=== PATIENT | male | born 1940 | race Caucasian/White ===

== ENCOUNTER 2016-12-19 05:32 | Day surgery (SDC) | payer MEDICARE, OTHER ==
[~2016-12-19] VITALS: Ht 180.3 cm; Wt 105.2 kg
[~2016-12-19 05:32] MED LIST: ALBU8.5H2 IH; ASPI-973 PO; Clindamycin 600 mg/50 mL D5W IV ONE; ENAL20TA PO; FURO-128 PO; ISOS30TA4 PO; LEVO50TA6 PO; LIP40 PO; Lactated Ringer's 1,000 ML IV SCH; METO-274 PO; PRAM0.5T3 PO; PRE20 PO; RANI150C4 PO; SPIR25TA3 PO; SYMINH IH; TIOT18CA3 IH
[2016-12-19] MEDS ORDERED: Ondansetron 2 mg/mL 2 mL Inj ONE (05:33)
[2016-12-19] MEDS ORDERED: Propofol 10,000 mCg/mL 20 mL Inj ONE (05:33)
[2016-12-19] MEDS ORDERED: MetoCLOpramide 5 mg/mL 2 mL Inj ONE (05:33)
[2016-12-19] MEDS ORDERED: Clindamycin 600 mg/50 mL D5W Premix IV ONE (05:40)
[2016-12-19] MEDS ORDERED: Lactated Ringer's 1,000 ML IV ONE (05:54)
[2016-12-19 05:55] VITALS: BP 99/49; PULSE 69; RESP 22; O2SAT 94
--- NOTE | 2016-12-19 07:22 | PCM.HPANE ---
Patient Data Surgeon Admitting Provider: Attending Provider:Nick Fine MD Primary Care Physician:Asha Garcia MD Other Provider:[facility] Anesthesia Reason for Visit Lung Cancer, Esophageal Cancer Ht/WT & BMI Height (Feet): 5 Height (Inches): 11.00 Weight (Kilograms): 105.230 Body Mass Index 32.00 Allergies Coded Allergies: Penicillins (Verified Allergy, Severe, Rash, 11/19/16) amiodarone (Verified Allergy, Mild, 11/19/16) codeine (Verified Adverse Reaction, Mild, Nausea, 11/19/16) Past Anesthesia History Anesthesia History: Denies:: Abnormal Airway, Anesthesia Reactions, Difficult Intubation, Fam Anesthesia Reaction, Malignant Hyperthermia Diabetes History Hx Diabetes?: No MRSA MRSA: No Medications Blood Thinner: Aspirin, Coumadin Hypertension Medication: Yes Home Meds Incl Beta Ines: Yes (METOPROLOL) Date Beta Ines Taken: Dec 19, 2016 Time Beta Ines Taken: 444 Reported Medications Ranitidine 150 Mg CapsuleUnknown Dose PO ASDIRECTED Ref 0 11/15/16 Prednisone (PredniSONE)20 Mg Nilhzw29 Mg PO DAILY Ref 0 Titrating down - currently on Prednisone 15mg PO for 2 weeks than changes to 10mg PO until 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 11/07/16 Furosemide (Lasix)40 Mg Uxowcs65 Mg PO prn 30 Days Ref 0 11/07/16 Isosorbide MN ER 30 Mg Tab.er.24h30 Mg PO DAILY at 7:30am. 03/24/15 Metoprolol Succinate ER 100 Mg Tab.er.90y137 Mg PO DAILY 03/24/15 Budesonide/Formoterol 160-4.5 mcg Inh (Symbicort 160-4.5 mcg Inh)1 Puff Inha2 Puff IH BID 03/06/15 Levothyroxine 50 Mcg Qplcts63 Mcg PO DAILY 03/06/15 Spironolactone 25 Mg Odnkmj64 Mg PO DAILY 03/06/15 Pramipexole Dihydrochloride (Mirapex)0.5 Mg Tablet0.5 Mg PO HS 03/06/15 Atorvastatin (Lipitor)40 Mg Kbqeky33 Mg PO HS 03/06/15 Enalapril Maleate 20 Mg Lffifs71 Mg PO DAILY 03/06/15 Aspirin 81 Mg Tablet.dr81 Mg PO DAILY 03/06/15 Tiotropium [place] (Spiriva)18 Mcg Cap.w.dev1 Mcg IH DAILY 03/06/15 Albuterol HFA (Proair HFA)8.5 Gm Hfa.aer.ad2 Puffs IH Q4 PRN For Shortness of Breath 03/06/15 History History of ENT Problems?: No HEENT History: Positive for:: Cataracts (cataracts both eyes) Hearing Problem (hearing aids not in) Denies:: Abnormal Airway Difficult Intubation Dysphagia Sinus Problem Hx of Heart Problems?: Yes Cardiovascular History: Positive for:: AICD Atrial Fibrillation Cardiac Surgery (cabg) Chest Pain Congestive Heart Failure Edema (pDEAL DUE TO CHF) Heart Murmur (MV rep.) Hypertension Irregular Heartbeat (A. fib) Pacemaker Denies:: Thrombophlebitis Valvular Heart Disease (echo 09/2016) Hx of Respiratory Problem?: Yes Respiratory History: Positive for:: COPD Dyspnea Emphysema Pneumonia (in last year) Use of C-PAP Machine Use of Inhalers / NEBS Denies:: Asthma Chest Surgery Hemoptysis Oxygen Administration Tuberculosis Other Resp Pertinent History: Lung ca stage 2 Hx Neurologic Problems?: No Neurological History: Denies:: CVA Multiple Sclerosis Parkinson's Disease Seizures Hx of GI Problems?: Yes Gastrointestinal History: Positive for:: Gastroesphageal Reflux Heartburn Hiatal Hernia Denies:: Diverticulitis Gastrointestinal Bleeding Hepatitis Rectal Bleeding Other GI Pertinent History: esophageal ca Hx of Problems?: No Genitourinary History: Denies:: Kidney Stones Urinary Tract Infection Male Hx: Denies:: Prostate Problems Scrotal Mass Testicular Surgery Skin History: Denies:: History Skin Disorders? Pressure Ulcers Hx Musculoskeletal Problems?: No Musculoskeletal History: Positive for:: Back Injury Denies:: Joint Replacement Musculoskeletal Trauma Hx of Psycho/Social Problems?: No Hx Surgeries?: Yes Hx Any Other Health Problems?: Yes Other History: Positive for:: Cancer (esophageal/lung) Hospitalization Denies:: Thyroid Disease History Blood Transfusions: Denies:: Blood Transfuse Reaction Blood Transfusions Hx Diabetes: No Hx Alcohol Use: Yes (rare)Hx Substance Use: No Smoking Status: Current Every Day Smoker Have You Smoked inLast 12 mo: No Stop/Bang Treated for Sleep Apnea?: Yes Do You Have a CPAP Machine?: Yes S-Snoring: Do You Snore Loudly: Yes T-Tired: feel tired, fatigued: Yes O-Obsered: Observed not breath: Yes P-Blood Pressure: treated: Yes B- Body Mass Index > 35 kg/m2: No A- Age over 50: Yes N- Neck Large Circumference: No G- Gender Male: Yes SWEETIE Total Score: 6 SWEETIE Risk Assessment: High Risk, =/>3 Yes Risk Assessment Category Category 1A: Patient has history of documented sleep apnea, and HAS NOT received any narcotic, sedative or anesthesia administration during this stay. Category 1B: Patient has history of documented sleep apnea, and HAS received any narcotic , sedative or anesthesia administration during this stay Category 2: Patient has SUSPECTED Obstructive Sleep Apnea, and HAS received any narcotic , sedative or anesthesia administration during this stay. Category 3: Patient has SUSPECTED Obstructive Sleep Apnea and HAS NOT received narcotic, sedative or anesthesia administration during this stay. Category 4: Outpatient in Procedural Areas with known sleep apnea or who screen positive for High Risk via the STOP/BANG questionnaire. Exam Exam Vital Signs Vital Signs Date Time Temp Pulse Resp B/P Pulse Ox O2 Delivery O2 Flow Rate FiO2 12/19/16 05:55 35.9 69 22 99/49 94 Room Air General Appearance: Oriented X3 HEENT/AIRWAY: MP 2 Lungs: Normal Air Movement Heart: Regular Rate/Rhythm Meds/Labs/Diagnostics Admission Meds Current Medications Lactated Ringer's (Lr) 1,000 ml @ ud STK-MED ONCE IV Last administered on 12/19t 05:54; Start 12/19/16 at 05:54; Stop 12/19/16 at 05:55; Status DC Plan Impression Patient chart reviewed, patient interviewed and anesthestic plan with risks, benefits, and alternatives discussed, and informed consent obtained. NPO Status: 12/18@2100, PILLS THIS AM ASA Physical Status: ASA4 Life Threatening Anesthetic Plan: MAC Bene/Risks/Altern/Consents: Yes HP Complete Prior to Induction: Yes Israel Quiñonez MD Dec 19, 2016 07:22
[2016-12-19] MEDS ORDERED: HepLOK Flush 100 unit/mL 5 mL Inj IVFLUSH ONE ×2 (08:00)
[2016-12-19] MEDS ORDERED: Lidocaine PF 1% 30 mL Inj INFILTRATE ONE (08:00)
[2016-12-19] MEDS ORDERED: Bupivacaine-MPF 0.5% W/EPI 30 mL Inj INFILTRATE ONE (08:00)
[2016-12-19] MEDS ORDERED: Lactated Ringer's 1,000 ML IV SCH (08:06)
[2016-12-19] MEDS ORDERED: Lactated Ringer's 500 ML IV PRN (08:06)
[2016-12-19] MEDS ORDERED: MetoCLOpramide 5 mg/mL 2 mL Inj IVPUSH PRN (08:10)
[2016-12-19] MEDS ORDERED: EPHEDrine Sulfate 50 mg/mL Inj IVPUSH PRN (08:10)
[2016-12-19] MEDS ORDERED: Dexamethasone 4 mg/mL Inj IVPUSH PRN (08:10)
[2016-12-19] MEDS ORDERED: fentaNYL-PF 50 mCg/mL 2 mL Inj IVPUSH PRN (08:10)
[2016-12-19] MEDS ORDERED: Ondansetron 2 mg/mL 2 mL Inj IVPUSH PRN (08:10)
[2016-12-19] MEDS ORDERED: Phenylephrine 10,000 mCg/mL Inj IVPUSH PRN (08:10)
[2016-12-19] MEDS ORDERED: Labetalol 5 mg/mL 4 mL Inj IV PRN (08:10)
[2016-12-19] MEDS ORDERED: HYDROmorphone 1 mg/mL Inj IVPUSH PRN (08:10)
[2016-12-19] MEDS ORDERED: HYDROcodone-APAP 5-325 mg Tablet PO PRN (08:35)
[2016-12-19 08:41] VITALS: BP 97/52; PULSE 70; RESP 20; O2SAT 93
--- NOTE | 2016-12-19 08:48 | OP ---
[address] [address] OPERATIVE REPORT PATIENT: ANIA LIM : 1940 MR#: [id number] ADMIT: 12/19/2016 JOB ID: [id number] DATE OF SURGERY: 12/19/2016 ANESTHESIA: MAC with local. PREOPERATIVE DIAGNOSIS(ES): Lung and esophageal cancer. POSTOPERATIVE DIAGNOSIS(ES): Lung and esophageal cancer. OPERATIVE PROCEDURE: Insertion of right internal jugular vein Port-A-Cath using both ultrasound and fluoroscopy with interpretation. SURGEON: Dr. Nick Fine. VALVE FITTER: Arya Jin MS3 COMPLICATIONS: None. ESTIMATED BLOOD LOSS: Minimal. SPECIMEN: None. FINDINGS: A regular Profile Port-A-Cath was inserted into the right internal jugular without complication. INDICATIONS/SIGNIFICANT HISTORY: The patient is a 76-year-old man with a recent diagnosis of lung cancer as well as esophageal cancer who is scheduled to begin chemotherapy in the near future. OPERATIVE TECHNIQUE: The patient was taken to the operating, placed supine position. Light sedation was administered and perioperative antibiotics were given. The neck and chest were prepped and draped in a standard surgical fashion. A procedural pause was performed. The patient placed in Trendelenburg and the right internal jugular vein was visualized using ultrasound. This was accessed with a needle. A wire was inserted. Position was confirmed with fluoroscopy. The wire was visualized running through the heart and into the inferior vena cava. Local anesthetic injected followed by creation of a subcutaneous pocket in the right anterior chest. The Port-A-Cath was secured in place using three 2-0 Prolene sutures. The catheter was tunneled up to the wire exit point and then inserted into the vein using the Seldinger technique under fluoroscopic visualization. Good final position was confirmed. The port aspirated and flushed nicely. This was locked with heparin. The skin was closed using 3-0 Vicryl deep dermals followed by a running 4-0 Monocryl. Dermabond was applied. The entire procedure was well tolerated without complication.
--- NOTE | 2016-12-19 09:11 | PCM.ANEP2 ---
Post Anesthesia Evaluation ASA/CMS Post Anesthesia VS in Patient's Normal Range?: Yes Resp Stable; Airway Patent?: Yes CV Function & Hydration Stable: Yes Mental Status Recovered?: Yes Pain control Satisfactory?: Yes N/V Control Satisfactory?: Yes Israel Quiñonez MD Dec 19, 2016 09:11
--- NOTE | 2016-12-19 09:11 | PCM.ANEP1 ---
Post Anesthesia Phase 1 PACU Phase 1 Assessment Vital Signs Vital Signs Date Time Temp Pulse Resp B/P Pulse Ox O2 Delivery O2 Flow Rate FiO2 12/19/16 08:41 36.5 70 20 97/52 93 Room Air 12/19/16 05:55 35.9 69 22 99/49 94 Room Air Anesthetic Administered: MAC Level of Alertness: Awake, talking Pain: No Nausea or Vomiting: No Oxygen Delivery: Room Air Lungs: Normal Air Movement Israel Quiñonez MD Dec 19, 2016 09:11
[2016-12-19 09:43] VITALS: BP 110/52; PULSE 72; RESP 16; O2SAT 96
--- NOTE | 2016-12-19 10:34 | DRSVH ---
PROCEDURE: X-RAY CHEST ONE VIEW, PORTABLE ([id number]) INDICATIONS: PORT TECHNIQUE: One view of the chest was acquired. COMPARISON: [facility], CR, XR CHEST 1VW (PORTABLE), 11/19/2016, 12:33. FINDINGS: Surgical changes and devices: Left chest wall AICD is stable. Right chest wall Port-A-Cath is in plac e. Tip of Port-A-Cath projects over the distal SVC. Lungs and pleura: No pleural effusions or pneumothorax. Lungs are clear. Mediastinum: Mediastinal contours appear normal. Heart size is normal. Bones and chest wall: No suspicious bony lesions. Overlying soft tissues appear unremarkable. IMPRESSION: Status post placement of right chest wall Port-A-Cath with catheter tip projected over th e distal SVC. Dictated by: Elham Ribeiro MD, PhD on 12/19/2016 at 10:32 Approved by: Elham Ribeiro MD, PhD on 12/19/2016 at 10:33
[2017-01-01] MEDS ORDERED: PRE20 PO (15:05)
[2017-01-01] MEDS ORDERED: ALBU1.25 INHALATION (15:05)
[2017-01-01] MEDS ORDERED: ISOS30TA8 PO (15:05)
[2017-01-01] MEDS ORDERED: LEVO75TA4 PO (15:05)
[2017-01-27] MEDS ORDERED: WARF1TAB6 PO (10:53)
== END 2016-12-19 23:59 | disposition home or self-care (01) ==
LOC: SAS 05:32
PROVIDERS: ATTEND General Practice
DX: C15.5 Malignant neoplasm of lower third of esophagus (principal); C34.31 Malignant neoplasm of lower lobe, right bronchus or lung; I10 Essential (primary) hypertension; I48.91 Unspecified atrial fibrillation; I50.9 Heart failure, unspecified; R60.9 Edema, unspecified; K44.9 Diaphragmatic hernia without obstruction or gangrene; L21.9 Seborrheic dermatitis, unspecified; R12 Heartburn; F17.210 Nicotine dependence, cigarettes, uncomplicated; Z79.82 Long term (current) use of aspirin; Z79.899 Other long term (current) drug therapy
CPT/HCPCS: 36561; 71010; 77001; C1788; J1642; J2405; J2765; J7120

== ENCOUNTER 2017-01-02 10:08 | Day surgery (SDC) | payer MEDICARE, OTHER ==
[2017-01-02] VITALS (8 sets, daily range): BP systolic 84–98; BP diastolic 51–58; PULSE 65–78; RESP 15–18; O2SAT 90–100
[~2017-01-02] VITALS: Ht 182.9 cm; Wt 104.0 kg
--- NOTE | 2017-01-02 07:08 | PCM.HPANE ---
Patient Data Surgeon Admitting Provider: Attending Provider:Layla Perea MD Primary Care Physician:Asha Garcia MD Other Provider:Elizabet Lopezingham Anesthesia Reason for Visit Disease Of Esophagus Ht/WT & BMI Body Mass Index Allergies Coded Allergies: Penicillins (Verified Allergy, Severe, Rash, 01/02/17) amiodarone (Verified Allergy, Mild, 01/02/17) codeine (Verified Adverse Reaction, Mild, Nausea, 01/02/17) Past Anesthesia History Anesthesia History: Denies:: Abnormal Airway, Anesthesia Reactions, Difficult Intubation, Fam Anesthesia Reaction, Malignant Hyperthermia Diabetes History Hx Diabetes?: No MRSA MRSA: No Medications Blood Thinner: Aspirin, Coumadin Reported Medications Levothyroxine 75 Mcg Frafbx50 Mcg PO DAILY Ref 0 01/01/17 Isosorbide DN 30 Mg Ydsity54 Mg PO DAILY Ref 0 01/01/17 Albuterol Neb Soln 1.25 Mg/3 Ml Vial.neb1.25 Mg INHALATION BID Ref 0 01/01/17 Ranitidine 150 Mg U[place]226 Mg PO HS Ref 0 11/15/16 Furosemide (Lasix)40 Mg Kvqmqp31 Mg PO prn 30 Days Ref 0 11/07/16 Metoprolol Succinate ER 100 Mg Tab.er.74z303 Mg PO DAILY 03/24/15 Budesonide/Formoterol 160-4.5 mcg Inh (Symbicort 160-4.5 mcg Inh)1 Puff Inha2 Puff IH BID 03/06/15 Spironolactone 25 Mg Tntbmk52.5 Mg PO DAILY 03/06/15 Pramipexole Dihydrochloride (Mirapex)0.5 Mg Tablet0.5 Mg PO HS 03/06/15 Atorvastatin (Lipitor)40 Mg Hdtdzl23 Mg PO HS 03/06/15 Enalapril Maleate 20 Mg Hbitee94 Mg PO BID 03/06/15 Aspirin 81 Mg Tablet.dr81 Mg PO DAILY 03/06/15 Tiotropium [place] (Spiriva)18 Mcg Cap.w.dev1 Mcg IH DAILY 03/06/15 Albuterol HFA (Proair HFA)8.5 Gm Hfa.aer.ad2 Puffs IH Q4 PRN For Shortness of Breath 03/06/15 Discontinued Reported Medications Prednisone (PredniSONE)20 Mg Aunwht80 Mg PO DAILY Ref 0 01/01/17 Isosorbide MN ER 30 Mg Tab.er.24h30 Mg PO DAILY at 7:30am. 03/24/15 Levothyroxine 50 Mcg Nywntx18 Mcg PO DAILY 03/06/15 History History of ENT Problems?: No HEENT History: Positive for:: Cataracts (cataracts both eyes) Hearing Problem (hearing aids not in) Denies:: Abnormal Airway Difficult Intubation Dysphagia Sinus Problem Hx of Heart Problems?: Yes Cardiovascular History: Positive for:: AICD Atrial Fibrillation Cardiac Surgery (cabg) Chest Pain Congestive Heart Failure Edema (pDEAL DUE TO CHF) Heart Murmur (MV rep.) Hypertension Irregular Heartbeat (A. fib) Pacemaker Denies:: Thrombophlebitis Valvular Heart Disease (echo 09/2016) Other Cardiac History: pulmonary hypertension Hx of Respiratory Problem?: Yes Respiratory History: Positive for:: COPD Dyspnea Emphysema Pneumonia (in last year) Use of C-PAP Machine Denies:: Asthma Chest Surgery Hemoptysis Oxygen Administration Tuberculosis Other Resp Pertinent History: interstitial avtar disease Hx Neurologic Problems?: No Neurological History: Denies:: CVA Multiple Sclerosis Parkinson's Disease Seizures Hx of GI Problems?: Yes Gastrointestinal History: Positive for:: Gastroesphageal Reflux Heartburn Hiatal Hernia Denies:: Diverticulitis Gastrointestinal Bleeding Hepatitis Rectal Bleeding Hx of Problems?: No Genitourinary History: Denies:: Kidney Stones Urinary Tract Infection Male Hx: Denies:: Prostate Problems Scrotal Mass Testicular Surgery Skin History: Denies:: History Skin Disorders? Pressure Ulcers Hx Musculoskeletal Problems?: No Musculoskeletal History: Positive for:: Back Injury Denies:: Joint Replacement Musculoskeletal Trauma Hx of Psycho/Social Problems?: No Hx Surgeries?: Yes Hx Any Other Health Problems?: Yes Other History: Positive for:: Cancer (esophageal/lung) Hospitalization Denies:: Thyroid Disease History Blood Transfusions: Denies:: Blood Transfuse Reaction Blood Transfusions Hx Diabetes: No Hx Alcohol Use: Yes (rare)Hx Substance Use: NoHave You Smoked inLast 12 mo: No Stop/Bang Risk Assessment Category Category 1A: Patient has history of documented sleep apnea, and HAS NOT received any narcotic, sedative or anesthesia administration during this stay. Category 1B: Patient has history of documented sleep apnea, and HAS received any narcotic , sedative or anesthesia administration during this stay Category 2: Patient has SUSPECTED Obstructive Sleep Apnea, and HAS received any narcotic , sedative or anesthesia administration during this stay. Category 3: Patient has SUSPECTED Obstructive Sleep Apnea and HAS NOT received narcotic, sedative or anesthesia administration during this stay. Category 4: Outpatient in Procedural Areas with known sleep apnea or who screen positive for High Risk via the STOP/BANG questionnaire. Exam Exam General Appearance: Alert, Oriented X3, Cooperative, No Acute Distress HEENT/AIRWAY: MP 2 Lungs: Coarse, Rhonchorus Heart: No Murmurs/Rubs/Gallops Plan Impression Patient chart reviewed, patient interviewed and anesthestic plan with risks, benefits, and alternatives discussed, and informed consent obtained. NPO Status: 12/18@2100, PILLS THIS AM ASA Physical Status: ASA3 Severe Disease Anesthetic Plan: MAC Bene/Risks/Altern/Consents: Yes HP Complete Prior to Induction: Yes Joshua Vincent MD Jan 02, 2017 07:08
[~2017-01-02 10:08] MED LIST changes: +ALBU1.25 INHALATION; -Clindamycin 600 mg/50 mL D5W IV ONE; -ISOS30TA4 PO; +ISOS30TA8 PO; -LEVO50TA6 PO; +LEVO75TA4 PO; +Lactated Ringer's 1,000 ML IV ONE; -Lactated Ringer's 1,000 ML IV SCH
[2017-01-02] MEDS ORDERED: Propofol 10,000 mCg/mL 20 mL Inj ONE (10:09)
[2017-01-02] MEDS ORDERED: Ondansetron 2 mg/mL 2 mL Inj IVPUSH ONE (10:35)
[2017-01-02] MEDS ORDERED: Lactated Ringer's 1,000 ML IV SCH (11:22)
--- NOTE | 2017-01-02 11:22 | PCM.ANEP1 ---
Post Anesthesia Phase 1 PACU Phase 1 Assessment Vital Signs Vital Signs Date Time Temp Pulse Resp B/P Pulse Ox O2 Delivery O2 Flow Rate FiO2 01/02/17 10:25 35.9 76 18 98/51 90 Room Air Anesthetic Administered: MAC Level of Alertness: Awake, talking RENEE's with Equal Strength: Yes Pain: No Nausea or Vomiting: No Lungs: Coarse, Rhonchorus Joshua Vincent MD Jan 02, 2017 11:22
--- NOTE | 2017-01-02 11:23 | PCM.ANEP2 ---
Post Anesthesia Evaluation ASA/CMS Post Anesthesia VS in Patient's Normal Range?: Yes Resp Stable; Airway Patent?: Yes CV Function & Hydration Stable: Yes Mental Status Recovered?: Yes Pain control Satisfactory?: Yes N/V Control Satisfactory?: Yes Joshua Vincent MD Jan 02, 2017 11:23
[2017-01-02] MEDS ORDERED: MetoCLOpramide 5 mg/mL 2 mL Inj IVPUSH PRN (11:25)
[2017-01-02] MEDS ORDERED: Ondansetron 2 mg/mL 2 mL Inj IVPUSH PRN (11:25)
--- NOTE | 2017-01-02 12:12 | ENDO ---
[address] [address] ENDOSCOPY PROCEDURE PATIENT: ANIA LIM : 1940 MR#: [id number] ADMIT: 01/02/2017 JOB ID: [id number] DATE OF SERVICE: 01/02/2017 PROCEDURE PERFORMED: Endoscopic ultrasound. INDICATION: The patient with known esophageal cancer in the distal esophagus. He has had a recent CT chest and abdomen on December 20 which showed thickening of the distal esophagus. He also has mediastinal and right hilar lymphadenopathy. EUS today is being performed for staging. Please see anesthesia report for details regarding ASA classification, Mallampati score, and medications. INSTRUMENTS USED: [id number], as well as a [id number]-[id number] radial echoendoscope. PROCEDURE DETAILS: After informed consent was obtained, the patient was brought into the GI suite, where he was placed on oxygen via nasal cannula and monitored with continuous pulse oximeter, telemetry, and blood pressure monitoring. A time-out was performed. Then, he was placed in the left lateral decubitus position, and medications were administered for sedation. A bite block was placed. A standard EGD scope was inserted through the bite block and advanced under direct visualization to the distal stomach. Retroflexed views in the gastric body revealed normal appearing fundus. However, a hiatal hernia was noted within the hiatal hernia. I did visualize the esophageal tumor. The diaphragmatic hiatus was at approximately 43 cm. The GE junction was at 40 cm, and the tumor was arising from the GE junction extending into the hiatal hernia. The remainder of the esophagus otherwise appeared unremarkable. There was no resistance encountered as we advanced the scope beyond the tumor. We then removed the EGD scope and inserted the radial echoendoscope to the distal esophagus. Radial echoendoscope imaging demonstrated the following: An approximately 2.1 x 1 cm hypoechoic tumor. On several views, the tumor did appear to be invading the muscularis propria. Adjacent to this, I did appreciate a 5 mm x 5 mm, well-circumscribed lymph node. I was unable to advance the scope into the duodenum to be able to examine the celiac access. Despite the application of abdominal pressure and position change, I was unable to advance the scope into the duodenum. IMPRESSION: T2 N1 esophageal cancer in the distal esophagus. Study was incomplete, as I was unable to advance the echoendoscope into the duodenum to be able to evaluate the celiac axis. RECOMMENDATIONS: Follow up with Dr. Wang. COMPLICATIONS: None. ESTIMATED BLOOD LOSS: Less than 5 mL.
[2017-01-27] MEDS ORDERED: WARF1TAB6 PO (10:53)
== END 2017-01-02 23:59 | disposition home or self-care (01) ==
LOC: END 10:08
PROVIDERS: ATTEND Internal Medicine Gastroenterology
DX: C15.9 Malignant neoplasm of esophagus, unspecified (principal); K44.9 Diaphragmatic hernia without obstruction or gangrene; C34.91 Malignant neoplasm of unspecified part of right bronchus or lung; J84.9 Interstitial pulmonary disease, unspecified; I25.10 Atherosclerotic heart disease of native coronary artery without angina pectoris; I48.2 Chronic atrial fibrillation; G47.33 Obstructive sleep apnea (adult) (pediatric); I27.2 Other secondary pulmonary hypertension; K21.9 Gastro-esophageal reflux disease without esophagitis; I45.10 Unspecified right bundle-branch block; E78.5 Hyperlipidemia, unspecified; J44.9 Chronic obstructive pulmonary disease, unspecified; Z95.1 Presence of aortocoronary bypass graft; Z95.0 Presence of cardiac pacemaker; Z99.81 Dependence on supplemental oxygen; Z87.891 Personal history of nicotine dependence; Z79.82 Long term (current) use of aspirin; Z79.4 Long term (current) use of insulin
CPT/HCPCS: 43237; J2250; J2405; J7120

== ENCOUNTER 2017-01-07 11:14 | Inpatient (IN) | payer MEDICARE, OTHER ==
[2017-01-07] VITALS (9 sets, daily range): BP systolic 95–142; BP diastolic 47–76; PULSE 65–83; RESP 16–22; O2SAT 95–100
[~2017-01-07] VITALS: Ht 182.9 cm; Wt 110.5 kg
[~2017-01-07 11:14] MED LIST changes: -Lactated Ringer's 1,000 ML IV ONE; -PRE20 PO; +Vancomycin Dose per Pharmacist XX ONE
--- NOTE | 2017-01-07 11:36 | ED.REPORT ---
HPI-General Illness Date of Service Jan 07, 2017 ED Provider: Trae Churchill DO 76 year old male with distal esophageal cancer, on chemotherapy and radiation therapy for 1 week presents to the ER complaining of subjective fever, chills and fatigue. Associated symptoms include shortness of breath, productive cough with clear sputum, and 3-4 days of dark colored urine. He also reports bilateral ankle swelling two days ago, resolved by taking furosemide. Expresses concern for recently noted elevated bilirubin and liver enzymes. Patient was referred by his Oncologist, Dr. Wang, who requests that patient is worked up for sepsis and admitted. also reports that patient has been off his blood thinners for the last month. Other pertinent history includes CHF, diabetes, CAD , COPD, and HTN. Nursing Notes Stated Complaint: ELEVATED BILIRUBIN Chief Complaint: General Complaint Nursing Notes Reviewed: Yes Allergies: Coded Allergies: Penicillins (Verified Allergy, Severe, Rash, 01/02/17) amiodarone (Verified Allergy, Mild, 01/02/17) codeine (Verified Adverse Reaction, Mild, Nausea, 01/02/17) Scheduled Albuterol Neb Soln (Albuterol Neb Soln) 1.25 Mg/3 Ml Vial.neb 1.25 MG INHALATION BID Aspirin (Aspirin) 81 Mg Tablet.dr 81 MG PO DAILY Atorvastatin (Lipitor) 40 Mg Tablet 20 MG PO HS Budesonide/Formoterol 160-4.5 mcg Inh (Symbicort 160-4.5 mcg Inh) 1 Puff Inha 2 PUFF IH BID Enalapril Maleate (Enalapril Maleate) 20 Mg Tablet 10 MG PO BID Furosemide (Lasix) 40 Mg Tablet 20 MG PO prn Isosorbide DN (Isosorbide DN) 30 Mg Tablet 15 MG PO DAILY Levothyroxine (Levothyroxine) 75 Mcg Tablet 75 MCG PO DAILY Metoprolol Succinate ER (Metoprolol Succinate ER) 100 Mg Tab.er.24h 150 MG PO DAILY Pramipexole Dihydrochloride (Mirapex) 0.5 Mg Tablet 0.5 MG PO HS Ranitidine (Ranitidine) 150 Mg Capsule 150 MG PO HS Spironolactone (Spironolactone) 25 Mg Tablet 12.5 MG PO DAILY Tiotropium [place] (Spiriva) 18 Mcg Cap.w.dev 1 MCG IH DAILY Scheduled PRN Albuterol HFA (Proair HFA) 8.5 Gm Hfa.aer.ad 2 PUFFS IH Q4 PRN PRN For Shortness of Breath General Time Seen by MD: 11:34 Chief Complaint Fever Hx Obtained From: Patient, Spouse Arrived By: Walk-in Sudden in Onset?: No Onset Occurred: 1 week ago Symptom Duration: Since onset Associated with: Reports: Cough, Shortness of breath Additional Notes: Dark urine Context Related History: Reports Cancer, Reports Coronary artery disease, Reports Diabetes mellitus Recent Healthcare: Recent doctor visit Past Medical History Past Medical History Hiatal hernia Sleep apnea on CPAP Heart murmur AWMI Mild acute kidney injury on CKD stage III Emphysema Reports: Asthma, COPD, Cancer (distal esophageal), Congestive heart failure, Coronary artery disease, Diabetes mellitus, Hyperlipidemia, Hypertension Past Surgical History Mitral valve repair Reports: CABG Reports: Pacemaker insertion Smoking History Current Every Day Smoker Social History Alcohol Use: Denies alcohol use Drug Use: Denies drug use Review of Systems +Dark Urine Full Review of Systems Constitutional: Reports: Chills, Fatigue, Fever Respiratory: Reports: Prod cough, clear, Shortness of breath, Denies: Hemoptysis GI: Denies: Constipation, Diarrhea, Nausea, Vomiting Neurologic: Denies: Headache Complete sys rev & neg: except as marked. Physical Exam Vital Signs Vital Signs Date Time Temp Pulse Resp B/P Pulse Ox O2 Delivery O2 Flow Rate FiO2 01/07/17 12:31 71 21 95/47 97 01/07/17 12:23 70 20 96 Nasal Cannula 2 01/07/17 11:20 36.1 65 16 97/54 96 Room Air Initial VS: Reviewed Head / Eyes: Atraumatic, Normocephalic Neck: Supple, Non-tender, Full range of motion Extremities: Vascular intact, Neuro intact, No swelling, No tenderness Skin: Warm, Dry, No cyanosis Neurologic: Alert, Oriented, Nonfocal Psychiatric: Mood/affect normal, Behavior normal, Normal thought content General/Constitutional: Awake, Alert, Well developed, Well nourished Respiratory / Chest: No rales, No rhonchi Wheezing / Retractions: Positive: Wheezing expiratory (bilaterally), Wheezing severe Cardiovascular: Heart rate NL, Regular rhythm, Heart sounds NL, Cap refill not delayed, Peripheral circulation NL Interpretation & Diagnostics Lab Results Interpretation Result Diagram: 01/07/17 1215 01/07/17 1215 Test 01/07/17 12:15 White Blood Count 3.0th/mm3 (3.8-10.1) Red Blood Count 3.65mil/mm3 (4.40-5.80) Hemoglobin 9.3g/dL (13.8-17.2) Hematocrit 30.2% (41.0-50.0) Mean Corpuscular Volume 82.7fL (81-100) Mean Corpuscular Hemoglobin 25.5pg (27.0-35.0) Mean Corpuscular Hemoglobin Concent 30.8% (32.0-37.0) Red Cell Distribution Width 16.3% (12.3-15.4) Platelet Count 132bil/L (150-400) Neutrophils (%) (Auto) 81.3% (40-74) Lymphocytes (%) (Auto) 8.0% (14-46) Monocytes (%) (Auto) 5.7% (4-12) Eosinophils (%) (Auto) 2.0% (0-5) Basophils (%) (Auto) 1.0% (0-3) Sodium Level 133mEq/L (134-144) Potassium Level 4.3mEq/L (3.5-5.2) Chloride Level 99mEq/L (97-108) Carbon Dioxide Level 22mmol/L (18-29) Blood Urea Nitrogen 20mg/dL (8-27) Creatinine 1.58mg/dL (0.76-1.27) Estimat Glomerular Filtration Rate 45mL/min (>59) Glucose Level 120mg/dL (60-99) Lactic Acid Level 1.2mmol/L (0.4-2.0) Calcium Level 8.2mg/dL (8.5-10.1) Magnesium Level 1.8mg/dL (1.6-2.6) Total Bilirubin 2.6mg/dL (0.0-1.2) Aspartate Amino Transf (AST/SGOT) 59U/L (0-50) Alanine Aminotransferase (ALT/SGPT) 59U/L (0-44) Alkaline Phosphatase 195U/L (25-160) Troponin T < 0.010ug/L (0.0-0.011) Pro-B-Type Natriuretic Peptide 6492pg/mL (0-486) Total Protein 6.0g/dL (6.4-8.4) Albumin 3.1g/dL (3.4-5.0) Procalcitonin 0.31ng/mL (0.00-0.08) ECG Interpretation ECG Interpretation: Paced rhythm Unchanged from prior ECG 03/24/2015 Time: 12:27 Interpreted by: ED physician X-Ray Chest Interpretation Chest Xray Interpretation: IMPRESSION: 1. Postoperative changes. 2. Possible developing pneumonitis base of the right upper lobe. Dictated by: Segundo Dey M.D. on 01/07/2017 at 12:14 Approved by: Segundo Dey M.D. on 01/07/2017 at 12:15 View: AP & lat Interpretation / Wet Read by: Interpret - Radiologist CT Abd / Pelvis Interpretation IMPRESSION: Distal esophageal wall thickening (potentially representing the patient's given clinical history of esophageal carcinoma) and or small hiatal hernia. Recommend clinical correlation Trace left pleural effusion. Bibasilar patchy consolidative and groundglass opacities probably interstitial disease. This is probably unchanged since 12/20/16. Recommend clinical correlation to exclude superimposed infectious/inflammatory process Slightly masslike/rounded appearance posterior consolidation in the posterior right lower lobe warrants continued followup to exclude pulmonary metastatic disease. It is grossly unchanged since 12/20/16 although internal decreased attenuation raises the possibility of necrosis or cavitation Elsewhere, no evidence of distant metastatic disease. Dictated by: Misbah Cox M.D. on 01/07/2017 at 13:13 Approved by: Misbah Cox M.D. on 01/07/2017 at 13:24 Study type: Abdominal CT IV contrast Interpretation / Wet Read by: Interpret - Radiologist Re-Eval/Medical Decision Med Decision/Clinical Course Likely pneumonia based on clinical history and findings on x-ray in CAT scan, meets criteria for healthcare associated. Vanco, meropenem, Levaquin given (meropenum due to penicillin allergy). Unclear etiology of LFT elevation, patient seems to have painless jaundice, will need further delineation as an inpatient. Blood pressures have been stable most recently 105 systolic. Will be admitted. Source of Hx: Old records Time of Eval: 11:43 Re-Evaluation/Progress Note: Updated patient on the plan of care and need for admission. Patient is amenable to the plan. All other questions addressed. Time of Eval: 13:39 Re-Evaluation/Progress Note: Discussed lab and radiology results. Consultation : Referral / Consult Name: Aditya Calderon MD Consulted With: Hospitalist Call Returned at: 15:19 Wireless Watcher: Agrees with eval, Agrees with plan, Accepts admit Counseled Regarding: Diagnosis, Lab results, Need for admission Discharge & Departure Primary Impression: Healthcare-associated pneumonia Additional Impression: Esophageal cancer Disposition: ADMITTED TO HOSPITAL Discharge Condition All VS Reviewed: Yes Condition: Stable Referrals: Asha Garcia MD (PCP) Rony Wang MD Attestation Portions of this note were transcribed by Zeke Reyna. I, Dr. Churchill, personally performed the history, physical exam and medical decision-making; I reviewed and confirmed the accuracy of the information in the transcribed note. Signed by: Adalberto Loving, 01/07/2017 and 15:21 copies to: Asha Garcia MD; Rony Wang MD, Timothy S DO Jan 07, 2017 11:36 ZEKE REYNA Jan 07, 2017 11:49
[2017-01-07] MEDS ORDERED: 0.9% Sodium Chloride 1,000 ML IV ONE (11:45)
[2017-01-07] MEDS ORDERED: Albuterol 2.5 mg/3 mL Inhalation Solution NEB ONE (11:45)
--- NOTE | 2017-01-07 12:17 | DRSVH ---
PROCEDURE: X-RAY CHEST, TWO VIEWS ([id number]) INDICATIONS: cough, chills, weakness TECHNIQUE: 2 views of the chest were acquired. COMPARISON: 12/19/2016 FINDINGS: Surgical changes and devices: AICD. Median sternotomy. Right-sided port with tip overlying the SVC. Lungs and pleura: No pleural effusions or pneumothorax. Mild atelectasis or infiltrate right upper l obe bordering on the minor fissure. Remainder of lung appears clear and unchanged.. Mediastinum: Mediastinal contours are normal. Heart size is normal. Bones and chest wall: No suspicious bony abnormalities. Soft tissues appear unremarkable. IMPRESSION: 1. Postoperative changes. 2. Possible developing pneumonitis base of the right upper lobe. Dictated by: Segundo Dey M.D. on 01/07/2017 at 12:14 Approved by: Segundo Dey M.D. on 01/07/2017 at 12:15
[2017-01-07 12:32] LABS: MONOCYTES % (AUTO) 5.7 % (4-12); Mean Corpuscular Hemoglobin 25.5 pg (27.0-35.0); Mean Corpuscular Volume 82.7 fL (81-100); NEUTROPHILS % (AUTO) 81.3 % (40-74); Platelet Count 132 bil/L (150-400)
[2017-01-07 13:13] LABS: Magnesium 1.8 mg/dL (1.6-2.6)
[2017-01-07 13:14] LABS: TROPONIN T < 0.010 ug/L (0.0-0.011)
--- NOTE | 2017-01-07 13:25 | DRSVH ---
PROCEDURE: CT ABDOMEN AND PELVIS WITH CONTRAST ([id number]) INDICATIONS: new onset abnl LFT, active esophageal CA TECHNIQUE: After the administration of intravenous contrast, 5 mm thick sections acquired from the diaphragm to the symphysis. 5 mm coronal and sagittal reformats were acquired. For radiation dose reduction, the following was used: automated exposure control, adjustment of mA and/or kV according to patient lashonda vieyra. COMPARISON: [facility], CT, CT CHEST ABD W CON, 12/20/2016, 14:25. FINDINGS: Image quality: Excellent. ABDOMEN: Lung bases: Patchy dependent bibasilar consolidation and groundglass opacities. Superimposed on this there is a 1.5 cm ovoid masslike appearing or consolidation in the posterior right lower lobe image 6 series 3. There are internal areas of decreased attenuation. Trace left pleural effusion. Thickening of the distal esophageal wall, which is ill-defined. There ma y be a superimposed small hiatal hernia. Heart is enlarged. Solid organs: Liver and spleen are normal in size and enhancement. Gallbladder contracted. Biliary system is non dilated. Pancreas enhances normally. No adrenal nodules. Kidneys demonstrate normal size and enhancement, without hydronephrosis. Mild bilateral renal cortical scarring Peritoneum and bowel: Bowel loops demonstrate normal wall thickness and caliber. No free fluid or a ir. Normal appendix Nodes and vessels: No retroperitoneal or mesenteric adenopathy by size criteria. Aorta and inferior vena cava are normal in size. Miscellaneous: No ventral hernias. PELVIS: Genitourinary: Bladder wall thickness is normal. Miscellaneous: Bilateral fat containing inguinal hernias. Bones: No suspicious bony lesions. No vertebral body compression fractures. Discogenic changes and facet arthropathy. IMPRESSION: Distal esophageal wall thickening (potentially representing the patient's given clinical history of e sophageal carcinoma) and or small hiatal hernia. Recommend clinical correlation Trace left pleural effusion. Bibasilar patchy consolidative and groundglass opacities probably interstitial disease. This is proba nabeel unchanged since 12/20/16. Recommend clinical correlation to exclude superimposed infectious/inflam matory process Slightly masslike/rounded appearance posterior consolidation in the posterior right lower lobe warran ts continued followup to exclude pulmonary metastatic disease. It is grossly unchanged since 12/20/16 although internal decreased attenuation raises the possibility of necrosis or cavitation Elsewhere, no evidence of distant metastatic disease. Dictated by: Misbah Cox M.D. on 01/07/2017 at 13:13 Approved by: Misbah Cox M.D. on 01/07/2017 at 13:24
[2017-01-07] MEDS ORDERED: Meropenem Inj 1,000 MG in IV Premix 1 EACH IV ONE (13:30)
[2017-01-07] MEDS ORDERED: levoFLOXacin Inj 750 MG in IV Premix 1 EACH IV ONE (13:30)
--- NOTE | 2017-01-07 14:12 | PCM.CONPHA ---
Subjective Date of Service: Jan 07, 2017 Reason for Pharmacy Consult: Vancomycin Dosing Objective Vital Signs Date Time Temp Pulse Resp B/P Pulse Ox O2 Delivery O2 Flow Rate FiO2 01/07/17 12:31 71 21 95/47 97 01/07/17 12:23 70 20 96 Nasal Cannula 2 01/07/17 11:20 36.1 65 16 97/54 96 Room Air Weight (Kilograms): 106.36 Height (Feet): 6 Height (Inches): 0 Test 01/07/17 12:15 White Blood Count 3.0th/mm3 (3.8-10.1) Red Blood Count 3.65mil/mm3 (4.40-5.80) Hemoglobin 9.3g/dL (13.8-17.2) Hematocrit 30.2% (41.0-50.0) Mean Corpuscular Volume 82.7fL (81-100) Mean Corpuscular Hemoglobin 25.5pg (27.0-35.0) Mean Corpuscular Hemoglobin Concent 30.8% (32.0-37.0) Red Cell Distribution Width 16.3% (12.3-15.4) Platelet Count 132bil/L (150-400) Neutrophils (%) (Auto) 81.3% (40-74) Lymphocytes (%) (Auto) 8.0% (14-46) Monocytes (%) (Auto) 5.7% (4-12) Eosinophils (%) (Auto) 2.0% (0-5) Basophils (%) (Auto) 1.0% (0-3) Sodium Level 133mEq/L (134-144) Potassium Level 4.3mEq/L (3.5-5.2) Chloride Level 99mEq/L (97-108) Carbon Dioxide Level 22mmol/L (18-29) Blood Urea Nitrogen 20mg/dL (8-27) Creatinine 1.58mg/dL (0.76-1.27) Estimat Glomerular Filtration Rate 45mL/min (>59) Glucose Level 120mg/dL (60-99) Lactic Acid Level 1.2mmol/L (0.4-2.0) Calcium Level 8.2mg/dL (8.5-10.1) Magnesium Level 1.8mg/dL (1.6-2.6) Total Bilirubin 2.6mg/dL (0.0-1.2) Aspartate Amino Transf (AST/SGOT) 59U/L (0-50) Alanine Aminotransferase (ALT/SGPT) 59U/L (0-44) Alkaline Phosphatase 195U/L (25-160) Troponin T < 0.010ug/L (0.0-0.011) Pro-B-Type Natriuretic Peptide 6492pg/mL (0-486) Total Protein 6.0g/dL (6.4-8.4) Albumin 3.1g/dL (3.4-5.0) Procalcitonin 0.31ng/mL (0.00-0.08) Assessment/Plan Assessment/Plan Patient is a 76yo male with possible karma-care associated PNA to receive a dose of IV vancomycin. Patient has distal esophageal CA and received chemo last week. Ht 183cm, wt 106kg. WBC 3, BUN/Scr 20/1.58. Pt also receiving a dose of pip/tazo and levofloxacin. Will give one dose vancomycin 1750 mg IV now. Further orders if IV vanco continued upon admission. Bambi Lane S PharmD Jan 07, 2017 14:12
[2017-01-07] MEDS ORDERED: Vancomycin Inj 1,750 MG in 0.9% Sodium Chloride 500 ML IV ONE (14:15)
[2017-01-07] MEDS ORDERED: 0.9% Sodium Chloride 1,000 ML IV SCH (15:10)
[2017-01-07] MEDS ORDERED: Ondansetron 2 mg/mL 2 mL Inj IVPUSH PRN (15:25)
[2017-01-07] MEDS ORDERED: Alum-Mag Hydrox-Simeth 30 mL Suspension PO PRN ×2 (15:25→15:30)
[2017-01-07] MEDS ORDERED: Albuterol 2.5 mg/3 mL Inhalation Solution NEB PRN (15:30)
--- NOTE | 2017-01-07 15:38 | PCM.HPMED ---
Subjective Date of Service Jan 07, 2017 Primary Provider: Admitting Physician: Primary Care Physician: Asha Garcia MD Attending Physician: Chief Complaint: Short of breath 1 week HISTORY was OBTAINED FROM PATIENT / [facility] NOTES History of present illness 76-year-old man, sent by oncologist w/ new LFT changes/painless jaundice/pneumonia/coughing, dark urine. Associated shivers, unchanged nebulizer use, chronic clear phelgm cough. no thrush. no dysphagia, no GERD. no sore throat, poor urination, poor po intake due to appetite off blood thinners x weeks due to recent EGD, oncologist today indicated resumption of coumadin now chemo last week with radiation last week and today // pending tomorrow s/p his PRN lasix for ankle swelling 2 days ago In ER, abx/ 1L NS albuteroal, 95/47, HR65-71, 2L NC Review of Systems - none of the following - F/[place] / lightheaded / dizziness / acid reflux / n/v/diarrhea / bleeding/bruising / yeast infections / rash ambulates FAMILY HX no asthma SOCIAL HX distant smoker, no etOH MEDICATIONS Albuterol Neb Soln (Albuterol Neb Soln) 1.25 Mg/3 Ml Vial.neb 1.25 MG INHALATION BID Aspirin (Aspirin) 81 Mg Tablet.dr 81 MG PO DAILY Atorvastatin (Lipitor) 40 Mg Tablet 20 MG PO HS Budesonide/Formoterol 160-4.5 mcg Inh (Symbicort 160-4.5 mcg Inh) 1 Puff Inha 2 PUFF IH BID Enalapril Maleate (Enalapril Maleate) 20 Mg Tablet 10 MG PO BID Furosemide (Lasix) 40 Mg Tablet 20 MG PO prn Isosorbide DN (Isosorbide DN) 30 Mg Tablet 15 MG PO DAILY Levothyroxine (Levothyroxine) 75 Mcg Tablet 75 MCG PO DAILY Metoprolol Succinate ER (Metoprolol Succinate ER) 100 Mg Tab.er.24h 150 MG PO DAILY Pramipexole Dihydrochloride (Mirapex) 0.5 Mg Tablet 0.5 MG PO HS Ranitidine (Ranitidine) 150 Mg Capsule 150 MG PO HS Spironolactone (Spironolactone) 25 Mg Tablet 12.5 MG PO DAILY Tiotropium [place] (Spiriva) 18 Mcg Cap.w.dev 1 MCG IH DAILY Scheduled PRN Albuterol HFA (Proair HFA) 8.5 Gm Hfa.aer.ad 2 PUFFS IH Q4 PRN PRN For Shortness of Breath Past Medical/Surgical HX Cataracts Esophageal cancer/dysphasia Hearing deficit CABG/mitral valve repair/congestive heart failure/pacemaker/ICD/atrial fibrillation/hypertension COPD/CPAP/sleep apnea/pneumonia Hiatal hernia/acid reflux Arthritis Claustrophobia Tonsillectomy/vasectomy/cervical fusion Varicose veins Allergies Coded Allergies: Penicillins (Verified Allergy, Severe, Rash, 01/02/17) amiodarone (Verified Allergy, Mild, 01/02/17) codeine (Verified Adverse Reaction, Mild, Nausea, 01/02/17) PMH Social History Hx Alcohol Use: Yes (rare) Hx Substance Use: No Hx Tobacco Use: Yes Smoking Status: Current Every Day Smoker Exam Vital Signs Vital Sign - Last Date Time Temp Pulse Resp B/P Pulse Ox O2 Delivery O2 Flow Rate FiO2 01/07/17 15:23 83 17 105/52 100 Nasal Cannula 2 01/07/17 11:20 36.1 Lab and Diagnostics Labs Exam on admission 2L NC NAD A and O x 3 mood affect WNL NC/AT no icterus no injected eyes EOMI PERRL /no pharyngeal lesions/ no oral lesions / hearing intact Supple neck CTAB equal chest rise / no accessory muscle use / speaks in full sentences / bilateral wheeze RRR S1 S2 / no mrg / 2+ radial pulses Soft nt nd + BS no hepatosplenomegaly trace edema no cyanosis no ecchymosis of lower extremities No rash / no jaundice RENEE EKG v paced Trop 0.01 BNP 6492 (baseline [id number]) Pending PCR respiratory viral screen/sputm cx/strep Pending blood culture procalcitonin 0.31 lactic acid 1.2 UA pending LFT all elevated Imaging PROCEDURE: X-RAY CHEST, TWO VIEWS ([id number]) INDICATIONS: cough, chills, weakness TECHNIQUE: 2 views of the chest were acquired. COMPARISON: 12/19/2016 FINDINGS: Surgical changes and devices: AICD. Median sternotomy. Right-sided port with tip overlying the SVC. Lungs and pleura: No pleural effusions or pneumothorax. Mild atelectasis or infiltrate right upper lobe bordering on the minor fissure. Remainder of lung appears clear and unchanged.. Mediastinum: Mediastinal contours are normal. Heart size is normal. Bones and chest wall: No suspicious bony abnormalities. Soft tissues appear unremarkable. IMPRESSION: 1. Postoperative changes. 2. Possible developing pneumonitis base of the right upper lobe. CT ABDOMEN AND PELVIS WITH CONTRAST ([id number]) INDICATIONS: new onset abnl LFT, active esophageal CA TECHNIQUE: After the administration of intravenous contrast, 5 mm thick sections acquired from the diaphragm to the symphysis. 5 mm coronal and sagittal reformats were acquired. For radiation dose reduction, the following was used: automated exposure control, adjustment of mA and/or kV according to patient size. COMPARISON: [facility], CT, CT CHEST ABD W CON, 12/20/2016, 14:25. FINDINGS: Image quality: Excellent. ABDOMEN: Lung bases: Patchy dependent bibasilar consolidation and groundglass opacities. Superimposed on this there is a 1.5 cm ovoid masslike appearing or consolidation in the posterior right lower lobe image 6 series 3. There are internal areas of decreased attenuation. Trace left pleural effusion. Thickening of the distal esophageal wall, which is ill-defined. There may be a superimposed small hiatal hernia. Heart is enlarged. Solid organs: Liver and spleen are normal in size and enhancement. Gallbladder contracted. Biliary system is non dilated. Pancreas enhances normally. No adrenal nodules. Kidneys demonstrate normal size and enhancement , without hydronephrosis. Mild bilateral renal cortical scarring Peritoneum and bowel: Bowel loops demonstrate normal wall thickness and caliber. No free fluid or air. Normal appendix Nodes and vessels: No retroperitoneal or mesenteric adenopathy by size criteria. Aorta and inferior vena cava are normal in size. Miscellaneous: No ventral hernias. PELVIS: Genitourinary: Bladder wall thickness is normal. Miscellaneous: Bilateral fat containing inguinal hernias. Bones: No suspicious bony lesions. No vertebral body compression fractures. Discogenic changes and facet arthropathy. IMPRESSION: Distal esophageal wall thickening (potentially representing the patient's given clinical history of esophageal carcinoma) and or small hiatal hernia. Recommend clinical correlation Trace left pleural effusion. Bibasilar patchy consolidative and groundglass opacities probably interstitial disease. This is probably unchanged since 12/20/16. Recommend clinical correlation to exclude superimposed infectious/inflammatory process Slightly masslike/rounded appearance posterior consolidation in the posterior right lower lobe warrants continued followup to exclude pulmonary metastatic disease. It is grossly unchanged since 12/20/16 although internal decreased attenuation raises the possibility of necrosis or cavitation Elsewhere, no evidence of distant metastatic disease. Result Diagram: 01/07/17 1215 01/07/175 Assessment & Plan Active issues and reason for admission RUL HCAP w/ pancytopenia --vanco/meropeneum/levaquin/ O2 / duoneb --pending Dr Wang mild hyponatremia, likely hypovolumic --s/p IVF --baseline Cr 1.58 elevated LFT, likely due to hypotension --monitor, unremarkable CT A/P atrial fibrillation - resume home coumadin, monitor pancytopenia Chronic issues known prior to admission, present on admission esophageal Ca chemo/rad Albuterol Neb Soln (Albuterol Neb Soln) 1.25 Mg/3 Ml Vial.neb 1.25 MG INHALATION BID Aspirin (Aspirin) 81 Mg Tablet. 81 MG PO DAILY Atorvastatin (Lipitor) 40 Mg Tablet 20 MG PO HS Budesonide/Formoterol 160-4.5 mcg Inh (Symbicort 160-4.5 mcg Inh) 1 Puff Inha 2 PUFF IH BID Enalapril Maleate (Enalapril Maleate) 20 Mg Tablet 10 MG PO BID Furosemide (Lasix) 40 Mg Tablet 20 MG PO prn Isosorbide DN (Isosorbide DN) 30 Mg Tablet 15 MG PO DAILY Levothyroxine (Levothyroxine) 75 Mcg Tablet 75 MCG PO DAILY Metoprolol Succinate ER (Metoprolol Succinate ER) 100 Mg Tab.er.24h 150 MG PO DAILY Pramipexole Dihydrochloride (Mirapex) 0.5 Mg Tablet 0.5 MG PO HS Ranitidine (Ranitidine) 150 Mg Capsule 150 MG PO HS Spironolactone (Spironolactone) 25 Mg Tablet 12.5 MG PO DAILY Tiotropium [place] (Spiriva) 18 Mcg Cap.w.dev 1 MCG IH DAILY Scheduled PRN Albuterol HFA (Proair HFA) 8.5 Gm Hfa.aer.ad 2 PUFFS IH Q4 PRN PRN For Shortness of Breath Past Medical/Surgical HX hypothyroidism Esophageal cancer/dysphasia Hearing deficit CABG/mitral valve repair/congestive heart failure/pacemaker/ICD/atrial fibrillation/hypertension COPD/CPAP/sleep apnea/pneumonia Hiatal hernia/acid reflux Diet cardiac DVT prophylaxis scd ambulate Code full Disposition inpt Assessment and plan were discussed with patient family. Aditya Calderon MD Jan 07, 2017 15:38 Aditya Calderon MD Jan 07, 2017 15:38 Aditya Calderon MD Jan 07, 2017 15:38
[2017-01-07] MEDS: 0.9% Sodium Chloride 500 ML IV SCH ×2 (17:34→22:09)
[2017-01-07 17:56] LABS: INR 1.1 ratio
--- NOTE | 2017-01-07 18:41 | NUR ---
Arrival to Floor Pt arrived to 3014 at approx 1820. Able to stand for weight, transfer to bed with SBA. IVF's infusing as ordered, started by ED RN. Pt eating dinner, family @bs. No complaints currently.
[2017-01-07 19:57] LABS: APPEARANCE,URINE CLEAR (CLEAR,HAZY); COLOR,URINE DARK YELLOW (YELLOW); OCCULT BLOOD,URINE NEGATIVE (NEGATIVE); PH,URINE 6.5 (5.0-8.0)
[2017-01-07 20:16] LABS: ICTOTEST,URINE NEGATIVE (Negative)
[2017-01-07] MEDS: Fluticasone-Salmererol 250-50 Inhaler INHALATION SCH (20:30)
[2017-01-07] MEDS: Albuterol 2.5 mg/3 mL Inhalation Solution NEB SCH (20:53)
--- NOTE | 2017-01-07 22:36 | PCM.CONPHA ---
Subjective Date of Service: Jan 07, 2017 Short of breath 1 week HISTORY was OBTAINED FROM PATIENT / MEDITECH NOTES History of present illness 76-year-old man, sent by oncologist w/ new LFT changes/painless jaundice/pneumonia/coughing, dark urine. Associated shivers, unchanged nebulizer use, chronic clear phelgm cough. no thrush. no dysphagia, no GERD. no sore throat, poor urination, poor po intake due to appetite off blood thinners x weeks due to recent EGD, oncologist today indicated resumption of coumadin now chemo last week with radiation last week and today // pending tomorrow s/p his PRN lasix for ankle swelling 2 days ago In ER, abx/ 1L NS albuteroal, 95/47, HR65-71, 2L NC Review of Systems - none of the following - F/[place] / lightheaded / dizziness / acid reflux / n/v/diarrhea / bleeding/bruising / yeast infections / rash ambulates FAMILY HX no asthma SOCIAL HX distant smoker, no etOH MEDICATIONS Albuterol Neb Soln (Albuterol Neb Soln) 1.25 Mg/3 Ml Vial.neb 1.25 MG INHALATION BID Aspirin (Aspirin) 81 Mg Tablet.dr 81 MG PO DAILY Atorvastatin (Lipitor) 40 Mg Tablet 20 MG PO HS Budesonide/Formoterol 160-4.5 mcg Inh (Symbicort 160-4.5 mcg Inh) 1 Puff Inha 2 PUFF IH BID Enalapril Maleate (Enalapril Maleate) 20 Mg Tablet 10 MG PO BID Furosemide (Lasix) 40 Mg Tablet 20 MG PO prn Isosorbide DN (Isosorbide DN) 30 Mg Tablet 15 MG PO DAILY Levothyroxine (Levothyroxine) 75 Mcg Tablet 75 MCG PO DAILY Metoprolol Succinate ER (Metoprolol Succinate ER) 100 Mg Tab.er.24h 150 MG PO DAILY Pramipexole Dihydrochloride (Mirapex) 0.5 Mg Tablet 0.5 MG PO HS Ranitidine (Ranitidine) 150 Mg Capsule 150 MG PO HS Spironolactone (Spironolactone) 25 Mg Tablet 12.5 MG PO DAILY Tiotropium [place] (Spiriva) 18 Mcg Cap.w.dev 1 MCG IH DAILY Scheduled PRN Albuterol HFA (Proair HFA) 8.5 Gm Hfa.aer.ad 2 PUFFS IH Q4 PRN PRN For Shortness of Breath Past Medical/Surgical HX Cataracts Esophageal cancer/dysphasia Hearing deficit CABG/mitral valve repair/congestive heart failure/pacemaker/ICD/atrial fibrillation/hypertension COPD/CPAP/sleep apnea/pneumonia Hiatal hernia/acid reflux Arthritis Claustrophobia Tonsillectomy/vasectomy/cervical fusion Varicose veins Reason for Pharmacy Consult: Anticoagulation Management Objective Vital Signs Date Time Temp Pulse Resp B/P Pulse Ox O2 Delivery O2 Flow Rate FiO2 01/07/17 22:30 37.6 01/07/17 21:31 38.7 70 20 122/67 100 CPAP 01/07/17 20:55 75 22 95 Nasal Cannula 2.00 01/07/17 20:00 77 01/07/17 18:48 36.6 70 22 142/76 100 Nasal Cannula 4.00 01/07/17 18:27 76 01/07/17 16:19 83 17 105/52 100 Nasal Cannula 2 01/07/17 15:23 83 17 105/52 100 Nasal Cannula 2 01/07/17 12:31 71 21 95/47 97 01/07/17 12:23 70 20 96 Nasal Cannula 2 01/07/17 11:20 36.1 65 16 97/54 96 Room Air Weight (Kilograms): 107.400 Height (Feet): 6 Height (Inches): 0.00 Test 01/07/17 12:15 01/07/17 19:00 White Blood Count 3.0th/mm3 (3.8-10.1) Red Blood Count 3.65mil/mm3 (4.40-5.80) Hemoglobin 9.3g/dL (13.8-17.2) Hematocrit 30.2% (41.0-50.0) Mean Corpuscular Volume 82.7fL (81-100) Mean Corpuscular Hemoglobin 25.5pg (27.0-35.0) Mean Corpuscular Hemoglobin Concent 30.8% (32.0-37.0) Red Cell Distribution Width 16.3% (12.3-15.4) Platelet Count 132bil/L (150-400) Neutrophils (%) (Auto) 81.3% (40-74) Lymphocytes (%) (Auto) 8.0% (14-46) Monocytes (%) (Auto) 5.7% (4-12) Eosinophils (%) (Auto) 2.0% (0-5) Basophils (%) (Auto) 1.0% (0-3) Prothrombin Time 11.8sec (8.1-12.5) Prothromb Time International Ratio 1.10ratio Sodium Level 133mEq/L (134-144) Potassium Level 4.3mEq/L (3.5-5.2) Chloride Level 99mEq/L (97-108) Carbon Dioxide Level 22mmol/L (18-29) Blood Urea Nitrogen 20mg/dL (8-27) Creatinine 1.58mg/dL (0.76-1.27) Estimat Glomerular Filtration Rate 45mL/min (>59) Glucose Level 120mg/dL (60-99) Lactic Acid Level 1.2mmol/L (0.4-2.0) Calcium Level 8.2mg/dL (8.5-10.1) Magnesium Level 1.8mg/dL (1.6-2.6) Total Bilirubin 2.6mg/dL (0.0-1.2) Aspartate Amino Transf (AST/SGOT) 59U/L (0-50) Alanine Aminotransferase (ALT/SGPT) 59U/L (0-44) Alkaline Phosphatase 195U/L (25-160) Troponin T < 0.010ug/L (0.0-0.011) Pro-B-Type Natriuretic Peptide 6492pg/mL (0-486) Total Protein 6.0g/dL (6.4-8.4) Albumin 3.1g/dL (3.4-5.0) Procalcitonin 0.31ng/mL (0.00-0.08) Urine Color Dark yellow (YELLOW) Urine Appearance Clear (CLEAR,HAZY) Urine pH 6.5 (5.0-8.0) Urine Specific [place] 1.015 (1.003-1.035) Urine Protein 30mg/dL (NEG,TRACE) Urine Glucose (UA) Negativemg/dL (NEGATIVE) Urine Ketones Tracemg/dL (NEGATIVE) Urine Occult Blood Negative (NEGATIVE) Urine Nitrite Negative (NEGATIVE) Urine Bilirubin Moderate (NEGATIVE) Urine Ictotest Negative (Negative) Urine Urobilinogen 2.0mg/dL (NORMAL) Urine Leukocyte Esterase Trace (NEGATIVE) Urine RBC 0-2/hpf (0-2) Urine WBC 0-5/hpf (0-5) Urine Epithelial Cells Few/hpf (NONE-MOD) Urine Crystals None seen (NONE SEEN) Urine Bacteria Few/hpf (NONE-FEW) Urine Hyaline Casts None/lpf (NONE) Urine Granular Casts None seen (NONE SEEN) Urine Waxy Casts None seen (NONE SEEN) Urine Red Blood Cell Casts None seen (NONE SEEN) Urine White Blood Cell Casts None seen (NONE SEEN) Urine Mucus None seen (None Seen) Urine Trichomonas None seen (NONE SEEN) Urine Yeast None (NONE SEEN) Urinalysis Comment None Urine Culture Reflexed Indicated Assessment/Plan Assessment/Plan Warfarin per Rx Indication: A-Fib INR Goal 2 - 3 Today's INR: 1.1 Pt does not remember his previous home dose 5mg given for tonight. Daily INR ordered Emmanuel Arteaga PharmD Jan 07, 2017 22:36
[2017-01-08] VITALS (11 sets, daily range): BP systolic 96–134; BP diastolic 55–66; PULSE 69–83; RESP 18–26; O2SAT 93–97
[2017-01-08] MEDS: Albuterol 2.5 mg/3 mL Inhalation Solution NEB SCH ×6 (00:09→20:41)
[2017-01-08] MEDS: 0.9% Sodium Chloride 500 ML IV SCH ×4 (00:59→23:30)
[2017-01-08 05:33] LABS: BASOPHILS % (AUTO) 0.4 % (0-3); EOSINOPHILS % (AUTO) 1.7 % (0-5); MONOCYTES % (AUTO) 6.1 % (4-12); Mean Corpuscular Hemoglobin 25.6 pg (27.0-35.0); Mean Corpuscular Volume 82.6 fL (81-100); NEUTROPHILS % (AUTO) 73.9 % (40-74); Platelet Count 99 bil/L (150-400)
[2017-01-08 05:54] LABS: INR 1.17 ratio
--- NOTE | 2017-01-08 06:25 | NUR ---
Temperature Patient had temp of 101 axillary medicated with 650mg tylenol. cold wash rag placed on forehead. Temperature in room decreased. patient non-symptomatic states "I feel fine". 1 hour later patients temperature decreased to 99F axillary. will continue to monitor.
--- NOTE | 2017-01-08 06:27 | NUR ---
Vtach Patient had 4 beats of Vtach. nonsymptomatic. vitals stable. MD notified. no new orders.
[2017-01-08] MEDS: Fluticasone-Salmererol 250-50 Inhaler INHALATION SCH ×2 (08:46→20:33)
[2017-01-08] MEDS: Isosorbide Mononitrate 30 mg ER24 Tablet PO SCH (08:48)
[2017-01-08] MEDS: MeTOProlol XL 50 mg ER24 Tablet PO SCH (08:50)
--- NOTE | 2017-01-08 09:29 | NUR ---
Social Work Initial Assessment: SW met with patient at bedside to discuss discharge plan. Patient is a 76 year old male admitted on 01/10/17 for pneumonia. Patient payer as Medicare and [employer]. Patient has no prison disability nor VA benefits. Patient PCP as MD Garcia. Patient also follows up with MD Dougherty for chemo and radiation treatments. Patient attends every Friday for chemo and everyday at 9am for radiation appointments. SW also contacted oncologist LORRAINE advising her of patient admission. Patient resides with Rose, in [place]. Patient states currently at [facility] due to patient currently hospitalization. Patient resides in a one story home with 4 stairs to enter home. Patient pharmacy of choice as [facility]. Patient has no previous HHC, SNF, or AD history. Patient declined AD information at this time. Patient states having a CPAP and walker at home. Patient states being independent with needs at baseline and states having no anticipated discharge needs at this time. SW will continue to follow pending further clinical course. PLAN: Home with in [place]. Transport home via POV. SW to provide [place] pass upon discharge. Patient follows up with oncologist MD Dougherty for chemo and radiation appointments. Oncologist LORRAINE advised. LORRAINE to follow, pending further clinical course Sean DIA Addendum: 01/08/17 at 0935 by CAMREON EDWARDS Amended: Links added.
--- NOTE | 2017-01-08 12:17 | PCM.PHAPRO ---
Progress Date of Service: Jan 08, 2017 ANTICOAGULATION MANAGEMENT BY PHARMACY -INDICATION: A-FIB HOME DOSE: 5-7.5 MG DAILY DIRECTED -CONCURRENT ANTICOAGULATION: NONE -CRCL: 62.6 ML/MIN -COAG TRENDS: -Jan 08-Dec 1.10 1.17 ~ 0.07 5 5 MG -[id number] SCORE: 2 PLAN: WILL GIVE A OT DOSE OF 5 MG TONIGHT TO GET PATIENT INTO INR RANGE OF 2-3 Pharmacy appreciates consult and will continue to monitor. THANKS! Elva Carlson PharmD Jan 08, 2017 12:17
--- NOTE | 2017-01-08 14:05 | NUR ---
primary cliniciancyber forensics analyst note: 76 yrs old male admitted to room 3014 with Pneumonia. Patient being treated for Esophageal Adenocarcinoma. Introduce myself to patient and explained my role as sales communications manager. Patient denies any care needs at this time. Will continue to follow and address any care needs that may arise.
[2017-01-08] MEDS: 0.9% Sodium Chloride 250 ML IV SCH (14:09)
[2017-01-08] MEDS ORDERED: Sodium Chloride LOK Flush 10 mL Syringe IVFLUSH PRN ×2 (14:10)
[2017-01-08] MEDS ORDERED: HepLOK Flush 100 unit/mL 5 mL Inj IVFLUSH PRN (14:10)
--- NOTE | 2017-01-08 16:52 | PCM.PNMED ---
Subjective Date of Service Jan 08, 2017 Subjective says overall feels better. says breathing at baseline Exam Vital Signs Vital Sign - Last Date Time Temp Pulse Resp B/P Pulse Ox O2 Delivery O2 Flow Rate FiO2 01/08/17 12:16 70 24 95 Nasal Cannula 2.00 01/08/17 12:10 36.9 118/66 Intake and Output 01/07/17 01/07/17 01/08/17 Cumulative From/Thru 15:00 23:00 07:00 01/07/17 11:20 - 01/08/17 06:02 Intake Total 1000 ml 1440 ml 400 ml 2840 ml Output Total 425 ml 425 ml Balance 1000 ml 1440 ml -25 ml 2415 ml Intake Oral 240 ml 400 ml 640 ml IV Total 1000 ml 1200 ml 2200 ml Output Urine Total 425 ml 425 ml # Voids 0 0 General: Alert, Oriented X3, Cooperative, No Acute Distress Head: Normal Eyes: Scleral Anicteric Nose: Bluish, swollen membranes Mouth: Mucous Membr Moist/[place] Neck: Supple Chest & Lungs: Chest Wall Normal (port in right upper chest wall), Coarse breath sounds (bilat) Cardiovascular: Regular Rate/Rhythm Abdomen: Non-tender, Non-distended, Normoactive bowel tones, Soft Extremities: No cyanosis/clubbing/edma bilat Neurological: Grossly Neurologically Intact, Normal Speech IVs and Medications Medications Reviewed: Medications were reviewed in detail Lab and Diagnostics Result Diagram: 01/08/17 0500 01/08/17 0500 Assessment & Plan 76-year-old gentleman with history of chronic interstitial lung disease, COPD, obstructive sleep apnea, chronic kidney disease, coronary artery disease, chronic ischemic cardiomyopathy, status post AICD and chronic atrial fibrillation and currently receiving chemoradiotherapy for stage 3 distal esophageal adenocarcinoma presents with worsening SOB and noted abnormal LFTs as outpatient. # Suspected acute RUL HCAP w/ pancytopenia, poa. - Received Vanco/Meropenem/Levaquin on admission - discussed case with oncology (Dr. Wang) and patient's breathing is although looking somewhat labored is apparently at baseline - procalcitonin not significantly elevated - f/u pending cultures and c/w Levaquin for now - repeat CXR in am and consider ID consult tomorrow for further recs # Acute transaminitis. poa. ongoing - unclear etiology but possibly due to chemo vs sepsis - CT abd without obvious cause - if persist consider RUQ abd U/S # stage 3 distal esophageal adenocarcinoma. poa - per discussion with Dr. Wang plan to proceed with scheduled radiation therapy tomorrow. - per Dr. Wang, ideally if pt stable for discharge he should be discharged earlier am instead of transfer from hospital to radiation. # mild hyponatremia, likely hypovolumic. poa. - Resolved wit IVF # atrial fibrillation, chronic. rate controlled - c/w BB - c/w Coumadin (dose per pharmacy) - f/u INR # History of COPD. seems at baseline - c/w inhalers and Nebs # Hypothyroidism - c/w Levothyroxine # HTN and CAD, chronic. stable - c/w home BP meds # chronic ischemic cardiomyopathy. stable - c/w home meds Dispo: 1-2 days pending above workup and improving LFTs VTE Mechanical Devices: Intermittant Pneumatic CD Time spent 35 min Feliberto Moreno Jan 08, 2017 16:52 Diet cardiac DVT prophylaxis scd ambulate Code full Disposition inpt Assessment and plan were discussed with patient family. VTE Mechanical Devices: Intermittant Pneumatic CD Feliberto Moreno Jan 08, 2017 16:52
--- NOTE | 2017-01-08 16:55 | NUR ---
Activity Pt. has stayed in bed this shift, dangling to side of bed for meals. He has been pleasant and cooperative. Respiratory function remains stable, with pt. using 1 L NC while awake, and CPAP for naps. States he feels mildly SOB, but that he usually feels this way.
--- NOTE | 2017-01-08 18:55 | PROG NOTE ---
[address] [address] PROGRESS NOTE PATIENT: ANIA LIM : 1940 MR#: [id number] ADMIT: 01/07/2017 JOB ID: [id number] DATE: 01/08/2017 DIAGNOSES: 1. Current admission for sepsis syndrome. 2. Liver function test abnormalities. 3. Distal esophageal adenocarcinoma, stage 3. 4. Peripheral right lower lobe pulmonary adenocarcinoma, stage I. HISTORY OF PRESENT ILLNESS: The patient is a very pleasant 76-year-old gentleman with chronic interstitial pulmonary disease, COPD, chronic kidney disease, obstructive sleep apnea, coronary artery disease, chronic ischemic cardiomyopathy, and chronic atrial fibrillation. He was recently diagnosed with stage I pulmonary adenocarcinoma in peripheral right lower lobe and stage III distal esophageal adenocarcinoma. He recently started definitive chemoradiotherapy for his esophageal cancer. He was given one dose of weekly carboplatin/Taxol a week ago on December 31, and when he presented yesterday to clinic, bilirubin was up at 2.6 and the rest of liver enzymes was slightly elevated as well. He was not feeling very well. He had chills the night before. He was admitted to hospital after blood cultures drawn. Respiratory viral panel is negative. Pneumococcal antigen screen is negative. Chest x-ray reported possible developing pneumonitis in the right lung base. CT scan of the abdomen shows bibasilar patchy consolidative and ground-glass opacities, representing his chronic interstitial lung disease. There is mass-like rounded posterior consolidation in posterior right lower lobe, consistent with his known primary lung cancer in that location. Pro calcitonin is slightly elevated at 0.31, possibly indicating bacterial infection. He is currently on levofloxacin as of yesterday. Warfarin has been resumed as well. Today, he feels slightly stronger than yesterday. He has no new respiratory symptoms. His chronic dyspnea is unchanged. He had one episode of fever last night at 38.7, but since then has been afebrile. LABORATORY DATA: Hemoglobin is down to 8.4 and platelet count is down to 99,000. Bilirubin has slightly improved to 2.3. Creatinine has improved to 1.34. His ProBNP was markedly high at 6500 last night. IMPRESSION/PLAN: I am not sure if this patient truly had sepsis syndrome or not, but he had some shaking chills two nights ago at home, one episode of fever last night, and had a positive pro calcitonin level, and new abnormal liver function tests. I agree with empiric antibiotic therapy with levofloxacin. Clinically, he appears improved today. He wants to go home as soon as possible. I think if by tomorrow he remains afebrile and if his bilirubin continues to trend down, he can be discharged on oral levofloxacin. His chronic anticoagulation therapy should be resumed and it already has. He will continue warfarin upon discharge. He does have a focal thrombus within the right brachiocephalic vein associated with his Port-A-Cath, and he has chronic atrial fibrillation. If he is discharged tomorrow early childhood, he can present to Radiation Oncology after discharge for his radiotherapy. He has a follow-up appointment with me next week on January 15.
[2017-01-08] MEDS: levoFLOXacin Inj 750 MG in IV Premix 1 EACH IV SCH (20:34)
[2017-01-09] VITALS (15 sets, daily range): BP systolic 108–135; BP diastolic 55–74; PULSE 69–86; RESP 18–36; O2SAT 91–98
[2017-01-09] MEDS: Albuterol 2.5 mg/3 mL Inhalation Solution NEB SCH ×5 (01:03→20:54)
[2017-01-09] MEDS: 0.9% Sodium Chloride 500 ML IV SCH ×2 (05:05→14:09)
[2017-01-09 05:35] LABS: BASOPHILS % (AUTO) 0 % (0-3); EOSINOPHILS % (AUTO) 1.7 % (0-5); MONOCYTES % (AUTO) 9.4 % (4-12); Mean Corpuscular Hemoglobin 25.9 pg (27.0-35.0); Mean Corpuscular Volume 82.6 fL (81-100); NEUTROPHILS % (AUTO) 75.6 % (40-74); Platelet Count 87 bil/L (150-400)
[2017-01-09 06:05] LABS: INR 1.13 ratio
--- NOTE | 2017-01-09 06:36 | NUR ---
Temperature Patient temp 100.2 axillary. gave 650mg Tylenol per order. will pass on to next shift to monitor. patient slept throughout the night. no c/o pain/discomfort. CPAP in place. SOB with exertion
[2017-01-09] MEDS: Fluticasone-Salmererol 250-50 Inhaler INHALATION SCH ×2 (08:20→21:41)
[2017-01-09] MEDS: Isosorbide Mononitrate 30 mg ER24 Tablet PO SCH (08:20)
[2017-01-09] MEDS: MeTOProlol XL 50 mg ER24 Tablet PO SCH (08:21)
--- NOTE | 2017-01-09 10:15 | NUR ---
Off unit Pt off unit to xray at 0750 and again to Radiation at 0950. Breakfast, Neb tx and AM meds given prior to leaving for treatment. Pt denied having pain. Pt left with carry me transport, on notified. Addendum: 01/09/17 at 1236 by MÓNICA BANUELOS RN Pt returned at 1100. Placed back on tele. IV reconnected. Pt denies pain.
--- NOTE | 2017-01-09 10:20 | DRSVH ---
PROCEDURE: X-RAY CHEST, TWO VIEWS ([id number]) INDICATIONS: SHORTNESS OF BREATH TECHNIQUE: 2 views of the chest were acquired. COMPARISON: [facility], CR, XR CHEST 2VW, 01/07/2017, 12:02. FINDINGS: Surgical changes and devices: Stable position a right chest port in left chest AICD. Median sternoto my wires. Lungs and pleura: No pleural effusions or pneumothorax. Patchy airspace opacities present within th e mid right lung as well as the lung bases which has increased in the retrocardiac region of the left lung base. No pneumothorax. Mediastinum: Mediastinal contours are normal. Heart size is enlarged. Bones and chest wall: No suspicious bony abnormalities. Soft tissues appear unremarkable. IMPRESSION: Findings suspicious for bilateral pneumonia which has increased involving the retrocardia c region of the left lung base. Dictated by: Trenton Joshi [facility] Interpreted: Kaitlin Pena MD on 01/09/2017 at 10:17 Transcribed by: RONAL on 01/09/2017 at 10:19 Approved by: Kaitlin Pena M.D. on 01/10/2017 at 18:17
--- NOTE | 2017-01-09 10:30 | NUR ---
MARA signed IFEOMA Ocasio
--- NOTE | 2017-01-09 11:34 | PCM.PNMED ---
Subjective Date of Service Jan 09, 2017 Subjective Pt still tachypnic, states he is still short of breath and weaker than baseline. Had radiation therapy this morning which proceeded without complication. Exam Vital Signs Vital Sign - Last Date Time Temp Pulse Resp B/P Pulse Ox O2 Delivery O2 Flow Rate FiO2 01/09/17 08:45 76 28 96 Nasal Cannula 2.00 01/09/17 06:21 37.9 135/58 Intake and Output 01/08/17 01/08/17 01/09/17 Cumulative From/Thru 15:00 23:00 07:00 01/07/17 11:20 - 01/09/17 05:24 Intake Total 2240 ml 933 ml 6013 ml Output Total 350 ml 1200 ml 1975 ml Balance -350 ml 1040 ml 933 ml 4038 ml Intake Oral 1475 ml 2115 ml IV Total 765 ml 933 ml 3898 ml Output Urine Total 350 ml 1200 ml 1975 ml # Voids 0 # Bowel Movements 0 0 Exam General: Alert, Oriented X3, Cooperative, Mild to moderate distress/;labored breathing. Skin flushed, warm to touch Head: Normal Eyes: Scleral Anicteric Nose: Bluish, swollen membranes Mouth: Mucous Membr Moist/[place] Neck: Supple Chest & Lungs: Chest Wall Normal (port in right upper chest wall), Coarse breath sounds (bilat), with some dimished breath sounds in B/L lung based. Cardiovascular: Regular Rate/Rhythm Abdomen: Non-tender, Non-distended, Normoactive bowel tones, Soft Extremities: No cyanosis/clubbing/edma bilat Neurological: Grossly Neurologically Intact, Normal Speech IVs and Medications Medications Reviewed: Medications were reviewed in detail Lab and Diagnostics Result Diagram: 01/09/17 0500 01/09/17 0500 Assessment & Plan 76-year-old gentleman with history of chronic interstitial lung disease, COPD, obstructive sleep apnea, chronic kidney disease, coronary artery disease, chronic ischemic cardiomyopathy, status post AICD and chronic atrial fibrillation and currently receiving chemoradiotherapy for stage 3 distal esophageal adenocarcinoma presents with worsening SOB and noted abnormal LFTs as outpatient. # Suspected acute RUL HCAP w/ pancytopenia, poa. - Received Vanco/Meropenem/Levaquin on admission, now tapered to Levaquin only. - discussed case with oncology (Dr. Wang) and patient's breathing is although looking somewhat labored is apparently at baseline - procalcitonin not significantly elevated - f/u pending cultures and c/w Levaquin for now - repeat CXR this morning suggesting progressing pneumonia, FU CT ordered and pending. - Will reach out to ID for further eval/recommendations, consider broadening antibiotic spectrum IF findings support progressive infection/pneumonia. # Acute transaminitis. poa. ongoing - unclear etiology but possibly due to chemo vs sepsis, stable over night, but not yet normalizing. - CT abd without obvious cause - if persist consider RUQ abd U/S # stage 3 distal esophageal adenocarcinoma. poa - per discussion with Dr. Wang plan to proceed with scheduled radiation therapy tomorrow. - per Dr. Wang, ideally if pt stable for discharge he should be discharged earlier am instead of transfer from hospital to radiation. # mild hyponatremia, likely hypovolumic. poa. - Resolved wit IVF # atrial fibrillation, chronic. rate controlled - c/w BB - c/w Coumadin (dose per pharmacy) - f/u INR # History of COPD. seems at baseline - c/w inhalers and Nebs # Hypothyroidism - c/w Levothyroxine # HTN and CAD, chronic. stable - c/w home BP meds # chronic ischemic cardiomyopathy. stable - c/w home meds Dispo: 1-2 days pending above workup Pain Evaluation: Adequate Pain Control VTE Mechanical Devices: Intermittant Pneumatic CD Resuscitation Status: CPR: Attempt Resuscitation Time spent 30 minutes Noam Patel DO Jan 09, 2017 11:34
--- NOTE | 2017-01-09 13:11 | PCM.PHAPRO ---
Progress Date of Service: Jan 09, 2017 ANTICOAGULATION MANAGEMENT BY PHARMACY -INDICATION: A-FIB HOME DOSE: 5-7.5 MG DAILY DIRECTED -CONCURRENT ANTICOAGULATION: NONE -CRCL: 62.6 ML/MIN -COAG TRENDS: -Jan 08-Jan 09-Dec 1.10 1.17 1.13 ~ 0.07 -0.04 5 5 MG 7.5 -[id number] SCORE: 2 PLAN: WILL GIVE A OT DOSE OF 7.5 MG TONIGHT TO GET PATIENT INTO INR RANGE OF 2- 3 Pharmacy appreciates consult and will continue to monitor. THANKS! Elva Carlson PharmD Jan 09, 2017 13:11
[2017-01-09] MEDS: 0.9% Sodium Chloride 250 ML IV SCH (13:54)
--- NOTE | 2017-01-09 15:04 | DRSVH ---
PROCEDURE: CT CHEST WITHOUT CONTRAST ([id number]) INDICATIONS: concern for worsening pneumonia TECHNIQUE: Noncontrast 5 mm thick sections acquired from the pulmonary apices to the posterior costophrenic angl es. 7 mm thick coronal and sagittal MIP reformats were then acquired. For radiation dose reduction, the following was used: automated exposure control, adjustment of mA and/or kV according to patient size. COMPARISON: [facility], CT, CT CHEST ABD W CON, 12/20/2016, 14:25. [facility] l, CT, CT ABD PELVIS W CON, 01/07/2017, 12:52. [facility], CR, XR CHEST 2VW, 01/07/2017, 1 2:02. [facility], CR, XR CHEST 2VW, 01/09/2017, 7:52. [facility], CT, CHEST W/O CONTRAST, 10/28/2013, 12:31. FINDINGS: Image quality: Excellent. Lungs and pleura: There are reticulonodular infiltrates in right upper lobe and both lower lobes, sli ghtly increased. A 2 cm cavitary nodule is again seen in the right lower lobe. There are small bilate ral pleural effusions, new. No pneumothorax. Central and peripheral airways are patent and normal i n caliber. Mediastinum: Heart size is enlarged. No pericardial effusion. There are enlarged mediastinal lymph nodes measuring up to 2 cm, unchanged. Thoracic aorta and central pulmonary arteries are normal in s ize. Esophagus is normal in caliber. There is a small to moderate-sized hiatal hernia. The distal es ophagus appears thickened with narrowing of the esophageal lumen at the GE junction. Bones and chest wall: No suspicious bony lesions. No vertebral body compression fractures. No axil silver or supraclavicular adenopathy by size criteria. Thyroid gland is normal. Abdomen: The spleen is prominent. Visualized upper abdominal solid organs and bowel loops appear nor mal in the absence of contrast. IMPRESSION: 1. Increased reticular-nodular infiltrates in right upper lobe and both lower lobes. 2. New small bilateral pleural effusions. 3. A 2 cm cavitary nodule in the right lower lobe. Differential diagnoses include pneumonia, inflamma tory nodule and neoplasm. 4. Mediastinal lymphadenopathy. 5. Mild cardiomegaly. 6. Small to moderate sized hiatal hernia. The distal esophagus appears thickened with narrowing of t he distal esophageal lumen at the GE junction. Cannot rule out a mass in the distal esophagus. Recomm end esophagram or upper endoscopy if clinically indicated. Dictated by: Kaitlin Pena M.D. on 01/09/2017 at 14:52 Approved by: Kaitlin Pena M.D. on 01/09/2017 at 15:02
[2017-01-09] MEDS ORDERED: Warfarin 5 MG, Warfarin 2.5 MG PO ONE ×2 (17:00)
[2017-01-09] MEDS: Albuterol 2.5 mg/3 mL Inhalation Solution NEB PRN (17:13)
[2017-01-09] MEDS: levoFLOXacin Inj 750 MG in IV Premix 1 EACH IV SCH (18:14)
--- NOTE | 2017-01-09 19:36 | PROG NOTE ---
[address] [address] PROGRESS NOTE PATIENT: ANIA LIM : 1940 MR#: [id number] ADMIT: 01/07/2017 JOB ID: [id number] DATE: 01/09/2017 INPATIENT MEDICAL ONCOLOGY PROGRESS REPORT: DIAGNOSES: 1. Current admission for sepsis syndrome. 2. Locally advanced distal esophageal adenocarcinoma. 3. Peripheral stage 1 right lower lobe pulmonary adenocarcinoma. 4. Chronic interstitial lung disease. SUBJECTIVE: Today he continues to feel more dyspneic than baseline. He also reports increased cough and phlegm production as compared to baseline. OBJECTIVE: He has had intermittent fever since admission including last night with temperature up to 38.5. Hemodynamically stable. Remains tachypneic. CT chest without contrast was obtained today. There is increased reticulonodular infiltrates in right upper lobe and bilateral lower lobes. There is mediastinal adenopathy that is related to his esophageal adenocarcinoma. LABORATORIES: Bilirubin remains elevated at 2.6. Liver transaminases and alkaline phosphatase remain elevated and stable. Albumin is low at 2.2. Leukocyte count is 2300 and platelet count is 87,000. IMPRESSION AND PLAN: 1. Pneumonia in a high-risk patient on chemotherapy and chronic interstitial lung disease. He is on day two of levofloxacin. He was still febrile as of last night. Tentative plan for discharge tomorrow assuming no fever and some clinical improvement. Upon discharge he plans to stay close at [facility] so that he can receive daily radiotherapy. 2. Liver function test abnormalities in the context of sepsis syndrome and perhaps also influenced by the chemotherapy dose last week. Bilirubin and liver transaminases remain stable today as compared to yesterday. 3. Stage 3 distal esophageal adenocarcinoma. He had his radiotherapy session this morning and plans to do the same tomorrow morning.
--- NOTE | 2017-01-09 21:56 | NUR ---
Vtach Pt had 14 beat run of vtach per maintenance technician 2nd shift. Reported finding to as well as most recent magnesium level of 1.8 on 01/07 Will cont to monitor
[2017-01-10] VITALS (14 sets, daily range): BP systolic 91–120; BP diastolic 51–64; PULSE 70–89; RESP 20–28; O2SAT 92–98
--- NOTE | 2017-01-10 00:41 | NUR ---
Temp spike Pt had a temperature of 38.5 Given tylenol as ordered Notified MD and received order for blood cultures Explained reason for blood cultures Pt verbalized understanding.
[2017-01-10 03:08] LABS: BASOPHILS % (AUTO) 0.4 % (0-3); EOSINOPHILS % (AUTO) 2.9 % (0-5); MONOCYTES % (AUTO) 11.6 % (4-12); Mean Corpuscular Hemoglobin 25.8 pg (27.0-35.0); Mean Corpuscular Volume 82.2 fL (81-100); Platelet Count 94 bil/L (150-400)
[2017-01-10 03:20] LABS: INR 1.21 ratio
[2017-01-10] MEDS: Albuterol 2.5 mg/3 mL Inhalation Solution NEB PRN (06:09)
[2017-01-10] MEDS ORDERED: Magnesium Sulf 2 Gm/50mL Water 2 GM in IV Premix 1 EACH IV ONE (08:10)
[2017-01-10] MEDS: MeTOProlol XL 50 mg ER24 Tablet PO SCH (08:17)
[2017-01-10] MEDS: Fluticasone-Salmererol 250-50 Inhaler INHALATION SCH ×2 (08:18→20:42)
[2017-01-10] MEDS: Isosorbide Mononitrate 30 mg ER24 Tablet PO SCH (08:20)
[2017-01-10] MEDS ORDERED: metroNIDAZOLE Inj 500 MG in IV Premix 1 EACH IV SCH (08:30)
--- NOTE | 2017-01-10 08:51 | NUR ---
Off unit/BP Pt off unit to Radiation at 0848 with [facility]. Pt left via wc, with O2 on via NC. Pt denied pain. Pt taken off tele, scrub technician made aware. PO BP meds held this AM d/t hypotension. made aware. Will reassess when pt returns.
[2017-01-10] MEDS: Albuterol 2.5 mg/3 mL Inhalation Solution NEB SCH ×2 (10:42→20:30)
--- NOTE | 2017-01-10 12:44 | PCM.PHAPRO ---
Progress Date of Service: Jan 10, 2017 ANTICOAGULATION MANAGEMENT BY PHARMACY -INDICATION: A-FIB HOME DOSE: 5-7.5 MG DAILY DIRECTED -CONCURRENT ANTICOAGULATION: NONE -CRCL: 62.6 ML/MIN -COAG TRENDS: -Jan 08-Jan 09-Jan 10-Dec 1.10 1.17 1.13 1.21 ~ 0.07 -0.04 0.08 5 5 MG 7.5 6 -[id number] SCORE: 2 PLAN: WILL GIVE A OT DOSE OF 6 MG TONIGHT TO GET PATIENT INTO INR RANGE OF 2-3 Pharmacy appreciates consult and will continue to monitor. THANKS! Elva Carlson PharmD Jan 10, 2017 12:44
[2017-01-10] MEDS: metroNIDAZOLE Inj 500 MG in IV Premix 1 EACH IV SCH ×2 (13:17→17:19)
--- NOTE | 2017-01-10 13:41 | NUR ---
jumpbasting facing [employer] building architect note: I met with patient and introduced myself to his , Annette who I have talked with over the phone. Patient and are staying at the [facility] until patient completes his radiation treatments since they live in [place] [facility]. Annette asked about where she would be able to get his nebulizer prescription filled. I explained to her she could go to [facility], [facility], [facility], etc any pharmacy that would accept his insurance. No other care needs identified. Will continue to follow and address any needs as they arise.
--- NOTE | 2017-01-10 15:21 | PCM.PNMED ---
Subjective Date of Service Jan 10, 2017 Subjective Patient has noted some improvement in his work of breathing overnight, but certainly does not feel as returned to baseline. Her nurse reports he did spike a fever early evening but he was unaware of this. Appetite is still diminished, but he has been able to eat some of his meals for dinner and again this morning for breakfast and lunch. She describes no acute pain or chest or abdomen. No other acute complaints at this time. Exam Vital Signs Vital Sign - Last Date Time Temp Pulse Resp B/P Pulse Ox O2 Delivery O2 Flow Rate FiO2 01/10/17 14:20 36.8 70 28 115/63 97 Room Air 01/10/17 10:45 2.00 01/10/17 10:04 94 Intake and Output 01/09/17 01/09/17 01/10/17 Cumulative From/Thru 15:00 23:00 07:00 01/07/17 11:20 - 01/10/17 06:12 Intake Total 839 ml 886 ml 900 ml 8638 ml Output Total 550 ml 500 ml 300 ml 3325 ml Balance 289 ml 386 ml 600 ml 5313 ml Intake Oral 500 ml 886 ml 400 ml 3901 ml IV Total 339 ml 500 ml 4737 ml Output Urine Total 550 ml 500 ml 300 ml 3325 ml # Voids 0 # Bowel Movements 0 0 0 0 Exam General: Alert, Oriented X3, Cooperative, Mild to moderate distress/;labored breathing. Skin flushed, warm to touch Head: Normal Eyes: Scleral Anicteric Nose: Bluish, swollen membranes Mouth: Mucous Membr Moist/[place] Neck: Supple Chest & Lungs: Port in right upper chest wall, Coarse breath sounds diffusely with some diminished breath sounds in B/L lung based. Trace wheezing with expiration. Cardiovascular: Regular Rate/Rhythm Abdomen: Non-tender, Non-distended, Normoactive bowel tones, Soft Extremities: No cyanosis/clubbing/edema bilat Neurological: Grossly Neurologically Intact, Normal Speech IVs and Medications Medications Reviewed: Medications were reviewed in detail Lab and Diagnostics Result Diagram: 01/10/1724901/10/17249 Assessment & Plan 76-year-old gentleman with history of chronic interstitial lung disease, COPD, obstructive sleep apnea, chronic kidney disease, coronary artery disease, chronic ischemic cardiomyopathy, status post AICD and chronic atrial fibrillation and currently receiving chemoradiotherapy for stage 3 distal esophageal adenocarcinoma presents with worsening SOB and noted abnormal LFTs as outpatient. # Suspected acute RUL HCAP w/ pancytopenia, poa. - Received Vanco/Meropenem/Levaquin on admission, now tapered to Levaquin, with metronidazole added today given concern for aspiration type pneumonia. - discussed case with oncology (Dr. Wang) and patient's breathing is although looking somewhat labored is apparently at close to baseline. - procalcitonin not significantly elevated, especially in the setting of cancer possibly involving pulmonary system, however given immunocompromised state is difficult to confidently rule out infection in setting of recurrent fevers and patient's slow recovery to baseline. - f/u pending cultures and c/w Levaquin/Flagyl at this time. - CT results are inconclusive, will consider further imaging studies as indicated - Infectious disease has been consulted for further consideration of this complicated patient. . #Leukopenia - Given incomplete records is not possible to assess if this is secondary to adenocarcinoma primarily or a result of chemotherapy provided to treat this condition. - Will out to treating oncologist to determine when the development of leukocytosis occurred, and what the most likely cause of it is. # Acute transaminitis. poa. ongoing - unclear etiology but possibly due to chemo vs sepsis, stable over night, but not yet normalizing. - CT abd without obvious cause - if persist consider RUQ abd U/S # stage 3 distal esophageal adenocarcinoma. poa - per discussion with Dr. Wang, we have proceeded with radiation therapy -Given patient's continued febrile state, discharge has been postponed for continued observation due to concern for occult infection in this immunocompromised patient. # mild hyponatremia, likely hypovolumic. poa. - Resolved wit IVF # atrial fibrillation, chronic. rate controlled - c/w BB - c/w Coumadin (dose per pharmacy) - f/u INR # History of COPD. seems at baseline - c/w inhalers and Nebs # Hypothyroidism - c/w Levothyroxine # HTN and CAD, chronic. stable - c/w home BP meds # chronic ischemic cardiomyopathy. stable - c/w home meds Dispo: 1-2 days pending above workup Pain Evaluation: Adequate Pain Control VTE Mechanical Devices: Intermittant Pneumatic CD Resuscitation Status: CPR: Attempt Resuscitation Time spent 35 minutes Noam Patel DO Jan 10, 2017 15:21
[2017-01-10] MEDS: Albuterol-Ipratropium 3 mL Inhalation Solution NEB SCH ×2 (15:42→20:50)
--- NOTE | 2017-01-10 17:52 | NUR ---
Hypotension/fluids This AM, BP 91/51, BP medications held and Dr notified. vitals continued to be monitored, pressure up to 115/63 at 1420, updated MD and PO fluids encouraged. BP reassessment at 1800: 101/59; will continue to encourage fluids and monitor. Extra education provided to pt and at bedside. Bed in low position, upper rails up, call light within reach. Will continue to reassess and monitor. Addendum: 01/10/17 at 1842 by MÓNICA BANUELOS RN I agree with above SRN note.
[2017-01-10] MEDS: levoFLOXacin Inj 750 MG in IV Premix 1 EACH IV SCH (19:55)
[2017-01-11] VITALS (15 sets, daily range): BP systolic 94–118; BP diastolic 47–68; PULSE 69–92; RESP 20–36; O2SAT 90–98
--- NOTE | 2017-01-11 04:30 | CONS ---
[address] [address] CONSULTATION REPORT PATIENT: ANIA LIM : 1940 MR#: [id number] ADMIT: 01/07/2017 JOB ID: [id number] DATE OF SERVICE: 01/10/[address] Patel for this timely consult. REASON FOR CONSULTATION: Fever in a patient recently receiving chemo for esophageal cancer. HISTORY OF PRESENT ILLNESS: The patient is a 76-year-old gentleman with an impressive prior medical history which includes coronary artery disease for which he is status post bypass as well as cardiomyopathy. He also had COPD and interstitial lung disease in association with sleep apnea and is so limited even at his baseline that he can only walk about 100 yards before being stopped by dyspnea. Against this backdrop, the patient was recently being evaluated by his senior planner and a small lung malignancy was found which proved to be currently adenocarcinoma and about the same time, he was also found to have a grade 3 esophageal cancer and about 10 days or so ago, started on his regimen of treatment for the esophageal malignancy. He was receiving carboplatin and Taxol, which was given on December 31. Afterwards his bilirubin bumped and his other LFTs went up a bit. He then was scheduled to get his second dose on January 07, but that was deferred and instead he was admitted to the hospital because he developed chills, diffuse malaise and was found to have additional elevation of his LFTs. He was also noted, after admission on January 07, to have fevers and concerns were raised about possible pneumonia. His plain chest x-rays and CT scans even are hard to interpret because he has underlying COPD, interstitial lung disease, lung and esophageal cancer, making it difficult to sort out exactly what is going on in his airway. The patient was started on levo and Flagyl was subsequently added during his now almost three days here in the hospital. Questions were raised about whether he may have sepsis syndrome, pneumonia or perhaps just reactions to his chemotherapy, which has been deferred. Also note that recently he has had a Port-A-Cath placed for chemotherapy. In speaking to the patient this evening, he notes that he has had recurrent fever and chills for at least the last two or three days. He states this tends to come on each evening. He denies any sinus or pharyngeal complaint. He states he is always short of breath and always coughing and usually has a minimally productive cough. He thinks that the degree of coughing and shortness of breath he has now is actually improved as opposed to his baseline, which seems difficult to believe when one is talking to him as he appears to be fairly short of breath. He denies any GI symptoms except some constipation and has no genitourinary symptoms. He is not having any problems with his left chest pacer or his recently installed right chest Port-A-Cath. PAST MEDICAL HISTORY: 1. Organic heart disease. a. Coronary artery disease. b. Status post CABG. c. Cardiomyopathy. d. AFib. e. Pacer in place. 2. COPD. 3. Interstitial lung disease. 4. Obstructive sleep apnea. 5. Recently diagnosed esophageal cancer for which he has received one of his scheduled six treatments with carboplatin and Taxol. 6. Pulmonary adenocarcinoma for which he is scheduled for radiation later in the month. ALLERGIES: The patient states he had a history of PEN allergy and that he got a shot of IM penicillin once and was considerable redness and tenderness at the injection site but no systemic symptoms. On that basis, he has avoided penicillins. 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 He lived mainly in [facility] and moved to [facility] following senior living and lives there with his . They have two dogs but otherwise no animals at home. He is a smoker, but quit in 1993. He does not drink alcohol and does not use illicit drugs. He and his have traveled widely in [place] and [place], but not to [place] or [place]. FAMILY HISTORY: Negative for TB including his parents, uncles, aunts, brothers and sisters. REVIEW OF SYSTEMS: Done in its entirety. The patient states he has no significant headache. No visual change. No sore throat or trouble swallowing. He has a chronic minimally productive watery cough and is always short of breath with some degree of wheezing. He has some shortness of breath even at rest and is dyspneic with minimal exertion at his baseline, and he has noticed that changing much. No chest pain. He notes he has a chronic rash over his upper chest ever since he had the bypass and that has not changed either. No nausea, vomiting or diarrhea. He has had some constipation. No dysuria, urgency or frequency. No swelling to the joints. The remainder of the review of systems is negative. PHYSICAL EXAMINATION: Reveals an afebrile gentleman. Temperature 36.6, pulse 75, respiratory rate 20, blood pressure 101/59. He is saturating 96% on 2 L. Examination of patient's mental status reveals that he is completely clear and able to give a lucid history. The patient's head is without trauma. The sinuses are nontender. Eyes with some mild conjunctival pallor but otherwise negative. No scleral icterus is noted. The oral cavity is without thrush or hairy leukoplakia. There is no pharyngitis. The neck is quite supple and without adenopathy. In the left chest, there is a pacer which is nontender. In the right chest, there is a recently installed port which is nontender. There is a sternotomy incision which is well healed. He has a diffuse erythematous cast to his upper chest which he says is chronic and this is a blanching type rash. The patient's lungs are difficult to auscultate. There is very little air moving and I hear a wide variety of crackles and rhonchi in both lung denny. Cardiac tones: Irregular rate and rhythm this evening without significant murmur. They are bit distant. The patient's abdomen is soft and nontender. There is no organomegaly or ascites. No suprapubic fullness. No Sanchez catheter. No inguinal adenopathy. The joints are without synovitis. Patient is neurologically intact with excellent muscle strength, normal sensation and no evidence of skin breakdown or edema on the extremities. LABORATORIES: Include white count ranging between 2 and 3000 over the last four days. Hematocrit 27, platelets 94,000. The diff relatively benign. Creatinine 1.21, lactic acid 1.2 which is normal. LFTs notable for a AST and ALT both in the low 50s. Alk phos 216, bilirubin 2.66, albumin 2.2. Pro calcitonin has been measured twice and it has been 0.3 on both occasions. Urinalysis without white cells. Urine Legionella antigen negative. Urine pneumococcal antigen negative. Blood cultures negative. Sputum with scant normal fransisco. Multiplex respiratory viral panel negative. IMAGING: Includes a chest x-ray, which shows bilateral infiltrates. A CT scan done yesterday however shows increased reticulonodular infiltrates in both lung denny as well as new small pleural effusions and a 2 cm cavitary right lower lobe nodule. The differential diagnosis there was pneumonia, inflammation or neoplasm. The patient also has mediastinal adenopathy which is not surprising. IMPRESSION: My overall sense is that the patient is uninfected, though it is notable that he has had significant fevers including a temperature to 38.5 last night at about the same time at 2100 hours. The patient had very similar fevers at the same time during the first two days in the hospital. The differential diagnosis for these fevers, which the patient does not find very troubling, is broad and includes the possibility of these are related to one or both of his malignancies rather than an infection. Aside from the fevers, there is little here to suggest infection as the patient reports that his breathing is at about his baseline actually. He states he does not have any really increased cough or work of breathing whatsoever. He has no gastrointestinal or genitourinary symptoms of concern and the increased nodularity on his CT scan of the chest could just represent worsening interstitial lung disease or malignancy or some other process beyond infection. I note that the patient has been receiving levo combined with Flagyl as antibiotics for what is thought to be either community-acquired pneumonia or COPD exacerbation or aspiration pneumonia. While these are reasonable, they will both interfere with the Coumadin he is receiving. As noted I am not certain the patient has any significant bacterial infection at this time and his overall clinical course, procalcitonin levels, white blood count and imaging which seem to argue against this. RECOMMENDATIONS: 1. I would transition the Flagyl and levo to oral. 2. I would consider giving those antibiotics for at most a 5-7 day course and then stopping. This would take us through about January 13. 3. We will check a coccidioidomycosis antibody titer as the patient's main recent travel of interest is his fairly frequent trips to [place] which he has just taken one within the last eight or nine months. 4. If the patient is afebrile through the night tonight, I think I would strongly consider discharging the patient tomorrow to receive the levo and Flagyl through January 13 and then stop antibiotics and observe how the patient does. Thank you very much for this interesting consult.
[2017-01-11] MEDS: Albuterol 2.5 mg/3 mL Inhalation Solution NEB PRN (06:11)
[2017-01-11 06:40] LABS: INR 1.59 ratio
[2017-01-11 06:42] LABS: BASOPHILS % (AUTO) 0.5 % (0-3); EOSINOPHILS % (AUTO) 3.8 % (0-5); MONOCYTES % (AUTO) 10.8 % (4-12); Mean Corpuscular Hemoglobin 25.9 pg (27.0-35.0); NEUTROPHILS % (AUTO) 73.5 % (40-74); Platelet Count 88 bil/L (150-400)
[2017-01-11] MEDS: Albuterol-Ipratropium 3 mL Inhalation Solution NEB SCH ×4 (07:36→19:58)
[2017-01-11] MEDS: Fluticasone-Salmererol 250-50 Inhaler INHALATION SCH ×2 (08:29→20:55)
[2017-01-11] MEDS: levoFLOXacin 750 mg Tablet PO SCH (08:30)
[2017-01-11] MEDS: Albuterol 2.5 mg/3 mL Inhalation Solution NEB SCH ×2 (08:30→20:30)
[2017-01-11] MEDS: Isosorbide Mononitrate 30 mg ER24 Tablet PO SCH (08:30)
[2017-01-11] MEDS: MeTOProlol XL 50 mg ER24 Tablet PO SCH (08:31)
[2017-01-11] MEDS: 0.9% Sodium Chloride 1,000 ML IV SCH ×3 (08:50→22:10)
--- NOTE | 2017-01-11 09:05 | NUR ---
MARA signed Verbal permission to sign. Pt on precautions. IFEOMA Ocasio
--- NOTE | 2017-01-11 09:07 | PCM.PHAPRO ---
Progress Date of Service: Jan 11, 2017 Requesting Provider: Rony Wang MD Fib warfarin inr goal 2-3 pt started on metrondiazole will reduce warfarin dosing by 50% warfarin dose 2.5mg Horacio Etienne [facility] Jan 11, 2017 09:07
--- NOTE | 2017-01-11 14:06 | PCM.PNMED ---
Subjective Date of Service Jan 11, 2017 Subjective Patient notes feeling overall well. For the first time in many days he did not spike a fever in over 24 hours. His breathing is at least back to previous baseline he was able to ambulate her and unit today with, with some symptoms of shortness of breath but demonstrating no deoxygenation/hypoxia. His appetite is still poor but slightly improved. He has no other acute complaints at this time. Exam Vital Signs Vital Sign - Last Date Time Temp Pulse Resp B/P Pulse Ox O2 Delivery O2 Flow Rate FiO2 01/11/17 12:45 92 36 90 Room Air 01/11/17 12:10 36.7 106/61 01/11/17 07:36 2.00 01/10/17 10:04 94 Intake and Output 01/10/17 01/10/17 01/11/17 Cumulative From/Thru 15:00 23:00 07:00 01/07/17 11:20 - 01/11/17 06:24 Intake Total 19 ml 1106 ml 0 ml 9763 ml Output Total 150 ml 400 ml 3875 ml Balance 19 ml 956 ml -400 ml 5888 ml Intake Oral 910 ml 0 ml 4811 ml IV Total 19 ml 196 ml 4952 ml Output Urine Total 150 ml 400 ml 3875 ml # Voids 3 3 # Bowel Movements 0 0 Exam General: Alert, Oriented X3, Cooperative, Mild to moderate distress/;labored breathing. Skin flushed, warm to touch Head: Normal Eyes: Scleral Anicteric Nose: Bluish, swollen membranes Mouth: Mucous Membranes Moist/[place] Neck: Supple Chest & Lungs: Port in right upper chest wall, Coarse breath sounds diffusely with some diminished breath sounds in B/L lung based. Trace wheezing with expiration. Cardiovascular: Regular Rate/Rhythm Abdomen: Non-tender, Non-distended, Normoactive bowel tones, Soft Extremities: No cyanosis/clubbing/edema bilaterally. Neurological: Grossly Neurologically Intact, Normal Speech IVs and Medications Medications Reviewed: Medications were reviewed in detail Lab and Diagnostics Result Diagram: 01/11/17 0604 01/11/17 0848 Assessment & Plan 76-year-old gentleman with history of chronic interstitial lung disease, COPD, obstructive sleep apnea, chronic kidney disease, coronary artery disease, chronic ischemic cardiomyopathy, status post AICD and chronic atrial fibrillation and currently receiving chemoradiotherapy for stage 3 distal esophageal adenocarcinoma presents with worsening SOB and noted abnormal LFTs as outpatient. # Suspected acute RUL HCAP w/ pancytopenia, poa. - Received Vanco/Meropenem/Levaquin on admission, now tapered to Levaquin, with metronidazole added today given concern for aspiration type pneumonia. - discussed case with oncology (Dr. Wang) and patient's breathing is although looking somewhat labored is apparently at close to baseline. - procalcitonin not significantly elevated, especially in the setting of cancer possibly involving pulmonary system, however given immunocompromised state is difficult to confidently rule out infection in setting of recurrent fevers and patient's slow recovery to baseline. - f/u pending cultures and c/w Levaquin/Flagyl at this time. One of 2 blood cultures has grown gram-positive cocci, awaiting further information to terminate this contaminant or true evidence of bacteremia. - CT results are inconclusive, will consider further imaging studies as indicated - Infectious disease has been consulted for further consideration of this complicated patient, they are recommending transition oral antibiotics at time of discharge and total course duration of only 5-7 days to be completed on January 13 whether patient remains in hospital are as discharged prior. #Leukopenia/leukocytosis secondary to chemotherapy - Following further discussion with the patient's oncologist, has been determined that he had a normal white blood cell count prior to receiving chemotherapy treatment 2 weeks prior including Taxol, at which time he began to demonstrate a decline in white blood cell count and progressive leukopenia. - As per oncology close observation is sufficient at this time, in addition to maintaining vigilance for possible opportunistic infection while patient is immunocompromised. # Acute transaminitis. poa. ongoing #Hyperbilirubinemia - unclear etiology but possibly due to chemo vs sepsis, stable over night, but not yet normalizing. - CT abd without obvious cause - if persist consider RUQ abd U/S - Dr. Mtz, has suggested he may be discharged with total bilirubin downward trending below 2 # stage 3 distal esophageal adenocarcinoma. poa - per discussion with Dr. Wang, we have proceeded with radiation therapy -Given patient's continued febrile state, discharge has been postponed for continued observation due to concern for occult infection in this immunocompromised patient. # mild hyponatremia, likely hypovolumic. poa. - Resolved wit IVF # atrial fibrillation, chronic. rate controlled - c/w BB - c/w Coumadin (dose per pharmacy) - f/u INR # History of COPD. seems at baseline - c/w inhalers and Nebs # Hypothyroidism - c/w Levothyroxine # HTN and CAD, chronic. stable - c/w home BP meds # chronic ischemic cardiomyopathy. stable - c/w home meds Dispo: 1-2 days pending above workup Pain Evaluation: Adequate Pain Control VTE Mechanical Devices: Intermittant Pneumatic CD Resuscitation Status: CPR: Attempt Resuscitation Time spent 25 minutes Noam Patel DO Jan 11, 2017 14:06
--- NOTE | 2017-01-11 15:09 | NUR ---
Vtach Monitor tele notified RN of 5 bts of vtach. pt asymptomatic. MD notified. Will continue to monitor. Bed in low position, upper rails up, call light in reach.
--- NOTE | 2017-01-11 15:13 | PROG NOTE ---
[address] [address] PROGRESS NOTE PATIENT: ANIA LIM : 1940 MR#: [id number] ADMIT: 01/07/2017 JOB ID: [id number] DATE: 01/11/2017 INFECTIOUS DISEASE FOLLOW UP NOTE: INTERVAL HISTORY: Recall that this is the 76-year-old gentleman I saw in consult last night for a fever in the setting of recent chemotherapy for esophageal cancer with underlying very severe pulmonary and organic heart disease. There had been concerns about respiratory tract infection and so I had agreed to continue with the Flagyl and levo through January 13, but I really did not think the patient had pneumonia, either aspiration or otherwise. I was, however, concerned about the fevers and ordered coccidioidomycosis titers as well as some other tests. Overnight what transpired is that one of the blood cultures drawn through the port on January 09 is now positive raising the possibility of a port infection. The patient states that overnight he has actually felt better. His respiratory status continues to improve and he has had no fevers or chills. He has had that port for two weeks and reports it is entirely asymptomatic. He also has a pacer in the other side of his chest which is asymptomatic. He states he has had no fevers or chills overnight and is actually hoping to go home today. No GI symptoms either. No urinary symptoms. PHYSICAL EXAMINATION: Reveals an afebrile gentleman, temperature 36.7, pulse 92, respiratory rate, when I saw him, is about 18 though his notes in the chart ranging from 20-36 for respiratory rate. Blood pressure 106/61, saturating 90% on room air, but he often uses his BiPAP machine. He is awake, alert and appears "sharper" than yesterday. He is able to answer all questions very lucidly. Oral cavity negative. Lungs: Scattered crackles bilaterally as before with only moderate air flow. Cardiac tones without change from yesterday. His port in the right chest is entirely nontender as is his pacer in the left chest. His abdomen is soft and nontender. He does not have any significant skin rash except for the diffuse erythroderma in his upper chest which he reports is chronic. LABORATORIES: Include a white count of 1900, platelet count 88,000. Creatinine 1.14. Urinalysis without white cells. Lambert C antibodies pending. One of the four blood cultures from the is positive and that single blood culture was labeled as being drawn through the port. Note that his admission blood cultures on the are negative and a MRSA screen and urine culture are likewise normal. IMPRESSION: The patient actually is improving here in the hospital while he is receiving levo and Flagyl. I doubt that he has any significant pulmonary infection superimposed on his underlying lung and heart disease but it is difficult to tell and I think it is reasonable to continue levo and Flagyl through the as we had planned. The confusing thing today is the single positive blood culture. We know it is a Staph organism. We do not know the species yet. Unfortunately I think the patient should remain in the hospital while we repeat cultures through the skin and the port. If those cultures are negative at 48 hours on Friday morning, he could be discharged. RECOMMENDATIONS: 1. Blood cultures x2 have been ordered through the port and the skin. 2. I would continue on levo and Flagyl. Given the patient's lack of toxicity, I see no reason to mendez in with vanc or daptomycin but those could be added should the patient spike additional fevers or deteriorate. 3. Will continue to watch this patient with you. 4. I note that pharmacy has made appropriate changes in his Coumadin based on the levo and Flagyl. GM
[2017-01-12] VITALS (7 sets, daily range): BP systolic 103–110; BP diastolic 55–64; PULSE 69–84; RESP 26–28; O2SAT 92–96
[2017-01-12] MEDS: 0.9% Sodium Chloride 1,000 ML IV SCH (03:49)
[2017-01-12 04:54] LABS: BASOPHILS % (AUTO) 0.5 % (0-3); EOSINOPHILS % (AUTO) 6.1 % (0-5); MONOCYTES % (AUTO) 10.2 % (4-12); Mean Corpuscular Hemoglobin 25.8 pg (27.0-35.0); Mean Corpuscular Volume 80.9 fL (81-100); NEUTROPHILS % (AUTO) 68.5 % (40-74); Platelet Count 90 bil/L (150-400)
[2017-01-12 05:11] LABS: INR 1.86 ratio
[2017-01-12] MEDS: Albuterol 2.5 mg/3 mL Inhalation Solution NEB PRN (05:26)
[2017-01-12] MEDS: Albuterol-Ipratropium 3 mL Inhalation Solution NEB SCH (07:30)
[2017-01-12] MEDS: MeTOProlol XL 50 mg ER24 Tablet PO SCH (07:38)
[2017-01-12] MEDS: Isosorbide Mononitrate 30 mg ER24 Tablet PO SCH (07:47)
[2017-01-12] MEDS: levoFLOXacin 750 mg Tablet PO SCH (07:47)
[2017-01-12] MEDS: Fluticasone-Salmererol 250-50 Inhaler INHALATION SCH (07:48)
[2017-01-12] MEDS: Albuterol 2.5 mg/3 mL Inhalation Solution NEB SCH (07:55)
--- NOTE | 2017-01-12 08:44 | PCM.PHAPRO ---
Progress Date of Service: Jan 12, 2017 Requesting Provider: Aditya Calderon MD Fib inr goal 2-3 warfarin 3mg today..still on metronidazole [facility] Jan 12, 2017 08:44
[2017-01-12] MEDS ORDERED: METR500T PO (10:02)
[2017-01-12] MEDS ORDERED: LEVO750T9 PO (10:02)
[2017-01-12] MEDS ORDERED: WARF3TAB PO (10:04)
--- NOTE | 2017-01-12 10:08 | PCM.DIMED ---
Discharge Instructions Date of Service Jan 12, 2017 Dates of Hospitalization Jan 07, 2017 at 16:48 Discharge Diagnosis Discharge Diagnosis # Suspected acute Right Upper lobe Hospital Aquired Pneumonia w/ pancytopenia, poa: Continue Levaquin/Flagyl for 1 additional day then discontinue. #Leukopenia/leukocytosis secondary to chemotherapy: Improving on DC. Continue to follow closely with oncology. # Acute transaminitis. poa. ongoing , stable #Hyperbilirubinemia: Improving. Oncologist will continue to follow. # stage 3 distal esophageal adenocarcinoma. poa: Continue Radiation and Chemo therapy as planned by Dr Mtz. # mild hyponatremia, likely hypovolumic. poa. Resolved with IVF # atrial fibrillation, chronic. rate controlled & Thrombus in brachiocephalic koffi: Continue Warfarin. FU INR check in 3 days following DC. # History of COPD. seems at baseline; continue home medications. # Hypothyroidism # HTN and CAD, chronic. stable # chronic ischemic cardiomyopathy. stable Diet No restrictions Activity No restrictions Call your provider Fever or Chills, Shortness of breath, Chest pain Patient Instructions Follow-up plan FU IN 3-[address] Mtz OR PCP for FU INR check to ensure Warfarin is therapeutic. Continue to follow with Dr. Mtz for chemo and radiation therapy. Noam Patel DO Jan 12, 2017 10:08
--- NOTE | 2017-01-12 10:19 | PCM.DC.MED ---
Discharge Summary Date of Service Jan 12, 2017 Dates of Hospitalization Date of Hospital Admission Jan 07, 2017 at 16:48 Date of Discharge: Jan 12, 2017 Providers: Admitting Physician: Aditya Calderon MD Primary Care Physician: Asha Garcia MD Attending Physician: Rony Wang MD Diagnosis at Time of Discharge Diagnosis at Time of Discharge # Suspected acute Right Upper lobe Hospital Aquired Pneumonia w/ pancytopenia, poa: Continue Levaquin/Flagyl for 1 additional day then discontinue. #Leukopenia/leukocytosis secondary to chemotherapy: Improving on DC. Continue to follow closely with oncology. # Acute transaminitis. poa. ongoing , stable #Hyperbilirubinemia: Improving. Oncologist will continue to follow. # stage 3 distal esophageal adenocarcinoma. poa: Continue Radiation and Chemo therapy as planned by Dr Mtz. # mild hyponatremia, likely hypovolumic. poa. Resolved with IVF # atrial fibrillation, chronic. rate controlled & Thrombus in brachiocephalic koffi: Continue Warfarin. FU INR check in 3 days following DC. # History of COPD. seems at baseline; continue home medications. # Hypothyroidism # HTN and CAD, chronic. stable # chronic ischemic cardiomyopathy. stable Consultations Smith Gardner, Oncology. Dr Bianchi, Infectious disease. Procedures XRay, CTs & MRIs Date of Service: 01/09/17 1151 PROCEDURE: CT CHEST WITHOUT CONTRAST ([id number]) INDICATIONS: concern for worsening pneumonia TECHNIQUE: Noncontrast 5 mm thick sections acquired from the pulmonary apices to the posterior costophrenic angles. 7 mm thick coronal and sagittal MIP reformats were then acquired. For radiation dose reduction, the following was used: automated exposure control, adjustment of mA and/or kV according to patient size. COMPARISON: [facility], CT, CT CHEST ABD W CON, 12/20/2016, 14:25. [facility], CT, CT ABD PELVIS W CON, 01/07/2017, 12:52. [facility], CR, XR CHEST 2VW, 01/07/2017, 12:02. [facility], CR , XR CHEST 2VW, 01/09/2017, 7:52. [facility], CT, CHEST W/O CONTRAST , 10/28/2013, 12:31. FINDINGS: Image quality: Excellent. Lungs and pleura: There are reticulonodular infiltrates in right upper lobe and both lower lobes, slightly increased. A 2 cm cavitary nodule is again seen in the right lower lobe. There are small bilateral pleural effusions, new. No pneumothorax. Central and peripheral airways are patent and normal in caliber. Mediastinum: Heart size is enlarged. No pericardial effusion. There are enlarged mediastinal lymph nodes measuring up to 2 cm, unchanged. Thoracic aorta and central pulmonary arteries are normal in size. Esophagus is normal in caliber. There is a small to moderate-sized hiatal hernia. The distal esophagus appears thickened with narrowing of the esophageal lumen at the GE junction. Bones and chest wall: No suspicious bony lesions. No vertebral body compression fractures. No axillary or supraclavicular adenopathy by size criteria. Thyroid gland is normal. Abdomen: The spleen is prominent. Visualized upper abdominal solid organs and bowel loops appear normal in the absence of contrast. IMPRESSION: 1. Increased reticular-nodular infiltrates in right upper lobe and both lower lobes. 2. New small bilateral pleural effusions. 3. A 2 cm cavitary nodule in the right lower lobe. Differential diagnoses include pneumonia, inflammatory nodule and neoplasm. 4. Mediastinal lymphadenopathy. 5. Mild cardiomegaly. 6. Small to moderate sized hiatal hernia. The distal esophagus appears thickened with narrowing of the distal esophageal lumen at the GE junction. Cannot rule out a mass in the distal esophagus. Recommend esophagram or upper endoscopy if clinically indicated. Dictated by: Kaitlin Pena M.D. on 01/09/2017 at 14:52 Brief History As per admission HPI by Dr. Calderon, "76-year-old man, sent by oncologist w/ new LFT changes/painless jaundice/pneumonia/coughing, dark urine. Associated shivers, unchanged nebulizer use, chronic clear phelgm cough. no thrush. no dysphagia, no GERD. no sore throat, poor urination, poor po intake due to appetite off blood thinners x weeks due to recent EGD, oncologist today indicated resumption of coumadin now chemo last week with radiation last week and today // pending tomorrow s/p his PRN lasix for ankle swelling 2 days ago In ER, abx/ 1L NS albuteroal, 95/47, HR65-71, 2L NC" Hospital Course 76-year-old gentleman with history of chronic interstitial lung disease, COPD, obstructive sleep apnea, chronic kidney disease, coronary artery disease, chronic ischemic cardiomyopathy, status post AICD and chronic atrial fibrillation and currently receiving chemoradiotherapy for stage 3 distal esophageal adenocarcinoma presents with worsening SOB and noted abnormal LFTs as outpatient. # Suspected acute RUL HCAP w/ pancytopenia, poa. : Received Vanco/Meropenem/ Levaquin on admission, now tapered to Levaquin, with metronidazole added today given concern for aspiration type pneumonia. Discussed case with oncology (Dr. Wang) and patient's breathing is although looking somewhat labored is apparently at close to baseline.Procalcitonin was not significantly elevated, especially in the setting of cancer possibly involving pulmonary system, however given immunocompromised state is difficult to confidently rule out infection in setting of recurrent fevers and patient's slow recovery to baseline. Dr Bianchi of infectious disease consulted for further evaluation and felt infection of low likelihood, recommended completed course of Levaquin/ Flagyl (added secondary to concern for aspiration) until 01/13, but no further work up. Blood cultures were negative excepting 1 culture from port showing coag. neg staph, a likely contaminant. on DC follow up cultures were still pending, but given clinical improvement and patient preference DC was granted. #Leukopenia/leukocytosis secondary to chemotherapy: This had began to progress following chemo therapy. Some concern it may have also been evidence of spesis associated with infection, None the less, WBC was upward trending 2.0 on day of DC. # Acute transaminitis. poa. ongoing ; stable. #Hyperbilirubinemia: Unclear etiology but possibly due to chemo vs sepsis, stable over night, but not yet normalizing. CT abd without obvious cause. Dr. Mtz, has suggested he may be discharged with total bilirubin downward trending below 2, which it has done. # stage 3 distal esophageal adenocarcinoma. poa. Per discussion with Dr. Wang , we have proceeded with radiation therapy, chemo again scheduled next Friday, follow next radiation therapy tomorrow. # mild hyponatremia, likely hypovolumic. poa. - Resolved wit IVF # atrial fibrillation, chronic. rate controlled; Thrombus of brachiocephalic vein: pt restarted on Coumadin therapy during hospitalization. DC'd on 3mg warfarin daily with plan to FU later int he week for INR check. # History of COPD. seems at baseline - c/w inhalers and Nebs # Hypothyroidism - c/w Levothyroxine # HTN and CAD, chronic. stable - c/w home BP meds # chronic ischemic cardiomyopathy. stable - c/w home meds Exam Vital Signs (Last) Date Time Temp Pulse Resp B/P Pulse Ox O2 Delivery O2 Flow Rate FiO2 01/12/17 07:30 Supplement Oxygen CPAP/BIPAP 01/12/17 07:30 69 28 96 2.00 01/12/17 05:18 37.2 110/63 01/10/17 10:04 94 Exam General: Alert, Oriented X3, Cooperative, Mild to moderate distress/;labored breathing. Skin flushed, warm to touch Head: Normal Eyes: Scleral Anicteric Nose: Bluish, swollen membranes Mouth: Mucous Membranes Moist/[place] Neck: Supple Chest & Lungs: Port in right upper chest wall, Coarse breath sounds diffusely with some diminished breath sounds in B/L lung based. Trace wheezing with expiration. Cardiovascular: Regular Rate/Rhythm Abdomen: Non-tender, Non-distended, Normoactive bowel tones, Soft Extremities: No cyanosis/clubbing/edema bilaterally. Neurological: Grossly Neurologically Intact, Normal Speech Test 01/07/17 12:15 01/07/17 19:00 01/09/17 05:00 01/09/17 23:18 Lactic Acid Level 1.2mmol/L (0.4-2.0) Troponin T < 0.010ug/L (0.0-0.011) Pro-B-Type Natriuretic Peptide 6492pg/mL (0-486) Urine Color Dark yellow (YELLOW) Urine Appearance Clear (CLEAR,HAZY) Urine pH 6.5 (5.0-8.0) Urine Specific [place] 1.015 (1.003-1.035) Urine Protein 30mg/dL (NEG,TRACE) Urine Glucose (UA) Negativemg/dL (NEGATIVE) Urine Ketones Tracemg/dL (NEGATIVE) Urine Occult Blood Negative (NEGATIVE) Urine Nitrite Negative (NEGATIVE) Urine Bilirubin Moderate (NEGATIVE) Urine Ictotest Negative (Negative) Urine Urobilinogen 2.0mg/dL (NORMAL) Urine Leukocyte Esterase Trace (NEGATIVE) Urine RBC 0-2/hpf (0-2) Urine WBC 0-5/hpf (0-5) Urine Epithelial Cells Few/hpf (NONE-MOD) Urine Crystals None seen (NONE SEEN) Urine Bacteria Few/hpf (NONE-FEW) Urine Hyaline Casts None/lpf (NONE) Urine Granular Casts None seen (NONE SEEN) Urine Waxy Casts None seen (NONE SEEN) Urine Red Blood Cell Casts None seen (NONE SEEN) Urine White Blood Cell Casts None seen (NONE SEEN) Urine Mucus None seen (None Seen) Urine Trichomonas None seen (NONE SEEN) Urine Yeast None (NONE SEEN) Urinalysis Comment None Urine Culture Reflexed Indicated Urine Legionella pneumophilia Ag Negative (Negative) Activated Partial Thromboplast Time 28.7sec (22.8-33.0) Procalcitonin 0.30ng/mL (0.00-0.08) Hold [place] Top Tube Received (Received) Test 01/11/17 06:04 01/11/17 11:04 01/12/17 04:50 Magnesium Level 1.9mg/dL (1.6-2.6) White Blood Count 2.0th/mm3 (3.8-10.1) Red Blood Count 3.25mil/mm3 (4.40-5.80) Hemoglobin 8.4g/dL (13.8-17.2) Hematocrit 26.3% (41.0-50.0) Mean Corpuscular Volume 80.9fL (81-100) Mean Corpuscular Hemoglobin 25.8pg (27.0-35.0) Mean Corpuscular Hemoglobin Concent 31.9% (32.0-37.0) Red Cell Distribution Width 17.3% (12.3-15.4) Platelet Count 90bil/L (150-400) Neutrophils (%) (Auto) 68.5% (40-74) Lymphocytes (%) (Auto) 11.7% (14-46) Monocytes (%) (Auto) 10.2% (4-12) Eosinophils (%) (Auto) 6.1% (0-5) Basophils (%) (Auto) 0.5% (0-3) Prothrombin Time 20.2sec (8.1-12.5) Prothromb Time International Ratio 1.86ratio Sodium Level 133mEq/L (134-144) Potassium Level 4.3mEq/L (3.5-5.2) Chloride Level 100mEq/L (97-108) Carbon Dioxide Level 23mmol/L (18-29) Blood Urea Nitrogen 18mg/dL (8-27) Creatinine 1.07mg/dL (0.76-1.27) Estimat Glomerular Filtration Rate 71mL/min (>59) Glucose Level 120mg/dL (60-99) Calcium Level 7.7mg/dL (8.5-10.1) Total Bilirubin 1.8mg/dL (0.0-1.2) Aspartate Amino Transf (AST/SGOT) 70U/L (0-50) Alanine Aminotransferase (ALT/SGPT) 49U/L (0-44) Alkaline Phosphatase 321U/L (25-160) Total Protein 5.1g/dL (6.4-8.4) Albumin 2.1g/dL (3.4-5.0) Discharge Medications Discharge Medications Albuterol Neb Soln (Albuterol Neb Soln) 1.25 Mg/3 Ml Vial.neb 1.25 MG INHALATION BID (Reported) Aspirin (Aspirin) 81 Mg Tablet.dr 81 MG PO DAILY (Reported) Atorvastatin (Lipitor) 40 Mg Tablet 20 MG PO HS (Reported) Budesonide/Formoterol 160-4.5 mcg Inh (Symbicort 160-4.5 mcg Inh) 1 Puff Inha 2 PUFF IH BID (Reported) Enalapril Maleate (Enalapril Maleate) 20 Mg Tablet 10 MG PO BID (Reported) Isosorbide DN (Isosorbide DN) 30 Mg Tablet 15 MG PO DAILY (Reported) Levofloxacin (Levaquin) 750 Mg Tablet 750 MG PO DAILYAC Prescribed by: NOAM PATEL DO Levothyroxine (Levothyroxine) 75 Mcg Tablet 75 MCG PO DAILY (Reported) Metoprolol Succinate ER (Metoprolol Succinate ER) 100 Mg Tab.er.24h 150 MG PO DAILY (Reported) Metronidazole (Flagyl) 500 Mg Tablet 500 MG PO Q12 Prescribed by: NOAM PATEL DO Pramipexole Dihydrochloride (Mirapex) 0.5 Mg Tablet 0.5 MG PO HS (Reported) Ranitidine (Ranitidine) 150 Mg Capsule 150 MG PO HS (Reported) Spironolactone (Spironolactone) 25 Mg Tablet 12.5 MG PO DAILY (Reported) Tiotropium [place] (Spiriva) 18 Mcg Cap.w.dev 1 MCG IH DAILY (Reported) Warfarin Sodium (Coumadin) 3 Mg Tablet 3 MG PO DAILY@17 Prescribed by: NOAM PATEL DO As needed Albuterol HFA (Proair HFA) 8.5 Gm Hfa.aer.ad 2 PUFFS IH Q4 PRN PRN For Shortness of Breath (Reported) Furosemide (Lasix) 40 Mg Tablet 20 MG PO DAILY PRN PRN weight >235 lbs. ( Reported) Followup Plan Disposition: Home with family. Follow-up plan FU IN 3-[address] Mtz OR PCP for FU INR check to ensure Warfarin is therapeutic. Continue to follow with Dr. Mtz for chemo and radiation therapy. Discharge Diet: No restrictions Discharge Activity: No restrictions Time spent 55 minutes Noam Patel DO Jan 12, 2017 10:18
--- NOTE | 2017-01-12 13:06 | NUR ---
Discharge D/C to home with . D/C info, f/u info, RXs and care-notes discussed and sent home in packet. Family packaged all belongings including CPAP machine. NO further questions about plan of care. Escorted off floor via LANDSCAPE MANAGEMENT TECHNICIAN and w/c in no sign of distress.
--- NOTE | 2017-01-12 13:27 | NUR ---
Social Work: Discharge Data: Pt is on day 5 of hospitalization. EMR reviewed. D/C orders are in. No further d/c planning needed at this time. VARIETY PERFORMER will continue to follow if needs arise. Assessment: Pt who is independent at baseline. Plan: Pt will d/c home via POV today. No further d/c planning needed at this time. VARIETY PERFORMER will continue to follow if needs arise. IFEOMA Ocasio
[2017-01-27] MEDS ORDERED: WARF1TAB6 PO (10:53)
== END 2017-01-12 12:30 | disposition home or self-care (01) | DRG 871 ==
LOC: SED 11:14 → MPC 16:48
PROVIDERS: ADMIT Urology; ATTEND Urology
DX: A41.9 Sepsis, unspecified organism (principal); J18.9 Pneumonia, unspecified organism; C15.9 Malignant neoplasm of esophagus, unspecified; D61.818 Other pancytopenia; E87.1 Hypo-osmolality and hyponatremia; C34.31 Malignant neoplasm of lower lobe, right bronchus or lung; E11.9 Type 2 diabetes mellitus without complications; I25.10 Atherosclerotic heart disease of native coronary artery without angina pectoris; J44.9 Chronic obstructive pulmonary disease, unspecified; F17.210 Nicotine dependence, cigarettes, uncomplicated; I12.9 Hypertensive chronic kidney disease with stage 1 through stage 4 chronic kidney disease, or unspecified chronic kidney disease; N18.3 Chronic kidney disease, stage 3 (moderate); I25.5 Ischemic cardiomyopathy; I48.2 Chronic atrial fibrillation; E03.9 Hypothyroidism, unspecified

== ENCOUNTER 2017-01-29 14:47 | Inpatient (IN) | payer MEDICARE, OTHER ==
[~2017-01-29] VITALS: Ht 182.9 cm; Wt 100.6 kg
[~2017-01-29 14:47] MED LIST changes: +LEVO750T9 PO; +METR500T PO; -Vancomycin Dose per Pharmacist XX ONE
[2017-01-29 16:03] VITALS: BP 134/63; PULSE 76; RESP 18; O2SAT 96
[2017-01-29 16:15] VITALS: PULSE 70
--- NOTE | 2017-01-29 16:45 | NUR ---
Admit/tele Patient arrived to unit in stable condition. All vital signs within normal limits, patient reports SOB at baseline but RR and SPO2 normal. Frequent productive cough with white sputum. [facility] consulted for accessing port for IV fluids, per Dr. Yumiko chavis to access-- NS currently infusing at 40mls/hour per MD orders. No reports of n/v/d/c or abdominal pain, no chest pain, patient can not tolerate PO intake -- frequently spits into cup. Oral vitamin K ordered (0.5ml volume), administered slowly, patient stated "it didn't come back up". Tele paced 60s-70s with PVCs, 7 beats VTACH at approx 1800-- MD paged, no new orders at this time, patient asymptomatic.
[2017-01-29] MEDS ORDERED: Albuterol 2.5 mg/3 mL Inhalation Solution NEB PRN (17:35)
[2017-01-29] MEDS ORDERED: hydrALAZINE 20 mg/mL Inj IV PRN (17:35)
[2017-01-29] MEDS ORDERED: 0.9% Sodium Chloride 1,000 ML IV SCH (17:35)
[2017-01-29] MEDS ORDERED: Phytonadione (Adult) 10 mg/1 mL Inj PO ONE (18:00)
--- NOTE | 2017-01-29 18:17 | PCM.HPMED ---
Subjective Date of Service Jan 29, 2017 Primary Provider: Admitting Physician: Alli Vazquez MD Primary Care Physician: Asha Garcia MD Attending Physician: Alli Vazquez MD Chief Complaint: Difficulty swallowing History of Present Illness: This is a 77 years old male, with past medical history of esophageal cancer on chemo-radiation therapy, was sent to hospital by his primary oncologist due to inability to swallow solids and liquids. This is a very sick patient with multiple medical issues and on multiple medications. Patient was unable to even swallow his medications. He has been nothing by mouth over the last past 4 days or so. Patient stated he would regurgitate immediately anything he tries to swallow including water. He is being admitted for dehydration, and for PEG tube placement. Patient denied any fever, no chills, no chest pain, no shortness of breath, abdominal pain. Review of Systems: Comprehensive review of system x 12 points is negative except for difficulty swallowing as described above in history of present illness Allergies Coded Allergies: Penicillins (Verified Allergy, Severe, Rash, 01/07/17) amiodarone (Verified Allergy, Mild, 01/07/17) codeine (Verified Adverse Reaction, Mild, Nausea, 01/07/17) Home Medications Exposure 0.5 mg, enalapril 10 mg orally daily, aspirin 81 mg orally daily, atorvastatin 80 mg orally daily, metoprolol ER 100 mg orally daily, ranitidine 150 mg orally daily, [id number] g inhaler daily, Symbicort 160/4.5 microgram inhalation, spironolactone 25 mg daily, furosemide 40 mg IV daily,, isosorbide 30 mg daily PMH Esophageal Cancer, atrial fibrillation on Coumadin, COPD, hypertension, hyperlipidemia, history of systolic heart failure Surgical History Port placement, AICD implant Family History Family history reviewed and is noncontributory to the present illness Social History Hx Alcohol Use: No Hx Substance Use: No Hx Tobacco Use: Yes Smoking Status: Current Every Day Smoker Living Arrangement: with Family (patient lives with his ) Exam Vital Signs Vital Sign - Last Date Time Temp Pulse Resp B/P Pulse Ox O2 Delivery O2 Flow Rate FiO2 01/29/17 16:15 70 01/29/17 16:03 36.6 18 134/63 96 Room Air Exam General : Well-nourished male but comfortably. No acute distress HEENT: Normocephalic and atraumatic. Sclerae is anicteric Mouth: Moist oral mucosa, no oral thrush Neck: Supple, no stridor, no JVD. Chest: No chest wall tenderness, normal respiratory efforts, no deformity. Lung: Mild expiratory wheeze bilaterally. Heart : S1, S2 regular rate and rhythm Abdomen: Soft, non tender, non distended. Bowel sounds no murmur or quadrant, no palpable mass Extremities: No cyanosis, edema, tenderness Skin: No rash, no ulcers. Moist. Neuro : Grossly non focal. AAO x 3 Lab and Diagnostics Labs platelet 154 Hb 9.4, HCT 29.9 wbc : 2.0 Na 136, K 3,4, Mg :1.9 Creat : 1.36 Assessment & Plan 1. Esophageal obstruction 2. Esophageal cancer 3. Dehydration 4. Atrial fibrillation on Coumadin 5. COPD 6. Hypertension 7. Systolic heart failure 8. Hypercholesterolemia This is a 77 years old male with past medical history of esophageal cancer, currently on chemotherapy and radiation therapy. Patient was sent to the hospital by his primary oncologist due to inability to swallow even liquids over last past 4 days. Patient is sent to the hospital for direct admission for PEG tube placement. Case discussed over the phone with Dr. Santos Admit to telemetry. Start vitamin K 5 milligrams orally x one dose. Initial plan was to transfuse the patient with FFP but patient and his have concern about potential side effects. We will repeat INR in the morning, and tif above 1.5 , consider transfusion FFP. Patient is scheduled to the OR by 10 AM Discussed with GI Dr. Dave . Start cautious IV hydration with normal saline 40 mm/h until - tomorrow , hopefully patient will have her PEG tube by then. Hydralazine 5 mg IV every 6 hours when necessary for systolic blood pressure above 160 Medication reviewed and reconciled. SCD for DVT prophylaxis. Oncology to follow. Patient will likely continue radiation therapy while hospitalized. This is an initial plan of care for now and will be adjusted as per clinical course Pain Evaluation: Adequate Pain Control VTE Mechanical Devices: Intermittant Pneumatic CD Time spent 55 minutes Alli Vazquez MD Jan 29, 2017 18:17
[2017-01-29 19:47] VITALS: BP 117/55; PULSE 71; RESP 22; O2SAT 97
[2017-01-29 20:21] LABS: APPEARANCE,URINE HAZY (CLEAR,HAZY); COLOR,URINE DARK YELLOW (YELLOW); OCCULT BLOOD,URINE NEGATIVE (NEGATIVE); UROBILINOGEN,URINE NORMAL (NORMAL)
[2017-01-29] MEDS ORDERED: Albuterol 1.25 mg/3 mL Inhalation Solution INHALATION SCH (20:30)
[2017-01-29 21:26] VITALS: PULSE 78; RESP 20; O2SAT 92
[2017-01-29] MEDS: Fluticasone-Salmeterol 500-50 Inhaler INHALATION SCH (22:05)
[2017-01-29 23:10] VITALS: BP 115/65; PULSE 74; RESP 22; O2SAT 96
[2017-01-30] VITALS (16 sets, daily range): BP systolic 110–159; BP diastolic 53–80; PULSE 72–92; RESP 14–36; O2SAT 86–100
[2017-01-30 03:04] LABS: Mean Corpuscular Hemoglobin 25.8 pg (27.0-35.0); Mean Corpuscular Volume 85.9 fL (81-100)
[2017-01-30 03:25] LABS: INR 1.85 ratio
--- NOTE | 2017-01-30 06:36 | NUR ---
NOC- PT remains NPO through the night. HE lets ice melt in mouth and then spits it out. NO emesis noted. VOids per urinal ace, concentrated urine. INR this am was 1.8. Sounds like he may bet some FFP today before peg placement. PT lungs are coarse t/o with some wheezes. He uses his cpap at [facility]. ORA. Denies pain.
[2017-01-30] MEDS ORDERED: Tiotropium 18mcg/Cap 5 Capsule Inhaler Kit INHALATION SCH (08:30)
[2017-01-30] MEDS: Fluticasone-Salmeterol 500-50 Inhaler INHALATION SCH ×2 (09:04→20:57)
--- NOTE | 2017-01-30 09:09 | NUR ---
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 Patient and are residing at [facility] while he receives daily Radiation treatments, since they live in [place]. Patient has Medicare and [employer]. insurance. Talked with the Britt Rn for patient and left a note on patient's chart for the Hospitalist for Dietitian Consult and [facility] for tube feedings and supplies. Talked with patient who was wondering if he will have his Radiation treatment today. I explained to him I would let Radiation Oncology know he was in the Hospital. Msg left for ARABELLA Alfonso in Radiation Oncology. Patient had questions regarding FFP. Patient education teaching completed for FFP. Patient verbalized understanding evidenced by his statement "so it's like a Blood Transfusion". No other care needs identified at this time. Will continue to follow and address any care needs as they arise.
[2017-01-30] MEDS ORDERED: Propofol 10,000 mCg/mL 20 mL Inj ONE (09:24)
[2017-01-30] MEDS ORDERED: 0.9% Sodium Chloride 250 ML IV STA (09:27)
[2017-01-30 10:05] LABS: Platelet Count 154 bil/L (150-400)
[2017-01-30 10:08] LABS: Mean Corpuscular Hemoglobin 25.9 pg (27.0-35.0); Mean Corpuscular Volume 85.5 fL (81-100)
[2017-01-30 10:18] LABS: INR 1.42 ratio
[2017-01-30 10:25] LABS: Magnesium 2.1 mg/dL (1.6-2.6)
[2017-01-30 10:35] LABS: BASOPHILS % (AUTO) 1 % (0-3); EOSINOPHILS % (AUTO) 1 % (0-5); MONOCYTES % (AUTO) 21 % (4-12); NEUTROPHILS % (AUTO) 59 % (40-74)
--- NOTE | 2017-01-30 11:04 | NUR ---
Palliative Care Palliative Care received verbal order from Dr Kerr 01/30/17 to assist with goals of care. Patient is a 77 year old man with history of esophageal cancer, currently on chemotherapy and radiation therapy. He was sent to the hospital by his oncologist, Dr Wang, due to inability to swallow. Patient was a direct admit from Dr Wang's on 01/29/17 for consideration of PEG tube placement. Patient lives at home with his . 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 Rose Pina () [phone], Angelika Caceres (daughter) [phone] Palliative Care to follow. Alicja Olivas Addendum: 01/30/17 at [address] Magaña met with patient and family. Goals are clear. Palliative Care has signed off service. Alicja Olivas
--- NOTE | 2017-01-30 11:21 | NUR ---
NUTRITION ASSESSMENT: ASSESS: Pt is a 77yo M admitted for esophageal Ca and plan for PEG tube placement. Pt is likely to have surgery today with TF starting tomorrow. Pt is currently receiving chemo and radiation. Treatment started at the beginning of Dec 2016. Pt's current wt is 98kg (215lbs). Reported UBW is ~110kg (240-250lbs). Pt reportedly has lost ~10kg in the last month (10% x1 month= significant). He has not been able to keep anything down for the last 4 days due to nausea, vomiting and esophagitis and was mainly drinking Ensure. 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 LABS: Reviewed. Na 148, Cl 115, Bun 34, Research Associate Policy 1.3, Glu 102, Ca 8.0, Alb 3.0 MEDS: Reviewed. Taxol, IVF @40ml/hr. GI: 0 BM since admit SKIN: Jeramy 18, no major issues CURRENT WTS: 98.2kg, BMI 29.4kg, UBW: ~110kg. 10% wt lossx1 month=significant DIET: NPO EST. NEEDS: Ca Kcals: 2455-2945kcal/day (25-30kcal/kg) Pro: 95-115g/day (1.0-1.2g/kg) Fluid: ~2455ml/day (1ml/kcal) NUTRITION DIAGNOSIS: 1.) Severe pro/kcal malnutrition related to esophageal ca as evidence by 10% wt loss x1 month, PO <75% of meals x1 month, reported nausea/vomiting. 2.) Inadequate oral intake related to esophageal ca as evidence by current NPO status, inability to keep PO food down and need for PEG tube to maintain adequate nutrition. NUTRITION INTERVENTION: 1.) Pt to have PEG placement during admit. Recommend start TF of Jevity 1.5 @ 10ml/hr. Hold at 31lpj30 hrs to monitor tolerance and any signs of re-feeding as pt has had decreased PO intake and wt loss. If tolerated, advance by 10ml q 4 hrs to goal rate of 75ml/hr. TF at goal will provide 2585kcal and 110g pro (100% estimated needs). Flush 40ml q 4 hrs while on IVF. If IVF stopped, recommend increase fluid flush to 95ml q 2 hrs. 2.) Adjust goal rate if pt is able to tolerate PO intake. 3.) Pt may benefit from ST eval if he is able to have his diet advanced after surgery. MONITOR / EVAL: PEG placement, TF start/javad, diet advance? ST eval?, wt, GI, POC, nutrition status. Will continue to monitor per high nutrition risk guidelines.
[2017-01-30] MEDS: 0.9% Sodium Chloride 250 ML IV SCH (11:31)
[2017-01-30] MEDS ORDERED: Sodium Chloride LOK Flush 10 mL Syringe IVFLUSH PRN (11:35)
--- NOTE | 2017-01-30 11:39 | PCM.CONPAL ---
Date of Service Jan 30, 2017 Date of Hospital Admission: Jan 29, 2017 at 15:31 Date of Palliative Consult: Jan 30, 2017 Requesting Provider: Carlee Kerr MD Reason Palliative Care Consult: Goals of Care Discussion Hospital Unit @time of consult: Progressive Care Palliative Care Recommendation Pleasant 77-year-old gentleman, unfortunately with esophageal cancer and now esophageal obstruction, admitted for PEG tube placement for nutritional support. Palliative medicine consulted to discuss goals of care with the patient and his family. Summary of palliative recommendations: -Symptom management (Pain/other)- patient is actually quite comfortable and in no significant distress. Continued management per hospitalist service. -DPOA/Advanced Directives/POLST- patient's is his default POA. They both say that they do not feel the need to complete any other formal documentation. He has never completed an advanced directive either and has no interest in doing so. Patient, his and daughter all say that he is fully committed to all possible aggressive medical care. -Family/emotional support- excellent support from his family As patient is stable and he and family identify no additional needs, palliative medicine will sign off at this time. Additional Medical Diagnoses with primary management by Hospitalist team include : 1. Esophageal obstruction 2. Esophageal cancer 3. Dehydration 4. Atrial fibrillation on Coumadin 5. COPD 6. Hypertension 7. Systolic heart failure 8. Hypercholesterolemia Problems: End of Life Preferences Full code; all possible aggressive medical care Goals of Care Continued aggressive treatment of his esophageal cancer and other medical issues Disposition Anticipates return home after procedure Resuscitation Status Resuscitation Status: CPR: Attempt Resuscitation POLST Updates/Changes Previous POLST?: No POLST Review Outcome: No Change . Advanced Care Planning Address: POLST, Durable Power of Claim Clinician Pain: None Pt History History of Present Illness Per admission H&P: This is a 77 years old male, with past medical history of esophageal cancer on chemo-radiation therapy, was sent to hospital by his primary oncologist due to inability to swallow solids and liquids. This is a very sick patient with multiple medical issues and on multiple medications. Patient was unable to even swallow his medications. He has been nothing by mouth over the last past 4 days or so. Patient stated he would regurgitate immediately anything he tries to swallow including water. He is being admitted for dehydration, and for PEG tube placement. Patient denied any fever, no chills, no chest pain, no shortness of breath, abdominal pain. Palliative consultation requested by medical team in order to assist patient and family in determination of goals of care. Prior to visiting, I reviewed his records in the EMR in detail both inpatient and outpatient. I attempted to contact Dr. Wang by phone but he was busy and will speak with him later. On my arrival, patient is sitting up in bed, with his and daughter at bedside. He is awake and oriented and quite appropriate. The family was a little bit frustrated because they have heard mixed messages about when his PEG tube can be placed. I quickly got on the phone and sorted out things for them for which they were grateful. His PEG tube will be placed soon and they plan on leaving for home tomorrow if everything goes as planned. We reviewed his medical diagnoses, his treatments up to this point through his oncologist's office and their ongoing plans. 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 Lives at home with his in [place]. Family Members Issues: Family members were concerned about whether his procedure could go forward today and were pleased to find that it will. and daughter fully committed to continuing their supportive care at home Palliative Performance Scale PPS Patient Status: Baseline PPS Ambulation: Reduced PPS Activity: Unable to do hobby/house work PPS Self-Care: Full Self Care PPS Intake: Minimal to sips (secondary to dysphagia) PPS Conscious Level: Full Performance Scale: 70% ADLs ADL Patient Status: Baseline ADL Ambulation: Reduced ADL Dressing: Full ADL Feeding: Full ADL Hygene/bathing: Full ADL Transfers: Full POLST at Time of Admission Previous POLST?: No Allergy Allergies Reviewed: Yes Medications Current Medications: Current Medications Albuterol 1 mg Q4H PRN NEB; Start 01/29/17 at 17:35 Albuterol 1.25 mg BID INHALATION Last administered on 01/29/17t 21:28; Admin Dose 1.25 MG; Start 01/29/17 at 20:30; Stop 01/30/17 at 09:24; Status DC Salmeterol Xinafoate/ Fluticasone 1 puff BID INHALATION Last administered on 01/30 09:04; Admin Dose 1 PUFF; Start 01/29/17 at 20:30 Tiotropium [place] 1 mcg DAILY INHALATION Last administered on 01/30/17 09:03; Admin Dose 1 MCG; Start 01/30/17 at 08:30; Stop 01/30/17 at 09:24; Status DC Hydralazine HCl 5 mg 5 mg Q6H PRN IV; Start 01/29/17 at 17:35 Sodium Chloride 1,000 ml @ 40 mls/hr Q24H IV Last administered on 01/29/17 19: 00; Admin Dose 40 MLS/HR; Start 01/29/17 at 17:35; Stop 01/30/17 at 12:00 Albuterol/ Ipratropium 3 ml Q6 NEB; Start 01/30/17 at 14:30 Scheduled Albuterol Neb Soln (Albuterol Neb Soln) 1.25 Mg/3 Ml Vial.neb 1.25 MG INHALATION BID Aspirin (Aspirin) 81 Mg Tablet.dr 81 MG PO DAILY Atorvastatin (Lipitor) 40 Mg Tablet 20 MG PO HS Budesonide/Formoterol 160-4.5 mcg Inh (Symbicort 160-4.5 mcg Inh) 1 Puff Inha 2 PUFF IH BID Enalapril Maleate (Enalapril Maleate) 20 Mg Tablet 10 MG PO BID Isosorbide DN (Isosorbide DN) 30 Mg Tablet 15 MG PO DAILY Levothyroxine (Levothyroxine) 75 Mcg Tablet 75 MCG PO DAILY Metoprolol Succinate ER (Metoprolol Succinate ER) 100 Mg Tab.er.24h 150 MG PO DAILY Pramipexole Dihydrochloride (Mirapex) 0.5 Mg Tablet 0.5 MG PO HS Ranitidine (Ranitidine) 150 Mg Capsule 150 MG PO HS Spironolactone (Spironolactone) 25 Mg Tablet 12.5 MG PO DAILY Tiotropium [place] (Spiriva) 18 Mcg Cap.w.dev 1 MCG IH DAILY Scheduled PRN Albuterol HFA (Proair HFA) 8.5 Gm Hfa.aer.ad 2 PUFFS IH Q4 PRN PRN For Shortness of Breath Furosemide (Lasix) 40 Mg Tablet 20 MG PO DAILY PRN PRN weight >235 lbs. Objective Findings Exam Vital Sign - Last Date Time Temp Pulse Resp B/P Pulse Ox O2 Delivery O2 Flow Rate FiO2 01/30/17 08:52 92 01/30/17 08:52 CPAP/BIPAP 01/30/17 07:29 36.7 36 144/61 93 Intake and Output 01/29/17 01/29/17 01/30/17 Cumulative From/Thru 15:00 23:00 07:00 01/29/17 16:04 - 01/30/17 06:32 Intake Total 0 ml 541 ml 541 ml Output Total 0 ml 150 ml 150 ml Balance 0 ml 391 ml 391 ml Intake Oral 0 ml 100 ml 100 ml IV Total 441 ml 441 ml Output Urine Total 0 ml 150 ml 150 ml # Bowel Movements 0 0 Objective Limited. Oriented and appropriate. Vital signs noted. Skin pink warm and dry. Remainder of exam unchanged from hospitalist evaluation Lab/Diagnostics Lab and Imaging results reviewed in detail in EMR. Time spent Total time 50 minutes; >50% face to face with patient and family, providing counselling regarding plans and recommendations, and in care coordination with his medical teams. Of the above total time, 10 minutes counseling for advanced care planning with the patient and his family, confirming POA/advanced directive/etc. issues Alli Magaña MD Jan 30, 2017 11:39
[2017-01-30] MEDS ORDERED: Albuterol-Ipratropium 3 mL Inhalation Solution ONE (12:22)
[2017-01-30] MEDS: Albuterol-Ipratropium 3 mL Inhalation Solution NEB SCH ×2 (12:30→18:30)
[2017-01-30] MEDS: Vancomycin Inj 1,000 MG in IV Premix 1 EACH IV ONE ×2 (13:05→13:34)
[2017-01-30] MEDS ORDERED: Lactated Ringer's 1,000 ML IV ONE ×2 (13:05)
--- NOTE | 2017-01-30 13:42 | NUR ---
Social Work: Initial Assessment D: Per EMR review, pt is a 77 year old male admitted for esophageal cancer. Pt is Medicare with [facility] [place] Supplement; pt has no LTC insurance or VA Benefits. PCP is Mane Garcia MD. NOK is Annette Pina, spouse, . Advanced directives not completed- declined further information from RN. Readmit score is moderate, 4/8. ASSISTANT PROPERTY MANAGER met with pt and spouse at bedside. SW role explained and contact information provided. See initial assessment. Pt lives with his spouse in a single-story home on Friday. Pt is I with ADLS and uses no DME. Pt has never had HH or skilled rehab. Pt and spouse have been staying at the [facility] while pt undergo's radiation at the [facility]. Pt will be having a PEG tube placed for tube feeds. Pt provided with infusion CHOICE LIST; preference is for [facility]. t/c to Laverne Chopra with [facility]; left message requesting return phone call to provide referral. A: Pt who is I at baseline. P: Anticipate pt to discharge home with tube feeds through [facility]; ASSISTANT PROPERTY MANAGER to continue to follow with discharge planning. IFEOMA [place] Addendum: 01/30/17 at 1350 by COLLEEN STEPHENS Amended: Links added.
--- NOTE | 2017-01-30 13:58 | PCM.PNMED ---
Subjective Date of Service Jan 30, 2017 Subjective Patient has no current complaints. He is unable to keep any food down secondary to increase of obstruction from his esophageal carcinoma. Patient was a direct admission from Dr. Hopkins's office. Scheduled to have PEG tube placement today Exam Vital Signs Vital Sign - Last Date Time Temp Pulse Resp B/P Pulse Ox O2 Delivery O2 Flow Rate FiO2 01/30/17 13:44 82 14 115/53 96 Room Air 01/30/17 11:57 36.6 Intake and Output 01/29/17 01/29/17 01/30/17 Cumulative From/Thru 14:59 22:59 06:59 01/29/17 16:04 - 01/30/17 06:32 Intake Total 0 ml 541 ml 541 ml Output Total 0 ml 150 ml 150 ml Balance 0 ml 391 ml 391 ml Intake Oral 0 ml 100 ml 100 ml IV Total 441 ml 441 ml Output Urine Total 0 ml 150 ml 150 ml # Bowel Movements 0 0 Exam Constitutional: Elderly man in no acute distress Head: Normocephalic atraumatic Chest reveals diffuse expiratory wheezes Cor: Regular rate and rhythm S1-S2 Abdomen: Soft nontender bowel sounds present Extremities: No pedal edema Neuro: Alert and oriented 3, motor strength is intact bilaterally IVs and Medications Medications Current Medications Albuterol 1 mg Q4H PRN NEB; Start 01/29/17 at 17:35 Albuterol 1.25 mg BID INHALATION Last administered on 01/29/17 21:28; Admin Dose 1.25 MG; Start 01/29/17 at 20:30; Stop 01/30/17 at 09:24; Status DC Salmeterol Xinafoate/ Fluticasone 1 puff BID INHALATION Last administered on 01/30 09:04; Admin Dose 1 PUFF; Start 01/29/17 at 20:30 Tiotropium Piggott 1 mcg DAILY INHALATION Last administered on 01/30/17 09:03; Admin Dose 1 MCG; Start 01/30/17 at 08:30; Stop 01/30/17 at 09:24; Status DC Hydralazine HCl 5 mg 5 mg Q6H PRN IV; Start 01/29/17 at 17:35 Sodium Chloride 1,000 ml @ 40 mls/hr Q24H IV Last administered on 01/29/17 19: 00; Admin Dose 40 MLS/HR; Start 01/29/17 at 17:35; Stop 01/30/17 at 12:55; Status DC Albuterol/ Ipratropium 3 ml 3 ml Q6 NEB; Start 01/30/17 at 14:30 Sodium Chloride 250 ml @ 10 mls/hr Q24H IV; Start 01/30/17 at 11:31 Lab and Diagnostics Laboratory Tests 72 Hours Test 01/29/17 19:45 01/29/17 20:07 01/30/17 02:55 01/30/17 09:40 Hold Urine Received (Received) Urine Color Dark yellow (YELLOW) Urine Appearance Hazy (CLEAR,HAZY) Urine pH 5.0 (5.0-8.0) Urine Specific [place] 1.030 (1.003-1.035) Urine Protein Tracemg/dL (NEG,TRACE) Urine Glucose (UA) Negativemg/dL (NEGATIVE) Urine Ketones Tracemg/dL (NEGATIVE) Urine Occult Blood Negative (NEGATIVE) Urine Nitrite Negative (NEGATIVE) Urine Bilirubin Negative (NEGATIVE) Urine Urobilinogen Normalmg/dL (NORMAL) Urine Leukocyte Esterase Negative (NEGATIVE) Urine RBC 0-2/hpf (0-2) Urine WBC 0-5/hpf (0-5) Urine Epithelial Cells Occasional/hpf (NONE-MOD) Urine Crystals Amorphous urates (NONE Urine Bacteria Few/hpf (NONE-FEW) Urine Hyaline Casts None/lpf (NONE) Urine Granular Casts None seen (NONE SEEN) Urine Waxy Casts None seen (NONE SEEN) Urine Red Blood Cell Casts None seen (NONE SEEN) Urine White Blood Cell Casts None seen (NONE SEEN) Urine Mucus Present (None Seen) Urine Trichomonas None seen (NONE SEEN) Urine Yeast None (NONE SEEN) Urinalysis Comment None Urine Culture Reflexed Not indicated White Blood Count 1.5th/mm3 (3.8-10.1) 2.0th/mm3 (3.8-10.1) Red Blood Count 2.91mil/mm3 (4.40-5.80) 3.17mil/mm3 (4.40-5.80) Hemoglobin 7.5g/dL (13.8-17.2) 8.2g/dL (13.8-17.2) Hematocrit 25.0% (41.0-50.0) 27.1% (41.0-50.0) Mean Corpuscular Volume 85.9fL (81-100) 85.5fL (81-100) Mean Corpuscular Hemoglobin 25.8pg (27.0-35.0) 25.9pg (27.0-35.0) Mean Corpuscular Hemoglobin Concent 30.0% (32.0-37.0) 30.3% (32.0-37.0) Red Cell Distribution Width 17.9% (12.3-15.4) 18.5% (12.3-15.4) Platelet Count 128bil/L (150-400) 154bil/L (150-400) Prothrombin Time 20.1sec (8.1-12.5) 15.3sec (8.1-12.5) Prothromb Time International Ratio 1.85ratio 1.42ratio Sodium Level 148mEq/L (134-144) 149mEq/L (134-144) Potassium Level 3.6mEq/L (3.5-5.2) 3.8mEq/L (3.5-5.2) Chloride Level 115mEq/L (97-108) 114mEq/L (97-108) Carbon Dioxide Level 22mmol/L (18-29) 21mmol/L (18-29) Blood Urea Nitrogen 34mg/dL (8-27) 32mg/dL (8-27) Creatinine 1.30mg/dL (0.76-1.27) 1.21mg/dL (0.76-1.27) Estimat Glomerular Filtration Rate 57mL/min (>59) 62mL/min (>59) Glucose Level 102mg/dL (60-99) 106mg/dL (60-99) Calcium Level 8.0mg/dL (8.5-10.1) 8.0mg/dL (8.5-10.1) Total Bilirubin 1.2mg/dL (0.0-1.2) 1.4mg/dL (0.0-1.2) Aspartate Amino Transf (AST/SGOT) 14U/L (0-50) 15U/L (0-50) Alanine Aminotransferase (ALT/SGPT) 11U/L (0-44) 13U/L (0-44) Alkaline Phosphatase 79U/L (25-160) 90U/L (25-160) Total Protein 5.6g/dL (6.4-8.4) 5.6g/dL (6.4-8.4) Albumin 3.0g/dL (3.4-5.0) 3.2g/dL (3.4-5.0) Neutrophils (%) (Auto) 59% (40-74) Lymphocytes (%) (Auto) 12% (14-46) Monocytes (%) (Auto) 21% (4-12) Eosinophils (%) (Auto) 1% (0-5) Basophils (%) (Auto) 1% (0-3) Band Neutrophils % 4% (1-5) Metamyelocytes % 1% (0-0) Myelocytes % 1% (0-0) Hematology Comments Rbc Magnesium Level 2.1mg/dL (1.6-2.6) Result Diagram: 01/30/17 0940 01/30/17 0940 Assessment & Plan 1. Esophageal obstruction 2. Esophageal cancer 3. Dehydration 4. Atrial fibrillation on Coumadin 5. COPD 6. Hypertension 7. Systolic heart failure 8. Hypercholesterolemia This is a 77 years old male with past medical history of esophageal cancer, currently on chemotherapy and radiation therapy. 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 Patient is sent to the hospital for direct admission for PEG tube placement. Case discussed over the phone with Dr. Santos Admit to telemetry. Start vitamin K 5 milligrams orally x one dose. Initial plan was to transfuse the patient with FFP but patient and his have concern about potential side effects. We will repeat INR this morning, and if above 1.5 , consider transfusion FFP. Patient is scheduled to the OR by 10 AM Discuss[address] with GI Dr. Dave . Start cautious IV hydration with normal saline 40 mm/h until - tomorrow , hopefully patient will have her PEG tube by then. # COPD with exacerbation, acute, present on admission We will change Spiriva to DuoNeb's 4 times a day and albuterol when necessary Check chest x-ray Consider steroids if persistently bronchospastic # Chronic atrial fibrillation on warfarin therapy, presented admission We will hold by mouth meds for now and continue once okay by surgery after PEG tube placement. Consider IV medications when necessary rate control # Hypertension, chronic, present on admission Medications will be held for anticipation of OR today Hydralazine 5 mg IV every 6 hours when necessary for systolic blood pressure above 160 # DVT prophylaxis SCD for DVT prophylaxis. # CODE STATUS Patient is full code. To get palliative care consultation regarding patient's goals and expectations regarding cancer therapy. VTE Mechanical Devices: Intermittant Pneumatic CD Resuscitation Status: CPR: Attempt Resuscitation Time spent 30 minutes Carlee Kerr MD Jan 30, 2017 13:58
--- NOTE | 2017-01-30 14:29 | ENDO ---
[address] [address] ENDOSCOPY PROCEDURE PATIENT: ANIA LIM : 1940 MR#: [id number] ADMIT: 01/29/2017 JOB ID: [id number] DATE OF SERVICE: 01/30/2017 PROCEDURE PERFORMED: 1. Esophagogastroduodenoscopy. 2. Percutaneous endoscopic gastrostomy tube placement. INDICATION: Failure to thrive. ASA CLASSIFICATION, MALLAMPATI SCORE AND MEDICATIONS as per Dr. Quiñonez's anesthesia report. In addition, he did receive 1 g of vancomycin for prophylaxis. PROCEDURE DETAILS: After informed consent was obtained, the patient was brought into the GI suite, where he was placed on oxygen via nasal cannula and monitored with continuous pulse oximeter, telemetry, and blood pressure monitoring. A time-out was performed. Then, he was placed in the left lateral decubitus position, and medications were administered for sedation. A bite block was placed. A standard EGD scope was inserted through the bite block and advanced to the second portion of the duodenum without difficulty. FINDINGS: 1. Normal appearing duodenal bulb, first and second portions. 2. Normal appearing pylorus, antrum and gastric body. Retroflexed views in the gastric body demonstrated a friable mass at gastroesophageal junction consistent with the patient's known history of esophageal malignancy. PERCUTANEOUS ENDOSCOPIC GASTROSTOMY TUBE PLACEMENT: A light reflex was obtained on the anterior abdominal wall. The site was then marked and then prepped in a sterile fashion. A small incision measuring approximately 1 cm was made with the sterile scalpel and after local 1% lidocaine was injected subcutaneously. Next, the trocar was introduced through the incision site. However, we did not see this entering the stomach. We then repositioned the needle again and attempted again to insert the needle into the stomach. However, this was unsuccessful. At this point, using the endoscope, performed transillumination again which demonstrated the light reflex just proximal to the previously made incision. Therefore, we made another small 1 cm sterile incision and through this we introduced the trocar, which then entered the stomach. The stylet was then removed, and then a guidewire was inserted through the trocar which was then grasped with a standard snare and then removed through the mouth. A 20-[employer] percutaneous gastrostomy tube was then attached to the guidewire, and then the tube was then pulled into place. The upper endoscope was then introduced back through the bite block and advanced into the gastric body where the PEG tube bumper was confirmed to be in adequate position. The upper endoscope was then withdrawn from the stomach through the esophagus where we did visualize the tumor, which appeared quite friable. Procedure was then completed. IMPRESSION: 1. Distal esophageal neoplasm. 2. Successful placement of percutaneous gastrostomy tube. 3. 3-4 MM clean based duodenal bulb ulcer RECOMMENDATIONS: 1. Do not use PEG tube today. The patient may have a clear liquid diet if he tolerates. 2. Would also to hold anticoagulation for 48 hours. 3. PPI daily COMPLICATIONS: None. ESTIMATED BLOOD LOSS: Less than 5 mL. MTDD
--- NOTE | 2017-01-30 16:18 | NUR ---
Endo/PEG Patient a/o x 4, npo for PEG placement this a.m. Patient down to Endo at 1215 and returned to room at 1445. Patient awake, denies pain, but has noted sob and c/o mild nausea. VSS, tele SR. PEG placed in mid upper abd, drsg c/d/i. Patient cont to do swish and spit, unable to swallow clear liqs, patient states "It gives me indigestion." Lungs course bilat, RR 30's/min RA sat mid 90's.
--- NOTE | 2017-01-30 19:34 | DRSVH ---
PROCEDURE: X-RAY CHEST, TWO VIEWS ([id number]) INDICATIONS: wheezing TECHNIQUE: 2 views of the chest were acquired. COMPARISON: [facility], CR, XR CHEST 2VW, 01/09/2017, 7:52. FINDINGS: Surgical changes and devices: Pacer defibrillator from the left is present. [facility] with the tip in the superior vena cava near the level of the azygos vein is present. Cardiac monito r leads, sternotomy wires are present. Lungs and pleura: There are persistent infiltrates in the lower lobes consistent with pneumonia. Ther e is thought to be worsening of the infiltrate at the left base. Mediastinum: Mediastinal contours are normal. Heart size is normal. Bones and chest wall: No suspicious bony abnormalities. Soft tissues appear unremarkable. IMPRESSION: Bilateral lower lung infiltrates consistent with pneumonia. With the patient's history at ical pneumonia, radiation pneumonitis and could appear this way. The lower lungs are relatively clear in November. Dictated by: Bartolome Mena M.D. on 01/30/2017 at 19:30 Approved by: Bartolome Mena M.D. on 01/30/2017 at 19:33
[2017-01-31] VITALS (11 sets, daily range): BP systolic 122–153; BP diastolic 56–65; PULSE 64–93; RESP 18–32; O2SAT 84–95
[2017-01-31] MEDS: Albuterol-Ipratropium 3 mL Inhalation Solution NEB SCH ×4 (02:30→20:23)
--- NOTE | 2017-01-31 07:16 | NUR ---
Respiratory status Pt has a productive cough with thin white sputum. Course lung sounds throughout, wheezes and crackles. Pt SOB with any activity. States this is his "baseline." Pt strict NPO, swishing mouth with pop, juice, and water.
[2017-01-31 07:33] LABS: Magnesium 1.7 mg/dL (1.6-2.6); Phosphorus 1.9 mg/dL (2.5-4.9)
[2017-01-31] MEDS ORDERED: Calcium Chl 10% (Gm) Inj 1 GM in Dextrose 5% 100 ML IV ONE (08:00)
[2017-01-31] MEDS: Fluticasone-Salmeterol 500-50 Inhaler INHALATION SCH ×2 (08:41→20:52)
[2017-01-31] MEDS: HepLOK Flush 100 unit/mL 5 mL Inj IVFLUSH PRN (08:46)
[2017-01-31] MEDS: 0.9% Sodium Chloride 250 ML IV SCH (10:22)
--- NOTE | 2017-01-31 12:46 | PCM.PNMED ---
Subjective Date of Service Jan 31, 2017 Subjective Patient seen and examined at bedside . He has no new complaints. S/p PEG tube placement yesterday and scheduled for radiation today . No fever, no chill,no chest pain, no shortness of breath Exam Vital Signs Vital Sign - Last Date Time Temp Pulse Resp B/P Pulse Ox O2 Delivery O2 Flow Rate FiO2 01/31/17 12:12 36.7 83 22 153/64 93 Room Air Intake and Output 01/30/17 01/30/17 01/31/17 Cumulative From/Thru 15:00 23:00 07:00 01/29/17 16:04 - 01/31/17 06:02 Intake Total 400 ml 362 ml 0 ml 1303 ml Output Total 280 ml 400 ml 830 ml Balance 400 ml 82 ml -400 ml 473 ml Intake Oral 0 ml 0 ml 100 ml IV Total 400 ml 362 ml 1203 ml Output Urine Total 280 ml 400 ml 830 ml # Voids 2 2 # Bowel Movements 0 Exam Constitutional: Well-nourished male, in bed comfortably, NAD. HEENT : Normocephalic atraumatic, sclerae is anicteric. Neck : Supple, no JVD , trachea is midline Chest: Normal respiratory effort. No chest wall deformity Lung : Clear bilaterally Heart : Regular rate and rhythm S1-S2 Abdomen: Soft, ND. Entry site of beg tube is clean , dry, no apparently infected , no bleed Extremities: No pedal edema, no cyanosis, no calf tenderness Neuro: Grossly non focal , Confused Skin : No rash, no ulcer IVs and Medications Medications Reviewed: Medications were reviewed in detail Lab and Diagnostics Result Diagram: 01/30/17 0940 01/31/17 0600 X-Rays, CTs and MRIs Chest X-ray reviewed : Bilateral lower lung infiltrates consistent with pneumonia. With the patient's history atypical pneumonia, radiation pneumonitis and could appear this way. The lower lungs are relatively clear in November Assessment & Plan 1. Esophageal obstruction : S/p peg tube placement . To start feeding as of today and see how he tolerates. 2. Esophageal cancer : Patient undergoing radiation therapy. He is due for one cession today 3. Dehydration : Due to esophageal obstruction Cautious hydration due to underlying heart failure 4. Atrial fibrillation on Coumadin Rate is controlled . Off Coumadin for PEG tube placement . Will resume Coumadin as of today 5. COPD ; Quiescent Chronic medidal problems Hypertension Systolic heart failure Hypercholesterolemia This is a very sick patient with advanced esophageal cancer with obstruction . Patient is full code and undergoing radiation therapy with chemotherapy being on the table as well. Plan of care as above. He was initially admitted for peg tube placement and dehydration . He is stable clinically. Chest Chest shows possible atypical pneumonia . Patient has no clinical symptoms of pneumonia and I believe this is changes due to ongoing radiation. No need for antibiotics at this time He is scheduled for radiation today . Hopefully home within 24 hours VTE Mechanical Devices: Intermittant Pneumatic CD Resuscitation Status: CPR: Attempt Resuscitation Time spent 25 minutes Alli Vazquez MD Jan 31, 2017 12:46
--- NOTE | 2017-01-31 12:49 | NUR ---
NUTRITION FOLLOW-UP: ASSESS: 77 YO male admitted with esophageal cancer and plan for PEG tube placement, which occurred yesterday. Enteral feeding was initiated this morning. When I explained the process to the patient and his , it became clear that there was no prior insurance authorization obtained by oncology for PEG tube feeding education, home enteral feeding formula, equipment and DME. The patient and his are staying at the [facility] for the duration of his treatment. I notified Case Management today that oncology did not obtain the proper insurance auths. It is likely that authorization will not be able to be obtained until next week. Unfortunately, the patient has not been able to keep anything down for the last 5 days due to nausea, vomiting and esophagitis, so his severe malnutrition will be prolonged by avoidable delays. 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 LABS: Na 151, K+ 3.0, Chloride 121, Glu 109, Ca 6.5, Phos 1.9, Alb 2.5. MEDS:Reviewed. GI: 0 BM since admit x 2 D. SKIN: Jeramy 16, no major issues at this point in time. WT: 97.2 kg, BMI 29.0 kg, Admit weight: 98.2 kg; UBW: ~110kg. 10% wt lossx1 month=significant DIET: NPO EST. NEEDS: Cancer Cachexia Kcals: 2455-2945kcal/day (25-30kcal/kg) Pro: 95-115g/day (1.0-1.2g/kg) Fluid: ~2455ml/day (1ml/kcal) NUTRITION DIAGNOSIS: 1) Severe pro/kcal malnutrition related to esophageal ca as evidence by 10% wt loss x1 month, PO <75% of meals x1 month, reported nausea/vomiting - PERSISTS. 2) Inadequate oral intake related to esophageal ca as evidence by current NPO status, inability to keep PO food down and need for PEG tube to maintain adequate nutrition - PERSISTS. NUTRITION INTERVENTION: 1) Enteral feeding to be initiated today as follows: Start Jevity 1.5 at 10 ml/hr x 12 hr to monitor tolerance and any signs of refeeding syndrome. Once tolerance established, advance 10 ml every 4 hr. to goal rate 75 ml/hr. Enteral feeding at goal rate will provide 2585 kcal and 110g pro (100% estimated needs). Flush 40ml q 4 hrs while on IVF. If IVF stopped, recommend increase fluid flush to 95ml q 2 hrs. 2) Adjust goal rate if pt is able to tolerate PO intake. 3) Pt may benefit from ST eval if he is able to have his diet advanced after surgery. 4) In the event Case Management unable to obtain insurance authorization until next week, recommend pt. remain admitted to take advance of enteral feeding to mitigate his malnutrition issues. MONITOR / EVAL: Enteral feeding initiation / tolerance, ST eval?, wt, GI, POC, nutrition status. Will continue to monitor per high nutrition risk guidelines.
[2017-01-31 16:39] LABS: INR 1.23 ratio
--- NOTE | 2017-01-31 18:36 | NUR ---
Tube feed/Output Patient alert and oriented x3, RENEE, BP slightly hypertensive 140s/150s systolic SPO2 low to mid 90s on RA, home CPAP at bedside with 2L bleed in at NOC/rest. No reports of n/v/d/c or abdominal pain, no BM since 01/28. Output 375mls, dark ace, reports voiding without complication. Jevity currently running at 20mls per hour with Q4 hour 40ml free water flush, less than 20cc residual x2. Up SBA to BSC and to urinate, in room throughout shift and assisting with care. Patient reports no pain at PEG tube site, no drainage noted, slight bruising.
--- NOTE | 2017-01-31 20:05 | PCM.PHAPRO ---
Progress Difficulty swallowing WARFARIN PER PHARMACY Indication: Afib Home dose: warfarin 3 mg PO daily INR Goal: 2-3 DI: N/A Additional anticoag: N/A Note: Pt was recently discharged with 3 mg daily Date INR 1.23 INR change Warf Dose P: Will give one time dose of warfarin 5mg PO tonight Pharmacy will continue to monitor INR/CBC/signs and symptoms of bleeding Erika Bowen PharmD Jan 31, 2017 20:05
[2017-02-01] VITALS (12 sets, daily range): BP systolic 110–164; BP diastolic 62–80; PULSE 79–110; RESP 22–32; O2SAT 86–98
--- NOTE | 2017-02-01 00:29 | PCM.PNMED ---
Subjective Date of Service Feb 01, 2017 Subjective tolerating tube feeds no complaints Exam Vital Signs Vital Sign - Last Date Time Temp Pulse Resp B/P Pulse Ox O2 Delivery O2 Flow Rate FiO2 01/31/17 23:48 36.9 64 26 143/65 94 Nasal Cannula Intake and Output 01/31/17 01/31/17 02/01/17 Cumulative From/Thru 15:00 23:00 07:00 01/29/17 16:04 - 01/31/17 22:07 Intake Total 105 ml 1408 ml Output Total 375 ml 1205 ml Balance -270 ml 203 ml Intake Oral 0 ml 100 ml IV Total 1203 ml Tube Feeding 55 ml 55 ml Tube Irrigant 50 ml 50 ml Output Urine Total 375 ml 1205 ml # Voids 1 3 # Bowel Movements 0 0 CBC Test 01/30/17 09:40 White Blood Count 2.0th/mm3 (3.8-10.1) Red Blood Count 3.17mil/mm3 (4.40-5.80) Hemoglobin 8.2g/dL (13.8-17.2) Hematocrit 27.1% (41.0-50.0) Mean Corpuscular Volume 85.5fL (81-100) Mean Corpuscular Hemoglobin 25.9pg (27.0-35.0) Mean Corpuscular Hemoglobin Concent 30.3% (32.0-37.0) Red Cell Distribution Width 18.5% (12.3-15.4) Platelet Count 154bil/L (150-400) Neutrophils (%) (Auto) 59% (40-74) Lymphocytes (%) (Auto) 12% (14-46) Monocytes (%) (Auto) 21% (4-12) Eosinophils (%) (Auto) 1% (0-5) Basophils (%) (Auto) 1% (0-3) Band Neutrophils % 4% (1-5) Metamyelocytes % 1% (0-0) Myelocytes % 1% (0-0) Hematology Comments Rbc CMP Test 01/31/17 06:00 Sodium Level 151mEq/L Potassium Level 3.0mEq/L Chloride Level 121mEq/L Carbon Dioxide Level 18mmol/L Blood Urea Nitrogen 24mg/dL Creatinine 0.90mg/dL Estimat Glomerular Filtration Rate 87mL/min Glucose Level 109mg/dL Calcium Level 6.5mg/dL Phosphorus Level 1.9mg/dL Magnesium Level 1.7mg/dL Total Bilirubin 0.9mg/dL Aspartate Amino Transf (AST/SGOT) 11U/L Alanine Aminotransferase (ALT/SGPT) 9U/L Alkaline Phosphatase 62U/L Total Protein 4.5g/dL Albumin 2.5g/dL Exam GEN- no apparent distress abdomen- soft , non tender, bowel sounds present, peg tube in place and site appear clean and dry. Lab and Diagnostics Result Diagram: 01/30/17 0940 01/31/17 0600 X-Rays, CTs and MRIs Chest X-ray reviewed : Bilateral lower lung infiltrates consistent with pneumonia. With the patient's history atypical pneumonia, radiation pneumonitis and could appear this way. The lower lungs are relatively clear in November Assessment & Plan esophageal cancer -non obstructing esophageal cancer -s/pPEG tube placement for failure to thrive -encourage PO -tolerating tube feeds, increase to goal as per nutrition recommendations. VTE Mechanical Devices: Intermittant Pneumatic CD Resuscitation Status: CPR: Attempt Resuscitation Layla Perea MD Feb 01, 2017 00:29
[2017-02-01] MEDS: Albuterol-Ipratropium 3 mL Inhalation Solution NEB SCH ×4 (02:40→20:26)
--- NOTE | 2017-02-01 03:56 | NUR ---
Tele/Sats/Gevity De-satted to mid 80's on RA, RT called , gave NEB and 2 L O2 per NC, Advanced Tube feed by 10 Ml/hr x2 to 40 mL.Goal Rate 75. NS @ Tko A&O x3 ,using call light appropriately, Lung sounds coarse , Rinsing mouth w water and spitting. Tele: V-Paced 75 w PVC.
[2017-02-01 05:07] LABS: INR 1.25 ratio
--- NOTE | 2017-02-01 06:42 | PCM.CONPHA ---
Subjective Difficulty swallowing Objective Vital Signs Date Time Temp Pulse Resp B/P Pulse Ox O2 Delivery O2 Flow Rate FiO2 02/01/17 06:09 86 02/01/17 02:48 36.8 80 28 135/62 98 Nasal Cannula 2.00 02/01/17 02:40 85 22 88 Room Air 01/31/17 23:48 36.9 64 26 143/65 94 Nasal Cannula 01/31/17 22:07 Supplement Oxygen 01/31/17 20:23 81 20 86 01/31/17 20:16 36.9 73 32 131/63 84 01/31/17 17:00 CPAP/BIPAP 01/31/17 16:25 36.6 79 24 142/60 95 Room Air 01/31/17 14:25 93 18 94 01/31/17 12:12 36.7 83 22 153/64 93 Room Air 01/31/17 08:50 CPAP/BIPAP 01/31/17 08:36 36.9 87 24 134/63 94 Room Air 01/31/17 08:00 81 01/31/17 07:38 82 24 93 Room Air Intake and Output 01/29/17 01/30/17 01/31/17 23:59 23:59 23:59 Intake Total 0 ml 1303 ml 105 ml Output Total 0 ml 430 ml 775 ml Balance 0 ml 873 ml -670 ml Weight (Kilograms): 97.700 Height (Feet): 6 Height (Inches): 0.00 Test 01/29/17 19:45 01/29/17 20:07 01/30/17 09:40 01/31/17 06:00 Hold Urine Received (Received) Urine Color Dark yellow (YELLOW) Urine Appearance Hazy (CLEAR,HAZY) Urine pH 5.0 (5.0-8.0) Urine Specific [place] 1.030 (1.003-1.035) Urine Protein Tracemg/dL (NEG,TRACE) Urine Glucose (UA) Negativemg/dL (NEGATIVE) Urine Ketones Tracemg/dL (NEGATIVE) Urine Occult Blood Negative (NEGATIVE) Urine Nitrite Negative (NEGATIVE) Urine Bilirubin Negative (NEGATIVE) Urine Urobilinogen Normalmg/dL (NORMAL) Urine Leukocyte Esterase Negative (NEGATIVE) Urine RBC 0-2/hpf (0-2) Urine WBC 0-5/hpf (0-5) Urine Epithelial Cells Occasional/hpf (NONE-MOD) Urine Crystals Amorphous urates (NONE Urine Bacteria Few/hpf (NONE-FEW) Urine Hyaline Casts None/lpf (NONE) Urine Granular Casts None seen (NONE SEEN) Urine Waxy Casts None seen (NONE SEEN) Urine Red Blood Cell Casts None seen (NONE SEEN) Urine White Blood Cell Casts None seen (NONE SEEN) Urine Mucus Present (None Seen) Urine Trichomonas None seen (NONE SEEN) Urine Yeast None (NONE SEEN) Urinalysis Comment None Urine Culture Reflexed Not indicated White Blood Count 2.0th/mm3 (3.8-10.1) Red Blood Count 3.17mil/mm3 (4.40-5.80) Hemoglobin 8.2g/dL (13.8-17.2) Hematocrit 27.1% (41.0-50.0) Mean Corpuscular Volume 85.5fL (81-100) Mean Corpuscular Hemoglobin 25.9pg (27.0-35.0) Mean Corpuscular Hemoglobin Concent 30.3% (32.0-37.0) Red Cell Distribution Width 18.5% (12.3-15.4) Platelet Count 154bil/L (150-400) Neutrophils (%) (Auto) 59% (40-74) Lymphocytes (%) (Auto) 12% (14-46) Monocytes (%) (Auto) 21% (4-12) Eosinophils (%) (Auto) 1% (0-5) Basophils (%) (Auto) 1% (0-3) Band Neutrophils % 4% (1-5) Metamyelocytes % 1% (0-0) Myelocytes % 1% (0-0) Hematology Comments Rbc Sodium Level 151mEq/L (134-144) Potassium Level 3.0mEq/L (3.5-5.2) Chloride Level 121mEq/L (97-108) Carbon Dioxide Level 18mmol/L (18-29) Blood Urea Nitrogen 24mg/dL (8-27) Creatinine 0.90mg/dL (0.76-1.27) Estimat Glomerular Filtration Rate 87mL/min (>59) Glucose Level 109mg/dL (60-99) Calcium Level 6.5mg/dL (8.5-10.1) Phosphorus Level 1.9mg/dL (2.5-4.9) Magnesium Level 1.7mg/dL (1.6-2.6) Total Bilirubin 0.9mg/dL (0.0-1.2) Aspartate Amino Transf (AST/SGOT) 11U/L (0-50) Alanine Aminotransferase (ALT/SGPT) 9U/L (0-44) Alkaline Phosphatase 62U/L (25-160) Total Protein 4.5g/dL (6.4-8.4) Albumin 2.5g/dL (3.4-5.0) Test 02/01/17 04:30 Prothrombin Time 13.4sec (8.1-12.5) Prothromb Time International Ratio 1.25ratio Assessment/Plan Assessment/Plan [facility] RTM Date Feb 01 INR 1.23 1.25 INR change 0.02 Warf Dose 5 5 Abner Streeter Feb 01, 2017 06:42
[2017-02-01] MEDS: Fluticasone-Salmeterol 500-50 Inhaler INHALATION SCH ×2 (08:04→19:57)
--- NOTE | 2017-02-01 10:17 | NUR ---
Enteral feeding pt alert and oriented. Jevity TF infusing at 50ml/hr. pt reports feeling full and bloated. denies nausea. residual 1ml with air. Pt requested TF be placed on hold for a short time. pt refusing TF restarted till seen by Occup Therapist. Occup Therapist informed. will continue to monitor.
[2017-02-01] MEDS ORDERED: Furosemide 10 mg/mL 10 mL Inj IVPUSH ONE (11:05)
--- NOTE | 2017-02-01 11:40 | PCM.PNMED ---
Subjective Date of Service Feb 01, 2017 Subjective Patient seen and examined at bedside . He is short of breath today . He denies chests pain . No fever, no chills, no abdominal pain . He is tolerating peg tube feeding . Discharge is on hold due to SOB and suspected acute pulmonary process Exam Vital Signs Vital Sign - Last Date Time Temp Pulse Resp B/P Pulse Ox O2 Delivery O2 Flow Rate FiO2 02/01/17 09:22 95 02/01/17 08:05 Supplement Oxygen 02/01/17 08:05 36.9 28 110/70 95 3.00 Intake and Output 01/31/17 01/31/17 02/01/17 Cumulative From/Thru 15:00 23:00 07:00 01/29/17 16:04 - 02/01/17 06:05 Intake Total 105 ml 670 ml 2078 ml Output Total 375 ml 175 ml 1380 ml Balance -270 ml 495 ml 698 ml Intake Oral 0 ml 100 ml IV Total 314 ml 1517 ml Tube Feeding 55 ml 276 ml 331 ml Tube Irrigant 50 ml 80 ml 130 ml Output Urine Total 375 ml 175 ml 1380 ml # Voids 1 3 # Bowel Movements 0 0 0 Exam Constitutional: Well-nourished male, iSOB but able to speck in full sentence, NAD. HEENT : Normocephalic atraumatic, sclerae is anicteric. Neck : Supple, no JVD , trachea is midline , no stridor . Chest: Labored respiratory effort. No chest wall deformity Lung : B/L crackles with decreased air entry in both lung field Heart : Regular rate and rhythm S1-S2, no murmur , no gallop Abdomen: Soft, ND. Entry site of beg tube is clean , dry, no apparently infected , no bleed Extremities: No pedal edema, no cyanosis, no calf tenderness Neuro: Grossly non focal , AAOx 3 . Skin : No rash, no ulcer IVs and Medications Medications Reviewed: Medications were reviewed in detail Lab and Diagnostics Result Diagram: 01/30/17 0940 02/01/17 0810 X-Rays, CTs and MRIs Chest X-ray reviewed : Bilateral lower lung infiltrates consistent with pneumonia. With the patient's history atypical pneumonia, radiation pneumonitis and could appear this way. The lower lungs are relatively clear in November Assessment & Plan 1. Esophageal obstruction : S/p peg tube placement . Tolerating feeding. To advance as per nutrition goal. 2. Esophageal cancer : Patient undergoing radiation therapy. He is due for one cession today 3. Dehydration : Due to esophageal obstruction Cautious hydration due to underlying heart failure . Sodium 151 today. He received Lasix for SOB , though to be fluid overload 4. Atrial fibrillation on Coumadin Rate is controlled . Off Coumadin for PEG tube placement . Resume Coumadin. INR goal 2-3 5. Acute respiratory failure with Hypoxia . Start Oxygen supplement via nasal canula. Lasix x one dose given but I am not convinced this is fluid overload. Will obtain chest X-ray. Patient is undergoing radiation therapy and it appears the field is quite large given his advanced disease . Acute radiation pneumonitis is quite likely. 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 I will start some steroid for now and will discussed with pulmonary for further recommendation . I don`t see any indication of antibiotics at this point . Continue PRN nebulizer/ bronchodilator Patient is full code . I discussed with him and his about possible mechanical ventilation should his condition worsen Hold discharge Chronic medical problems Hypertension Systolic heart failure Hypercholesterolemia VTE Mechanical Devices: Intermittant Pneumatic CD Resuscitation Status: CPR: Attempt Resuscitation Time spent 35 minutes Alli Vazquez MD Feb 01, 2017 11:40
[2017-02-01] MEDS ORDERED: MethylprednisoLONE Sodium Succinate 40 mg/mL Inj IVPUSH SCH (11:55)
--- NOTE | 2017-02-01 12:44 | NUR ---
NUTRITION FOLLOW-UP: ASSESS: 77 YO male admitted with esophageal cancer, status post PEG tube placement 01/30. Enteral feeding was initiated yesterday morning. Today the patient reports feeling full and requesting the feeding be put on hold. When I spoke to the patient late morning, it was evident that his respiratory status had significantly declined. I spoke with Dr. Vazquez, who examined the patient, ordered a chest x-ray, steroids and Lasix. He spoke to the patient and his about the potential for ARDS and intubation, placing patient's discharge on hold. This delay in discharge is fortunate, as I just faxed documentation today to [facility] to obtain insurance authorization for PEG tube feeding education, formula, DME and supplies. The patient and his are staying at the [facility] for the duration of his treatment. It is likely that insurance authorization will not be able to be obtained until next week. Unfortunately, the patient has not been able to keep anything down for the last 6 days due to nausea, vomiting and esophagitis, so his severe malnutrition will be prolonged by avoidable delays. I requested the enteral feeding be decreased to 25 ml/hr and held at that rate until tomorrow, when staff will re-evaluate. 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 LABS: Na 151, Chloride 116, BUN 29, Glu 201, Ca 8.3. MEDS:Lasix, Coumadin, Solu-medrol. GI: 0 BM since admit x 3 D. SKIN: Jeramy 18, no major issues at this point in time. WT: 97.7 kg, BMI 29.0 kg, Admit weight: 98.2 kg; UBW: ~110kg. 10% wt lossx1 month=significant DIET: NPO ENTERAL FEEDING: Jevity 1.5 rate decreased to 25 ml/hr until better tolerance established. Recommend staff reassess tomorrow morning and advance enteral feeding 5 ml every 4 hr. to goal rate 75 ml/hr. Enteral feeding at goal rate will provide 2585 kcal and 110g pro (100% estimated needs). Flush 40ml q 4 hrs. Yellow team to manage fluids. EST. NEEDS: Cancer Cachexia Kcals: 2455-2945kcal/day (25-30kcal/kg) Pro: 95-115g/day (1.0-1.2g/kg) Fluid: ~2455ml/day (1ml/kcal) NUTRITION DIAGNOSIS: 1) Severe pro/kcal malnutrition related to esophageal ca as evidence by 10% wt loss x1 month, PO <75% of meals x1 month, reported nausea/vomiting - PERSISTS. 2) Inadequate oral intake related to esophageal ca as evidence by current NPO status, inability to keep PO food down and need for PEG tube to maintain adequate nutrition - PERSISTS. NUTRITION INTERVENTION: 1) Reassess enteral feeding rate tomorrow and advance cautiously toward goal, if appropriate. 2) Adjust goal rate if pt is able to tolerate PO intake. 3) Pt may benefit from ST eval if he is able to have his diet advanced after surgery. 4) In the event insurance authorization unable to be obtained until next week, recommend pt. remain admitted to take advance of enteral feeding to mitigate his malnutrition issues. MONITOR / EVAL: Enteral feeding advance / tolerance, ST eval?, wt, GI, POC, nutrition status. Will continue to monitor per high nutrition risk guidelines.
[2017-02-01] MEDS: 0.9% Sodium Chloride 250 ML IV SCH (13:18)
--- NOTE | 2017-02-01 14:22 | DRSVH ---
PROCEDURE: X-RAY CHEST ONE VIEW, PORTABLE ([id number]) INDICATIONS: SOB TECHNIQUE: One view of the chest was acquired. COMPARISON: [facility], CR, XR CHEST 2VW, 01/30/2017, 18:11. FINDINGS: Surgical changes and devices: Unchanged appearance Lungs and pleura: No pleural effusions or pneumothorax. Increased retrocardiac consolidation. There is also improvement of the right lung groundglass opacities. Mediastinum: Mediastinal contours appear normal. Heart size is normal. Bones and chest wall: No suspicious bony lesions. Overlying soft tissues appear unremarkable. IMPRESSION: Improved groundglass opacities in the right lung since 01/30/17, possibly resolving aspiration versus p ulmonary edema. Increasing consolidation in the retrocardiac lung base. Please correlate clinically Dictated by: Misbah Cox M.D. on 02/01/2017 at 14:16 Approved by: Misbah Cox M.D. on 02/01/2017 at 14:20
--- NOTE | 2017-02-01 16:11 | NUR ---
Social Work: Continued Discharge Planning D: Pt discussed in am rounds. Pt had a PEG tubed placed and started on tube feeds. Pt is tolerating tube feeds well. MD was anticipating discharge today however due to a decline in pt's respiratory status, pt is not discharging. DELI BAKERY CLERK spoke with construction checker who faxed [facility] information to start auth for tube feeds. MD dictation is missing statement reflecting that pt will require tube feeds for a minimum of three months and a prescription for tube feeds; Pt will also require a ST evaluation to further support need for PEG tube placement and tube feeds. DELI BAKERY CLERK will discuss this with MD at am rounds. A: Pt who is I at baseline and staying at the [facility] while he completed radiation at [facility]. P: Evolving; Pt anticipate to discharge with tube feeds supplied through [facility]. DELI BAKERY CLERK to continue to follow pt's current clinical course and assist with further discharge planning. IFEOMA Hull
--- NOTE | 2017-02-01 16:31 | PCM.PNMED ---
Subjective Date of Service Feb 01, 2017 Subjective discharge held today as he is short of breath. he denies abdominal pain, nausea or vomiting he is not tolerating anything orally still except ice chips no bowel movement Exam Vital Signs Vital Sign - Last Date Time Temp Pulse Resp B/P Pulse Ox O2 Delivery O2 Flow Rate FiO2 02/01/17 14:45 87 24 86 Room Air 02/01/17 12:09 36.8 164/68 3.00 Intake and Output 01/31/17 01/31/17 02/01/17 Cumulative From/Thru 15:00 23:00 07:00 01/29/17 16:04 - 02/01/17 06:05 Intake Total 105 ml 670 ml 2078 ml Output Total 375 ml 175 ml 1380 ml Balance -270 ml 495 ml 698 ml Intake Oral 0 ml 100 ml IV Total 314 ml 1517 ml Tube Feeding 55 ml 276 ml 331 ml Tube Irrigant 50 ml 80 ml 130 ml Output Urine Total 375 ml 175 ml 1380 ml # Voids 1 3 # Bowel Movements 0 0 0 Exam GEN- iun no apparent distress, reading on his surface tablet abdomen-PEG tube site dry and clean, soft , non tender Lab and Diagnostics Result Diagram: 01/30/17 0940 02/01/17 0810 X-Rays, CTs and MRIs Chest X-ray reviewed : Bilateral lower lung infiltrates consistent with pneumonia. With the patient's history atypical pneumonia, radiation pneumonitis and could appear this way. The lower lungs are relatively clear in November Assessment & Plan Failure to thrive -s/p PEG tube, ok to start anticoagulation 48 hours after PEG tube placement -now on tube feeds -cont at goal Duodenal bulb ulcer -clean based 3-4mm -PPI daily for 8-12 weeks(Lanszoprazole can be given via the PEG tube as it can be crushed) -check stool for H pylori antigen or serum for H pylori antibody Esophageal Cancer -treatment as per oncology VTE Mechanical Devices: Intermittant Pneumatic CD Resuscitation Status: CPR: Attempt Resuscitation Layla Perea MD Feb 01, 2017 16:31
[2017-02-01] MEDS: Lansoprazole 30 mg ODTablet PO SCH (18:14)
[2017-02-01] MEDS: MethylprednisoLONE Sodium Succinate 40 mg/mL Inj IVPUSH SCH (23:03)
[2017-02-01 23:28] LABS: Magnesium 2.1 mg/dL (1.6-2.6); Phosphorus 2.3 mg/dL (2.5-4.9)
[2017-02-02] VITALS (13 sets, daily range): BP systolic 122–137; BP diastolic 57–80; PULSE 66–105; RESP 18–28; O2SAT 93–99
[2017-02-02] MEDS: Albuterol-Ipratropium 3 mL Inhalation Solution NEB SCH ×4 (04:41→20:28)
[2017-02-02 05:05] LABS: INR 1.33 ratio
--- NOTE | 2017-02-02 05:40 | NUR ---
Gevity/Labs Changed Gevity and tubing , @ 25 mL/hr , NS @ tko. , erratic. Labs sent for K:3.4, Phos:2.3, Mag 2.1, Hospitalist paged , will re-test in AM , A&Ox3 , C-Pap or nasal cannula , . Tele V-Paced 80-90. PVC
--- NOTE | 2017-02-02 07:17 | PCM.PHAPRO ---
Progress Difficulty swallowing Date Feb 01-Feb 02-Jan INR 1.23 1.25 1.33 INR change 0.02 0.08 Warf Dose 5 5 6 Abner Streeter Feb 02, 2017 07:17
--- NOTE | 2017-02-02 07:18 | PCM.PHAPRO ---
Progress Difficulty swallowing Date Feb 01-Feb 02-Jan INR 1.23 1.25 1.33 INR change 0.02 0.08 Warf Dose 5 5 6 Abner Streeter Feb 02, 2017 07:18
[2017-02-02] MEDS ORDERED: Potassium Chloride Inj 20 MEQ in Dextrose 5% 250 ML IV ONE (08:05)
[2017-02-02] MEDS: Fluticasone-Salmeterol 500-50 Inhaler INHALATION SCH ×2 (09:00→20:43)
[2017-02-02] MEDS: Lansoprazole 30 mg ODTablet PO SCH (09:00)
[2017-02-02] MEDS: MethylprednisoLONE Sodium Succinate 40 mg/mL Inj IVPUSH SCH ×2 (09:00→18:15)
--- NOTE | 2017-02-02 10:30 | NUR ---
[facility] Signed
[2017-02-02 11:33] LABS: EOSINOPHILS % (AUTO) 0 % (0-5); Mean Corpuscular Hemoglobin 26.2 pg (27.0-35.0); Mean Corpuscular Volume 86.3 fL (81-100); Platelet Count 169 bil/L (150-400)
--- NOTE | 2017-02-02 11:42 | NUR ---
Social Work: Continued Discharge Planning D: Pt discussed in am rounds. MD believes pt is medically stable for discharge and inquiring if tube feeds can be arranged for anticipated discharge today. RESEARCH TEST ENGINE OPERATOR spoke with Alesha from [facility] who states they do not yet have the authorization from Medicare and they cannot bring pt onto service until this is approved. [facility] is prioritizing this for Friday morning. RESEARCH TEST ENGINE OPERATOR obtained written order for Tube Feeds from MD. RESEARCH TEST ENGINE OPERATOR also requested MD dictate need for tube feeds for more than 90 days. Pt not currently at goal of 75 ml/hr. Per RN, pt experienced some discomfort and feeds were reduced to 25 ml/hr on 02/01. RESEARCH TEST ENGINE OPERATOR met with pt and spouse at bedside to discuss barriers to discharge specifically the authorization from Medicare and [facility] for tube feeds as an outpatient. They understand and state they have no other discharge concerns or needs. They will await update from case management on Friday regarding the authorization process. A: Pt who is I at baseline. P: Anticipate pt to discharge back to the [facility] with tube feeds from [facility] pending Medicare authorization. RESEARCH TEST ENGINE OPERATOR to fax order for TF and physician's progress note once dictated. RESEARCH TEST ENGINE OPERATOR to continue to follow closely. IFEOMA [place]
[2017-02-02] MEDS ORDERED: Artificial Tears 15 mL Ophthalmic Solution AFFECT_EYE PRN (13:00)
[2017-02-02] MEDS ORDERED: LacriLube S.O.P. 3.5 Gm Ophthalmic Ointment BOTH_EYES PRN (13:05)
[2017-02-02 13:55] LABS: BASOPHILS % (AUTO) 0 % (0-3); MONOCYTES % (AUTO) 2 % (4-12); NEUTROPHILS % (AUTO) 75 % (40-74)
[2017-02-02] MEDS: 0.9% Sodium Chloride 250 ML IV SCH (14:02)
--- NOTE | 2017-02-02 14:42 | PCM.PNMED ---
Subjective Date of Service Feb 02, 2017 Subjective Patient seen and examined at bedside. He is feeling better today and breathing at baseline he said. On oxygen via nasal canula and saturation is maintained off oxygen . No chest pain. No fever, no chills. Exam Vital Signs Vital Sign - Last Date Time Temp Pulse Resp B/P Pulse Ox O2 Delivery O2 Flow Rate FiO2 02/02/17 13:01 36.6 82 127/64 96 Nasal Cannula 2.00 02/02/17 08:24 20 Intake and Output 02/01/17 02/01/17 02/02/17 Cumulative From/Thru 15:00 23:00 07:00 01/29/17 16:04 - 02/02/17 06:04 Intake Total 610 ml 94 ml 2782 ml Output Total 1700 ml 300 ml 3380 ml Balance -1090 ml -206 ml -598 ml Intake Oral 0 ml 0 ml 100 ml IV Total 134 ml 94 ml 1745 ml Tube Feeding 396 ml 727 ml Tube Irrigant 80 ml 210 ml Output Urine Total 1700 ml 300 ml 3380 ml # Voids 3 # Bowel Movements 0 Exam Constitutional: In bed comfortably. NAD HEENT : Normocephalic atraumatic, sclerae is anicteric. Neck : Supple, no JVD , trachea is midline , no stridor . Chest: Normal respiratory effort. No chest wall deformity or tenderness Lung : B/L crackles with decreased air entry in both lung field , mild wheeze Heart : Regular rate and rhythm S1-S2, no murmur , no gallop Abdomen: Soft, ND. Entry site of Peg tube is clean , dry, no apparently infected , no bleed Neuro: Grossly intact , AAOx 3 . Extremities: , no cyanosis, no calf tenderness IVs and Medications Medications Reviewed: Medications were reviewed in detail Lab and Diagnostics Result Diagram: 02/02/17 0415 02/01/17 1529 X-Rays, CTs and MRIs Chest X-ray reviewed : Bilateral lower lung infiltrates consistent with pneumonia. With the patient's history atypical pneumonia, radiation pneumonitis and could appear this way. The lower lungs are relatively clear in November Assessment & Plan 1. Esophageal obstruction : S/p peg tube placement . Tolerating feeding. To advance as per nutrition until goal is achieve ( 75ml/hr ) . 2. Esophageal cancer : Patient undergoing radiation therapy. Radiation possibly to be resume tomorrow . Oncology following 3. Dehydration : Due to esophageal obstruction Na 151 yesterday. repeat bmp. Start free water via peg tube. IVF discontinued 4. Atrial fibrillation on Coumadin Rate is controlled . Coumadin resumed . INR goal 2-3 5. Acute respiratory failure with Hypoxia . Improved on solumedrol Possibility component of COPD and possibly radiation pneumonitis Discussed with pulmonary . OK trail of steroid . Chest X-ray show improvement but increased in retrocardiac consolidation.Possibly pneumonia ? Start PO Levaquin . Patient has been hospitalized for 3 days and shadow was on previous X-ray. I don`t think this his HCAP if it is indeed pneumonia Continue PRN nebulizer/ bronchodilator Patient is full code . Discharge possibly for tomorrow if PEG tube goal is achieved Pain Evaluation: Adequate Pain Control VTE Mechanical Devices: Intermittant Pneumatic CD Resuscitation Status: CPR: Attempt Resuscitation Time spent 35 minutes Alli Vazquez MD Feb 02, 2017 14:42
--- NOTE | 2017-02-02 15:14 | NUR ---
Activity/O2 Order to ambulate pt while monitoring O2. Pt taken out to hallway with pulse oximeter monitoring. After walking 75feet, made aware by tech monitor pt's HR in the 140s. SpO2 90-92% on RA, Pt denied feeling dizzy or having chest pain however stating being "a little SOB". Pt given 2L O2 NC for walk back to room, SpO2 still 90-92%. Pt walked a total of 150 feet. Pt having labor breathing after walk, took about 5-10min for breathing to recover. Pt resting comfortably in bed at this time. Ongoing care.
[2017-02-03] VITALS (14 sets, daily range): BP systolic 111–145; BP diastolic 58–80; PULSE 64–104; RESP 16–24; O2SAT 95–100
[2017-02-03] MEDS: MethylprednisoLONE Sodium Succinate 40 mg/mL Inj IVPUSH SCH ×4 (03:13→23:26)
[2017-02-03] MEDS: Albuterol-Ipratropium 3 mL Inhalation Solution NEB SCH ×4 (05:10→20:24)
[2017-02-03 05:33] LABS: INR 1.85 ratio
[2017-02-03] MEDS ORDERED: Potassium Chloride Inj 20 MEQ in Dextrose 5% 250 ML IV ONE (08:30)
[2017-02-03] MEDS ORDERED: KCl 40 mEq/D5W 500 mL 40 MEQ in IV Premix 1 EACH IV ONE (08:30)
[2017-02-03] MEDS: HepLOK Flush 100 unit/mL 5 mL Inj IVFLUSH PRN (08:45)
--- NOTE | 2017-02-03 08:57 | NUR ---
Radiation [facility]. [facility] ) for radiation at 0852. automotive lube technician was notified. Joelle was hep-locked. He was transferred with 2L/min O2 by NE. He denied pain. Addendum: 02/03/17 at 1005 by GIANCARLO BEDOYA RN Pt. returned to [facility] around 0952.
[2017-02-03] MEDS ORDERED: Artificial Tears 15 mL Ophthalmic Solution AFFECT_EYE PRN (10:00)
[2017-02-03] MEDS: Lansoprazole 30 mg ODTablet PO SCH (10:06)
[2017-02-03] MEDS: Fluticasone-Salmeterol 500-50 Inhaler INHALATION SCH ×2 (10:06→20:10)
[2017-02-03] MEDS: levoFLOXacin 750 mg Tablet PO SCH (10:06)
--- NOTE | 2017-02-03 10:24 | NUR ---
NUTRITION FOLLOW-UP: ASSESS: 77 YO M admitted with esophageal cancer, status post PEG tube placement 01/30. Enteral feeding remains at 25 ml/hr. Spoke with pt regarding TF per pt request. Pt worried about advancing TF due to abdominal discomfort at 75 ml/hr, discussed slowly advancing TF and reassessing if the discomfort comes back. Plan to advance today. 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 LABS: No new labs to review. MEDS: Coumadin, Solu-medrol. GI: 0 BM since admit. SKIN: Jeramy 18, no major issues at this point in time. WT: 96.0 kg, BMI 28.7 kg, Admit weight: 98.2 kg; UBW: ~110kg. 10% wt lossx1 month=significant DIET: NPO ENTERAL FEEDING: Jevity 1.5 @ 25 ml/hr, advancing today. Plan to advance enteral feeding 5 ml every 4 hr to goal rate 75 ml/hr. Enteral feeding at goal rate will provide 2585 kcal and 110g pro (100% estimated needs). Flush 40ml q 4 hrs. Yellow team to manage fluids. EST. NEEDS: Cancer Cachexia Calories: 3794-9124 kcal/day (25-30 kcal/kg) Protein: 95-115 g/day (1.0-1.2 g/kg) Fluid: ~2455 ml/day (1 ml/kcal) NUTRITION DIAGNOSIS: 1) Severe pro/kcal malnutrition related to esophageal ca as evidence by 10% wt loss x1 month, PO <75% of meals x1 month, reported nausea/vomiting - PERSISTS. 2) Inadequate oral intake related to esophageal ca as evidence by current NPO status, inability to keep PO food down and need for PEG tube to maintain adequate nutrition - PERSISTS. NUTRITION INTERVENTION: 1) Advance TF 10 ml q 4 hr to goal rate of 75 ml/hr. 2) Adjust goal rate if pt is able to tolerate PO intake. 3) Pt may benefit from ST eval if he is able to have his diet advanced after surgery. 4) In the event insurance authorization unable to be obtained until next week, recommend pt. remain admitted to take advance of enteral feeding to mitigate his malnutrition issues. MONITOR/EVALUATE: TF advance/tolerance, ST eval?, wt, GI, POC, nutrition status. Follow per high nutrition risk guidelines.
--- NOTE | 2017-02-03 10:26 | NUR ---
PEG feeding Dietitian came to assess pt. as requested by pt. Pt. agreed with increasing feeding rate gradually as tolerated by him. Resume original PEG feeding order, increase 10 mL/hr Q 4 hours. Bowel tone positive, 0 mL tube feed residual, pt. denied bloating, diarrhea, or GI upset. Increase current rate from 25 mL/hr to 35 mL/hr. Pt. comfortable with plan. Addendum: 02/03/17 at 1825 by GIANCARLO BEDOYA RN PEG feeding was well tolerated by pt. Will increase rate to 55 mL /hr at 1830. He will be at 65mL/hr at 0 if without complaints or complications.
--- NOTE | 2017-02-03 11:25 | PCM.PHAPRO ---
Progress Date of Service: Feb 03, 2017 INR = 1.85, HCT = 29, PLTS = 169. Pt continues on warfarin for afib. Goal INR = 2-3. Will give warfarin 5mg PO tonight. INRs ordered. Pharmacy will continue to follow this pt's warfarin therapy. Date Feb 01-Feb 02-Feb 03-Jan INR 1.23 1.25 1.33 1.85 INR change 0.02 0.08 0.52 Warf Dose [address] PharmD Feb 03, 2017 11:25
--- NOTE | 2017-02-03 12:10 | PCM.PNMED ---
Subjective Date of Service Feb 03, 2017 Subjective Patient seen and examined at bedside . No significant interval changes. Per nursing report it appears he refused to have his enteral nutrition be up-titrate until seen by nutrition. He is on 25ml/ hr now with goal of 75 ml/hr. He is scheduled for radiation today Exam Vital Signs Vital Sign - Last Date Time Temp Pulse Resp B/P Pulse Ox O2 Delivery O2 Flow Rate FiO2 02/03/17 10:30 83 20 98 Nasal Cannula 3.00 02/03/17 08:35 36.3 144/72 Intake and Output 02/02/17 02/02/17 02/03/17 Cumulative From/Thru 15:00 23:00 07:00 01/29/17 16:04 - 02/03/17 06:25 Intake Total 301 ml 376 ml 0 ml 3459 ml Output Total 689 ml 350 ml 4419 ml Balance 301 ml -313 ml -350 ml -960 ml Intake Oral 0 ml 0 ml 100 ml IV Total 376 ml 2121 ml Tube Feeding 196 ml 923 ml Tube Irrigant 105 ml 315 ml Output Urine Total 300 ml 350 ml 4030 ml Gastric Drainage Total 389 ml 389 ml # Voids 3 # Bowel Movements 0 Exam Constitutional: Well-nourished male, in bed comfortably, NAD. HEENT : sclerae is anicteric. Neck : Supple, no JVD , trachea is midline Chest: Normal respiratory effort. Lung : Decreased air entry bilaterally. Some scattered crackles B/l. Mild expiratory wheeze Heart : Regular rate and rhythm S1-S2, No G/M Abdomen: Soft, ND. Entry site of beg tube is clean , dry Extremities: No edema, no cyanosis Neuro: Grossly intact IVs and Medications Medications Reviewed: Medications were reviewed in detail Lab and Diagnostics Result Diagram: 02/02/17 0415 02/02/17 2995 X-Rays, CTs and MRIs Chest X-ray reviewed : Bilateral lower lung infiltrates consistent with pneumonia. With the patient's history atypical pneumonia, radiation pneumonitis and could appear this way. The lower lungs are relatively clear in November Assessment & Plan 1. Esophageal obstruction : S/p peg tube placement . Feeding not at goal. Patient still on 25 ml/hr. Goal is 75 ml/hr. Increase feeding as tolerated. Nutrition follow up 2. Esophageal cancer : Patient undergoing radiation therapy Palliative radiation therapy today Oncology following 3. Dehydration : Due to esophageal obstruction lab for today is pending 4. Atrial fibrillation on Coumadin Rate is controlled . Coumadin per pharmacist . INR goal 2-3 5. Acute respiratory failure with Hypoxia . Improved on solumedrol Possibility component of COPD and possibly radiation pneumonitis Trial of steroid is helping . Patient is back on 2 liters of oxygen , which is his baseline need Chest X-ray show improvement but increased in retrocardiac consolidation.Possibly pneumonia ? Start on PO Levaquin . He has been hospitalized for 3 days and the shadow was on previous X-ray. I don`t think this his HCAP , possibly not pneumonia at all. Obtain Chest Ct scan . Continue PRN nebulizer/ bronchodilator Patient is full code . Discharge possibly for tomorrow if PEG tube goal is achieved VTE Mechanical Devices: Intermittant Pneumatic CD Resuscitation Status: CPR: Attempt Resuscitation Time spent 25 minutes Alli Vazquez MD Feb 03, 2017 12:10
--- NOTE | 2017-02-03 14:35 | DRSVH ---
PROCEDURE: CT CHEST WITHOUT CONTRAST ([id number]) INDICATIONS: Retrocardiac shadow. TECHNIQUE: Noncontrast 5 mm thick sections acquired from the pulmonary apices to the posterior costophrenic angl es. 7 mm thick coronal and sagittal MIP reformats were then acquired. For radiation dose reduction, the following was used: automated exposure control, adjustment of mA and/or kV according to patient size. COMPARISON: [facility], CT, CT CHEST WO CON, 01/09/2017, 14:02. [facility], CT, CHEST W/O CONTRAST, 10/28/2013, 12:31. [facility], CT, CHEST W/O CONTRAST, 2010, 12:25. FINDINGS: Image quality: Excellent. Lungs and pleura: Resolved right pleural effusion. Decreased, small left pleural effusion. Decreased size of previously seen cavitary subpleural nodule within the right lower lobe, currently measuring 1 9 mm. Decreased surrounding soft tissue density is present. Moderate basilar predominant reticulonodu lar density is present, which is decreased slightly. Moderate reticulonodular density within the righ t greater than left bilateral mid lungs is not significantly changed. Central and peripheral airways are patent and normal in caliber. Mediastinum: Heart size is e to, 14 mm short axis precarinal adenopathy. No change in 19 mm short ax is subcarinal adenopathy. Remaining previous is seen a large lymph nodes have decreased. Thoracic aor ta and central pulmonary arteries are normal in size. Esophagus is normal in caliber. No change in moderate hiatal hernia. Bones and chest wall: No suspicious bony lesions. No vertebral body compression fractures. No axil silver or supraclavicular adenopathy by size criteria. Thyroid gland is within normal limits. Abdomen: Visualized upper abdominal solid organs and bowel loops appear normal in the absence of con trast. IMPRESSION: 1. Resolving atypical pneumonia with resolving bilateral parapneumonic effusions. Resolving, but pers istent mediastinal adenopathy, presumably reactive. Continued follow up is recommended to ensure resolution, and to exclude underlying malignancy. 2. No change in moderate hiatal hernia. 3. Cardiomegaly and coronary artery disease. Dictated by: Liz Serrano M.D. on 02/03/2017 at 14:29 Approved by: Liz Serrano M.D. on 02/03/2017 at 14:34
[2017-02-03] MEDS: 0.9% Sodium Chloride 250 ML IV SCH (14:55)
--- NOTE | 2017-02-03 16:00 | NUR ---
elevator examiner and adjusterproject management it specialist note: Patient's and patient were asking about his Chemotherapy treatment. I explained I would have to ask Dr. Wang. It would be Dr. Wang decision if patient is to continue treatment while in the hospital. Patient is being treated for Pneumonia at this time. Dr. Wang is not in the office today, he is at [facility]. I will leave a note for him tomorrow. No other care needs identified at this time. Will continue to follow.
--- NOTE | 2017-02-03 18:39 | NUR ---
Pacemaker Cardiology will perform pacemaker check tomorrow 02/04/17. Notified cardiology dept. about frequent runs of PVCs according to telemetry.
[2017-02-04] VITALS (10 sets, daily range): BP systolic 120–149; BP diastolic 58–70; PULSE 75–95; RESP 18–30; O2SAT 91–99
[2017-02-04] MEDS: Albuterol-Ipratropium 3 mL Inhalation Solution NEB SCH ×4 (02:34→21:41)
[2017-02-04 05:16] LABS: INR 3.02 ratio
[2017-02-04 05:25] LABS: BASOPHILS % (AUTO) 0.1 % (0-3); EOSINOPHILS % (AUTO) 0 % (0-5); MONOCYTES % (AUTO) 5.7 % (4-12); Mean Corpuscular Hemoglobin 26.3 pg (27.0-35.0); Mean Corpuscular Volume 86.2 fL (81-100); NEUTROPHILS % (AUTO) 90.4 % (40-74); Platelet Count 174 bil/L (150-400)
--- NOTE | 2017-02-04 05:46 | NUR ---
Tube feeding/tele Pt is up to goal of 75 ml/hr with tube feeding and is tolerating it without nausea or other complaints. Residual has been less than 5 ml. Denies pain. Using suction to help clear secretions. Continues to c/o dry mouth and using ice with his suction for this. Tele continues to be frequent PVC's and runs of PVC's. Pt denies pain, dizziness, or other symptoms. Plan is for pacer to be interrogated today.
[2017-02-04] MEDS: Fluticasone-Salmeterol 500-50 Inhaler INHALATION SCH ×2 (08:05→20:30)
[2017-02-04] MEDS: MethylprednisoLONE Sodium Succinate 40 mg/mL Inj IVPUSH SCH ×3 (08:05→23:55)
[2017-02-04] MEDS: levoFLOXacin 750 mg Tablet PO SCH (08:06)
[2017-02-04] MEDS: Lansoprazole 30 mg ODTablet PO SCH (08:06)
[2017-02-04] MEDS: 0.9% Sodium Chloride 250 ML IV SCH (11:31)
--- NOTE | 2017-02-04 14:09 | PCM.PNMED ---
Subjective Date of Service Feb 04, 2017 Subjective no complaints overnight, TF at goal overnight - no n/cp/sob. pt has home oxygen at home, 2L at baseline, staying in a private room with . educated about TF yesterday. PM interoggated today, TF needed before dc, apparently needs sig from onc/lead solutions architect, likely dc tomorrow. Cont levaquin Exam Vital Signs Vital Sign - Last Date Time Temp Pulse Resp B/P Pulse Ox O2 Delivery O2 Flow Rate FiO2 02/04/17 12:05 36.8 78 20 149/70 96 Room Air 02/04/17 08:32 1.00 Intake and Output 02/03/17 02/03/17 02/04/17 Cumulative From/Thru 15:00 23:00 07:00 01/29/17 16:04 - 02/04/17 05:54 Intake Total 1419 ml 1540 ml 6418 ml Output Total 600 ml 900 ml 5919 ml Balance 819 ml 640 ml 499 ml Intake Oral 0 ml 560 ml 660 ml IV Total 666 ml 132 ml 2919 ml Tube Feeding 593 ml 743 ml 2259 ml Tube Irrigant 160 ml 105 ml 580 ml Output Urine Total 600 ml 900 ml 5530 ml Gastric Drainage Total 389 ml # Voids 3 # Bowel Movements 0 0 Exam Constitutional: Well-nourished male, in bed comfortably, NAD. HEENT : sclerae is anicteric. Neck : Supple, no JVD , trachea is midline Chest: Normal respiratory effort. Lung : Decreased air entry bilaterally. Some scattered crackles B/l. Mild expiratory wheeze Heart : Regular rate and rhythm S1-S2, No G/M Abdomen: Soft, ND. Entry site of beg tube is clean , dry Extremities: No edema, no cyanosis Neuro: Grossly intact IVs and Medications Medications Reviewed: Medications were reviewed in detail Lab and Diagnostics Result Diagram: 02/04/1739902/04/17399 X-Rays, CTs and MRIs Chest X-ray reviewed : Bilateral lower lung infiltrates consistent with pneumonia. With the patient's history atypical pneumonia, radiation pneumonitis and could appear this way. The lower lungs are relatively clear in November Assessment & Plan 1. Esophageal obstruction : S/p peg tube placement . Feeding not at goal. Patient uptitrated to Goal of 75 ml/hr. Increase feeding as tolerated. Nutrition follow up 2. Esophageal cancer : Patient undergoing radiation therapy Palliative radiation therapy today Oncology following 3. Dehydration : Due to esophageal obstruction lab for today is pending 4. Atrial fibrillation on Coumadin Rate is controlled . Coumadin per pharmacist . INR goal 2-3 5. Acute respiratory failure with Hypoxia . Improved on solumedrol Possibility component of COPD and possibly radiation pneumonitis Trial of steroid is helping . Patient is back on 2 liters of oxygen , which is his baseline need Chest X-ray show improvement but increased in retrocardiac consolidation.Possibly pneumonia ? Start on PO Levaquin . He has been hospitalized for 3 days and the shadow was on previous X-ray. I don`t think this his HCAP , possibly not pneumonia at all. reviewed CT scan/chest - resolving effusions 6. DM hx, last a1c in 2014 6.8 repeat a1c here added sliding scale and hypoglycemic protocol consider low dose lantus if needed added D5W given hypernatremia Continue PRN nebulizer/ bronchodilator Patient is full code . Discharge possibly for tomorrow if PEG tube goal is achieved and has access to TF Pain Evaluation: Adequate Pain Control GI Prophylaxis: Proton Pump Inhibitor VTE Prophylaxis: Theraputic Anticoag with Warfarin VTE Mechanical Devices: Intermittant Pneumatic CD Resuscitation Status: CPR: Attempt Resuscitation Time spent 40 min spent with eval and mgmt Alli Duong DO Feb 04, 2017 14:09
[2017-02-04] MEDS ORDERED: Glucose 40% Oral Gel 15 Gm Tube PO PRN (14:20)
--- NOTE | 2017-02-04 14:48 | PCM.PHAPRO ---
Progress Date of Service: Feb 04, 2017 INR = 3.02, hgb = 28.2, plts 174. Pt continues on warfarin for afib. Goal INR 2-3. INR is surpatherapeutic today at 3.02. Since INR increased rapidly, will hold tonight's warfarin dose. INRs are ordered. Pharmacy will follow this patient's warfarin therapy. Bambi Lane PharmD Feb 04, 2017 14:48
[2017-02-04] MEDS: Polyethylene Glycol (PEG) 17 Gm Powder TUBE SCH ×2 (15:00→16:29)
--- NOTE | 2017-02-04 15:11 | NUR ---
NUTRITION FOLLOW-UP: ASSESS: 77 YO M admitted with esophageal cancer, status post PEG tube placement 01/30. TF advanced to goal rate of 75 ml/hr today and pt tolerating well. No complaints of nausea or abdominal pain. 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 LABS: Na 152, Cl 114, BUN 47, Glu 280, Ca 7.8, Phos 2.3, Albumin 2.8 MEDS: Solu-medrol. GI: 0 BM since admit. SKIN: Jeramy 19, no major issues at this point in time. WT: 97.0 kg, BMI 29.0 kg, Admit weight: 98.2 kg; UBW: ~110kg. 10% wt lossx1 month=significant DIET: NPO ENTERAL FEEDING: Jevity 1.5 @ 75 ml/hr, providing 2585 kcal and 110g pro (100% estimated needs). Flush 40ml q 4 hrs. Yellow team to manage fluids. EST. NEEDS: Cancer Cachexia Calories: 7482-8437 kcal/day (25-30 kcal/kg) Protein: 95-115 g/day (1.0-1.2 g/kg) Fluid: ~2455 ml/day (1 ml/kcal) NUTRITION DIAGNOSIS: 1) Severe pro/kcal malnutrition related to esophageal ca as evidence by 10% wt loss x1 month, PO <75% of meals x1 month, reported nausea/vomiting - PERSISTS. 2) Inadequate oral intake related to esophageal ca as evidence by current NPO status, inability to keep PO food down and need for PEG tube to maintain adequate nutrition - PERSISTS. NUTRITION INTERVENTION: 1) Recommend continuing TF at current rate. MONITOR/EVALUATE: TF tolerance, wt, GI, POC, nutrition status. Follow per high nutrition risk guidelines
--- NOTE | 2017-02-04 16:27 | NUR ---
Social Work Note: Continued Discharge Planning Data& Assessment: LORRAINE spoke with Aliya from [facility] who explained she is still working on obtaining insurance authorization for tube feeds. MD and discharge rn notified. LORRAINE to continue to follow. Plan: Anticipated discharge back to [facility] where pt is staying while he is receiving radiation with tube feeds through [facility] pending insurance authorization. LORRAINE to continue to follow. IFEOMA Marie
[2017-02-04] MEDS: Insulin LISPRO 300 Unit/3 mL Inj SUBQ SCH ×2 (17:15→22:00)
--- NOTE | 2017-02-04 19:11 | PROG NOTE ---
[address] [address] PROGRESS NOTE PATIENT: ANIA LMI : 1940 MR#: [id number] ADMIT: 01/29/2017 JOB ID: [id number] DATE: 02/04/2017 INPATIENT MEDICAL ONCOLOGY PROGRESS REPORT: DIAGNOSES: 1. Stage 3 distal esophageal adenocarcinoma. 2. Current admission for poor oral intake. Percutaneous endoscopic gastrostomy tube has been placed. 3. Chronic pulmonary fibrosis. SUBJECTIVE: The patient is tolerating goal tube feeds very well without abdominal pain or nausea. He tried to eat something but was not able to swallow very well, even though the EGD did not show any mechanical obstruction from tumor. OBJECTIVE: Appears resting comfortably in bed. Awake, alert, and oriented x3. Blood pressure 120/58, heart rate 78, temperature afebrile. O2 saturation 91% on room air. LABORATORY DATA: Today's labs: WBC count 8800 with 90% neutrophils, hemoglobin 8.6, platelet count 174,000. Sodium is high at 152. IMPRESSION AND RECOMMENDATIONS: 1. Stage 3 distal esophageal adenocarcinoma. The patient has been getting daily radiotherapy during admission. He will receive his scheduled chemotherapy dose today, which includes carboplatin AUC 2 and Taxol 50 mg/m2. 2. Disposition. We are waiting for insurance authorization to provide tube feeds at [facility], where he will be staying for the rest of his treatment time, and [facility] is working with his insurance to obtain authorization. 3. Persistent hypernatremia. This patient has a free water deficit and will either need to receive IV D5W or additional tap water boluses through PEG tube.
[2017-02-04] MEDS ORDERED: Famotidine 20 mg/50 mL NS Premix IV ONE (19:30)
[2017-02-04] MEDS ORDERED: DEXTROSE 5% IV SCH ×2 (19:30→19:35)
[2017-02-04] MEDS ORDERED: SODIUM CHLORIDE 0.9% IV ONE ×2 (19:30→19:35)
[2017-02-04] MEDS ORDERED: [UNRECOGNIZED DRUG - OTHER] XX ONE (19:30)
[2017-02-04] MEDS ORDERED: PACLITAXEL IV SCH ×2 (19:30→19:35)
[2017-02-04] MEDS ORDERED: Ondansetron 2 mg/mL 2 mL Inj IVPUSH ONE (19:30)
[2017-02-04] MEDS: Dextrose 5% 1,000 ML IV SCH ×2 (19:30→22:09)
[2017-02-04] MEDS ORDERED: CARBOPLATIN IV ONE ×2 (19:30→19:35)
[2017-02-04] MEDS ORDERED: Dexamethasone 10 mg/mL Inj IV ONE (19:35)
[2017-02-04] MEDS ORDERED: Alteplase (Cathflo) 1 mg/mL 2 mL Inj INTRACATH PRN (19:40)
[2017-02-04] MEDS ORDERED: Sodium Chloride LOK Flush 10 mL Syringe IV PRN (19:40)
[2017-02-04] MEDS ORDERED: HepLOK Flush 100 unit/mL 5 mL Inj IVFLUSH PRN (19:40)
[2017-02-04] MEDS ORDERED: ALTEPLASE IV PRN (19:45)
[2017-02-04] MEDS ORDERED: SODIUM CHLORIDE 0.9% IV PRN (19:45)
--- NOTE | 2017-02-04 19:50 | NUR ---
Transfer of patient patient to be transferred to room 1024 on [facility] for chemo therapy. No orders noted in [facility] for chemo, Dr Dougherty called, stating order sent to pharmacy. Pharmacy was called, pharmacy was able to find it. Report given to Yumiko Brandon [facility] RN. Pt instructed on transfer procedure. Patient verbalized understanding. Pt transferred to room 1024 via bed with personal belongings. Pt tolerated transfer well.
[2017-02-04] MEDS ORDERED: Dexamethasone 10 mg/50 mL NS IV ONE ×2 (20:55)
--- NOTE | 2017-02-04 21:19 | NUR ---
communication notified of pts 12beat run of V-tac. questioned why chemo was being started so late and explained pt. was transferred to [facility] aprox 1hr. ago.Orders received to start chemo in the am.Pharmacy notified and will meat pickler meds.Pt. resting comfortably and understands plan of care.Will cont. to monitor.
[2017-02-05] VITALS (13 sets, daily range): BP systolic 118–156; BP diastolic 54–72; PULSE 66–96; RESP 16–24; O2SAT 88–99
[2017-02-05] MEDS: Albuterol-Ipratropium 3 mL Inhalation Solution NEB SCH ×4 (03:59→20:51)
[2017-02-05 06:06] LABS: INR 3.66 ratio
[2017-02-05] MEDS: Insulin LISPRO 300 Unit/3 mL Inj SUBQ SCH ×4 (08:00→21:00)
[2017-02-05] MEDS ORDERED: Ondansetron 2 mg/mL 2 mL Inj IVPUSH ONE (08:00)
[2017-02-05] MEDS ORDERED: 0.9% Sodium Chloride 500 ML IV ONE (08:00)
[2017-02-05] MEDS ORDERED: Famotidine Inj 20 MG in IV Premix 1 EACH IV ONE (08:15)
[2017-02-05] MEDS ORDERED: Dexamethasone 10 mg/50 mL NS IV ONE ×2 (08:15)
[2017-02-05] MEDS ORDERED: CARBOPLATIN IV ONE (08:30)
[2017-02-05] MEDS ORDERED: [UNRECOGNIZED DRUG - OTHER] IV ONE ×2 (08:30)
[2017-02-05] MEDS ORDERED: SODIUM CHLORIDE 0.9% IV ONE (08:30)
--- NOTE | 2017-02-05 08:45 | PCM.PHAPRO ---
Progress Warfarin Management by Pharmacy: -inr is supratherapeutic today at 3.66, will hold. Note that Levofloxacin was initiated on 02/03 [facility] Feb 05, 2017 08:45
--- NOTE | 2017-02-05 09:09 | NUR ---
[facility] Signed
[2017-02-05] MEDS: levoFLOXacin 750 mg Tablet PO SCH (10:35)
[2017-02-05] MEDS: MethylprednisoLONE Sodium Succinate 40 mg/mL Inj IVPUSH SCH ×2 (10:37→18:06)
[2017-02-05] MEDS: Fluticasone-Salmeterol 500-50 Inhaler INHALATION SCH ×2 (10:38→20:58)
[2017-02-05] MEDS: Lansoprazole 30 mg ODTablet PO SCH (10:39)
--- NOTE | 2017-02-05 10:58 | NUR ---
Social Work: Readiness for d/c Data: Pt is on day 7 of hospitalization. EMR reviewed, pt discussed in rounds. MD states pt likely will be medically ready for d/c tomorrow. MEMBERSHIP SALES ADVISOR called Phylicia with [facility] at [phone] who states they have received the auth for the tube feeds. MEMBERSHIP SALES ADVISOR received message from pt's RN who states pt's spouse would like to know more about the tube feeding and specifically education. Phylicia with [facility] states she will call pt's spouse today to answer any questions that she has. MEMBERSHIP SALES ADVISOR will continue to follow. Assessment: Pt who is independent at baseline. Plan: Pt will d/c home to [facility] with spouse when medically stable, likely tomorrow, with [facility] for tube feedings. MEMBERSHIP SALES ADVISOR will continue to follow. IFEOMA Ocasio
[2017-02-05 12:29] LABS: Mean Corpuscular Hemoglobin 25.8 pg (27.0-35.0); Mean Corpuscular Volume 86.1 fL (81-100)
[2017-02-05 13:42] LABS: Bilirubin, Direct 0.3 mg/dL (0.0-0.3)
--- NOTE | 2017-02-05 14:21 | NUR ---
Chemotherapy Consent signed. Orders/lab values reviewed with 2nd nurse. Premedications administered. Brisk blood return on Port. VSS. Carboplatin started at 1420. Pt has previous experience with this medication and is aware of side effects. Will monitor closely. Addendum: 02/05/17 at 1552 by AZALIA DIEZ RN PACLitaxl Second chemo started. Orders/labs double checked with 2nd RN. VSS. Brisk blood return. No signs of adverse reaction noted from Carboplatin. Will continue to monitor.
[2017-02-05] MEDS ORDERED: Potassium Chloride 20 mEq SR Tablet PO ONE (15:20)
--- NOTE | 2017-02-05 15:35 | PCM.PNMED ---
Subjective Date of Service Feb 05, 2017 Subjective Patient was seen and examined at bedside today. Patient denies any chest pain, shortness of breath, nausea, vomiting, diarrhea. Patient was concerned that he was currently not on his metoprolol and Mirapex. Patient has not been having any restless leg symptoms and the patient's heart rate has recently gone up and the patient is not stable enough to start metoprolol this is explained to the patient and he stated that he understood the reasons for not being on these medications. Exam Vital Signs Vital Sign - Last Date Time Temp Pulse Resp B/P Pulse Ox O2 Delivery O2 Flow Rate FiO2 02/05/17 14:48 36.4 79 16 151/70 92 Room Air 02/04/17 08:32 1.00 Intake and Output 02/04/17 02/04/17 02/05/17 Cumulative From/Thru 15:00 23:00 07:00 01/29/17 16:04 - 02/05/17 06:15 Intake Total 0 ml 2242 ml 8660 ml Output Total 200 ml 400 ml 6519 ml Balance -200 ml 1842 ml 2141 ml Intake Oral 0 ml 0 ml 660 ml IV Total 700 ml 3619 ml Tube Feeding 1542 ml 3801 ml Tube Irrigant 580 ml Output Urine Total 200 ml 400 ml 6130 ml Gastric Drainage Total 389 ml # Voids 3 # Bowel Movements 0 0 Exam Physical Exam: GEN: Patient was awake, alert, responding appropriately to questions HEENT: PERRLA, EOMI, Neck soft supple, trachea midline, nomocephalic/atraumatic CV: +S1/S2, irregular, no murmur auscultated Respiratory: Positive wheezes, no rales, or rhonchi GI: +bowel sounds x4, soft, compressible, non TTP EXT: no c/c/e Neuro: CN II-XII grossly intact Psych: mood and affect were appropriate IVs and Medications Medications Reviewed: Medications were reviewed in detail Lab and Diagnostics Result Diagram: 02/05/17 1215 02/05/171214 X-Rays, CTs and MRIs Chest X-ray reviewed : Bilateral lower lung infiltrates consistent with pneumonia. With the patient's history atypical pneumonia, radiation pneumonitis and could appear this way. The lower lungs are relatively clear in November Assessment & Plan 77-year-old male with esophageal carcinoma in acute respiratory hypoxia Esophageal obstruction S/p peg tube placement . -Patient currently at goal feeding of 75 mL an hour -Patient currently has clearance from sunrise to have tube feeding -Radiation and chemotherapy per oncology (Dr. Wang following) Dehydration with persistent hypernatremia -Sodium 151 today -IV D5W at 75 miles an hour was discontinued today -We will continue to monitor Atrial fibrillation -Currently on Coumadin Pharmacy to dose -Restart metoprolol 50 mg twice a day we will uptitrate that to patient's home dose of 150 mg daily as tolerated -INR goal between 2 and 3 Acute respiratory failure with Hypoxia (resolved) -Patient currently on baseline 2 L of oxygen -Patient responded well to steroid therapy -Continue when necessary dura nebs Pneumonia -Chest X-ray show improvement but increased in retrocardiac consolidation.Possibly pneumonia -Continue Levaquin 750 mg daily -CT scan of the chest shows resolving effusions Diabetes -Hemoglobin A1c 6.8 -Start Lantus 10 units daily at bedtime -Continue with insulin sliding scale CODE STATUS: Full code Disposition: Patient seems to be progressing well however the patient did have a 8 beats of V. tach today. The patient has been restarted on his metoprolol will continue to monitor the patient and this should resolve the patient's tachycardic symptoms. We will continue to monitor the patient in follow-up tomorrow if all goes well with his chemotherapy and the patient seems to be tolerating his tube feedings the patient may be able to be discharged tomorrow. GI Prophylaxis: Proton Pump Inhibitor VTE Prophylaxis: Theraputic Anticoag with Warfarin VTE Mechanical Devices: Intermittant Pneumatic CD Resuscitation Status: CPR: Attempt Resuscitation Time spent Greater than 35 minutes Melody Salcedo DO Feb 05, 2017 15:35
[2017-02-05] MEDS: 0.9% Sodium Chloride 250 ML IV SCH (18:06)
[2017-02-05] MEDS ORDERED: Insulin GLARgine 100 Unit/mL Syringe SUBQ SCH (21:00)
[2017-02-06] VITALS (13 sets, daily range): BP systolic 95–116; BP diastolic 53–68; PULSE 72–83; RESP 17–22; O2SAT 86–100
[2017-02-06] MEDS: MethylprednisoLONE Sodium Succinate 40 mg/mL Inj IVPUSH SCH ×3 (00:24→15:36)
[2017-02-06] MEDS: Albuterol-Ipratropium 3 mL Inhalation Solution NEB SCH ×5 (02:36→23:25)
--- NOTE | 2017-02-06 02:45 | NUR ---
Pain Pt. denies pain/nausea.VSS.Lungs with DBS and occasional faint wheeze.Self suctioning to manage secretions.Sleeping soundly at this time and resting comfortably.Will cont. to monitor.
[2017-02-06 05:09] LABS: Mean Corpuscular Hemoglobin 26.5 pg (27.0-35.0); Mean Corpuscular Volume 88.2 fL (81-100)
[2017-02-06 05:31] LABS: INR 3.83 ratio
[2017-02-06] MEDS ORDERED: Dextrose 5% 250 ML IV ONE ×2 (07:30→15:10)
--- NOTE | 2017-02-06 08:45 | NUR ---
Radiation treatment site supervising technical operator here for radiation.
--- NOTE | 2017-02-06 09:20 | NUR ---
New order Dr Salcedo aware that patient will receive Dextrose one time orders as ordered as patient gets back from radiation treatment.
[2017-02-06] MEDS: levoFLOXacin 750 mg Tablet PO SCH (10:04)
[2017-02-06] MEDS: Lansoprazole 30 mg ODTablet PO SCH (10:04)
[2017-02-06] MEDS: Fluticasone-Salmeterol 500-50 Inhaler INHALATION SCH ×2 (10:04→22:30)
[2017-02-06] MEDS: Insulin LISPRO 300 Unit/3 mL Inj SUBQ SCH ×4 (10:07→22:00)
[2017-02-06] MEDS: Polyethylene Glycol (PEG) 17 Gm Powder TUBE SCH (10:10)
--- NOTE | 2017-02-06 12:34 | PCM.PHAPRO ---
Progress WARFARIN DOSING PER PHARMACY INR increased today again to 3.83 (most likely due to recent initiation of levofloxacin) P: Will hold warfarin dose tonight Pharmacy will continue to monitor INR/CBC/signs and symptoms of bleeding Erika Bowen PharmD Feb 06, 2017 12:33
--- NOTE | 2017-02-06 12:54 | NUR ---
NUTRITION FOLLOW-UP: ASSESS: 77 YO M admitted with esophageal cancer, status post PEG tube placement 01/30. TF advanced to goal rate of 75 ml/hr and pt tolerating well. No complaints of nausea or abdominal pain. Pts BG levels have been running high and pt has DM and as a result, pt would benefit from formula change to Glucerna 1.5. Wt has overall been stable since admit. 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 LABS: Reviewed. Na 149, Cl 112, Bun 295, Ca 7.0, AST 63, ALT 55, Alb 2.6, A1C 6.8 MEDS: Reviewed. Insulin, Lopressor GI: BM x1 02/05 SKIN: Jeramy 19, no major issues at this point in time. WT: 99.6 kg, BMI 29.8 kg, Admit weight: 98.2 kg; UBW: ~110kg. 10% wt lossx1 month=significant DIET: NPO ENTERAL FEEDING: Jevity 1.5 @ 75 ml/hr, providing 2585 kcal and 110g pro (100% estimated needs). Flush 40ml q 4 hrs. EST. NEEDS: Cancer Cachexia Calories: 4170-4248 kcal/day (25-30 kcal/kg) Protein: 95-145 g/day (1.0-1.5 g/kg) Fluid: ~2455 ml/day (1 ml/kcal) NUTRITION DIAGNOSIS: 1) Severe pro/kcal malnutrition related to esophageal ca as evidence by 10% wt loss x1 month, PO <75% of meals x1 month, reported nausea/vomiting - PERSISTS. 2) Inadequate oral intake related to esophageal ca as evidence by current NPO status, inability to keep PO food down and need for PEG tube to maintain adequate nutrition - PERSISTS. NUTRITION INTERVENTION: 1) Due to BG trending high and pt history of DM, recommend formula changed to Glucerna 1.5. Recommend goal rate of 71ml/hr to provide 2449kcal and 135g pro (100% estimated needs). Recommend fluid flush of 40ml q 3 hrs if pt receiving IVF and if pt is not on IVF recommend flush 100ml fluid flush every 2 hrs. MONITOR/EVALUATE: TF formula change/javad, wt, GI, POC, nutrition status. Follow per high nutrition risk guidelines
--- NOTE | 2017-02-06 13:11 | NUR ---
Sodium lab Sodium 150. paged Dr. Salcedo.
--- NOTE | 2017-02-06 13:17 | NUR ---
Tele Paged Dr Saleem r/t 11 beats SVTat 1240 and now Vpaced 100% 70. patient is asymptomatic.
--- NOTE | 2017-02-06 13:58 | NUR ---
Social Work: Readiness for D/C Data: Pt is on day 8 of hospitalization. EMR reviewed, pt discussed in rounds. states pt likely will be medically ready for d/c tomorrow. [facility] has received authorization for tube feeds at discharge. Per Dietary in rounds, pt to switch to Glucerna. Dietary and [facility] to coordinate authorization for Glucerna. SW spoke with Oncology Antisubmarine Weapons Officer, regarding tube feeds at [facility]. Oncology Antisubmarine Weapons Officer to confirm ability to complete tube feeds at [facility] while pt continues to receive daily chemotherapy and radiation at [facility]. Pt will discharge to [facility] with spouse to complete chemotherapy and radiation. SW will continue to follow. Assessment: Pt who is independent at baseline. Plan: Pt will d/c to [facility] with spouse when medically stable, likely tomorrow, with [facility] for tube feedings. INSTRUCTOR BALLROOM DANCING will continue to follow. IFEOMA Graham
--- NOTE | 2017-02-06 14:08 | NUR ---
Glucerna per spring former hand Glucerna started 71 cc/hour with 100 ml flush every 2 hours.
--- NOTE | 2017-02-06 15:04 | NUR ---
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 Is this okay?. I placed a phone call to Imani PlataEnvironmental Health Manager. I explained to Antwon patient would be on continuous tube feedings which would involve Home health RN visit to bring the supplies, tube feedings, IV pole and educating the patient. His would be with patient while he is at [facility]. Antwon stated they could authorize patient to stay in [place] in until 02/11 and then he would need to go home. Patient would need to understand he is totally 100% liable for all the tube feeding, supplies and DME. Patient would not be able to have continuous care at [facility]. Met with patient and explained the situation to him. Patient thought he was scheduled for 8 more Radiations treatments. Patient last radiation treatment is 02/07 and then he has an appointment with Dr. Wang on 02/11. I checked with Rad Onc and talked with ARABELLA Meade. She states, Dr. Alvarado will address additional treatments with patient at his 3 week follow-up, as it stands now his last treatment is on 02/07/17. Lace CutterSubha provided with update. Attempted to contact patient's , Rose, but received no answer. Voicemail msjavier left for to return my call. Will continue to address any needs that may arise. Addendum: 02/07/17 at 0746 by BONNIE CAO RN Correction: ARABELLA Alfonso, Radiation Oncology not ARABELLA Meade
--- NOTE | 2017-02-06 15:14 | PCM.PNMED ---
Subjective Date of Service Feb 06, 2017 Subjective Patient was seen and examined at bedside today. Patient denies any chest pain, shortness of breath, nausea, vomiting, diarrhea. Exam Vital Signs Vital Sign - Last Date Time Temp Pulse Resp B/P Pulse Ox O2 Delivery O2 Flow Rate FiO2 02/06/17 14:39 82 20 94 Room Air 02/06/17 14:26 36.4 112/66 02/04/17 08:32 1.00 Intake and Output 02/05/17 02/05/17 02/06/17 Cumulative From/Thru 15:00 23:00 07:00 01/29/17 16:04 - 02/06/17 06:09 Intake Total 786 ml 1504 ml 06489 ml Output Total 400 ml 650 ml 7569 ml Balance 386 ml 854 ml 3381 ml Intake Oral 0 ml 0 ml 660 ml IV Total 786 ml 107 ml 4512 ml Tube Feeding 1397 ml 5198 ml Tube Irrigant 580 ml Output Urine Total 400 ml 650 ml 7180 ml Gastric Drainage Total 389 ml # Voids 2 5 # Bowel Movements 1 0 1 Exam Physical Exam: GEN: Patient was awake, alert, responding appropriately to questions HEENT: PERRLA, EOMI, Neck soft supple, trachea midline, nomocephalic/atraumatic CV: +S1/S2, irregular, no murmur auscultated Respiratory: CTAB, no wheezes, rales, rhonchi GI: +bowel sounds x4, soft, compressible, non TTP EXT: no c/c/e Neuro: CN II-XII grossly intact Psych: mood and affect were appropriate IVs and Medications Medications Reviewed: Medications were reviewed in detail Lab and Diagnostics Result Diagram: 02/06/17 0450 02/06/17 1153 X-Rays, CTs and MRIs Chest X-ray reviewed : Bilateral lower lung infiltrates consistent with pneumonia. With the patient's history atypical pneumonia, radiation pneumonitis and could appear this way. The lower lungs are relatively clear in November Assessment & Plan 77-year-old male with esophageal carcinoma in acute respiratory hypoxia Esophageal obstruction S/p peg tube placement . -Patient currently at goal feeding of 75 mL an hour -Patient currently has [facility] from [facility] to have tube feeding -Radiation and chemotherapy per oncology (Dr. Wang following) Dehydration with persistent hypernatremia -Sodium 149 today -IV D5W at 75 miles an hour was discontinued today -IV D5W 250 mL bolus 2 -Continue water flushes through the PEG tube -We will continue to monitor Atrial fibrillation -Currently on Coumadin Pharmacy to dose -Increase metoprolol 50 mg twice a day to 75 mg twice a day -INR goal between 2 and 3 Acute respiratory failure with Hypoxia (resolved) -Patient currently on baseline 2 L of oxygen -Patient responded well to steroid therapy -Continue when necessary dura nebs Pneumonia/radiation pneumonitis -Chest X-ray show improvement but increased in retrocardiac consolidation.Possibly pneumonia -Continue Levaquin 750 mg daily -CT scan of the chest shows resolving effusions Diabetes -Hemoglobin A1c 6.8 - Morning blood glucose 295 -Increase Lantus 20 units daily at bedtime -Stop Jevity tube feeds and changed to Glucerna tube feeds which is a better carb consistent tube feeding -Continue with insulin sliding scale CODE STATUS: Full code Disposition: The patient is progressing well and his pneumonia seems to have resolved. Currently managing the patient's diabetes and PEG tube feedings in the patient's hypernatremia. The patient will most likely be discharged tomorrow to [facility]. GI Prophylaxis: Proton Pump Inhibitor VTE Prophylaxis: Theraputic Anticoag with Warfarin VTE Mechanical Devices: Intermittant Pneumatic CD Resuscitation Status: CPR: Attempt Resuscitation Time spent Greater than 35 minutes Melody Salcedo DO Feb 06, 2017 15:14
--- NOTE | 2017-02-06 16:16 | NUR ---
Mentation Alert and oriented X3. Able to make needs known. New orders for Metoprolol and given as ordered. new orders for Glucerna and it is running at 71cc/hour as ordered. blood sugars so far 249 and 165. insulin given as ordered. Medium BM this shift. Stable vital signs. denies pain or discomfort this shift so far. family at bed side this AM. per patient next Chemo on Friday. Call light with in reach for safety and uses appropriately. Stable mood. no sign and symptoms of anxiety noted. Normal saline running as ordered via port to right chest. Dressing clean dry and intact. Will continue to monitor.
[2017-02-06] MEDS: 0.9% Sodium Chloride 250 ML IV SCH (16:59)
--- NOTE | 2017-02-06 18:28 | NUR ---
Suction and Sips Pt is using ice to suck on and then suctions it out with an [employer] suction tube into the canister. We provided 3 cups totaling 1200 ml of ice to pt. Pt suctioned 1000 ml out with yankauer suction. Addendum: 02/06/17 at 1832 by ANGELIKA FITZPATRICK CNA Amended: Links added.
[2017-02-06] MEDS ORDERED: Insulin GLARgine 100 Unit/mL Syringe SUBQ SCH (21:00)
[2017-02-06] MEDS ORDERED: Ondansetron 2 mg/mL 2 mL Inj IVPUSH PRN (23:00)
[2017-02-06] MEDS ORDERED: Promethazine 12.5 mg/50 mL-NS 12.5 MG in IV Premix 1 EACH IV ONE (23:00)
[2017-02-06] MEDS ORDERED: Ondansetron 2 mg/mL 2 mL Inj IVPUSH ONE (23:05)
--- NOTE | 2017-02-06 23:59 | NUR ---
paged about BP Pt's blood pressure was low. paged. ordered to withhold HS dose of metoprolol and enalapril. Both meds held. BP will be continued to be monitored.
[2017-02-07] VITALS (10 sets, daily range): BP systolic 98–121; BP diastolic 59–66; PULSE 70–88; RESP 18–20; O2SAT 87–98
[2017-02-07] MEDS: MethylprednisoLONE Sodium Succinate 40 mg/mL Inj IVPUSH SCH ×2 (00:36→08:56)
--- NOTE | 2017-02-07 00:45 | NUR ---
Tele certified surgical technician reported 15 beats of V-Tach. Pt. is asymptomatic. Rodo MARTÍNEZ paged.
[2017-02-07 01:43] LABS: Mean Corpuscular Hemoglobin 26.3 pg (27.0-35.0); Mean Corpuscular Volume 87.8 fL (81-100)
[2017-02-07 02:18] LABS: Magnesium 2.6 mg/dL (1.6-2.6)
[2017-02-07 05:44] LABS: Mean Corpuscular Hemoglobin 26.4 pg (27.0-35.0)
[2017-02-07 06:44] LABS: INR 2.66 ratio
[2017-02-07] MEDS ORDERED: Calcium GLUCO 10% (mEq) Inj 9.3 MEQ in Dextrose 5% 100 ML IV ONE (07:25)
[2017-02-07] MEDS ORDERED: Dextrose 5% 500 ML IV ONE ×3 (07:25→09:30)
[2017-02-07] MEDS: Albuterol-Ipratropium 3 mL Inhalation Solution NEB SCH ×3 (08:26→22:53)
[2017-02-07] MEDS: Polyethylene Glycol (PEG) 17 Gm Powder TUBE SCH (08:30)
[2017-02-07] MEDS: levoFLOXacin 750 mg Tablet PO SCH (08:55)
[2017-02-07] MEDS: Insulin LISPRO 300 Unit/3 mL Inj SUBQ SCH ×4 (08:56→22:00)
[2017-02-07] MEDS: Fluticasone-Salmeterol 500-50 Inhaler INHALATION SCH ×2 (08:56→22:27)
[2017-02-07] MEDS: Lansoprazole 30 mg ODTablet PO SCH (08:57)
--- NOTE | 2017-02-07 11:29 | NUR ---
GI/ Pt has had multiple episodes of emesis. 4mg zofran given and pt is still having episodes of emesis. Emesis looks creamy orange/pink, and looks like tube feed. MD notified and tube feeding stopped. Will continue to monitor.
--- NOTE | 2017-02-07 11:40 | NUR ---
Transfer Pt transferred via cabulance for radiation. Pt is IV heparin [place] for transfer. Addendum: 02/07/17 at 1835 by YOSELYN JACQUES RN Pt came back to [facility] room 1026 around 1330. [facility] transported the pt and did not let staff know that the pt was back to his room as soon as they got here. and daughter at bedside. Care continues.
--- NOTE | 2017-02-07 12:36 | NUR ---
Social Work- Continued D/C Planning Data: EMR reviewed. Pt is on day 9 of hospitalization for esophageal cancer per H&P. Per MD in rounds, pt is not medically stable for discharge, anticipate 1-2 more days. LORRAINE spoke with Phylicia from [facility] regarding pt's tube feeds. [facility] requests written order for Glucerna to obtain insurance authorization. LORRAINE obtained written order from for Glucerna tube feeds, faxed this order to Phylicia at [phone]. Oncology Executive Officer spoke with LORRAINE confirming that pt can receive tube feeds at [facility], where he is accepted until February 11 as his oncology disposition evolves. Pt to discharge to [facility] with spouse with [facility] tube feeding when medically stable. LORRAINE will continue to follow. Assessment: Pt who will need tube feeds. Plan: Glucerna orders faxed to [facility]. Pt to discharge to [facility] with spouse with [facility] tube feeding when medically stable. LORRAINE will continue to follow. IFEOMA Graham Addendum: 02/07/17 at 1504 by VIRGINIA GUNDERSON informed LORRAINE that pt will return to Jevity 1.5 rather than Glucerna. LORRAINE updated Phylicia at [facility]. LORRAINE faxed new orders for Jevity. IFEOMA Graham
[2017-02-07] MEDS: 0.9% Sodium Chloride 250 ML IV SCH (14:30)
--- NOTE | 2017-02-07 14:46 | NUR ---
NUTRITION FOLLOW-UP: ASSESS: 77 YO M admitted with esophageal cancer, status post PEG tube placement 01/30. TF was at goal rate of 75 ml/hr and pt tolerating well on Jevity 1.5 formula. No complaints of nausea or abdominal pain. Pts BG levels have been running high and pt has DM and as a result, pts formula was changed to Glucerna 1.5 02/07. Unfortunately, pt experienced large amount of emesis today and TF is currently off. It is possible that the emesis was related to difference in osmolality of TF formulas (Jevity vs Glucerna) as Glucerna has a significantly higher osmolality. When TF are re-started pt would benefit from starting at a lower rate and slowly advancing towards goal to establish better tolerance. 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 LABS: Reviewed. Na 147, Cl 111, Bun 67, Glu 230, Ca 6.6, ALT 59, Alb 2.6 MEDS: Reviewed. Insulin, Lopressor GI: BM x1 02/05 SKIN: Jeramy 19, no major issues at this point in time. WT: 101.1kg, BMI 30.2kg, Admit weight: 98.2 kg; UBW: ~110kg. 10% wt lossx1 month=significant DIET: NPO ENTERAL FEEDING (ON HOLD) : Glucerna 1.5 @ 71ml/hr to provide 2449kcal and 135g pro (100% estimated needs). EST. NEEDS: Cancer Calories: 3543-6792 kcal/day (25-30 kcal/kg) Protein: 95-145 g/day (1.0-1.5 g/kg) Fluid: ~2455 ml/day (1 ml/kcal) NUTRITION DIAGNOSIS: 1) Severe pro/kcal malnutrition related to esophageal ca as evidence by 10% wt loss x1 month, PO <75% of meals x1 month, reported nausea/vomiting - PERSISTS. 2) Inadequate oral intake related to esophageal ca as evidence by current NPO status, inability to keep PO food down and need for PEG tube to maintain adequate nutrition - PERSISTS. NUTRITION INTERVENTION: 1) If TF are to be re-started, recommend started TF of Glucerna 1.5 @ 30ml/hr and holdx12 hrs. If this is tolerated, recommend advance by 10ml q 6 hrs until reach goal rate of 71ml/hr to provide 2449kcal and 135g pro (100% estimated needs). Recommend fluid flush of 40ml q 3 hrs if pt receiving IVF and if pt is not on IVF recommend flush 100ml fluid flush every 2 hrs. MONITOR/EVALUATE: TF re-start/javad, wt, GI, labs, POC, nutrition status. Follow per high nutrition risk guidelines Addendum: 02/07/17 at [address] Family wants TF formula to change back to Jevity 1.5. Recommend re-start Jevity 1.5 at 30ml/hr and hold x12 hrs. If tolerated, recommend advance by 10ml q 6 hrs until reach goal rate of 71ml/hr to provide 2450kcal and 105g pro (100% estimated needs). Fluid flush 40ml q 4hrs if IVF on. If IVF off, fluid flush at 100ml q 2 hrs.
--- NOTE | 2017-02-07 15:07 | NUR ---
patient was found on room air with oxygen saturation of 87%. there was no c\o sob or increased wob at this time. he was given his nebulizer tx and placed back on his 2lpm nasal cannula.
--- NOTE | 2017-02-07 16:33 | PCM.PNMED ---
Subjective Date of Service Feb 07, 2017 Subjective Patient was seen and examined at bedside today. Patient denies any chest pain, shortness of breath, diarrhea. Patient reports nausea and vomiting, throughout the night. Patient was given Zofran which helped to relieve some of his symptoms. Patient looks very lethargic today and not his usual self. Exam Vital Signs Vital Sign - Last Date Time Temp Pulse Resp B/P Pulse Ox O2 Delivery O2 Flow Rate FiO2 02/07/17 15:04 87 Room Air 02/07/17 08:52 81 116/62 02/07/17 08:26 18 2.00 02/07/17 04:44 36.7 Intake and Output 02/06/17 02/06/17 02/07/17 Cumulative From/Thru 15:00 23:00 07:00 01/29/17 16:04 - 02/07/17 05:32 Intake Total 2041 ml 169 ml 03301 ml Output Total 200 ml 525 ml 8294 ml Balance 1841 ml -356 ml 4866 ml Intake Oral 0 ml 0 ml 660 ml IV Total 1188 ml 169 ml 5869 ml Tube Feeding 750 ml 5948 ml Tube Irrigant 103 ml 683 ml Output Urine Total 200 ml 525 ml 7905 ml Gastric Drainage Total 389 ml # Voids 5 # Bowel Movements 1 0 2 Exam Physical Exam: GEN: Patient was awake, lethargic, easily arousable HEENT: PERRLA, EOMI, Neck soft supple, trachea midline, mild white plaques on the tongue CV: +S1/S2, RRR, no murmur auscultated Respiratory: CTAB, no wheezes, rales, rhonchi GI: +bowel sounds x4, soft, compressible, non TTP EXT: no c/c/e Neuro: CN II-XII grossly intact Psych: mood and affect were somnolent IVs and Medications Medications Reviewed: Medications were reviewed in detail Lab and Diagnostics Result Diagram: 02/07/17 0500 02/07/17 0500 X-Rays, CTs and MRIs Chest X-ray reviewed : Bilateral lower lung infiltrates consistent with pneumonia. With the patient's history atypical pneumonia, radiation pneumonitis and could appear this way. The lower lungs are relatively clear in November Assessment & Plan 77-year-old male with esophageal carcinoma in acute respiratory hypoxia Esophageal obstruction S/p peg tube placement . -Patient currently at goal feeding of 75 mL an hour restart Jevity to discontinue Glucerna -Patient currently has clearance from [facility] to have tube feeding, however patient may or may not be discharged to [facility] as he finished his radiation today -Radiation and chemotherapy per oncology (Dr. Wang following) Oral candidiasis -200 mg of fluconazole today (02/07/2017) -Continue with 100 mg of fluconazole for the next 4 days Dehydration with persistent hypernatremia -Sodium 147 today improved from yesterday 148 -IV D5W 250 mL bolus 2 -Continue water flushes through the PEG tube -We will continue to monitor Atrial fibrillation -Currently on Coumadin Pharmacy to dose -Increase metoprolol 50 mg twice a day to 75 mg twice a day -INR goal between 2 and 3 Acute respiratory failure with Hypoxia (resolved) -Patient currently on baseline 2 L of oxygen -Patient responded well to steroid therapy steroids discontinued -We will give patient stress dose steroids if he starts to have adverse reactions to the discontinuation of the steroids -Continue when necessary dura nebs Pneumonia/radiation pneumonitis -Chest X-ray show improvement but increased in retrocardiac consolidation.Possibly pneumonia -Continue Levaquin 750 mg daily (discontinue on 02/08/2017 -CT scan of the chest shows resolving effusions Diabetes -Hemoglobin A1c 6.8 - Morning blood glucose 295 -Increase Lantus 20 units daily at bedtime -Restart Jevity and discontinue Glucerna tube feeds patient did not seem to tolerate Glucerna now that steroids have been discontinued the patient's glucose may be better controlled -Continue with insulin sliding scale CODE STATUS: Full code Disposition: The patient was progressing well however last night the patient had a rough night with persistent nausea and vomiting. The patient may not be tolerating the Glucerna tube feedings and the patient was switched back to Jevity. We will continue to monitor the patient to see how well he tolerates the switch back to Jevity. The patient has been discontinued from steroid use so his blood glucose may be better controlled. The patient does have some new onset of white plaques consistent with oral candidiasis will treat with fluconazole. The patient may not be able to be discharged to [facility] as generally the patient needs to still be undergoing radiation during her stay. We will discuss this with social work. However according to Dr. Wang this is not possible. Dr. Wang and myself spoke extensively about this particular case and feel that the patient would be better suited to stay in the hospital he is unable to go to [facility]. The patient may need a few more days of inpatient medical management. GI Prophylaxis: Proton Pump Inhibitor VTE Prophylaxis: Theraputic Anticoag with Warfarin VTE Mechanical Devices: Intermittant Pneumatic CD Resuscitation Status: CPR: Attempt Resuscitation Time spent Greater than 35 minutes Melody Salcedo DO Feb 07, 2017 16:33
--- NOTE | 2017-02-07 18:01 | NUR ---
Tube Feeding Pt tube feeding restarted at 1553 per orders. Addendum: 02/07/17 at 1806 by YOSELYN JACQUES RN Pt is tolerating with minimal nausea. Pt declines Zofran at this time. CARDIAC RN noted that pt has had another episode emesis.
--- NOTE | 2017-02-07 18:54 | NUR ---
Tele Pt has had one episode of 8 beats of vtach and a second episode of 5 beats vtach. paged.
[2017-02-07] MEDS: Insulin GLARgine 100 Unit/mL Syringe SUBQ SCH (22:33)
--- NOTE | 2017-02-07 23:26 | PROG NOTE ---
[address] [address] PROGRESS NOTE PATIENT: ANIA LIM : 1940 MR#: [id number] ADMIT: 01/29/2017 JOB ID: [id number] INPATIENT MEDICAL ONCOLOGY PROGRESS REPORT DATE: 02/07/2017 DIAGNOSES: 1. 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 Completed course of chemoradiotherapy. 2. Peripheral right lower lobe pulmonary adenocarcinoma, stage I, untreated so far. 3. Chronic pulmonary fibrosis. 4. Current admission for intolerance to oral intake. SUBJECTIVE: The patient completed a course of radiotherapy today. He had a large volume emesis overnight last night. He is unable to drink liquids or swallow any kind of solids. It causes vomiting and also pain in his right throat. PHYSICAL EXAMINATION: He appears weak. Awake, alert, oriented times three. He is not ambulatory other than a few steps with help. On exam, there is oral candidiasis. Blood pressure 109/66, heart rate 71, temperature afebrile. O2 saturation 94% on 2 L. LABORATORIES: Leukocyte count 11,500 with no differential, hemoglobin 8.7, platelet count normal. Serum calcium is 6.6 but albumin is also reduced. Hypernatremia has improved. Glucose has been running between 200 and 250. IMPRESSION/RECOMMENDATIONS: 1. Stage III distal esophageal adenocarcinoma. As of today his treatment is completed. 2. Tube feeding complications. He appears not to tolerate Glucerna very well. We switched back to Jevity. The reason he was switched to Glucerna was his high blood sugars, but this patient is not diabetic and his high blood sugars are related to methylprednisolone, which we stopped. His sugars should improve in the next few days. 3. Oral candidiasis. He was started on fluconazole 100 mg daily times five days. 4. This patient is still not quite ready for discharge home yet. Since he has finished his radiotherapy course, his tells me that he can not go to [facility] anymore. I think he needs a few more days of hospital admission until he is ready to go home early next week. He has appointment with me on Friday next week at oncology clinic.
[2017-02-08] VITALS (10 sets, daily range): BP systolic 93–118; BP diastolic 50–70; PULSE 70–83; RESP 18–21; O2SAT 92–100
[2017-02-08] MEDS: Albuterol-Ipratropium 3 mL Inhalation Solution NEB SCH ×4 (00:15→14:40)
--- NOTE | 2017-02-08 03:58 | NUR ---
V Tach Patient had 13 beats of V Tach this evening per hospital monitor. Metoprolol administered via peg tube. Patient asymptomatic. Dr. Koehler paged and made aware. Addendum: 02/08/17 at 0409 by SHAINA KELLER RN At 2030, vastec ( enalapril ) was due. Blood pressure at the time was 98/60 with pulse of 70. Dr. Koehler paged for order to hold. dose. director of music therapy made aware of BP. No response from as of 407.
--- NOTE | 2017-02-08 04:00 | NUR ---
Increase in tube feeding Per orders, tube feeding was increase by 10ml/hour. Rate is now 40ml/hr . This rate will go for 6 hours. Patient denies n/v and resting comfortably.
[2017-02-08 05:48] LABS: Mean Corpuscular Hemoglobin 26.4 pg (27.0-35.0); Mean Corpuscular Volume 86.2 fL (81-100)
[2017-02-08 05:58] LABS: INR 2.6 ratio
[2017-02-08] MEDS ORDERED: Calcium GLUCO 10% (mEq) Inj 9.3 MEQ in Dextrose 5% 100 ML IV ONE (08:25)
[2017-02-08] MEDS: Polyethylene Glycol (PEG) 17 Gm Powder TUBE SCH (09:53)
[2017-02-08] MEDS: Insulin LISPRO 300 Unit/3 mL Inj SUBQ SCH ×4 (09:55→21:58)
[2017-02-08] MEDS: levoFLOXacin 750 mg Tablet PO SCH (09:56)
[2017-02-08] MEDS: Lansoprazole 30 mg ODTablet PO SCH (09:56)
[2017-02-08] MEDS: Fluticasone-Salmeterol 500-50 Inhaler INHALATION SCH ×2 (09:57→20:42)
[2017-02-08] MEDS: 0.9% Sodium Chloride 250 ML IV SCH (11:31)
--- NOTE | 2017-02-08 13:34 | PCM.PHAPRO ---
Progress Date of Service: Feb 08, 2017 Warfarin dosing 10-Jan 11-Jan 12-Mar 13-Mar 14-Mar 15-Mar 16-Mar 17-Jan 18-Mar 1.23 1.25 1.33 1.85 3.02 3.66 3.83 2.66 2.6 0.02 0.08 0.52 1.17 0.64 0.17 -1.17 -0.06 5 5 6 5 HOLD HOLD HOLD 3 MG 3 MG Alan Guerrier Feb 08, 2017 13:34
--- NOTE | 2017-02-08 13:39 | NUR ---
NUTRITION FOLLOW-UP: ASSESS: 77 YO M admitted with esophageal cancer, status post PEG tube placement 01/30. Enteral feeding was at goal rate of 75 ml/hr, and pt tolerating Jevity 1.5 formula well. However, his blood glucose was trending upward; therefore, with history of diabetes, formula changed to Glucerna 1.5. However, yesterday he had large volume emesis following completion of radiotherapy. Per family request, enteral feeding formula changed back to Jevity 1.5, which they felt he tolerated better. There are no residual reported at this time. 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 LABS: Na 148, Chloride 111, BUN 74, Glu 149, Ca 6.7, ALT 47, Alb 2.4. MEDS: Coumadin, diflucan, insulin, zofran, ativan, lopressor. GI: BM x 1 (02/07) SKIN: Jeramy 16, no major issues at this point in time. WT: 101.1kg, BMI 30.2kg, Admit weight: 98.2 kg; UBW: ~110kg. 10% wt lossx1 month=significant DIET: NPO ENTERAL FEEDING: Jevity 1.5 currently at 40 ml/hr, advancing 10ml q 6 hrs until reach goal rate of 71ml/hr to provide 2450kcal and 105g pro (100% estimated needs). Fluid flush 40ml q 4hrs if IVF on. If IVF off, fluid flush at 100ml q 2 hrs. EST. NEEDS: Cancer Calories: 3134-6604 kcal/day (25-30 kcal/kg) Protein: 95-145 g/day (1.0-1.5 g/kg) Fluid: ~2455 ml/day (1 ml/kcal) NUTRITION DIAGNOSIS: 1) Severe pro/kcal malnutrition related to esophageal ca as evidence by 10% wt loss x1 month, PO <75% of meals x1 month, reported nausea/vomiting - PERSISTS. 2) Inadequate oral intake related to esophageal ca as evidence by current NPO status, inability to keep PO food down and need for PEG tube to maintain adequate nutrition - PERSISTS. NUTRITION INTERVENTION: 1) No additional intervention at this time. MONITOR/EVALUATE: Enteral feeding advance / tolerance, wt, GI, labs, POC, nutrition status. Follow per high nutrition risk guidelines.
--- NOTE | 2017-02-08 13:47 | NUR ---
Social Work- Readiness for Discharge Data: EMR reviewed. Pt is on day 10 of hospitalization for esophageal cancer per H&P. Per MD in rounds, pt is not medically stable for discharge, anticipate 1-2 more days. Oncology CM confirmed that pt and are authorized to remain at [facility] until 02/11 for follow up oncology appointment. [facility] is agreeable to beginning tube feeds at [facility], where they will then transition pt's tube feeds supplies/follow up to his home in Friday. Pt to discharge to [facility] with spouse with [facility] tube feeding when medically stable. SW will continue to follow. Assessment: Pt who will need tube feeds. Plan: Pt authorized to stay at [facility] with tube feeds until 02/11. Pt to discharge to [facility] with spouse with [facility] tube feeding when medically stable. SW will continue to follow. IFEOMA Graham
--- NOTE | 2017-02-08 14:55 | PCM.PNMED ---
Subjective Date of Service Feb 08, 2017 Subjective The patient was seen and examined at bedside today. The patient states that his nausea and vomiting have improved, but he is still feeling lethargic. Patient denies any chest pain or SOB. Exam Vital Signs Vital Sign - Last Date Time Temp Pulse Resp B/P Pulse Ox O2 Delivery O2 Flow Rate FiO2 02/08/17 14:41 74 99 Nasal Cannula 2.00 02/08/17 10:21 36.1 20 110/69 Intake and Output 02/07/17 02/07/17 02/08/17 Cumulative From/Thru 15:00 23:00 07:00 01/29/17 16:04 - 02/08/17 06:41 Intake Total 1939 ml 687 ml 1622 ml 92290 ml Output Total 1500 ml 9794 ml Balance 1939 ml -813 ml 1622 ml 7614 ml Intake Oral 0 ml 660 ml IV Total 628 ml 754 ml 7251 ml Tube Feeding 1188 ml 59 ml 368 ml 7563 ml Tube Irrigant 751 ml 0 ml 500 ml 1934 ml Output Urine Total 400 ml 8305 ml Gastric Drainage Total 900 ml 1289 ml Emesis 200 ml 200 ml # Voids 5 # Bowel Movements 1 3 Exam Physical Exam: GEN: Patient was awake, lethargic, responding appropriately to questions HEENT: PERRLA, EOMI, Neck soft supple, trachea midline, nomocephalic/atraumatic , mild white plaques in the mouth CV: +S1/S2, RRR, systolic murmur auscultated Respiratory: Positive rhonchi no wheezes or rales GI: +bowel sounds x4, soft, compressible, non TTP EXT: no c/c/e Neuro: CN II-XII grossly intact Psych: mood and affect were depressed IVs and Medications Medications Reviewed: Medications were reviewed in detail Lab and Diagnostics Result Diagram: 02/08/17 0530 02/08/17 0530 X-Rays, CTs and MRIs Chest X-ray reviewed : Bilateral lower lung infiltrates consistent with pneumonia. With the patient's history atypical pneumonia, radiation pneumonitis and could appear this way. The lower lungs are relatively clear in November Assessment & Plan 77-year-old male with esophageal carcinoma in acute respiratory hypoxia Esophageal obstruction S/p peg tube placement . -Patient currently at goal feeding of 75 mL an hour on Jevity seems to be tolerating this better than the glucerna -Patient currently has clearance from [facility] to have tube feeding, however patient may or may not be discharged to [facility] as he finished his radiation today -Radiation and chemotherapy per oncology (Dr. Wang following) Oral candidiasis -200 mg of fluconazole today (02/07/2017) -Continue with 100 mg of fluconazole for the next 4 days (stop on 02/12/17) Dehydration with persistent hypernatremia -Sodium 148 today -IV D5W 250 mL bolus 2 (02/07/17) will hold off on further D5W boluses -Continue water flushes through the PEG tube -We will continue to monitor Atrial fibrillation -Currently on Coumadin Pharmacy to dose -continue metoprolol 75 mg twice a day -INR goal between 2 and 3 Acute respiratory failure with Hypoxia (resolved) -Patient currently on baseline 2 L of oxygen -Patient responded well to steroid therapy steroids discontinued 02/07/17 -We will give patient stress dose steroids if he starts to have adverse reactions to the discontinuation of the steroids -Continue when necessary dura nebs Pneumonia/radiation pneumonitis -Chest X-ray show improvement but increased in retrocardiac consolidation.Possibly pneumonia -Stop Levaquin 750 mg daily today as the patient has had a full course of antibiotics -CT scan of the chest shows resolving effusions Diabetes -Hemoglobin A1c 6.8 - Morning blood glucose 149 -Lantus 20units QHS increased yesterday to Lantus 30 units daily at bedtime. Will continue with Lantus 30units QHS -Continue Jevity tube feeds patient is currently tolerating this well -Continue with insulin sliding scale CODE STATUS: Full code Disposition: The patient is currently stable at this time. However the patient will most likely still be in the hospital through the weekend and this was discussed with Dr. Wang yesterday. If the patient is still clinically stable on Friday he may be able to be discharged [facility] until February 12 and then he will be able to resume home health services. The patient did have some rhonchi this morning patient was encouraged to sit up in a chair today and to use the incentive spirometer. GI Prophylaxis: Proton Pump Inhibitor VTE Prophylaxis: Theraputic Anticoag with Warfarin VTE Mechanical Devices: Intermittant Pneumatic CD Resuscitation Status: CPR: Attempt Resuscitation Time spent Greater than 35 minutes Melody Salcedo DO Feb 08, 2017 14:55
[2017-02-08] MEDS ORDERED: Calcium GLUCO 10% (mEq) Inj 13.95 MEQ in Dextrose 5% 100 ML IV ONE (15:00)
--- NOTE | 2017-02-08 18:01 | NUR ---
episodes of V-Tach pt has had 3 episodes VT/PSVT this shift lasting 9-13 beats, Dr Salcedo notified of events, pt was asleep each time, had no symptoms. Received order to give 25mg Metoprolol through [facility]
[2017-02-08] MEDS: Insulin GLARgine 100 Unit/mL Syringe SUBQ SCH (21:23)
[2017-02-09] VITALS (14 sets, daily range): BP systolic 85–118; BP diastolic 53–69; PULSE 48–89; RESP 18–22; O2SAT 92–100
[2017-02-09] MEDS: Albuterol-Ipratropium 3 mL Inhalation Solution NEB SCH ×6 (02:30→23:05)
[2017-02-09 04:52] LABS: Mean Corpuscular Hemoglobin 26.5 pg (27.0-35.0); Mean Corpuscular Volume 85.8 fL (81-100)
[2017-02-09 05:07] LABS: INR 2.37 ratio
[2017-02-09] MEDS ORDERED: Calcium GLUCO 10% (mEq) Inj 13.95 MEQ in Dextrose 5% 100 ML IV ONE (07:50)
--- NOTE | 2017-02-09 07:56 | NUR ---
Critical lab Patient had a critical lab of Calcium 6.6 this morning. Tube feeding up to goal of 71ml/hr. Six beats of V-tach earlier this shift. Night hopitalist paiged. No new orders given. Patient sucking on ice chips and suctioning self. Patient states he doesn't have any pain. O2 at 2L. A&Ox3.
[2017-02-09] MEDS: Insulin LISPRO 300 Unit/3 mL Inj SUBQ SCH ×4 (08:00→22:00)
[2017-02-09] MEDS ORDERED: Furosemide 10 mg/mL 2 mL Inj IVPUSH ONE (08:40)
[2017-02-09] MEDS: Fluticasone-Salmeterol 500-50 Inhaler INHALATION SCH (09:02)
[2017-02-09] MEDS: Polyethylene Glycol (PEG) 17 Gm Powder TUBE SCH (09:02)
[2017-02-09] MEDS: Lansoprazole 30 mg ODTablet PO SCH (09:03)
[2017-02-09] MEDS: 0.9% Sodium Chloride 250 ML IV SCH (11:31)
--- NOTE | 2017-02-09 15:03 | PCM.PNMED ---
Subjective Date of Service Feb 09, 2017 Subjective Patient was seen and examined today at bedside. The patient states that he is feeling better however he is having dyspnea on exertion with just going from the bed to the bathroom. The patient states that his nausea and vomiting have resolved and feels that he is tolerating the Jevity much better. Exam Vital Signs Vital Sign - Last Date Time Temp Pulse Resp B/P Pulse Ox O2 Delivery O2 Flow Rate FiO2 02/09/17 14:17 81 94 Nasal Cannula 2.00 02/09/17 10:41 36.5 21 118/68 Intake and Output 02/08/17 02/08/17 02/09/17 Cumulative From/Thru 15:00 23:00 07:00 01/29/17 16:04 - 02/09/17 06:28 Intake Total 0 ml 0 ml 0 ml 69646 ml Output Total 1100 ml 650 ml 800 ml 45712 ml Balance -1100 ml -650 ml -800 ml 5064 ml Intake Oral 0 ml 0 ml 0 ml 660 ml IV Total 7251 ml Tube Feeding 7563 ml Tube Irrigant 1934 ml Output Urine Total 1100 ml 650 ml 800 ml 71131 ml Gastric Drainage Total 1289 ml Emesis 200 ml # Voids 5 # Bowel Movements 1 0 4 Exam Physical Exam: GEN: Patient was awake, alert, responding appropriately to questions HEENT: PERRLA, EOMI, Neck soft supple, trachea midline, nomocephalic/atraumatic CV: +S1/S2, RRR, systolic murmur auscultated Respiratory: Positive rhonchi no wheezing or rales GI: +bowel sounds x4, soft, compressible, non TTP EXT: no c/c/e Neuro: CN II-XII grossly intact Psych: mood and affect were anxious IVs and Medications Medications Reviewed: Medications were reviewed in detail Lab and Diagnostics Result Diagram: 02/09/170 02/09/17 0440 X-Rays, CTs and MRIs Chest X-ray reviewed : Bilateral lower lung infiltrates consistent with pneumonia. With the patient's history atypical pneumonia, radiation pneumonitis and could appear this way. The lower lungs are relatively clear in November Assessment & Plan 77-year-old male with esophageal carcinoma in acute respiratory hypoxia Esophageal obstruction S/p peg tube placement . -Patient currently at goal feeding of 75 mL an hour on Jevity seems to be tolerating this better than the glucerna -Patient currently has clearance from [facility] to have tube feeding, however patient may or may not be discharged to [facility] as he finished his radiation today -Radiation and chemotherapy per oncology (Dr. Wang following) patient has recently finished his last bout of radiation 02/07/17 Neutropenia -Patient's white blood cell count today is 2.3 -Continue neutropenic precautions -Follow-up with oncology if the patient does not improve may consider Neupogen but will defer to oncology for this -We will continue to monitor Hypocalcemia -Patient's calcium today is 6.6 -Administer calcium gluconate 13.95 mEq IV 1 dose -Continue to monitor Oral candidiasis -200 mg of fluconazole today (02/07/2017) -Continue with 100 mg of fluconazole for the next 4 days (stop on 02/12/17) Dehydration with persistent hypernatremia -Sodium 146 today -IV D5W 250 mL bolus 2 (02/07/17) will hold off on further D5W boluses -Continue water flushes through the PEG tube -We will continue to monitor Atrial fibrillation -Currently on Coumadin Pharmacy to dose -continue metoprolol 75 mg twice a day -INR goal between 2 and 3 -May consider starting the patient on Cardizem as he does have random 5 bouts of V. tach throughout the day may consider consulting cardiology Acute respiratory failure with Hypoxia (resolved) -Patient currently on baseline 2 L of oxygen -Patient responded well to steroid therapy steroids discontinued 02/07/17 -We will give patient stress dose steroids if he starts to have adverse reactions to the discontinuation of the steroids -Continue when necessary dura nebs Pneumonia/radiation pneumonitis -Chest X-ray show improvement but increased in retrocardiac consolidation.Possibly pneumonia -Stop Levaquin 750 mg daily today as the patient has had a full course of antibiotics -CT scan of the chest shows resolving effusions Diabetes -Hemoglobin A1c 6.8 - Morning blood glucose 149 -Lantus 20units QHS increased yesterday to Lantus 30 units daily at bedtime. Will continue with Lantus 30units QHS -Continue Jevity tube feeds patient is currently tolerating this well -Continue with insulin sliding scale CODE STATUS: Full code Disposition: The patient is currently tolerating his tube feeds and his blood glucose seems to be under control since stopping the steroids. Still trying to manage the patient's calcium. The patient's hyponatremia is improving his sodium is 146 now down from 150. We will continue to monitor. The patient does have random bouts of 5 beats of V. tach here and there or 5 beats of SVT with an increase in heart rate to 150. However the patient does seem to self resolve. May want to involve cardiology to further optimize the patient's current regiment; however, they may suggest the patient is currently optimized. We will continue to medically manage the patient. GI Prophylaxis: Proton Pump Inhibitor VTE Prophylaxis: Theraputic Anticoag with Warfarin VTE Mechanical Devices: Intermittant Pneumatic CD Resuscitation Status: CPR: Attempt Resuscitation Time spent Greater than 35 minutes Melody Salcedo DO Feb 09, 2017 15:03
[2017-02-09] MEDS: Insulin GLARgine 100 Unit/mL Syringe SUBQ SCH (21:00)
[2017-02-10] VITALS (10 sets, daily range): BP systolic 102–106; BP diastolic 48–66; PULSE 70–84; RESP 20; O2SAT 96–100
[2017-02-10] MEDS: Fluticasone-Salmeterol 500-50 Inhaler INHALATION SCH ×3 (01:19→20:58)
--- NOTE | 2017-02-10 05:39 | PCM.PNMED ---
Subjective Date of Service Feb 10, 2017 Subjective 77 yo male with esophageal cancer with lung mets is here with dysphagia, he has had a PEG tube placed. Initially put on glucerna, now on jevity 1.5. He has had brief runs of SVT non-sustained in the last few days. May need cardiology consult because of that. He also had a pacemaker check pending this a.m. patient states he has dry mouth, he is having to suction his mouth. Constantly. However he also states this is not new has been ongoing since after his radiation treatments. He denies fevers, chills. He states he disappointed at times because he cannot eat by mouth. He feels very weak and understands that he might need to consider rehabilitation in some settings. He denies diarrhea. He denies leg edema Exam Vital Signs Vital Sign - Last Date Time Temp Pulse Resp B/P Pulse Ox O2 Delivery O2 Flow Rate FiO2 02/10/17 04:25 36.4 76 20 103/54 99 Nasal Cannula 2.00 Intake and Output 02/09/17 02/09/17 02/10/17 Cumulative From/Thru 15:00 23:00 07:00 01/29/17 16:04 - 02/10/17 04:29 Intake Total 1677 ml 984 ml 63872 ml Output Total 500 ml 82653 ml Balance 1677 ml 484 ml 7225 ml Intake Oral 0 ml 660 ml IV Total 1677 ml 249 ml 9177 ml Tube Feeding 735 ml 8298 ml Tube Irrigant 1934 ml Output Urine Total 500 ml 14067 ml Gastric Drainage Total 1289 ml Emesis 200 ml # Voids 5 # Bowel Movements 1 5 Exam Eyes: [place] conjunctivae. No ptosis, PERRL Neck: No masses, trachea midline, no thyromegaly, negative for JVD Lungs: CTA anteriorly with normal respiratory effort. CV: RRR, no murmurs/rubs/gallops, normal PMI GI: Soft, non-tender with no hepatosplenomegaly. Normal bowel sounds MSK: no digital cyanosis Skin: Warm and dry. PEG tube site clean and dry without infection or erythema Psych: A&O X3, with approprate affect Mouth: Negative for [place] Gen.: No acute distress H EENT: Mild hearing impairment, age-related Lab and Diagnostics Laboratory Tests Test 02/10/17 05:45 White Blood Count 2.2th/mm3 (3.8-10.1) Red Blood Count 2.99mil/mm3 (4.40-5.80) Hemoglobin 7.8g/dL (13.8-17.2) Hematocrit 25.5% (41.0-50.0) Mean Corpuscular Volume 85.3fL (81-100) Mean Corpuscular Hemoglobin 26.1pg (27.0-35.0) Mean Corpuscular Hemoglobin Concent 30.6% (32.0-37.0) Red Cell Distribution Width 20.7% (12.3-15.4) Platelet Count 106bil/L (150-400) Prothrombin Time 21.0sec (8.1-12.5) Prothromb Time International Ratio 1.94ratio Sodium Level 144mEq/L (134-144) Potassium Level 4.5mEq/L (3.5-5.2) Chloride Level 109mEq/L (97-108) Carbon Dioxide Level 26mmol/L (18-29) Blood Urea Nitrogen 55mg/dL (8-27) Creatinine 1.01mg/dL (0.76-1.27) Estimat Glomerular Filtration Rate 76mL/min (>59) Glucose Level 181mg/dL (60-99) Calcium Level 7.0mg/dL (8.5-10.1) Total Bilirubin 0.6mg/dL (0.0-1.2) Aspartate Amino Transf (AST/SGOT) 26U/L (0-50) Alanine Aminotransferase (ALT/SGPT) 36U/L (0-44) Alkaline Phosphatase 83U/L (25-160) Total Protein 4.2g/dL (6.4-8.4) Albumin 2.1g/dL (3.4-5.0) Microbiology 02/02/17 Helicobacter pylori Antigen - Final, Complete Result Diagram: 02/09/1743902/09/17439 X-Rays, CTs and MRIs Chest X-ray reviewed : Bilateral lower lung infiltrates consistent with pneumonia. With the patient's history atypical pneumonia, radiation pneumonitis and could appear this way. The lower lungs are relatively clear in November Assessment & Plan 77-year-old male with esophageal carcinoma in acute respiratory hypoxia. His symptoms have improved since then but is functionally very weak. Esophageal obstruction S/p peg tube placement . -Continue 75 mL/per hour Jevity 1.5 feeds -Radiation and chemotherapy per oncology (Dr. Wang following) patient has recently finished his last round of radiation 02/07/17 Neutropenia -Continue neutropenic precautions -Follow-up with oncology if the patient does not improve may consider Neupogen but will defer to oncology for this -We will continue to monitor Hypocalcemia -Patient is monitored and repleted as needed -Continue to monitor Oral candidiasis -200 mg of fluconazole today (02/07/2017) -Continue with 100 mg of fluconazole for the next 4 days (stop on 02/12/17) Dehydration with persistent hypernatremia -Likely due to dehydration - WNL -Continue to monitor with daily labs Atrial fibrillation -Currently on Coumadin Pharmacy to dose -continue metoprolol 75 mg twice a day -INR goal between 2 and 3 -Cardiology is consulted, we appreciate their recommendations Acute respiratory failure with Hypoxia (resolved): Patient responded well to steroid therapy continues to be on oxygen. No longer on steroids. -Continue when necessary DUO nebs Pneumonia/radiation pneumonitis -Based on chest x-ray findings of retrocardiac consolidation patient was treated with Levaquin and had a full course of antibiotics -CT scan of the chest shows resolving effusions Diabetes -Hemoglobin A1c 6.8: Low dose SSI humalog -Continue Jevity tube feeds patient is currently tolerating this well -Continue with insulin sliding scale Tachycardia of unknown etiology: - Pacemaker check this a.m. did not reveal any abnormalities. - Echocardiogram is ordered -Cardiology is consulted and they are aware Functional debility - Physical therapy is ordered: We will awaittheir evaluation results CODE STATUS: Full code Disposition: Plan to discharge patient tomorrow following physical therapy recommendations and where he can rehabilitation. GI Prophylaxis: Proton Pump Inhibitor VTE Prophylaxis: Theraputic Anticoag with Warfarin VTE Mechanical Devices: Intermittant Pneumatic CD Resuscitation Status: CPR: Attempt Resuscitation Sheyla Merino DO Feb 10, 2017 05:39 Sheyla Merino DO Feb 10, 2017 05:39 GI Prophylaxis: Proton Pump Inhibitor VTE Prophylaxis: Theraputic Anticoag with Warfarin VTE Mechanical Devices: Intermittant Pneumatic CD Resuscitation Status: CPR: Attempt Resuscitation Sheyla Merino DO Feb 10, 2017 05:39
[2017-02-10] MEDS: Albuterol-Ipratropium 3 mL Inhalation Solution NEB SCH ×3 (05:51→16:55)
[2017-02-10 06:14] LABS: Mean Corpuscular Hemoglobin 26.1 pg (27.0-35.0); Mean Corpuscular Volume 85.3 fL (81-100)
--- NOTE | 2017-02-10 06:55 | NUR ---
V-tach 2 episodes overnight. 1 run of 5 beats and 1 run 0f 6. Patient asymptomatic. Hospitalist informed.
[2017-02-10 07:02] LABS: INR 1.94 ratio
[2017-02-10] MEDS: Insulin LISPRO 300 Unit/3 mL Inj SUBQ SCH ×2 (09:13→21:40)
[2017-02-10] MEDS: Lansoprazole 30 mg ODTablet PO SCH (09:16)
[2017-02-10] MEDS: Polyethylene Glycol (PEG) 17 Gm Powder TUBE SCH (09:25)
--- NOTE | 2017-02-10 11:25 | PCM.PHAPRO ---
Progress Date of Service: Feb 10, 2017 Warfarin dosing Warfarin dosing per pharmacy Indication: atrial fibrillation INR goal: 2-3 Home warfarin dose: 3 mg daily Date Feb 06-Feb 07-Feb 08-Feb 09-Feb 10-Jan INR 3.66 3.83 2.66 2.6 2.37 1.94 INR change 0.64 0.17 -1.17 -0.06 -0.23 -0.43 Dose HOLD HOLD 3 MG 3MG 3 MG XXX INR continues to trend down despite receiving home dose for x3 days. Will give one bolus dose today. Give warfarin 5 mg PO one time at 1700. Pharmacy to continue to monitor and dose warfarin daily. Thank you, Aura Li Pharmacist Aura Li Feb 10, 2017 11:25
--- NOTE | 2017-02-10 13:34 | NUR ---
NUTRITION FOLLOW-UP: ASSESS: 77 YO M admitted with esophageal cancer, status post PEG tube placement 01/30. Enteral feeding was at goal rate of 75 ml/hr, and pt tolerating Jevity 1.5 formula well. However, his blood glucose was trending upward; therefore, with history of diabetes, formula changed to Glucerna 1.5. However, he had large volume emesis following completion of radiotherapy. Per family request, enteral feeding formula changed back to Jevity 1.5, which is currently at goal rate, well tolerated and blood glucoses have come down since stopping steroids per MD notes. 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 LABS: Alb 2.1, Ca 7.0, Glu 181, BUN 55 MEDS: Coumadin, diflucan, insulin, zofran, ativan, lopressor. GI: BM x 1 (02/09) SKIN: Jeramy 16, no major issues at this point in time. WT: 99.7kg, BMI 29.8kg, Admit weight: 98.2 kg; UBW: ~110kg. 10% wt lossx1 month=significant DIET: NPO ENTERAL FEEDING: Jevity 1.5 currently at 71ml/hr to provide 2450kcal and 105g pro (100% estimated needs). Fluid flush 40ml q 4hrs if IVF on. If IVF off, fluid flush at 100ml q 2 hrs. EST. NEEDS: Cancer Calories: 9378-2098 kcal/day (25-30 kcal/kg) Protein: 95-145 g/day (1.0-1.5 g/kg) Fluid: ~2455 ml/day (1 ml/kcal) NUTRITION DIAGNOSIS: 1) Severe pro/kcal malnutrition related to esophageal ca as evidence by 10% wt loss x1 month, PO <75% of meals x1 month, reported nausea/vomiting - PERSISTS. 2) Inadequate oral intake related to esophageal ca as evidence by current NPO status, inability to keep PO food down and need for PEG tube to maintain adequate nutrition - PERSISTS. NUTRITION INTERVENTION: 1) No additional intervention at this time. MONITOR/EVALUATE: Enteral feeding tolerance, lab values. F/U per high risk.
--- NOTE | 2017-02-10 15:29 | NUR ---
Social work: Readiness for Discharge Data & Assessment: [employer] met with patient's to discuss discharge planning needs. Patient's stated that she did not feel the patient was ready to go home because he would not be able to go up the stairs at home. SW notified patient physician and MD to order PT evaluation. SW will continue to follow and assist patient with discharge planning needs. Plan: Patient may discharge home with [facility] tube feeds or to SNF pending clinical course. SW will continue to follow and assist patient throughout stay. Génesis Lizarraga LMSW, EMILIE
--- NOTE | 2017-02-10 15:39 | NUR ---
Social Work: Choice SW provided patient and patient's with choice list Génesis Lizarraga, DERRICK, ACM
--- NOTE | 2017-02-10 16:21 | NUR ---
activity pt up to walk in hallway, he became weak very quickly and had a difficult time making it back to the bed, he did walk about 20 feet. Became a bit dyspneic, RA sats 93% after walk, RA sats prior to walk 96%.
--- NOTE | 2017-02-10 17:54 | DRSVH ---
[facility] [address] [place] [address] Echocardiogram Report Name: ANIA LIM Study Date: 02/10/2017 Height: 72 in Hospital Exam Location: [facility] Weight: 220 lb Gender: Male BSA: 2.2 m2 : 1940 Age: 77 yrs BP: 102/56 mmHg Reason For Study: NON-SUSTAINED V-TACH Ordering Physician: Performed By: Farideh MCKEONIST [facility] Interpretation Summary 1. Normal left ventricular size with borderline increased wall thickness and an estimated EF of 45-50% 2.Upper limits of normal right ventricular size with low normal systolic function 3. No evidence for significant valvular pathology Compared to the previous study, the LV and RV appear less dilated. The right ventricular function appears improved, and the tricuspid regurgitation appears less. Procedure: A two-dimensional transthoracic echocardiogram with color flow and Doppler was performed. The study quality was technically adequate. Comparison is made with the echocardiogram of 10/14/2016. The patient has a paced rhythm. Left Ventricle: The left ventricle is normal in size. Left ventricular wall thickness is borderline increased. There is no thrombus. The ejection fraction is estimated to be 45-50%. Septal motion is consistent with conduction abnormality. Hypokinesis of the inferior apex, inferolateral/lateral wall. Diastolic function could not be accurately assessed due to paced rhythm. Right Ventricle: There is a pacemaker lead in the right ventricle. The right ventricle is borderline dilated. Low normal systolic function. Atria: The left atrium is severely dilated. The right atrium is mildly dilated. The interatrial septum is intact with no evidence for an atrial septal defect. Mitral Valve: An annuloplasty ring is noted in the mitral position. Mitral regurgitation is present, however its severity cannot be assessed due to shielding from the prosthesis. The mitral valve mean gradient is 3.1 mmHg. Aortic Valve: The aortic valve is trileaflet. The aortic valve opens well. There is mild aortic regurgitation. Tricuspid Valve: The tricuspid valve is normal. There is mild tricuspid regurgitation. The right ventricular systolic pressure is estimated at 29 mmHg assuming a right atrial pressure of 3 mm Hg. Pulmonic Valve: The pulmonic valve is not well seen, but is grossly normal. There is no pulmonic valvular regurgitation. Great Vessels: The aortic root is normal size. The ascending aorta is mildly enlarged. The ascending aorta measures 3.9 cm. The IVC is of normal diameter and collapses greater than 50% with a sniff. This suggests a low right atrial pressure of 3 mm Hg. Pericardium/ Pleura There is no pericardial effusion. MMode/2D Measurements & Calculations LVIDd: 5.7 cm RA long axis LVOT diam LVIDs: 4.0 cm LA A2 area: 29.1 cm FS: 29.8 % LA A4 area: 32.8 cm RA area AoV Opening EPSS: 1.2 cm LA length (vol): 7.1 cm IVSd: 1.0 cm LA vol: 113.3 ml : 23.8 cm Ao root diam LVPWd: 1.2 cm LA vol index RA vol : 78.8 ml asc Aorta RA Diam: 3.9 cm IVC diam: 1.8 cm : 35.5 mm2 LV hernandez. diameter/BSA LV sys. diameter/BSA RVD1 (basal) TAPSE: 1.5 cm (cm/m^2): 2.6 (cm/m^2): 1.8 Doppler Measurements & Calculations Ao V2 max MVA(VTI) TR max marciano MV V2 mean: 72.5 cm/sec : 186.4 cm/sec : 2.0 cm2 : 256.3 cm/sec MV mean P.1 mmHg Ao max P.9 mmHg TR max PG MV V2 VTI: 32.1 cm Ao mean P.7 mmHg : 26.3 mmHg MV dec time: 0.37 sec LVOT Max Marciano PA V2 max : 94.2 cm/sec : 87.0 cm/sec JERSEY(I,D): 2.2 cm PA mean PG sev ratio: 0.54 AI P1/2t: 376.5 msec PA Accel Time AI dec slope : 275.9 cm/s2c Ao V2 mean LV V1 max PG PA V2 mean JERSEY indexed to BSA : 123.1 cm/sec : 59.4 cm/sec (cm^2/m^2): 0.99 Ao V2 VTI: 29.4 cm LV V1 VTI JERSEY(V,D): 2.1 cm2 : 15.7 cm Reading Physician:05:53 PM
[2017-02-10] MEDS: 0.9% Sodium Chloride 250 ML IV SCH (18:04)
--- NOTE | 2017-02-10 21:33 | CONS ---
[address] [address] CONSULTATION REPORT PATIENT: ANIA LIM : 1940 MR#: [id number] ADMIT: 01/29/2017 JOB ID: [id number] DATE OF SERVICE: 02/10/2017 CHIEF COMPLAINT: I was asked by hospitalist to consult on this patient given episodes of SVT and VT. HISTORY OF PRESENT ILLNESS: The patient is a 77-year-old man with a history of esophageal cancer now getting radiation treatment. He has been getting regular checks of his pacemaker because of this. He has been in the hospital for nearly two weeks now. He recently had a PEG tube placed and his main complaint is that when he walks around he feels very weak. He has not been extremely active during this hospital stay. On telemetry, he has been noted to have some short spells of probable SVT, and this morning, there was maybe a four- or five-beat run of VT. He did have his AICD interrogated and this is triggered to only show events when he hits 12 beats. Therefore, he has not had any long runs of VT. When speaking to him, he denies any palpitations. He denies any syncope although he does feel dizzy and weak. He denies increased shortness of breath, chest pain, chest pressure. PAST MEDICAL HISTORY/PROBLEM LIST: 1. History of esophageal cancer. 2. History of atrial fibrillation, on Coumadin. 3. COPD. 4. Hypertension. 5. Hyperlipidemia. 6. History of the systolic heart failure with history of a bi-V ICD. MEDICATION ALLERGIES: Include: 1. PENICILLIN. 2. AMIODARONE. 3. CODEINE. CURRENT MEDICATIONS: Include: 1. Diflucan. 2. Metoprolol tartrate 75 b.i.d. 3. Lansoprazole 30 daily. 4. Zofran. 5. Enalapril 5 mg b.i.d. 6. Warfarin. 7. Lorazepam. 8. Other p.r.n. medications. SOCIAL HISTORY: He is a smoker. No significant alcohol use. FAMILY HISTORY: No early coronary disease. REVIEW OF SYSTEMS: Overall health: No fevers, chills, night sweats. GI: Difficulty swallowing, history of esophageal cancer. : No dysuria, no hematuria. Pulmonary: Some increased shortness of breath and weakness. Neuro: Some weakness. No chronic headaches. Heme: No easy bruising or bleeding. Musculoskeletal: Generalized weakness but no joint pain or swelling. Derm: No new rashes or skin breakdown. ENT: Some difficulty swallowing. Ophtho: No acute vision changes. Psych: No acute issues. All other review of systems on a 12-point review of systems are negative. PHYSICAL EXAMINATION: Blood pressure is 103/66, heart rate 72. He is afebrile. Sats are 96% on 3 L. General: In no acute distress. He is getting his echo performed at this time. Head and neck exam: Normocephalic, atraumatic. Heart exam sounds regular. I do not appreciate obvious murmurs, gallops, rubs. Lungs clear to auscultation anteriorly. Abdomen soft, nontender. Back: No CVA tenderness to palpation. Extremities: Warm. No appreciable edema, 1+ PT pulses appreciated. Skin: Without obvious breakdown. Neuro: Alert and interactive. Gait is not tested. Psych: Appropriate mood and affect. ENT: mucous membranes moist. EKG shows a paced rhythm. I reviewed telemetry and this does show an episode of what appears to be possible atrial tachycardia versus atrial flutter. This was short-lived and asymptomatic, per discussion with the patient. He also had a four- to five-beat run of ventricular tachycardia which resolved and was asymptomatic. CURRENT LABS: Current labs show a white count 2.2, H and H 7.8 and 25.5, platelets 106,000. Chemistry shows a sodium 144, potassium 4.5, chloride and bicarb 109 and 26, respectively. BUN and creatinine 55 and 1. Echo is pending. However, old echos have shown estimated EF in the range of 35% to 40% with more focal inferoapical and inferolateral hypokinesis. He had moderate tricuspid regurgitation, mild aortic valve sclerosis. IMPRESSION: The patient has a history of a cardiomyopathy, history of a bi-ventricular implantable cardioverter-defibrillator. He is now being treated for an esophageal cancer with radiation. He has had episodes of short-lived spells of supraventricular tachycardia. He has also had 4-5 beats of ventricular tachycardia today. These were not detected on his interrogation because these are not reported unless he achieves a certain number. No treatments were delivered. His last outpatient interrogation showed that he had one nonsustained high rate episode lasting 8 seconds. No therapies were given. PLAN: 1. I think we can continue with metoprolol in this gentleman. I think this should be adequate treatment for him. He has not had any sustained arrhythmias and it does not appear that he has been symptomatic with it. 2. Will review the echocardiogram when it becomes available today. 3. Please let me know if you need my opinion on any other matters in this gentleman's case. 50 minutes was spent reviewing the patient's chart, speaking with the patient and his family member. GM
[2017-02-11] VITALS (12 sets, daily range): BP systolic 90–119; BP diastolic 50–69; PULSE 69–85; RESP 19–26; O2SAT 93–99
[2017-02-11] MEDS: Albuterol-Ipratropium 3 mL Inhalation Solution NEB SCH ×5 (03:18→20:38)
--- NOTE | 2017-02-11 03:52 | NUR ---
activity pt did not get out of bed this shift, despite encouragement from nurse. lungs are sounding coarse with audible wheezes, pt receiving neb treatments and has been encouraged to cough and deep breathe. tele monitor reports pt has been v-paced in the 's with PVC. he has not had any v-tach. care continues. Addendum: 02/11/17 at 0549 by HARSHAL GAMBLE RN tele called to report pt had 11 beats of a ventricular arrhythmia this morning that she could not identify as v-tach, stated it might be his a-fib. pt is asymptomatic, denies feeling any palpitations or syncope. will continue to monitor.
[2017-02-11 05:57] LABS: INR 1.97 ratio
[2017-02-11] MEDS: Insulin LISPRO 300 Unit/3 mL Inj SUBQ SCH ×4 (08:11→22:00)
[2017-02-11] MEDS: Fluticasone-Salmeterol 500-50 Inhaler INHALATION SCH ×2 (08:12→20:30)
[2017-02-11 08:14] LABS: EOSINOPHILS % (AUTO) 0 % (0-5)
[2017-02-11] MEDS: Lansoprazole 30 mg ODTablet PO SCH (08:16)
[2017-02-11 08:18] LABS: Mean Corpuscular Hemoglobin 26.2 pg (27.0-35.0); Mean Corpuscular Volume 85.5 fL (81-100); Platelet Count 111 bil/L (150-400)
[2017-02-11] MEDS: Polyethylene Glycol (PEG) 17 Gm Powder TUBE SCH (08:18)
[2017-02-11 08:48] LABS: NEUTROPHILS % (AUTO) 84 % (40-74)
[2017-02-11 08:49] LABS: BASOPHILS % (AUTO) 0 % (0-3); MONOCYTES % (AUTO) 6 % (4-12)
[2017-02-11] MEDS: 0.9% Sodium Chloride 250 ML IV SCH (10:58)
--- NOTE | 2017-02-11 11:02 | NUR ---
Evaluation completed. Please go to "Notes" then click on "Assessments and Notes" (bottom left corner of screen). Then select appropriate discipline tab on top of screen.
--- NOTE | 2017-02-11 11:48 | PCM.PHAPRO ---
Progress Date of Service: Feb 11, 2017 Warfarin dosing Warfarin dosing per pharmacy Indication: atrial fibrillation INR goal: 2-3 Home warfarin dose: 3 mg daily -Feb 07-Feb 08-Feb 09-Feb 10-Feb 11-Jan 3.83 2.66 2.6 2.37 1.94 1.97 0.17 -1.17 -0.06 -0.23 -0.43 0.03 HOLD 3 MG 3MG 3 MG 5 MG 4 MG INR remains subtherapeutic but is trending up. Will give another small bolus dose and anticipate therapeutic INR tomorrow. Give warfarin 4 mg PO one time at 1700. Pharmacy to continue to monitor and dose warfarin daily. Thank you, Aura Li Pharmacist Aura Li Feb 11, 2017 11:48
--- NOTE | 2017-02-11 12:11 | NUR ---
Social Work- Readiness for Discharge Data: EMR reviewed. Pt is on day 13 of hospitalization for esophageal cancer per H&P. Pt is not medically stable to discharge. PT evaluated pt today, recommending SNF for progression of strength, endurance and independence with functional mobility. SW followed up with pt and Annette at bedside regarding this recommendation. SNF choice list provided. Pt and Annette chose [facility] as primary choice, [facility] as second choice. SW made referrals to each facility, access given and facesheet faxed. SW spoke with admissions at [facility] who are agreeable to accepting pt with MD Pepper to follow. SW spoke with Marthen at [facility] who is agreeable to accepting pt with MD Hall to follow. SW updated family and MD. LORRAINE updated Phylicia at [facility], of pt's SNF placement. Pt to discharge to [facility] with MD Pepper to follow as per family's preference. Paperwork in chart. [facility] faxed and in chart. All updated and agreeable to plan. SW will continue to follow. Assessment: Pt who would benefit from SNF. Plan: PT recommends SNF. Pt to discharge to [facility] with MD Pepper to follow as per family's preference. Paperwork in chart. [facility] faxed and in chart. All updated and agreeable to plan. SW will continue to follow. IFEOMA Graham
[2017-02-11] MEDS ORDERED: Furosemide 10 mg/mL 2 mL Inj IVPUSH SCH (18:00)
--- NOTE | 2017-02-11 18:23 | PROG NOTE ---
[address] [address] PROGRESS NOTE PATIENT: ANIA LIM : 1940 MR#: [id number] ADMIT: 01/29/2017 JOB ID: [id number] DATE: 02/11/2017 INPATIENT MEDICAL ONCOLOGY PROGRESS REPORT: DIAGNOSES: 1. Stage 3 distal esophageal adenocarcinoma, status post chemoradiotherapy. 2. Peripheral right lower lobe pulmonary adenocarcinoma, stage 1, untreated so far. 3. Chronic pulmonary fibrosis. 4. Chronic cardiomyopathy. 5. Chronic anticoagulation therapy. HISTORY OF PRESENT ILLNESS: The patient is a 76-year-old gentleman with multiple comorbid conditions including interstitial pulmonary fibrosis, COPD, obstructive sleep apnea, coronary artery disease, chronic cardiomyopathy status post AICD, chronic kidney disease, chronic atrial fibrillation, and is on anticoagulation therapy. He recently completed a course of chemoradiotherapy for stage 3 distal esophageal adenocarcinoma. He managed to only received three of total five planned weekly doses of chemotherapy due to various complications including pneumonia and elevated bilirubin. He was admitted to hospital on January 30 for placement of PEG tube and has remained admitted since then. He was treated for pneumonia. SUBJECTIVE: He remains unable to drink liquids. He would regurgitate them back, even water. He still reports pain in his right lower throat when he attempts to drink or swallow something. He reports feeling very weak. He is expecting discharge tomorrow to a rehab facility. OBJECTIVE: Resting comfortably in bed, but appears deconditioned and weak. Blood pressure 108/63, heart rate 85, temperature afebrile. O2 saturation 98% on room air. LABORATORIES: Leukocyte count 2700, hemoglobin 7.4, platelet count 111,000. Chemistry is normal, except severely low albumin and total protein. IMPRESSION AND PLAN: 1. Distal esophageal adenocarcinoma. Treatment has been completed. 2. Severe protein calorie malnutrition. He is on tube feeds and has been tolerating them well. I will place an order for modified barium swallow with speech therapist. I am not exactly sure as to the etiology of his dysphagia even to liquids, despite having no evidence of luminal obstruction by recent EGD. It may be oropharyngeal functional dysphagia. 3. Severe anemia. He is receiving 1 unit packed red blood cell transfusion tonight. 4. He is expected to be discharged tomorrow to a rehab facility and I will schedule a followup oncology visit sometime next week.
--- NOTE | 2017-02-11 20:24 | PCM.PNMED ---
Subjective Date of Service Feb 11, 2017 Subjective Patient is seen and examined. He states that he feels tired and fatigued. This a.m. hemoglobin was 7.2 we discussed the benefits and risks of blood transfusion. He agrees to get 1 unit PRBC. Patient states his mouth is dry. No apparent infection or fungal candidiasis is seen on examination. He is accepted at [facility] for rehabilitation. He denies overnight fevers, chills, nausea vomiting, diarrhea. Exam Vital Signs Vital Sign - Last Date Time Temp Pulse Resp B/P Pulse Ox O2 Delivery O2 Flow Rate FiO2 02/11/17 15:06 85 22 98 Room Air 02/11/17 14:28 36.3 108/63 02/11/17 03:19 2.00 Intake and Output 02/10/17 02/10/17 02/11/17 Cumulative From/Thru 15:00 23:00 07:00 01/29/17 16:04 - 02/11/17 06:43 Intake Total 0 ml 100 ml 03207 ml Output Total 950 ml 1000 ml 31720 ml Balance -950 ml -900 ml 5350 ml Intake Oral 0 ml 100 ml 760 ml IV Total 9331 ml Tube Feeding 8999 ml Tube Irrigant 1934 ml Output Urine Total 950 ml 1000 ml 72260 ml Gastric Drainage Total 1289 ml Emesis 200 ml # Voids 5 # Bowel Movements 5 Exam Gen.: No acute distress laying in bed HE ENT: Normocephalic atraumatic Heart: Regular rate and rhythm , 1+ systolic murmur without radiation Skin: Slight radiation burn on right chest wall about his access port Lungs: Clear to auscultation anteriorly, crackles or wheezes Abdomen soft nontender Neuro no focal deficits Psych: Negative for anxiety IVs and Medications Medications Reviewed: Medications were reviewed in detail Lab and Diagnostics Result Diagram: 02/11/1751102/11/17511 X-Rays, CTs and MRIs Chest X-ray reviewed : Bilateral lower lung infiltrates consistent with pneumonia. With the patient's history atypical pneumonia, radiation pneumonitis and could appear this way. The lower lungs are relatively clear in November Cardiac Echo Impressions [facility] Diagnostic [place] [address] Patient Name: ANIA LIM MR#: [id number] Location: [facility] Ordering Phys: Sheyla Merino DO Date of Service: 02/10/17 [address] [facility] [address] [place] [address] Echocardiogram Report Name: ANIA LIM Study Date: 02/10/2017 Height: 72 in Hospital Exam Location: [facility] Weight: 220 lb Gender: Male BSA: 2.2 m2 : 1940 Age: 77 yrs BP: 102/56 mmHg Reason For Study: NON-SUSTAINED V-TACH Ordering Physician: Performed By: Farideh DuckworthSentara RMH Medical CenterIST [facility] Interpretation Summary 1. Normal left ventricular size with borderline increased wall thickness and an estimated EF of 45-50% 2.Upper limits of normal right ventricular size with low normal systolic function 3. No evidence for significant valvular pathology Compared to the previous study, the LV and RV appear less dilated. The right ventricular function appears improved, and the tricuspid regurgitation appears less. Procedure: A two-dimensional transthoracic echocardiogram with color flow and Doppler was performed. The study quality was technically adequate. Comparison is made with the echocardiogram of 10/14/2016. The patient has a paced rhythm. Left Ventricle: The left ventricle is normal in size. Left ventricular wall thickness is borderline increased. There is no thrombus. The ejection fraction is estimated to be 45-50%. Septal motion is consistent with conduction abnormality. Hypokinesis of the inferior apex, inferolateral/lateral wall. Diastolic function could not be accurately assessed due to paced rhythm. Right Ventricle: There is a pacemaker lead in the right ventricle. The right ventricle is borderline dilated. Low normal systolic function. Atria: The left atrium is severely dilated. The right atrium is mildly dilated. The interatrial septum is intact with no evidence for an atrial septal defect. Mitral Valve: An annuloplasty ring is noted in the mitral position. Mitral regurgitation is present, however its severity cannot be assessed due to shielding from the prosthesis. The mitral valve mean gradient is 3.1 mmHg. Aortic Valve: The aortic valve is trileaflet. The aortic valve opens well. There is mild aortic regurgitation. Tricuspid Valve: The tricuspid valve is normal. There is mild tricuspid regurgitation. The right ventricular systolic pressure is estimated at 29 mmHg assuming a right atrial pressure of 3 mm Hg. Pulmonic Valve: The pulmonic valve is not well seen, but is grossly normal. There is no pulmonic valvular regurgitation. Great Vessels: The aortic root is normal size. The ascending aorta is mildly enlarged. The ascending aorta measures 3.9 cm. The IVC is of normal diameter and collapses greater than 50% with a sniff. This suggests a low right atrial pressure of 3 mm Hg. Pericardium/ Pleura There is no pericardial effusion. MMode/2D Measurements & Calculations LVIDd: 5.7 cm RA long axis LVOT diam LVIDs: 4.0 cm LA A2 area: 29.1 cm FS: 29.8 % LA A4 area: 32.8 cm RA area AoV Opening EPSS: 1.2 cm LA length (vol): 7.1 cm IVSd: 1.0 cm LA vol: 113.3 ml : 23.8 cm Ao root diam LVPWd: 1.2 cm LA vol index RA vol : 78.8 ml asc Aorta RA Diam: 3.9 cm IVC diam: 1.8 cm : 35.5 mm2 LV hernandez. diameter/BSA LV sys. diameter/BSA RVD1 (basal) TAPSE: 1.5 cm (cm/m^2): 2.6 (cm/m^2): 1.8 Doppler Measurements & Calculations Ao V2 max MVA(VTI) TR max marciano MV V2 mean: 72.5 cm/sec : 186.4 cm/sec : 2.0 cm2 : 256.3 cm/sec MV mean P.1 mmHg Ao max P.9 mmHg TR max PG MV V2 VTI: 32.1 cm Ao mean P.7 mmHg : 26.3 mmHg MV dec time: 0.37 sec LVOT Max Marciano PA V2 max : 94.2 cm/sec : 87.0 cm/sec JERSEY(I,D): 2.2 cm PA mean PG sev ratio: 0.54 AI P1/2t: 376.5 msec PA Accel Time AI dec slope : 275.9 cm/s2c Ao V2 mean LV V1 max PG PA V2 mean JERSEY indexed to BSA : 123.1 cm/sec : 59.4 cm/sec (cm^2/m^2): 0.99 Ao V2 VTI: 29.4 cm LV V1 VTI JERSEY(V,D): 2.1 cm2 : 15.7 cm Reading Physician:05:53 PM Assessment & Plan 77-year-old male with esophageal carcinoma in acute respiratory hypoxia. His symptoms have improved since then but is functionally very weak. Esophageal obstruction S/p peg tube placement . -Continue 75 mL/per hour Jevity 1.5 feeds -Radiation and chemotherapy per oncology (Dr. Wang following) patient has recently finished his last round of radiation 02/07/17 -- Currently stable, tolerating his tube feeds. -- Dr. Salinas to address his swallow/speech as outpatient Hypocalcemia --corrected ca 7.64. Will consider repleting if calcium adjusted is less than 7.5 -Continue to monitor Oral candidiasis -200 mg of fluconazole one d was givenose -Continue with 100 mg of fluconazole for the next 4 days (stop on 02/12/17) Dehydration with persistent hypernatremia: Resolved -Likely due to dehydration -Continue to monitor with daily labs Atrial fibrillation -Currently on Coumadin Pharmacy to dose -continue metoprolol 75 mg twice a day -INR goal between 2 and 3 -Cardiology is consulted, we appreciate their recommendations Acute respiratory failure with Hypoxia (resolved): Patient responded well to steroid therapy continues to be on oxygen. No longer on steroids. -Continue when necessary DUO nebs Pneumonia/radiation pneumonitis -Based on chest x-ray findings of retrocardiac consolidation patient was treated with Levaquin and had a full course of antibiotics -CT scan of the chest shows resolving effusions Diabetes -Hemoglobin A1c 6.8: Low dose SSI humalog -Continue Jevity tube feeds patient is currently tolerating this well -Continue with insulin sliding scale Tachycardia of unknown etiology: - Pacemaker check this a.m. did not reveal any abnormalities. - Echocardiogram is ordered: No acute findings -Cardiology is consulted and they have reviewed his medications -Is currently on beta ira metoprolol 75 mg by mouth twice a day, lisinopril 2.5 mg daily Functional debility - Physical therapy is ordered: We will awaittheir evaluation results Anemia secondary to chronic disease: -- 1 unit of irradiated PRBC transfusions today -- Iron panel folate B12 were ordered CODE STATUS: Full code Disposition: Plan to discharge patient tomorrow GI Prophylaxis: Proton Pump Inhibitor VTE Prophylaxis: Theraputic Anticoag with Warfarin VTE Mechanical Devices: Intermittant Pneumatic CD Resuscitation Status: CPR: Attempt Resuscitation Sheyla Merino DO Feb 11, 2017 20:24 VTE Mechanical Devices: Intermittant Pneumatic CD Resuscitation Status: CPR: Attempt Resuscitation Sheyla Merino DO Feb 11, 2017 20:24
[2017-02-11 20:59] LABS: Unsaturated Iron Binding 148.6 ug/dL
--- NOTE | 2017-02-11 22:14 | NUR ---
Blood Started 1 unit of blood at 2158, vitals BP 119/69, P 73, T 36.6, R 25, 95% O2. No s/s of adverse effects, second vitals at 2210, BP 113/62, P 69, T 36.4, R 24, 94% O2. Will continue to monitor.
[2017-02-12 01:22] VITALS: BP 126/68; PULSE 70; RESP 27
[2017-02-12 01:30] VITALS: BP 126/68; PULSE 70; RESP 27; O2SAT 96
--- NOTE | 2017-02-12 02:46 | NUR ---
Blood Infusion finished at 0120, no s/s of adverse effects vitals: BP 126/68, P 70, T 36.6, R 27. Will continue to monitor.
--- NOTE | 2017-02-12 02:50 | NUR ---
BP meds Held Lopressor and Enalapril, BP low at 113/62 and pulse at 73. Will monitor BP.
[2017-02-12 03:41] VITALS: PULSE 77; RESP 20; O2SAT 94
[2017-02-12] MEDS: Albuterol-Ipratropium 3 mL Inhalation Solution NEB SCH ×2 (03:41→08:14)
--- NOTE | 2017-02-12 05:41 | PCM.DIMED ---
Discharge Instructions Date of Service Feb 12, 2017 Dates of Hospitalization Jan 29, 2017 at 15:31 Discharge Diagnosis Discharge Diagnosis Esophageal CA s/p chemo/Rad, Systolic Heart Failure, PEG tube placement due to inability to eat, Afib, COPD, HTN, Hyperlipidemia, tachycardia Test Results Laboratory Tests Test 02/12/17 05:00 02/12/17 08:52 Prothrombin Time 23.4sec (8.1-12.5) Prothromb Time International Ratio 2.15ratio White Blood Count 2.7th/mm3 (3.8-10.1) Red Blood Count 3.11mil/mm3 (4.40-5.80) Hemoglobin 8.3g/dL (13.8-17.2) Hematocrit 25.9% (41.0-50.0) Mean Corpuscular Volume 83.3fL (81-100) Mean Corpuscular Hemoglobin 26.7pg (27.0-35.0) Mean Corpuscular Hemoglobin Concent 32.0% (32.0-37.0) Red Cell Distribution Width 19.6% (12.3-15.4) Platelet Count 105bil/L (150-400) Neutrophils (%) (Auto) 83% (40-74) Lymphocytes (%) (Auto) 4% (14-46) Monocytes (%) (Auto) 7% (4-12) Eosinophils (%) (Auto) 0% (0-5) Basophils (%) (Auto) 0% (0-3) Band Neutrophils % 6% (1-5) Nucleated Red Blood Cells 1/100 WBC (0-24) Hematology Comments Sodium Level 141mEq/L (134-144) Potassium Level 4.3mEq/L (3.5-5.2) Chloride Level 109mEq/L (97-108) Carbon Dioxide Level 22mmol/L (18-29) Blood Urea Nitrogen 37mg/dL (8-27) Creatinine 0.93mg/dL (0.76-1.27) Estimat Glomerular Filtration Rate 84mL/min (>59) Glucose Level 203mg/dL (60-99) Calcium Level 7.1mg/dL (8.5-10.1) Total Bilirubin 0.6mg/dL (0.0-1.2) Aspartate Amino Transf (AST/SGOT) 25U/L (0-50) Alanine Aminotransferase (ALT/SGPT) 35U/L (0-44) Alkaline Phosphatase 98U/L (25-160) Total Protein 4.2g/dL (6.4-8.4) Albumin 2.1g/dL (3.4-5.0) Microbiology 02/02/17 Helicobacter pylori Antigen - Final, Complete Diet Other (Patient only takes sips of water, PEG tube feeds) Activity No restrictions Call your provider Fever or Chills, Shortness of breath, Bleeding, Chest pain, Vomitting, Excessive diarrhea, Weakness (unilateral), Other Patient Instructions NTERAL FEEDING: Jevity 1.5 currently at 71ml/hr to provide 2450kcal and 105g pro (100% estimated needs). Fluid flush 40ml q 4hrs if IVF on. If IVF off, fluid flush at 100ml q 2 hrs. Follow-up plan Patient will need speech therapy, physical therapy and occupational therapy. Follow-up Provider: Mariama Pepper MD Follow-up with PCP in: 1 week Sheyla Merino DO Feb 12, 2017 05:41
[2017-02-12 06:43] LABS: INR 2.15 ratio
[2017-02-12] MEDS: Insulin LISPRO 300 Unit/3 mL Inj SUBQ SCH ×2 (08:08→12:00)
[2017-02-12] MEDS: Lansoprazole 30 mg ODTablet PO SCH (08:11)
[2017-02-12] MEDS: Polyethylene Glycol (PEG) 17 Gm Powder TUBE SCH (08:12)
[2017-02-12 08:14] VITALS: PULSE 80; RESP 20; O2SAT 94
[2017-02-12] MEDS: Fluticasone-Salmeterol 500-50 Inhaler INHALATION SCH (08:30)
[2017-02-12] MEDS ORDERED: Furosemide 10 mg/mL 2 mL Inj IVPUSH ONE (08:30)
[2017-02-12 08:57] LABS: EOSINOPHILS % (AUTO) 0 % (0-5)
[2017-02-12 09:03] LABS: Mean Corpuscular Hemoglobin 26.7 pg (27.0-35.0); Mean Corpuscular Volume 83.3 fL (81-100); Platelet Count 105 bil/L (150-400)
[2017-02-12 09:38] LABS: BASOPHILS % (AUTO) 0 % (0-3); MONOCYTES % (AUTO) 7 % (4-12); NEUTROPHILS % (AUTO) 83 % (40-74)
[2017-02-12] MEDS: 0.9% Sodium Chloride 250 ML IV SCH (11:31)
--- NOTE | 2017-02-12 11:31 | NUR ---
director of student financial servicescuring supervisor note: I met with patient's while Mr. Pina was having his Modified Barium Swallow completed. Annette, patient's states she anticipates patient to be discharge today to [facility] in [place]. No care needs identified at this time. Will continue to follow and address any care needs that may arise.
--- NOTE | 2017-02-12 12:32 | PCM.PHAPRO ---
Progress Date of Service: Feb 12, 2017 Warfarin dosing per pharmacy Indication: atrial fibrillation INR goal: 2-3 Home warfarin dose: 3 mg daily Feb 08-Feb 09-Feb 10-Feb 11-Feb 12-Jan 2.66 2.6 2.37 1.94 1.97 2.15 -1.17 -0.06 -0.23 -0.43 0.03 0.18 3 MG 3MG 3 MG 5 MG 4 MG xxx INR is therapeutic and trending up. Will resume home dose -- anticipating discharge today. Will place order for today's dose in case patient is still here during regular warfarin dosing times. Give warfarin 3 mg PO one time at 1700. Pharmacy to continue to monitor and dose warfarin daily. Thank you, Aura Li Pharmacist Aura Li Feb 12, 2017 12:32
[2017-02-12] MEDS ORDERED: ENAL5TAB PO (13:37)
[2017-02-12] MEDS ORDERED: METO25TA6 PO (13:37)
--- NOTE | 2017-02-12 13:39 | PCM.DC.MED ---
Discharge Summary Date of Service Feb 12, 2017 Dates of Hospitalization Date of Hospital Admission Jan 29, 2017 at 15:31 Date of Discharge: Feb 12, 2017 Providers: Admitting Physician: Alli Vazquez MD Primary Care Physician: sAha Garcai MD Attending Physician: Alli Vazquez MD Diagnosis at Time of Discharge Diagnosis at Time of Discharge Esophageal CA s/p chemo/Rad, Systolic Heart Failure, PEG tube placement due to inability to eat, Afib, COPD, HTN, Hyperlipidemia, tachycardia Consultations Oncology, physical therapy, speech eval, cardiology Procedures XRay, CTs & MRIs Chest X-ray reviewed : Bilateral lower lung infiltrates consistent with pneumonia. With the patient's history atypical pneumonia, radiation pneumonitis and could appear this way. The lower lungs are relatively clear in November [facility] Diagnostic [place] [address] Patient Name: ANIA LIM MR#: [id number] Location: [facility] Ordering Phys: Rony Wang MD Date of Service: 02/12/17 0800 PROCEDURE: X-RAY BARIUM SWALLOW WITH FOOD & VIDEOGRAPHY ([id number]) INDICATIONS: Dysphagia TECHNIQUE: Examination was conducted in conjunction with speech pathology per standard protocol. In the lateral projection, filming was performed of the patient swallowing. AP projection filming may also be performed with patient swallowing. COMPARISON: None. FINDINGS: Function: The oral preparatory phase appears normal, with proper containment. The subsequent oral propulsive phase, pharyngeal phase, and esophageal phase of swallowing also appear normal with all proffered substances. Laryngeal penetration identified on several occasions with thin liquids. The patient was then reexamined with thin liquids utilizing a "chin tuck" technique demonstrating improvement. The attending physician was personally present in the room during the examination. Morphology: No cricopharyngeal bar is identified. No cervical esophageal webs. No Zenker's diverticulum. No strictures. IMPRESSION: Laryngeal penetration with thin liquids with overall improvement utilizing "chin tuck" technique. Dictated by: Trenton Joshi A Interpreted: Elham Ribeiro MD on 02/12/2017 at 13:45 Transcribed by: DILIA on 02/12/2017 at 13:45 Approved by: Elham Ribeiro MD, PhD on 02/12/2017 at 16:17 Cardiac Echo Impression [facility] Diagnostic [place] [address] Patient Name: ANIA LIM MR#: [id number] Location: [facility] Ordering Phys: Sheyla Tran Date of Service: 02/10/17 1035 [facility] [address] [place] [address] Echocardiogram Report Name: ANIA LIM Study Date: 02/10/2017 Height: 72 in Hospital Exam Location: [facility] Weight: 220 lb Gender: Male BSA: 2.2 m2 : 1940 Age: 77 yrs BP: 102/56 mmHg Reason For Study: NON-SUSTAINED V-TACH Ordering Physician: Performed By[facility] Interpretation Summary 1. Normal left ventricular size with borderline increased wall thickness and an estimated EF of 45-50% 2.Upper limits of normal right ventricular size with low normal systolic function 3. No evidence for significant valvular pathology Compared to the previous study, the LV and RV appear less dilated. The right ventricular function appears improved, and the tricuspid regurgitation appears less. Procedure: A two-dimensional transthoracic echocardiogram with color flow and Doppler was performed. The study quality was technically adequate. Comparison is made with the echocardiogram of 10/14/2016. The patient has a paced rhythm. Left Ventricle: The left ventricle is normal in size. Left ventricular wall thickness is borderline increased. There is no thrombus. The ejection fraction is estimated to be 45-50%. Septal motion is consistent with conduction abnormality. Hypokinesis of the inferior apex, inferolateral/lateral wall. Diastolic function could not be accurately assessed due to paced rhythm. Right Ventricle: There is a pacemaker lead in the right ventricle. The right ventricle is borderline dilated. Low normal systolic function. Atria: The left atrium is severely dilated. The right atrium is mildly dilated. The interatrial septum is intact with no evidence for an atrial septal defect. Mitral Valve: An annuloplasty ring is noted in the mitral position. Mitral regurgitation is present, however its severity cannot be assessed due to shielding from the prosthesis. The mitral valve mean gradient is 3.1 mmHg. Aortic Valve: The aortic valve is trileaflet. The aortic valve opens well. There is mild aortic regurgitation. Tricuspid Valve: The tricuspid valve is normal. There is mild tricuspid regurgitation. The right ventricular systolic pressure is estimated at 29 mmHg assuming a right atrial pressure of 3 mm Hg. Pulmonic Valve: The pulmonic valve is not well seen, but is grossly normal. There is no pulmonic valvular regurgitation. Great Vessels: The aortic root is normal size. The ascending aorta is mildly enlarged. The ascending aorta measures 3.9 cm. The IVC is of normal diameter and collapses greater than 50% with a sniff. This suggests a low right atrial pressure of 3 mm Hg. Pericardium/ Pleura There is no pericardial effusion. MMode/2D Measurements & Calculations LVIDd: 5.7 cm RA long axis LVOT diam LVIDs: 4.0 cm LA A2 area: 29.1 cm FS: 29.8 % LA A4 area: 32.8 cm RA area AoV Opening EPSS: 1.2 cm LA length (vol): 7.1 cm IVSd: 1.0 cm LA vol: 113.3 ml : 23.8 cm Ao root diam LVPWd: 1.2 cm LA vol index RA vol : 78.8 ml asc Aorta RA Diam: 3.9 cm IVC diam: 1.8 cm : 35.5 mm2 LV hernandez. diameter/BSA LV sys. diameter/BSA RVD1 (basal) TAPSE: 1.5 cm (cm/m^2): 2.6 (cm/m^2): 1.8 Doppler Measurements & Calculations Ao V2 max MVA(VTI) TR max marciano MV V2 mean: 72.5 cm/sec : 186.4 cm/sec : 2.0 cm2 : 256.3 cm/sec MV mean P.1 mmHg Ao max P.9 mmHg TR max PG MV V2 VTI: 32.1 cm Ao mean P.7 mmHg : 26.3 mmHg MV dec time: 0.37 sec LVOT Max Marciano PA V2 max : 94.2 cm/sec : 87.0 cm/sec JERSEY(I,D): 2.2 cm PA mean PG sev ratio: 0.54 AI P1/2t: 376.5 msec PA Accel Time AI dec slope : 275.9 cm/s2c Ao V2 mean LV V1 max PG PA V2 mean JERSEY indexed to BSA : 123.1 cm/sec : 59.4 cm/sec (cm^2/m^2): 0.99 Ao V2 VTI: 29.4 cm LV V1 VTI JERSEY(V,D): 2.1 cm2 : 15.7 cm Reading Physician:05:53 PM Brief History Per admission H&P: This is a 77 years old male, with past medical history of esophageal cancer on chemo-radiation therapy, was sent to hospital by his primary oncologist due to inability to swallow solids and liquids. This is a very sick patient with multiple medical issues and on multiple medications. Patient was unable to even swallow his medications. He has been nothing by mouth over the last past 4 days or so. Patient stated he would regurgitate immediately anything he tries to swallow including water. He is being admitted for dehydration, and for PEG tube placement. Patient denied any fever, no chills, no chest pain, no shortness of breath, abdominal pain. Palliative consultation requested by medical team in order to assist patient and family in determination of goals of care. Prior to visiting, I reviewed his records in the EMR in detail both inpatient and outpatient. I attempted to contact Dr. Wang by phone but he was busy and will speak with him later. On my arrival, patient is sitting up in bed, with his and daughter at bedside. He is awake and oriented and quite appropriate. The family was a little bit frustrated because they have heard mixed messages about when his PEG tube can be placed. I quickly got on the phone and sorted out things for them for which they were grateful. His PEG tube will be placed soon and they plan on leaving for home tomorrow if everything goes as planned. We reviewed his medical diagnoses, his treatments up to this point through his oncologist's office and their ongoing plans. 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 Hospital Course 77-year-old male with esophageal carcinoma in acute respiratory hypoxia. His symptoms have improved since then but is functionally very weak. Esophageal obstruction S/p peg tube placement . -Continue 75 mL/per hour Jevity 1.5 feeds -Radiation and chemotherapy per oncology (Dr. Wang following) patient has recently finished his last round of radiation 02/07/17 -- Currently stable, tolerating his tube feeds. -- Patient underwent barium swallow study that showed improved penetration with intact technique. We asked that he continue speech therapy at [facility]. Severe protein malnutrition present on admission: -- Patient is given a PEG tube -- Jevity tube feeds as well -- Iron, calcium supplementation -- Speech and dietary consultation Hypocalcemia: Adjusted calcium greater than 7.5. Patient is asked to take 600 mg daily calcium supplement Oral candidiasis -200 mg of fluconazole one d was givenose -Continue with 100 mg of fluconazole for the next 4 days (stop on 02/12/17) Dehydration with persistent hypernatremia: Resolved -Likely due to dehydration -Monitored with daily labs Atrial fibrillation -Currently on Coumadin Pharmacy to dose -continue metoprolol 75 mg twice a day -INR goal between 2 and 3 -Cardiology is consulted, we appreciate their recommendations - Patient will continue 3 mg of Coumadin daily - Follow up INR in 2 days Acute respiratory failure with Hypoxia (resolved): Patient responded well to steroid therapy continues to be on oxygen. No longer on steroids. Pneumonia/radiation pneumonitis -Based on chest x-ray findings of retrocardiac consolidation patient was treated with Levaquin and had a full course of antibiotics -CT scan of the chest shows resolving effusions Tachycardia of unknown etiology: - Pacemaker check this a.m. did not reveal any abnormalities. - Echocardiogram is ordered: No acute findings -Cardiology is consulted and they have reviewed his medications -Is currently on beta ira metoprolol 75 mg by mouth twice a day, lisinopril 2.5 mg daily Functional debility - Physical therapy is ordered: We will awaittheir evaluation results Anemia secondary to chronic disease: -- 1 unit of irradiated PRBC transfusions today -- Iron panel folate B12 were ordered: Anemia of chronic disease -- He started on ferrous sulfate 325 mg twice a day supplementation Exam Vital Signs (Last) Date Time Temp Pulse Resp B/P Pulse Ox O2 Delivery O2 Flow Rate FiO2 02/12/17 09:11 36.8 02/12/17 08:14 80 20 94 Room Air 02/12/17 01:30 126/68 02/11/17 03:19 2.00 Exam Gen.: No acute distress HEENT: Normocephalic, atraumatic Mouth: Negative for oral candidiasis Abdomen: Nontender nondistended soft normal bowel sounds Extremities: Good range of motion Skin: PEG tube site and port site look uninfected nonpurulent Neuro: No focal deficits Psych: Affect neutral mood pleasant Test 01/29/17 19:45 01/29/17 20:07 01/30/17 09:40 02/01/17 22:57 Hold Urine Received (Received) Urine Color Dark yellow (YELLOW) Urine Appearance Hazy (CLEAR,HAZY) Urine pH 5.0 (5.0-8.0) Urine Specific Ebro 1.030 (1.003-1.035) Urine Protein Tracemg/dL (NEG,TRACE) Urine Glucose (UA) Negativemg/dL (NEGATIVE) Urine Ketones Tracemg/dL (NEGATIVE) Urine Occult Blood Negative (NEGATIVE) Urine Nitrite Negative (NEGATIVE) Urine Bilirubin Negative (NEGATIVE) Urine Urobilinogen Normalmg/dL (NORMAL) Urine Leukocyte Esterase Negative (NEGATIVE) Urine RBC 0-2/hpf (0-2) Urine WBC 0-5/hpf (0-5) Urine Epithelial Cells Occasional/hpf (NONE-MOD) Urine Crystals Amorphous urates (NONE Urine Bacteria Few/hpf (NONE-FEW) Urine Hyaline Casts None/lpf (NONE) Urine Granular Casts None seen (NONE SEEN) Urine Waxy Casts None seen (NONE SEEN) Urine Red Blood Cell Casts None seen (NONE SEEN) Urine White Blood Cell Casts None seen (NONE SEEN) Urine Mucus Present (None Seen) Urine Trichomonas None seen (NONE SEEN) Urine Yeast None (NONE SEEN) Urinalysis Comment None Urine Culture Reflexed Not indicated Metamyelocytes % 1% (0-0) Myelocytes % 1% (0-0) Phosphorus Level 2.3mg/dL (2.5-4.9) Test 02/04/17 04:00 02/05/17 12:15 02/07/17 01:30 02/11/17 05:12 Hemoglobin A1c 6.8% (4.8-5.6) Absolute Neutrophils (auto) 8.7th/mm3 (1.4-7.0) Direct Bilirubin 0.3mg/dL (0.0-0.3) Magnesium Level 2.6mg/dL (1.6-2.6) Iron Level 30ug/dL (35-150) Total Iron Binding Capacity 179ug/dL (250-450) Percent Iron Saturation 17%sat (15-50) Unsaturated Iron Binding 148.6ug/dL Ferritin 462ng/mL (30-400) Test 02/12/17 05:00 02/12/17 08:52 Prothrombin Time 23.4sec (8.1-12.5) Prothromb Time International Ratio 2.15ratio White Blood Count 2.7th/mm3 (3.8-10.1) Red Blood Count 3.11mil/mm3 (4.40-5.80) Hemoglobin 8.3g/dL (13.8-17.2) Hematocrit 25.9% (41.0-50.0) Mean Corpuscular Volume 83.3fL (81-100) Mean Corpuscular Hemoglobin 26.7pg (27.0-35.0) Mean Corpuscular Hemoglobin Concent 32.0% (32.0-37.0) Red Cell Distribution Width 19.6% (12.3-15.4) Platelet Count 105bil/L (150-400) Neutrophils (%) (Auto) 83% (40-74) Lymphocytes (%) (Auto) 4% (14-46) Monocytes (%) (Auto) 7% (4-12) Eosinophils (%) (Auto) 0% (0-5) Basophils (%) (Auto) 0% (0-3) Band Neutrophils % 6% (1-5) Nucleated Red Blood Cells 1/100 WBC (0-24) Hematology Comments Sodium Level 141mEq/L (134-144) Potassium Level 4.3mEq/L (3.5-5.2) Chloride Level 109mEq/L (97-108) Carbon Dioxide Level 22mmol/L (18-29) Blood Urea Nitrogen 37mg/dL (8-27) Creatinine 0.93mg/dL (0.76-1.27) Estimat Glomerular Filtration Rate 84mL/min (>59) Glucose Level 203mg/dL (60-99) Calcium Level 7.1mg/dL (8.5-10.1) Total Bilirubin 0.6mg/dL (0.0-1.2) Aspartate Amino Transf (AST/SGOT) 25U/L (0-50) Alanine Aminotransferase (ALT/SGPT) 35U/L (0-44) Alkaline Phosphatase 98U/L (25-160) Total Protein 4.2g/dL (6.4-8.4) Albumin 2.1g/dL (3.4-5.0) Discharge Medications Discharge Medications Aspirin (Aspirin) 81 Mg Tablet.dr 81 MG PO DAILY (Reported) Atorvastatin (Lipitor) 40 Mg Tablet 20 MG PO HS (Reported) Budesonide/Formoterol 160-4.5 mcg Inh (Symbicort 160-4.5 mcg Inh) 1 Puff Inha 2 PUFF IH BID (Reported) Calcium Carbonate (Calcium) 600 Mg Tablet 600 MG PO DAILY Prescribed by: SHEYLA TRAN DO Enalapril Maleate (Enalapril Maleate) 5 Mg Tablet 2.5 MG PO BID Prescribed by: SHEYLA TRAN DO Ferrous Sulfate (Ferrous Sulfate) 325 Mg Tablet 325 MG PO BID Prescribed by: SHEYLA TRAN DO Isosorbide DN (Isosorbide DN) 30 Mg Tablet 15 MG PO DAILY (Reported) Levothyroxine (Levothyroxine) 75 Mcg Tablet 75 MCG PO DAILY (Reported) Metoprolol Tartrate (Metoprolol Tartrate) 25 Mg Tablet 75 MG PO BID Prescribed by: SHEYLA TRAN DO Pramipexole Dihydrochloride (Mirapex) 0.5 Mg Tablet 0.5 MG PO HS (Reported) Ranitidine (Ranitidine) 150 Mg Capsule 150 MG PO HS (Reported) Tiotropium Eva (Spiriva) 18 Mcg Cap.w.dev 1 MCG IH DAILY (Reported) As needed Albuterol HFA (Proair HFA) 8.5 Gm Hfa.aer.ad 2 PUFFS IH Q4 PRN PRN For Shortness of Breath (Reported) Furosemide (Lasix) 40 Mg Tablet 20 MG PO DAILY PRN PRN weight >235 lbs. ( Reported) Followup Plan Follow-up plan Patient will need speech therapy, physical therapy and occupational therapy. Discharge Diet: Other (Patient only takes sips of water, PEG tube feeds) Discharge Activity: No restrictions Patient Instructions NTERAL FEEDING: Jevity 1.5 currently at 71ml/hr to provide 2450kcal and 105g pro (100% estimated needs). Fluid flush 40ml q 4hrs if IVF on. If IVF off, fluid flush at 100ml q 2 hrs. Follow-up Provider: Mariama Pepper MD Follow-up with PCP in: 1 week Sheyla Tran DO Feb 12, 2017 13:39
--- NOTE | 2017-02-12 13:43 | ST BAR ---
[address] [address] SPEECH BARIUM SWALLOW STUDY PATIENT: AINA LIM : 1940 MR#: [id number] ADMIT: 01/29/2017 JOB ID: [id number] INITIAL INPATIENT MODIFIED BARIUM SWALLOW STUDY: DATE OF SERVICE: 02/12/2017 REFERRING PHYSICIAN: Rony Wang MD PRIMARY CARE PHYSICIAN: Asha Garcia MD THERAPIST: Tania Forman MA CFY/REGULATOR OPERATOR HICN #: [id number] G CODES AND MODIFIERS: 8996 CK, 8997 CJ. 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 TREATMENT DIAGNOSIS: Dysphagia. VISITS FROM START OF CARE: One. FURTHER THERAPY RECOMMENDED: At 2-3 visits a week for the next 12 weeks from February 12, 2017 to May 15, 2017. SHORT-TERM GOALS: 1. The patient will safely tolerate a full liquid diet with thin liquids utilizing a chin tuck with no signs or symptoms of aspiration in six weeks. 2. The patient will safely tolerate small trials of puree and dysphagia mechanical textures for therapeutic purposes in six weeks. 3. The patient will demonstrate independence with compensatory strategies for safe swallowing in one week. 4. The patient will complete a pharyngeal and laryngeal exercise program to assist with timing, strength, and range of motion of his swallowing mechanism in four weeks. LONG-TERM GOAL: Safe by mouth intake for nutrition and hydration purposes at time of discharge from treatment. PLAN: Continue tube feeding, therapeutic exercises, compensatory strategy instruction, diet texture modification, and ongoing patient and family education. 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 The patient has an extensive medical history significant for chronic pulmonary fibrosis, cardiomyopathy, COPD, obstructive sleep apnea, coronary artery disease, chronic kidney disease, chronic AFIB, and chronic anticoagulation therapy. The patient was directly admitted to [facility] on January 30 for placement of a PEG tube due to severe dysphagia likely secondary to his treatment for esophageal cancer. The patient has been treated for pneumonia during this hospitalization as well. The patient was experiencing severe dysphagia and reportedly was unable to drink liquids or eat solids. The patient was reported to regurgitate all p.o. intake. At the time of this evaluation patient appeared to be considerably weak, was exhibiting dyspnea, and was expectorating phlegm into a cup that he had with him at all times. Recent EGD indicated no evidence of luminal obstruction and the current study is being completed today to fully assess the oropharyngeal swallowing mechanism to help determine if there is an aspiration component to the patient's dysphagia. MEDICAL NECESSITY: Aspiration risk. PRIOR LEVEL OF FUNCTION: The patient has been n.p.o. since January 30. PREVIOUS THERAPY: No. RELEVANT HOSPITALIZATIONS: None. FUNCTIONAL LIMITATIONS: Difficulty swallowing, expectoration after p.o. intake. Some reported pain with swallowing. BASELINE TESTS/MEASURES: The patient was seated in the modified barium swallow chair and was put on 2 L of oxygen due to dyspnea. Oral mechanical exam indicated generalized weakness, however structures and functions were within functional limits for both eating and speaking. Textures presented: Thin liquids via cup and pureed. Barium. Oral phase: Labial seal was weak, with labial escape of the bolus past the vermilion border. Mastication was not assessed. AP propulsion was adequate. Pharyngeal phase: Premature spillage: No. Laryngeal excursion complete. Swallow reflex was delayed. Epiglottic inversion was within functional limits. Vallecular residue was mild. Piriform sinus residue was not viewed. Follow-on swallows were used to clear the vallecula of residue and were not entirely helpful. Laryngeal penetration occurred on trials of thin liquids with no compensatory strategies. Laryngeal penetration occurred to the level of the vocal folds. When instructed to cough, the patient cleared the vestibule of bolus residue. No aspiration occurred on the current study. With chin tuck no penetration was viewed on multiple trials of thin liquids. Esophageal phase: Please see radiology report for further details. The barium tablet was not administered due to full liquid diet recommendation and PEG tube placement which will handle medications at this time. Complaints of reflux: No. Complaints of food or pills stuck: Not applicable. Cricopharyngeal relaxation appeared within functional limits. The patient did demonstrate coughing and expectorated phlegm during the study. Cough was not associated with any visualized penetration or aspiration. Esophageal scan could not be fully completed; only the proximal esophagus was observed due to barium swallow chair. Compensatory strategies: A chin tuck was utilized on thin liquid swallows which significantly decreased aspiration risk on trials. Aspiration risk is mild to moderate. Texture recommendations: I would recommend continuing PEG tube feedings with small amounts of thin liquids for quality of life hydration support and to decrease risk of atrophy of the swallowing muscles. The patient continues to demonstrate regurg symptoms and discomfort with eating and swallowing. 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 The patient was admitted to [facility] on January 30 for PEG tube placement. He has been receiving tube feedings since that procedure was completed. The patient continues to demonstrate dysphagia symptoms when eating and drinking and per report has been unable to drink liquids as he is consistently regurgitating all p.o. items back. The patient presented today with moderate oropharyngeal dysphagia characterized by poor labial seal, delayed swallow response, and laryngeal penetration to the level of the vocal folds without the use of compensatory strategies. No aspiration was viewed on the current study and risk of laryngeal penetration was significantly reduced with cuing for chin tuck. Due to the patient's significant weakness, fatigue, dyspnea, and continued regurg symptoms, I would recommend the patient continue to receive nutrition and hydration through his PEG tube. The patient is safe to have sips of thin liquid with a chin tuck only. I would recommend encouraging p.o. intake of fluids following these recommendations in order to support hydration to decrease the risk of atrophy of the swallowing mechanism and to improve quality of life. I discussed these recommendations in great detail with the patient and the patient's RN at the conclusion of the study. They reported understanding of recommendations and no further questions were asked. It is recommended that the patient continue to receive skilled speech therapy services up to three times a week in order to assist him in moving back towards a p.o. diet as well as to evaluate his aspiration risk and his tolerance of thin liquids. Thank you very much for this timely consult. GM
--- NOTE | 2017-02-12 13:46 | DRSVH ---
PROCEDURE: X-RAY BARIUM SWALLOW WITH FOOD & VIDEOGRAPHY ([id number]) INDICATIONS: Dysphagia TECHNIQUE: Examination was conducted in conjunction with speech pathology per standard protocol. In the lateral projection, filming was performed of the patient swallowing. AP projection filming may also be performed with patient swallowing. COMPARISON: None. FINDINGS: Function: The oral preparatory phase appears normal, with proper containment. The subsequent oral pr opulsive phase, pharyngeal phase, and esophageal phase of swallowing also appear normal with all prof fered substances. Laryngeal penetration identified on several occasions with thin liquids. The aden ent was then reexamined with thin liquids utilizing a "chin tuck" technique demonstrating improvement . The attending physician was personally present in the room during the examination. Morphology: No cricopharyngeal bar is identified. No cervical esophageal webs. No Zenker's diverti culum. No strictures. IMPRESSION: Laryngeal penetration with thin liquids with overall improvement utilizing "chin tuck" te chnique. Dictated by: Trenton Joshi [facility] Interpreted: Elham Ribeiro MD on 02/12/2017 at 13:45 Transcribed by: DILIA on 02/12/2017 at 13:45 Approved by: Elham Ribeiro MD, PhD on 02/12/2017 at 16:17
--- NOTE | 2017-02-12 14:07 | NUR ---
Called and spoke with Cyrus at [facility] and they will transport at 1600. Faxed orders and placed copy in the chart. Updated RN and COLLECTIVE BARGAINING SPECIALIST knows plan
--- NOTE | 2017-02-12 14:33 | NUR ---
Social Work-discharge: Data:EMR Reviewed. Pt is on day 14 of hospitalization for esphagal cancer per H&P. Pt is medically stable to discharge today. PT continues to recommend SNF. ST worked with pt and recommends ST at SNF. SW requested that UR specialist fax ST notes with discharge information and include in packet. UR specialist faxed orders and created packet. UR specialist arranged transport for 1600. SW updated pt and ,both agreeable. RN,UC,pt/family, and [facility] all updated and agreeable to plan. Assessment;Pt who would benefit from SNF. Plan:Pt to discharge to [facility] today via cabulance at 1600. RN,UC,pt/family, and [facility] all updated and agreeable to plan. IFEOMA Denis
[2017-02-12 14:47] VITALS: BP 124/55; PULSE 73; RESP 24; O2SAT 98
[2017-02-12] MEDS ORDERED: FERR-83 PO (15:46)
[2017-02-12] MEDS ORDERED: CALC600T12 PO (15:48)
--- NOTE | 2017-02-12 16:38 | NUR ---
DC Pt leaves via transport to [facility]. Report given. Portacath de-accessed by IVT. PEG tube discontinued, flushed and capped. Pt placed on Supplemental Oxygen @ 2L for transport. Slightly SOB with transfers. Given a cup to spit secretions into. A&OX4, Denies CP, Nausea, or pain at this time. Appears to be in some degree of pain but denies this. Family aware, CPAP taken with pt. takes all other belongings. Care discontinued.
== END 2017-02-12 16:24 | DRG 391 ==
LOC: PCC 15:31 → OSC 02-04 19:35
PROVIDERS: ADMIT Internal Medicine; ATTEND Internal Medicine
PROC: 0DH63UZ Insertion of Feeding Device into Stomach, Percutaneous Approach (ICD-10-PCS; principal; 2017-01-30 12:15)
PROC: DD001ZZ Beam Radiation of Esophagus using Photons 1 - 10 MeV (ICD-10-PCS; 2017-01-31)
PROC: DD001ZZ Beam Radiation of Esophagus using Photons 1 - 10 MeV (ICD-10-PCS; 2017-02-03)
PROC: DD001ZZ Beam Radiation of Esophagus using Photons 1 - 10 MeV (ICD-10-PCS; 2017-02-04)
PROC: 3E04305 Introduction of Other Antineoplastic into Central Vein, Percutaneous Approach (ICD-10-PCS; 2017-02-05)
PROC: DD001ZZ Beam Radiation of Esophagus using Photons 1 - 10 MeV (ICD-10-PCS; 2017-02-06)
PROC: DD001ZZ Beam Radiation of Esophagus using Photons 1 - 10 MeV (ICD-10-PCS; 2017-02-07)
PROC: 30233N1 Transfusion of Nonautologous Red Blood Cells into Peripheral Vein, Percutaneous Approach (ICD-10-PCS; 2017-02-11)
DX: K22.2 Esophageal obstruction (principal); E43 Unspecified severe protein-calorie malnutrition; J96.01 Acute respiratory failure with hypoxia; C15.5 Malignant neoplasm of lower third of esophagus; J44.1 Chronic obstructive pulmonary disease with (acute) exacerbation; I50.22 Chronic systolic (congestive) heart failure; J70.0 Acute pulmonary manifestations due to radiation; B37.0 Candidal stomatitis; E87.0 Hyperosmolality and hypernatremia; I47.1 Supraventricular tachycardia; E86.0 Dehydration; I48.2 Chronic atrial fibrillation; Z79.01 Long term (current) use of anticoagulants; F17.200 Nicotine dependence, unspecified, uncomplicated; I10 Essential (primary) hypertension; R73.9 Hyperglycemia, unspecified; T38.0X5A Adverse effect of glucocorticoids and synthetic analogues, initial encounter; Z95.810 Presence of automatic (implantable) cardiac defibrillator; J84.10 Pulmonary fibrosis, unspecified; E83.51 Hypocalcemia; D63.8 Anemia in other chronic diseases classified elsewhere

== ENCOUNTER 2017-01-30 02:08 | Day surgery (SDC) | payer MEDICARE, OTHER ==
[~2017-01-30 02:08] MED LIST changes: -LEVO750T9 PO; -METR500T PO
--- NOTE | 2017-01-30 10:36 | PCM.HPANE ---
Patient Data Surgeon Admitting Provider: Attending Provider:Layla Perea MD Primary Care Physician:Asha Garcia MD Other Provider: Reason for Visit Failure To Thrive Ht/WT & BMI Body Mass Index Allergies Coded Allergies: Penicillins (Verified Allergy, Severe, Rash, 01/07/17) amiodarone (Verified Allergy, Mild, 01/07/17) codeine (Verified Adverse Reaction, Mild, Nausea, 01/07/17) Past Anesthesia History Anesthesia History: Denies:: Abnormal Airway, Anesthesia Reactions, Difficult Intubation, Fam Anesthesia Reaction, Malignant Hyperthermia Diabetes History Hx Diabetes?: No MRSA MRSA: No Medications Blood Thinner: Aspirin Reported Medications Levothyroxine 75 Mcg Wqjghx95 Mcg PO DAILY Ref 0 01/01/17 Isosorbide DN 30 Mg Ghjiqs69 Mg PO DAILY Ref 0 01/01/17 Albuterol Neb Soln 1.25 Mg/3 Ml Vial.neb1.25 Mg INHALATION BID Ref 0 01/01/17 Ranitidine 150 Mg Izrjuvh019 Mg PO HS Ref 0 11/15/16 Furosemide (Lasix)40 Mg Gtfvho46 Mg PO DAILY PRN weight >235 lbs. 30 Days Ref 0 11/07/16 Metoprolol Succinate ER 100 Mg Tab.er.59z219 Mg PO DAILY 03/24/15 Budesonide/Formoterol 160-4.5 mcg Inh (Symbicort 160-4.5 mcg Inh)1 Puff Inha2 Puff IH BID 03/06/15 Spironolactone 25 Mg Xfjkor84.5 Mg PO DAILY 03/06/15 Pramipexole Dihydrochloride (Mirapex)0.5 Mg Tablet0.5 Mg PO HS 03/06/15 Atorvastatin (Lipitor)40 Mg Pyywyq47 Mg PO HS 03/06/15 Enalapril Maleate 20 Mg Oaheiv25 Mg PO BID 03/06/15 Aspirin 81 Mg Tablet.dr81 Mg PO DAILY 03/06/15 Tiotropium [place] (Spiriva)18 Mcg Cap.w.dev1 Mcg IH DAILY 03/06/15 Albuterol HFA (Proair HFA)8.5 Gm Hfa.aer.ad2 Puffs IH Q4 PRN For Shortness of Breath 03/06/15 Discontinued Reported Medications Warfarin Sodium 1 Mg Tablet1 Mg PO DAILY AD Days Ref 0 1MG SUN,TUE,THUR,SAT; 2MG M,W,F 01/27/17 Discontinued Scripts Metronidazole (Flagyl)500 Mg Vvbvqu250 Mg PO Q12 #2 TABLET Prov:Noam Patel DO 01/12/17 Levofloxacin (Levaquin)750 Mg Uetukt398 Mg PO DAILYAC #1 TABLET Prov:Noam Patel Naldo DO 01/12/17 Warfarin Sodium (Coumadin)3 Mg Tablet3 Mg PO DAILY@17 #5 TABLET Prov:Noam Patel DO 01/12/17 History History of ENT Problems?: Yes HEENT History: Positive for:: Cataracts (surgery) Dysphagia Hearing Problem (hearing aids not in) Denies:: Abnormal Airway Difficult Intubation Sinus Problem Hx of Heart Problems?: Yes Cardiovascular History: Positive for:: AICD (FORM ON CHART) Atrial Fibrillation Cardiac Surgery (bypass, implant. mitral valve implant) Congestive Heart Failure Edema Hypertension Irregular Heartbeat (a-fib ) Pacemaker Denies:: Chest Pain Heart Murmur Thrombophlebitis Valvular Heart Disease (echo 09/2016) Hx of Respiratory Problem?: Yes Respiratory History: Positive for:: COPD Dyspnea Hemoptysis Pneumonia Use of C-PAP Machine Denies:: Asthma Chest Surgery Emphysema Oxygen Administration Tuberculosis Hx Neurologic Problems?: No Neurological History: Denies:: Alzheimer's Disease CVA Dementia Dizziness Headaches Multiple Sclerosis Parkinson's Disease Seizures Hx of GI Problems?: No Gastrointestinal History: Positive for:: Gastroesphageal Reflux Heartburn Hiatal Hernia Denies:: Diverticulitis Gastrointestinal Bleeding Hepatitis Rectal Bleeding Hx of Problems?: No Genitourinary History: Denies:: Kidney Stones Urinary Tract Infection Male Hx: Denies:: Prostate Problems Scrotal Mass Testicular Surgery Skin History: Denies:: History Skin Disorders? Pressure Ulcers Hx Musculoskeletal Problems?: Yes Musculoskeletal History: Positive for:: Back Injury (neck fusion c6-c7 fused) Denies:: Joint Replacement Musculoskeletal Trauma Hx of Psycho/Social Problems?: Yes Psycho Social History: Positive for:: Hx Depression Denies:: Anxiety Bipolar Disorder Suicide Attempt Hx Surgeries?: Yes (neck fusion, Bypass, pacemakerx2) Hx Any Other Health Problems?: Yes Other History: Positive for:: Cancer (esphogaous and lung) Hospitalization (cancer ) Thyroid Disease History Blood Transfusions: Positive for:: Blood Transfusions Denies:: Blood Transfuse Reaction Hx Diabetes: No Hx Alcohol Use: NoHx Substance Use: No Smoking Status: Current Every Day Smoker Have You Smoked inLast 12 mo: No Stop/Bang Risk Assessment Category Category 1A: Patient has history of documented sleep apnea, and HAS NOT received any narcotic, sedative or anesthesia administration during this stay. Category 1B: Patient has history of documented sleep apnea, and HAS received any narcotic , sedative or anesthesia administration during this stay Category 2: Patient has SUSPECTED Obstructive Sleep Apnea, and HAS received any narcotic , sedative or anesthesia administration during this stay. Category 3: Patient has SUSPECTED Obstructive Sleep Apnea and HAS NOT received narcotic, sedative or anesthesia administration during this stay. Category 4: Outpatient in Procedural Areas with known sleep apnea or who screen positive for High Risk via the STOP/BANG questionnaire. Exam Exam General Appearance: Alert, Oriented X3, Cooperative HEENT/AIRWAY: MP 2 Lungs: Normal Air Movement Heart: Exam Unremarkable Plan Impression Patient chart reviewed, patient interviewed and anesthestic plan with risks, benefits, and alternatives discussed, and informed consent obtained. NPO Status: 12/18@2100, PILLS THIS AM ASA Physical Status: ASA2 Mod Systemic Disease Anesthetic Plan: GA Bene/Risks/Altern/Consents: Yes HP Complete Prior to Induction: Yes Jian Hu MD Jan 30, 2017 10:36
[2017-01-30] MEDS ORDERED: Lactated Ringer's 1,000 ML IV SCH (12:49)
--- NOTE | 2017-01-30 12:49 | PCM.HPANE ---
Patient Data Surgeon Admitting Provider: Attending Provider:Layla Perea MD Primary Care Physician:Asha Garcia MD Other Provider: Reason for Visit Failure To Thrive Ht/WT & BMI Body Mass Index Allergies Coded Allergies: Penicillins (Verified Allergy, Severe, Rash, 01/07/17) amiodarone (Verified Allergy, Mild, 01/07/17) codeine (Verified Adverse Reaction, Mild, Nausea, 01/07/17) Past Anesthesia History Anesthesia History: Denies:: Abnormal Airway, Anesthesia Reactions, Difficult Intubation, Fam Anesthesia Reaction, Malignant Hyperthermia Diabetes History Hx Diabetes?: No MRSA MRSA: No Medications Blood Thinner: Aspirin Hypertension Medication: No Home Meds Incl Beta Ines: No Reported Medications Levothyroxine 75 Mcg Cerjgj27 Mcg PO DAILY Ref 0 01/01/17 Isosorbide DN 30 Mg Ebbmzs98 Mg PO DAILY Ref 0 01/01/17 Albuterol Neb Soln 1.25 Mg/3 Ml Vial.neb1.25 Mg INHALATION BID Ref 0 01/01/17 Ranitidine 150 Mg Jkixpce191 Mg PO HS Ref 0 11/15/16 Furosemide (Lasix)40 Mg Gozwlz12 Mg PO DAILY PRN weight >235 lbs. 30 Days Ref 0 11/07/16 Metoprolol Succinate ER 100 Mg Tab.er.59j873 Mg PO DAILY 03/24/15 Budesonide/Formoterol 160-4.5 mcg Inh (Symbicort 160-4.5 mcg Inh)1 Puff Inha2 Puff IH BID 03/06/15 Spironolactone 25 Mg Okxijy85.5 Mg PO DAILY 03/06/15 Pramipexole Dihydrochloride (Mirapex)0.5 Mg Tablet0.5 Mg PO HS 03/06/15 Atorvastatin (Lipitor)40 Mg Ciyaqa39 Mg PO HS 03/06/15 Enalapril Maleate 20 Mg Upbdkq12 Mg PO BID 03/06/15 Aspirin 81 Mg Tablet.dr81 Mg PO DAILY 03/06/15 Tiotropium [place] (Spiriva)18 Mcg Cap.w.dev1 Mcg IH DAILY 03/06/15 Albuterol HFA (Proair HFA)8.5 Gm Hfa.aer.ad2 Puffs IH Q4 PRN For Shortness of Breath 03/06/15 Discontinued Reported Medications Warfarin Sodium 1 Mg Tablet1 Mg PO DAILY AD Days Ref 0 1MG SUN,YOE,THUR,SAT; 2MG M,W,F 01/27/17 Discontinued Scripts Metronidazole (Flagyl)500 Mg Slbhtz926 Mg PO Q12 #2 TABLET Prov:Noam Patel DO 01/12/17 Levofloxacin (Levaquin)750 Mg Lijsrf640 Mg PO DAILYAC #1 TABLET Prov:Noam Patel DO 01/12/17 Warfarin Sodium (Coumadin)3 Mg Tablet3 Mg PO DAILY@17 #5 TABLET Prov:Noam Patel DO 01/12/17 History History of ENT Problems?: Yes HEENT History: Positive for:: Cataracts (surgery) Dysphagia Hearing Problem (hearing aids not in) Denies:: Abnormal Airway Difficult Intubation Sinus Problem Hx of Heart Problems?: Yes Cardiovascular History: Positive for:: AICD (FORM ON CHART) Atrial Fibrillation Cardiac Surgery (bypass, implant. mitral valve implant) Congestive Heart Failure Edema Hypertension Irregular Heartbeat (a-fib ) Pacemaker Denies:: Chest Pain Heart Murmur Thrombophlebitis Valvular Heart Disease (echo 09/2016) Hx of Respiratory Problem?: Yes Respiratory History: Positive for:: COPD Dyspnea Hemoptysis Pneumonia Use of C-PAP Machine Denies:: Asthma Chest Surgery Emphysema Oxygen Administration Tuberculosis Hx Neurologic Problems?: No Neurological History: Denies:: Alzheimer's Disease CVA Dementia Dizziness Headaches Multiple Sclerosis Parkinson's Disease Seizures Hx of GI Problems?: No Gastrointestinal History: Positive for:: Gastroesphageal Reflux Heartburn Hiatal Hernia Denies:: Diverticulitis Gastrointestinal Bleeding Hepatitis Rectal Bleeding Hx of Problems?: No Genitourinary History: Denies:: Kidney Stones Urinary Tract Infection Male Hx: Denies:: Prostate Problems Scrotal Mass Testicular Surgery Skin History: Denies:: History Skin Disorders? Pressure Ulcers Hx Musculoskeletal Problems?: Yes Musculoskeletal History: Positive for:: Back Injury (neck fusion c6-c7 fused) Denies:: Joint Replacement Musculoskeletal Trauma Hx of Psycho/Social Problems?: Yes Psycho Social History: Positive for:: Hx Depression Denies:: Anxiety Bipolar Disorder Suicide Attempt Hx Surgeries?: Yes (neck fusion, Bypass, pacemakerx2) Hx Any Other Health Problems?: Yes Other History: Positive for:: Cancer (esphogaous and lung) Hospitalization (cancer ) Thyroid Disease History Blood Transfusions: Positive for:: Blood Transfusions Denies:: Blood Transfuse Reaction Hx Diabetes: No Hx Alcohol Use: NoHx Substance Use: No Smoking Status: Current Every Day Smoker Have You Smoked inLast 12 mo: No Stop/Bang Treated for Sleep Apnea?: Yes Do You Have a CPAP Machine?: Yes SWEETIE Risk Assessment: High Risk, =/>3 Yes Risk Assessment Category Category 1A: Patient has history of documented sleep apnea, and HAS NOT received any narcotic, sedative or anesthesia administration during this stay. Category 1B: Patient has history of documented sleep apnea, and HAS received any narcotic , sedative or anesthesia administration during this stay Category 2: Patient has SUSPECTED Obstructive Sleep Apnea, and HAS received any narcotic , sedative or anesthesia administration during this stay. Category 3: Patient has SUSPECTED Obstructive Sleep Apnea and HAS NOT received narcotic, sedative or anesthesia administration during this stay. Category 4: Outpatient in Procedural Areas with known sleep apnea or who screen positive for High Risk via the STOP/BANG questionnaire. Exam Exam General Appearance: Oriented X3 HEENT/AIRWAY: MP 2 Lungs: Normal Air Movement Heart: Murmur Plan Impression Patient chart reviewed, patient interviewed and anesthestic plan with risks, benefits, and alternatives discussed, and informed consent obtained. NPO Status: 12/18@2100, PILLS THIS AM ASA Physical Status: ASA4 Life Threatening Anesthetic Plan: MAC Bene/Risks/Altern/Consents: Yes HP Complete Prior to Induction: Yes Israel Quiñonez MD Jan 30, 2017 12:49
[2017-01-30] MEDS ORDERED: Ondansetron 2 mg/mL 2 mL Inj IVPUSH PRN (12:50)
[2017-01-30] MEDS ORDERED: MetoCLOpramide 5 mg/mL 2 mL Inj IVPUSH PRN (12:50)
--- NOTE | 2017-01-30 13:47 | PCM.ANEP1 ---
Post Anesthesia Phase 1 PACU Phase 1 Assessment Anesthetic Administered: MAC Level of Alertness: Sleepy, easy to arouse Pain: No Nausea or Vomiting: No Lungs: Normal Air Movement Israel Quiñonez MD Jan 30, 2017 13:47
--- NOTE | 2017-01-30 13:48 | PCM.ANEP2 ---
Post Anesthesia Evaluation ASA/CMS Post Anesthesia VS in Patient's Normal Range?: Yes Resp Stable; Airway Patent?: Yes CV Function & Hydration Stable: Yes Mental Status Recovered?: Yes Pain control Satisfactory?: Yes N/V Control Satisfactory?: Yes Israel Quiñonez MD Jan 30, 2017 13:48
--- NOTE | 2017-01-31 21:10 | PROG NOTE ---
[address] [address] PROGRESS NOTE PATIENT: ANIA LIM : 1940 MR#: [id number] ADMIT: 01/30/2017 JOB ID: [id number] DATE: 01/31/2017 DIAGNOSIS: 1. Stage III esophageal adenocarcinoma. 2. Current admission for poor oral intake, and placement of percutaneous endoscopic gastrostomy tube. 3. Chronic pulmonary fibrosis. HISTORY OF PRESENT ILLNESS: The patient was admitted directly from clinic on January 29 for reversal of anticoagulation and placement of PEG tube, which was done yesterday. Today, feeding has been started, currently only 10 mL/h, soon to be increased to 20 mL/h. Nutrition has seen the patient and is working on setting up feeding pump, feeding formula, and other supplies at home. SUBJECTIVE: He feels well and has no complaints. He is just anxious to go home as soon as possible. He says he tried some beef broth and managed to drink it without pain. OBJECTIVE: Elderly gentleman, in good spirits and in no discomfort. Resting comfortably in bed. Blood pressure 142/60, heart rate 79, temperature 36.6, O2 saturation 95% on room air. LABORATORY: Leukopenia and anemia related to chemoradiotherapy. Sodium is slightly elevated and albumin is low at 2.5. Calcium is low as well, but corrected would be normal. RECOMMENDATIONS: 1. Initiate warfarin. 2. When tube feeding is at target rate and patient tolerates well, discharge home. Please make sure that his tube feeding supplies and pump are available at home at the time of discharge or soon to be available. 3. Free water deficit. Recommend 1 L D-5-W IV. The patient has a followup appointment with Oncology Clinic on Friday, next week.
== END 2017-01-30 23:59 | disposition home or self-care (01) ==
LOC: END 02:08
PROVIDERS: ATTEND Internal Medicine Gastroenterology
DX: R62.7 Adult failure to thrive (principal); C15.9 Malignant neoplasm of esophagus, unspecified; J84.10 Pulmonary fibrosis, unspecified; I50.9 Heart failure, unspecified; I10 Essential (primary) hypertension; I48.91 Unspecified atrial fibrillation; J44.9 Chronic obstructive pulmonary disease, unspecified; K21.9 Gastro-esophageal reflux disease without esophagitis; K44.9 Diaphragmatic hernia without obstruction or gangrene; F32.9 Major depressive disorder, single episode, unspecified; F17.210 Nicotine dependence, cigarettes, uncomplicated; Z95.1 Presence of aortocoronary bypass graft; Z95.0 Presence of cardiac pacemaker; Z53.8 Procedure and treatment not carried out for other reasons

== ENCOUNTER 2017-04-22 07:52 | Inpatient (IN) | payer MEDICARE, OTHER ==
[2017-04-22] VITALS (8 sets, daily range): BP systolic 99–128; BP diastolic 47–68; PULSE 73–80; RESP 20–24; O2SAT 88–97
[~2017-04-22 07:52] MED LIST changes: -ALBU1.25 INHALATION; +CALC600T12 PO; -ENAL20TA PO; +ENAL5TAB PO; +FERR-83 PO; -METO-274 PO; +METO25TA6 PO; -SPIR25TA3 PO
[2017-04-22] MEDS ORDERED: Alum-Mag Hydrox-Simeth 30 mL Suspension PO PRN (08:25)
[2017-04-22] MEDS ORDERED: Polyethylene Glycol (PEG) 17 Gm Powder PO PRN (08:25)
[2017-04-22 09:25] LABS: Magnesium 1.8 mg/dL (1.6-2.6)
[2017-04-22] MEDS ORDERED: ENAL20TA PO (09:46)
[2017-04-22] MEDS ORDERED: METO-274 PO (09:46)
[2017-04-22] MEDS ORDERED: PRAM0.5T10 PO (09:46)
[2017-04-22] MEDS ORDERED: WARF1TAB6 PO (09:47)
[2017-04-22] MEDS ORDERED: SPIR25TA3 PO (09:48)
[2017-04-22] MEDS ORDERED: ALBU1.25 NEB (09:51)
[2017-04-22 11:11] LABS: INR 2.18 ratio
[2017-04-22] MEDS: Potassium Chloride 20 mEq SR Tablet PO SCH (11:34)
--- NOTE | 2017-04-22 13:21 | HP ---
[address] [address] HISTORY AND PHYSICAL PATIENT: ANIA PINA : 1940 MR#: [id number] ADMIT: 04/22/2017 JOB ID: [id number] REASON FOR ADMISSION: To start new antiarrhythmic therapy with dofetilide for prevention of ventricular tachycardia. CHIEF COMPLAINT: Near syncope from rapid pulse. BRIEF HISTORY: Mr. Pina is a pleasant 77-year-old man with a severe ischemic cardiomyopathy, chronic atrial fibrillation, and who has a history of recurrent ventricular fibrillation and rapid ventricular tachycardia treated by an implantable defibrillator. He has also had an AV node ablation for rate control of atrial fibrillation and that has resulted in complete heart block. His ICD is a biventricular pacing device for cardiac resynchronization therapy. The patient had previously been treated with amiodarone to prevent recurrent VFib but that had to be stopped in October 2016 due to lung disease. He was diagnosed with lung cancer and has just recently finished two courses of radiation therapy. Data from his ICD showed two episodes of rapid ventricular tachycardia with rates of 240 BPM or 290 BPM with durations of 6-7 seconds. Prior to treatment with amiodarone he had more than one episode of sustained ventricular fibrillation and received an ICD shock after becoming syncopal. As amiodarone has metabolized out of his system over the last several months, he is again having rapid and potentially life-threatening ventricular arrhythmias. CARDIAC HISTORY: Coronary artery disease dating back to 2005 when he had a bypass surgery and a mitral valve annuloplasty. Ischemic cardiomyopathy, congestive heart failure, ventricular fibrillation in September 2011, a biventricular ICD in place since November 2011. OTHER MEDICAL HISTORY: COPD, dyslipidemia, hypertension, chronic renal insufficiency, obstructive sleep apnea. FAMILY HISTORY: Father of [place] at 83 and mother had CHF. 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 He is a former cigarette smoker. ALLERGIES: 1. PENICILLIN. 2. CODEINE. 3. AMIODARONE. REVIEW OF SYSTEMS: This is positive for muscle weakness, positive for easy bleeding and bruising, positive for dyspnea at rest. Positive for weight loss. Negative for polydipsia. Eyes: No visual changes. Ears: He does have hearing loss. Neuro: No dizziness. . No hematuria. Cardiac: Negative for chest pain, palpitations, and extremities. No claudication but positive for edema. GI: No heartburn or blood in the stool. Skin: No rash. Psychiatric: No anxiety. PHYSICAL EXAM: The patient is an ill-appearing, late middle-aged man in no distress, although he appears mildly short of breath and is tachypneic with a respiratory rate of 24. Vital signs: BP 99/47, pulse regular at 74, pulse oximetry showed 88% on 4 L/minute oxygen by nasal cannula. He is afebrile. Weight approximately 213 pounds. Exam: Overall chronically ill-appearing man. Ears: He has decreased hearing bilaterally. Neck: Carotid pulses are present and equal. There are no bruits heard. Chest exam reveals breath sounds bilaterally with loud inspiratory and expiratory rattling but no rales. Heart sounds are regular with S1 and S2 and no murmurs. Abdomen is soft and nontender. Bowel sounds are present. Extremities are without cyanosis, and the legs have 2+ pitting edema bilaterally to the mid calf. Peripheral pulses are intact except the left radial pulse due to removal of the artery at bypass surgery. Neurologic exam is grossly normal. Psychiatric: He appears well oriented to place, person, time, and situation, and mood is appropriate. ASSESSMENT: The patient has a history of recurrent ventricular fibrillation arrests and has been rescued by his implantable cardioverter-defibrillator previously. More recently, after amiodarone had to be stopped due to his lung disease, he has begun having thankfully nonsustained ventricular tachycardias at 240 and 290 BPM. The patient has a strong fight to continue living, despite the recent diagnoses of lung cancer and esophageal cancer, which have been treated with radiation therapy. He currently remains full code status and the implantable cardioverter-defibrillator is active. PLAN: To prevent recurrent ventricular life-threatening arrhythmias, he will be started on dofetilide 250 mcg q.12 h. Initial ECG shows a paced ventricular rhythm with a QT interval corrected to 530 msec. This is mildly prolonged and also his renal function shows a creatinine clearance of 58, so we will need to begin dofetilide at 250 mcg rather than 500 mcg. His ECG will be recorded two hours after each dose and we will keep a watch of this continuous cardiac telemetry for arrhythmias.
--- NOTE | 2017-04-22 13:44 | PCM.CONPHA ---
Subjective Reason for Pharmacy Consult: Anticoagulation Management Assessment/Plan Assessment/Plan Warfarin Management by Pharmacy Indication: Afib Home Dose: 1mg QHS INR Goal: 2-3 Duration: Unknown INR: 2.18 Assessment/Plan -Therapeutic INR at admit. No s/s of bleeding reported -Will continue with home dose of warfarin 1mg this evening. -Pharmacy to monitor INR/CBC/signs of bleeding while inpatient. Gracie Elena Dwaine Pharm.D. Cruz Bowman April 22, 2017 13:44
[2017-04-22] MEDS ORDERED: Albuterol 2.5 mg/3 mL Inhalation Solution NEB PRN (16:00)
--- NOTE | 2017-04-22 17:40 | NUR ---
Arrival Pt arrived to PCC room 2005 for Tikosyn loading at ~0830, PA Bartolome Royal already aware and reviewing Pt when Pt arrived. Pt denied pain, A&Ox3. Pt's SPO2 sats in the low 80s on RA, Pt reported using 2L home O2, Pt placed on 2L and then increased to 4L when transferring into bed. Once Pt back in bed and recovering, O2 turned back down to 2L to maintain sats in the low 90s r/t to COPD Hx. Pt intermittently using 2L throughout the day and PT notified of need to increase O2 while working with the Pt. Pt's baseline Qtc ~530 this am prior to initial dose of Tikosyn, instructed by PA to continue with dose, f/u Qtc ~550, PA notified, instructed to pass on to NOC RN to go ahead and give evening dose of Tikosyn.
[2017-04-22] MEDS ORDERED: MeTOProlol XL 50 mg ER24 Tablet PO SCH (20:30)
[2017-04-22] MEDS ORDERED: Albuterol 1.25 mg/3 mL Inhalation Solution NEB SCH (20:30)
[2017-04-23] VITALS (10 sets, daily range): BP systolic 101–129; BP diastolic 59–70; PULSE 74–102; RESP 18–30; O2SAT 94–99
[2017-04-23 03:23] LABS: INR 2.21 ratio
--- NOTE | 2017-04-23 06:24 | NUR ---
Cardiac / meds Denies CP. VSS. 12 leads EKG obtained post Tikosyn admin. QTc = 580 sec. Will alert day team. Obtained med clarification regarding Metoprolol succinate (refer to paper chart). No overt complications noted.
[2017-04-23] MEDS: Potassium Chloride 20 mEq SR Tablet PO SCH (08:00)
[2017-04-23] MEDS: MeTOProlol XL 50 mg ER24 Tablet PO SCH ×2 (08:01→21:32)
[2017-04-23] MEDS: Tiotropium 18mcg/Cap 5 Capsule Inhaler Kit INHALATION SCH (08:10)
--- NOTE | 2017-04-23 11:30 | NUR ---
Social Work: Initial Assessment Data: Pt is a 77 y/o male admitted for afib. Pt's PCP is Dr Garcia, pt's insurance is Medicare with [facility]. EMR reviewed. Readmit score is 3. MEETING SPECIALIST met with pt and spouse at bedside, role explained. Pt states he and his live on Friday and that he is currently open with [facility] for RN, PT, OT, ST, and MEETING SPECIALIST. Pt states he is no longer open with [facility] for tube feeds and that he recently had a SNF stay at [facility]. Pt states they live in a single story home where he uses a cane or walker currently. Pt does not drive, has no LTC or VA benefits and is not a caregiver. Pt states if he needs a wheelchair they can borrow from the [facility]. Pt and state that they plan to return home at d/c with [facility]. MEETING SPECIALIST spoke with [facility] to confirm this, gave access. MEETING SPECIALIST will discuss with MD regarding possible resume HH and await order. Assessment: Pt from home with . Plan: Pt will likely d/c home with resume [facility], RN, PT, OT, ST, and MEETING SPECIALIST, pending MD orders. MEETING SPECIALIST will discuss with MD regarding possible resume HH and await order. IFEOMA Ocasio Addendum: 04/23/17 at 1140 by NELIA BLANKENSHIP SS Amended: Links added. Addendum: 04/23/17 at 1147 by NELIA BLANKENSHIP SS MEETING SPECIALIST acknowledging MD resume HH RN, PT, ST, MEETING SPECIALIST, OT orders. MEETING SPECIALIST will continue to follow. IFEOMA Ocasio
--- NOTE | 2017-04-23 12:25 | PROG NOTE ---
[address] [address] PROGRESS NOTE PATIENT: ANIA LIM : 1940 MR#: [id number] ADMIT: 04/22/2017 JOB ID: [id number] DATE: 04/23/2017 CHIEF COMPLAINT: Near syncope from rapid pulse at home, no symptoms here. SUBJECTIVE: The patient says he is tolerating the new medication well and has no awareness of any side effects. He continues in his usual state of health which currently is poor due to recovering from radiation therapy for both esophageal and lung cancers. He has not been aware of any recent bursts of fast rate and has not been lightheaded. His ECGs continue to show a ventricular paced rhythm. With two doses of dofetilide 250 mcg q.12 h., his QT interval has gone from baseline QTc of 530 msec to 550 msec and most recently 581 msec. There have been no malignant arrhythmias. His vital signs have remained stable with BP 129/68, pulse 76, and oximetry 97% on room air this morning. His physical examination remains unchanged from yesterday. ASSESSMENT: The patient was started on dofetilide 250 mcg q.12 h., but the QT interval has prolonged abnormally, so the dose of dofetilide will be reduced to 125 mcg q.12 h. beginning this morning. PLAN: Recheck ECG for QT after each dose of dofetilide and stop the medication if the QT does not come down below 550 msec. We will anticipate discharge home around noon tomorrow.
--- NOTE | 2017-04-23 19:43 | NUR ---
Tikosyn loading/Desatting/tele Pt received Tikosyn 125mg at 1045 per MD order. EKG done at 1307. No c/o discomfort throughout shift. EKG results read to MD over the phone. Next order to give Tikosyn at 2230 and do EKG at 0100. Night RN aware. Pt participated with PT this shift. Once pt got up and ambulated, O2 level dropped to 77% on 2L. Pt needed 4L to recover and then was able to return back to 2L. When therapy attempted to walk pt again, a similar desaturation occurred. Following these occurrences, pt had multiple runs of V-tac. aware.
--- NOTE | 2017-04-24 02:10 | NUR ---
TIKOSYN @ HS / EKG Tikosyn 125mg given per MAR at 2230. EKG at 0100: QTc up from 555 to 575. Conferred w/ propellant charge loader: Anticipate the Tikosyn will be held tomorrow due to the abnormally elongated QT segment. Cardiology to be notified in AM, before next scheduled dose. Patient remains on tele: vpaced 83 w/ pvc's. Tolerating own cpap at HS. PEG placement confirmed w/ auscultation and aspiration; contents RTT. PEG flushed w/ 20cc water per patient request. Insertion site dressing changed, area cleansed and new t-drain sponges applied. Denies pain/discomfort. Call light w/in reach. CTM for changes.
[2017-04-24 02:47] VITALS: BP 114/67; PULSE 76; RESP 20; O2SAT 95
[2017-04-24 03:39] LABS: Magnesium 1.8 mg/dL (1.6-2.6)
[2017-04-24 03:41] LABS: INR 2.32 ratio
[2017-04-24 05:11] VITALS: PULSE 78
[2017-04-24 07:41] VITALS: PULSE 75; RESP 24; O2SAT 95
[2017-04-24 07:56] VITALS: PULSE 80
--- NOTE | 2017-04-24 08:35 | NUR ---
[email or web address] Per DALE Royal over telephone, ok to give this medication at 10:00am with KEI @ 1200 prior to discharge
[2017-04-24 08:55] VITALS: BP 122/57; RESP 36; O2SAT 92
[2017-04-24] MEDS: Potassium Chloride 20 mEq SR Tablet PO SCH (09:03)
[2017-04-24] MEDS: Tiotropium 18mcg/Cap 5 Capsule Inhaler Kit INHALATION SCH (09:03)
[2017-04-24] MEDS: MeTOProlol XL 50 mg ER24 Tablet PO SCH (09:05)
[2017-04-24 12:34] VITALS: BP 114/59; PULSE 80; RESP 20; O2SAT 96
--- NOTE | 2017-04-24 13:16 | PCM.DIMED ---
Discharge Instructions Date of Service Apr 24, 2017 Dates of Hospitalization April 22, 2017 at 07:52 Discharge Diagnosis Discharge Diagnosis Recurrent Ventricular Tachycardia Prior episodes of Ventricular Fibrillation Ischemic Cardiomyopathy Chronic Atrial Fibrillation Complete AV Block Diet Discharge Diet: Low fat, Low Sodium, Heart Healthy Activity Discharge Activity: No restrictions Call your provider Call your provider for: Other (Fainting or near fainting) Bartolome Royal PA-C Apr 24, 2017 13:16
[2017-04-24] MEDS ORDERED: [UNRECOGNIZED DRUG - CODE] PO (13:23)
[2017-04-24] MEDS ORDERED: WARF1TAB6 PO (13:23)
[2017-04-24] MEDS ORDERED: METO-274 PO (13:23)
--- NOTE | 2017-04-24 13:47 | NUR ---
[facility] Signed @ 974AM
--- NOTE | 2017-04-24 14:23 | PCM.DIMED ---
Discharge Instructions Date of Service Apr 24, 2017 Dates of Hospitalization April 22, 2017 at 07:52 Discharge Diagnosis Discharge Diagnosis Recurrent Ventricular Tachycardia Prior episodes of Ventricular Fibrillation Ischemic Cardiomyopathy Chronic Atrial Fibrillation Complete AV Block Diet Discharge Diet: Low fat, Low Sodium, Heart Healthy Activity Discharge Activity: No restrictions Call your provider Call your provider for: Other (Fainting or near fainting) Patient Instructions Follow-up plan Resume PT, OT, ST, RN and LICENS[facility] Bartolome Royal PA-C Apr 24, 2017 14:23
--- NOTE | 2017-04-24 14:42 | NUR ---
Discharge Pt discharged to his home with transportation provided by his . Pt's IV was dc'd intact and telemetry was removed, tech notified. Pt's discharge instructions and new medications were reviewed. All questions were answered and pt voiced understanding. Pt's belongings were gathered for transportation with pt. Pt was escorted off unit by RN to his POV. Pt was also provided with slip to allow priority boarding for 4:30pm ferry to [facility].
--- NOTE | 2017-04-24 14:45 | NUR ---
Social Work: Discharge D: Pt is on day 2 of stay. Pt is medically stable for discharge and has active orders. SODA DRIER FEEDER met with pt and at bedside to assess for unmet needs and confirm discharge plan. They state they will be going home with resumed home health services through [facility] for PT, OT, ST, RN and SODA DRIER FEEDER. They decline any other needs at this time. SODA DRIER FEEDER paged MD to request orders reflect resumed home health services for the aforementioned modalities. TRAIN DRIVER spoke with PA who will amend orders. TRAIN DRIVER will fax these to [facility] once completed. A: Pt who lives on Friday with his . P: Pt to discharge home with resumed home health through [facility] for PT, OT, ST, RN and SODA DRIER FEEDER. IFEOMA Hull
--- NOTE | 2017-04-26 06:22 | DIS ---
[address] [address] DISCHARGE SUMMARY PATIENT: ANIA LIM : 1940 MR#: [id number] ADMIT: 04/22/2017 JOB ID: [id number] DIS: 04/24/2017 REASON FOR ADMISSION: Admitted for new antiarrhythmic therapy or ventricular tachycardia with dofetilide. CHIEF COMPLAINT: Recurrent rapid palpitations and near syncope. BRIEF HISTORY: The patient is a pleasant 77-year-old man with severe ischemic cardiomyopathy, chronic atrial fibrillation and complete heart block after AV node ablation. He has had recurrent ventricular fibrillation with shocks from his implanted ICD. He has also had recurrent rapid ventricular nonsustained tachycardia. The patient's ventricular fibrillation episodes had been prevented by amiodarone during the year 2015, but the medication had to be discontinued due to his pulmonary disease. In the past month amiodarone has finally been metabolized down to a nontherapeutic level. Recurrent rapid ventricular tachycardia has been recorded by his device with durations of 6-7 seconds and rates of 240-290 bpm. Another antiarrhythmic medical therapy is required to prevent these episodes and hopefully prevent recurrence of ventricular fibrillation. COURSE IN HOSPITAL: The patient was admitted to the PCC unit for therapy with dofetilide. After baseline lab data and ECGs were obtained, he was started on dofetilide at 250 mcg q.12 h. His creatinine clearance was determined to be about 50, which is less than the threshold of 60 at which the dofetilide dose should not be 500 mcg but 250 mcg q.12 h. His baseline ECG showed a QTc of 530 msec and after the initial dose of dofetilide, the QT went to 550 msec. After the second dose of dofetilide 250 mcg, a QTc measured 581 msec and the dose was reduced to 125 mcg for the next doses. The final ECG showed a QTc of 512 msec with the dofetilide dose at 125 mcg. Telemetry monitoring showed no recurrence of malignant ventricular arrhythmias. He felt well and had no side effects from the medication. DISPOSITION: The patient was discharged home in his usual state of health which at this time is poor due to his recent occurrences of both esophageal cancer and lung cancer and the radiation therapy he has received for both. PT evaluation while in the hospital showed that with a short walk in the [place] his oxygen saturation dropped significantly into the high 70s. This occurred on two occasions. Instructions were given at discharge to continue the home health, which included physical therapy, occupational therapy, speech therapy for his difficulty swallowing and the neonatal social worker's involvement. He was asked to return to the [facility] cardiology clinic in one month. A supply of dofetilide 125 mcg capsules was located at the [facility] in [place], and he will pick that up on the way to the [facility] and the trip back to [place]. The prescription for the same medication was sent to the [facility] and will be ordered for his next . DISCHARGE MEDICATIONS: 1. Dofetilide 125 mcg capsules q.12 h. 2. Warfarin 1 mg daily. 3. Albuterol inhaler 2 puffs q.4-6 h. p.r.n. shortness of breath. 4. Albuterol nebulizer 1.25 mg nebulized b.i.d. 5. Aspirin 81 mg daily. 6. Atorvastatin 20 mg q.h.s. 7. Enalapril 10 mg b.i.d. 8. Furosemide 20 mg daily p.r.n. fluid retention. 9. Isosorbide dinitrate 15 mg q.a.m. 10. Levothyroxine 75 mcg daily. 11. Pramipexole 0.5 mg q.h.s. 12. Ranitidine 150 mg q.p.m. 13. Spironolactone 12.5 mg q.a.m. 14. Spiriva 18 mcg capsule 1 capsule via inhaler treatment daily. 15. Metoprolol succinate 50 mg b.i.d. FINAL DIAGNOSES: 1. Ischemic Cardiomyopathy 2. Recurrent Rapid Ventricular Tachycardia 3. History of Recurrent Ventricular Fibrillation 4. Chronic Atrial Fibrillation 5. Complete AV Block, s/p AV Node Ablation MTDD
== END 2017-04-24 14:30 | disposition home health service (06) | DRG 309 ==
LOC: PCC 07:52
PROVIDERS: ADMIT Internal Medicine Cardiovascular Disease; ATTEND Internal Medicine Cardiovascular Disease
PROC: 3E0D7RZ Introduction of Antiarrhythmic into Mouth and Pharynx, Via Natural or Artificial Opening (ICD-10-PCS; principal; 2017-04-22)
DX: I49.01 Ventricular fibrillation (principal); C34.90 Malignant neoplasm of unspecified part of unspecified bronchus or lung; C78.89 Secondary malignant neoplasm of other digestive organs; I47.2 Ventricular tachycardia; J44.9 Chronic obstructive pulmonary disease, unspecified; E78.5 Hyperlipidemia, unspecified; G47.33 Obstructive sleep apnea (adult) (pediatric); I48.2 Chronic atrial fibrillation; I25.5 Ischemic cardiomyopathy; Z95.810 Presence of automatic (implantable) cardiac defibrillator; Z79.51 Long term (current) use of inhaled steroids; Z79.899 Other long term (current) drug therapy; Z87.891 Personal history of nicotine dependence; Z79.01 Long term (current) use of anticoagulants; Z79.82 Long term (current) use of aspirin

== ENCOUNTER 2017-05-05 04:34 | Inpatient (IN) | payer MEDICARE, OTHER ==
[2017-05-05] VITALS (12 sets, daily range): BP systolic 111–122; BP diastolic 55–61; PULSE 70–94; RESP 20–28; O2SAT 94–98
[~2017-05-05] VITALS: Ht 182.9 cm; Wt 82.9 kg
[~2017-05-05 04:34] MED LIST changes: +ALBU1.25 NEB; -CALC600T12 PO; +ENAL20TA PO; -ENAL5TAB PO; -FERR-83 PO; +METO-274 PO; -METO25TA6 PO; +PRAM0.5T10 PO; -PRAM0.5T3 PO; +SPIR25TA3 PO; -SYMINH IH; +WARF1TAB6 PO; +[UNRECOGNIZED DRUG - CODE] PO
--- NOTE | 2017-05-05 06:37 | NUR ---
admit note: [facility], resp failure,pt. states since 1 am friday night, pt. requiring 6L02, resp rate 30's, pt. denies pain, had difficulty swallowing due to esophageal cancer, scheduled for a swallow eval this week.
[2017-05-05] MEDS: Sodium Chloride LOK Flush 10 mL Syringe IVFLUSH SCH ×2 (08:00→16:30)
[2017-05-05] MEDS ORDERED: DOFE125C3 PO (09:31)
[2017-05-05] MEDS ORDERED: METO-272 PO (09:31)
[2017-05-05] MEDS ORDERED: Polyethylene Glycol (PEG) 17 Gm Powder PO PRN (10:40)
[2017-05-05] MEDS ORDERED: Ondansetron 2 mg/mL 2 mL Inj IVPUSH PRN (10:40)
[2017-05-05] MEDS ORDERED: Albuterol 1.25 mg/3 mL Inhalation Solution NEB SCH (10:40)
[2017-05-05] MEDS ORDERED: MeTOProlol XL 50 mg ER24 Tablet PO SCH (10:40)
[2017-05-05 11:09] LABS: BASOPHILS % (AUTO) 0 % (0-3); EOSINOPHILS % (AUTO) 0 % (0-5); MONOCYTES % (AUTO) 1.3 % (4-12); Mean Corpuscular Hemoglobin 24.9 pg (27.0-35.0); Mean Corpuscular Volume 85.8 fL (81-100); NEUTROPHILS % (AUTO) 90.2 % (40-74); Platelet Count 146 bil/L (150-400)
[2017-05-05 11:27] LABS: INR 1.86 ratio
[2017-05-05 11:43] LABS: TROPONIN T 0.022 ug/L (0.0-0.011)
[2017-05-05 11:54] LABS: Magnesium 1.9 mg/dL (1.6-2.6)
--- NOTE | 2017-05-05 12:24 | NUR ---
Holding PO meds pending swallow eval/barium swallow today. Declines meds via PEG tube. Vital signs stable, appears in no distress, denies SOB or discomfort.
--- NOTE | 2017-05-05 14:08 | DRSVH ---
PROCEDURE: X-RAY BARIUM SWALLOW WITH FOOD & VIDEOGRAPHY ([id number]) INDICATIONS: dysphagia TECHNIQUE: Examination was conducted in conjunction with speech pathology per standard protocol. In the lateral projection, filming was performed of the patient swallowing. AP projection filming may also be performed with patient swallowing. COMPARISON: [facility], CR, XR BARIUM SWALLOW FOOD & VIDEO, 02/12/2017, 11:10. FINDINGS: Function: The oral preparatory phase appears normal, with proper containment. The subsequent oral pr opulsive phase, pharyngeal phase, and esophageal phase of swallowing also appear normal with all prof fered substances. Laryngeal penetration identified on multiple occasions. Mild vallecular pooling n oted. The attending physician was personally present in the room during the examination. Morphology: No cricopharyngeal bar is identified. No cervical esophageal webs. No Zenker's diverti culum. No strictures. IMPRESSION: Laryngeal penetration and vallecular pooling. Dictated by: Trenton Joshi [facility] Interpreted: Quirino Gómez MD on 05/05/2017 at 14:07 Transcribed by: AYLIN on 05/05/2017 at 14:08 Approved by: Quirino Gómez M.D. on 05/05/2017 at 15:15
--- NOTE | 2017-05-05 15:27 | PCM.HPMED ---
Subjective Date of Service May 05, 2017 Primary Provider: Admitting Physician: Marisela Koehler DO Primary Care Physician: Asha Garcia MD Attending Physician: Marisela Koehler DO Admit Status: Direct Admit, Full Admit, [facility] Telemetry Chief Complaint: Shortness of breath. Acute systolic heart failure History of Present Illness: This is a 77-year-old gentleman presents with acute dyspnea. This began last night around midnight. History of chronic systolic heart failure as well as persistent chronic atrial fibrillation. The patient was admitted from April 23 through April 24 for initiation of dofetilide. He has a history of recurrent ventricular tachycardia and fibrillation. He has had multiple ICD discharges. He was previously on amiodarone but this was stopped due to a concern for pulmonary toxicity. He also has a history of COPD. He denies any palpitations , ICD is discharges, or orthopnea. He already has had leg edema for the last 1 or 2 days. He does have furosemide as above this but is 20 mg daily when necessary. He uses indicators for the water pill was leg edema or his daily weight which has recently been going down. He was not aware that fluid overload can cause shortness of breath and did not identify this as a possible trigger for furosemide. He denies leg pain. No cough, sore throat, fevers or chills. No pleuritic chest pain or hemoptysis. He has a history of stage III esophageal cancer is status post prolonged radiation therapy treatments as well as chemotherapy. He was in [place] and was sent out which is fairly remote. He also has a known history of dysphagia. Speech pathology requested a modified barium at the time of admit today. This unfortunately reveals a lot of pooling and silent aspiration. He has a PEG tube in place but has not used this for the last several weeks. He is felt to be at high risk for aspiration. Review of Systems: He denies fevers or chills. No coughing with eating. No recent diarrhea or blood product. No hematuria or dysuria. All else reviewed and otherwise noncontributory except as noted in history of present illness Allergies Coded Allergies: Penicillins (Verified Allergy, Severe, Rash, 05/05/17) amiodarone (Verified Allergy, Severe, Toxicity to lungs, 05/05/17) codeine (Verified Adverse Reaction, Mild, Nausea, 05/05/17) Home Medications Albuterol HFA when necessary, albuterol nebs when necessary, aspirin 81 daily, atorvastatin 40 mg daily, dofetilide 125 mg twice a day, enalapril 10 mg twice a day, Lasix 20 mg daily when necessary, thyroxine 75 g daily, metoprolol 50 mg twice a day, pramipexole 0.5 mg at bedtime, ranitidine 150 mg at bedtime, spironolactone 12.5 mg every morning, Spiriva 1 inhalation daily, warfarin adjusted dose PMH Chronic atrial fibrillation Third-degree AV block with pacer. 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 Recurrent ventricular tachycardia and ventricular fibrillation with ICD pacer Amiodarone-induced toxicity Esophageal carcinoma status post chemoradiation therapy COPD Chronic respiratory failure with hypoxia Hypertension Hyperlipidemia Surgical History ICD implantation Social History Occupation: retired Hx Alcohol Use: No Hx Substance Use: No Hx Tobacco Use: Yes Smoking Status: Current Every Day Smoker Living Arrangement: with Family Exam Vital Signs Vital Sign - Last Date Time Temp Pulse Resp B/P Pulse Ox O2 Delivery O2 Flow Rate FiO2 05/05/17 12:07 36.7 83 23 118/55 98 Nasal Cannula 6.00 Exam Oriented 3. No distress. Fluent speech. Normal affect. He appears lethargic and chronically ill. He is cachectic. Normal skull. Normal nose and ears. Anicteric sclera, symmetric pupils Oropharynx is unremarkable, no facial droop. Neck is supple, normal thyroid. No adenopathy. Lungs are clear, normal effort rate. Diminished breath sounds without wheezing. Heart is irregular without murmur gallop or rub. Abdomen soft, nondistended or tender. PEG tube in place Extremities with 2+ pedal edema Good radial and pedal pulses. Skin is free of rash, lesions. Multiple ecchymosis. Joints are grossly normal. Cranial nerves are grossly normal. Motor strength is normal in all extremities. Normal muscular tone. Lab and Diagnostics Result Diagram: 05/05/17 1055 05/05/17 1055 X-Rays, CTs and MRIs Chest x-ray is pending Assessment & Plan 1. Probable acute on chronic systolic heart failure, POA. The plan is to diurese with Lasix 40 IV every 12 hours. Will obtain chest x-ray as well as electrocardiogram. At this point will not trend troponins. 2. Acute on chronic respiratory failure and hypoxia, POA. Plan to supplement oxygen and as above. 3. Dysphagia, POA. Modified barium was performed. The patient appears to likely not be safe oral intake we will defer a long conversation about his approach to exclusive tube feed nutrition versus oral intake with risk of aspiration pneumonia. This would likely be a good junction for palliative care to meet the patient. 4. Esophageal cancer, POA. 5. 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 POA. Continue his dofetilide. 6. Chronic atrial fibrillation, POA. Patient has good rate control we will continue warfarin. We will check pro time. I will order warfarin per pharmacist. 7. COPD, POA. Continue Spiriva 8. Hypertension, POA. Usual medications. 9. CAD, POA. Continue current medications follow clinically. The patient is full resuscitation and full care of this is discussed with he and his daughter this morning upon his arrival. He is admitted to inpatient status with anticipated length of stay over 2 nights. Pain Evaluation: Adequate Pain Control Resuscitation Status: CPR: Attempt Resuscitation Time spent 45 minutes Eber Quinn MD May 05, 2017 15:27
[2017-05-05] MEDS: Tiotropium 18mcg/Cap 5 Capsule Inhaler Kit INHALATION SCH (15:39)
[2017-05-05] MEDS: Isosorbide Mononitrate 30 mg ER24 Tablet PO SCH (15:41)
--- NOTE | 2017-05-05 16:01 | DRSVH ---
PROCEDURE: X-RAY CHEST ONE VIEW, PORTABLE ([id number]) INDICATIONS: dyspnea TECHNIQUE: One view of the chest was acquired. COMPARISON: [facility], CR, XR CHEST 1VW (PORTABLE), 02[facility]01[facility]2017, 11:52[facility], 01/30/2017, 18:11. FINDINGS: Surgical changes and devices: There is a cardiac pacer/defibrillator apparatus evident overlying the left chest. A right-sided Port-A-Cath central line is seen with the tip overlying the atriocaval kameron ction. Postoperative changes related to prior median sternotomy are noted. Lungs and pleura: There has been interval increase in degree of interstitial and alveolar markings ev ident within the bilateral lungs, which is predominantly seen within the upper lobes. Slight bluntin g of the right costophrenic angle may represent a small effusion. No pneumothorax is identified. Mediastinum: Mediastinal contours appear normal. Heart size is normal. There is aortic atheroscler osis. Bones and chest wall: No suspicious bony lesions. Degenerative changes of the spine are present. Ov erlying soft tissues appear unremarkable. Contrast material is seen within the stomach. IMPRESSION: 1. Developing upper lobe predominant consolidation is suspicious for pneumonia. Pulmonary edema may also have this appearance. 2. Possible trace right-sided effusion. Dictated by: Quirino Gómez M.D. on 05/05/2017 at 15:57 Approved by: Quirino Gómez M.D. on 05/05/2017 at 15:59
[2017-05-05] MEDS: Albuterol 2.5 mg/3 mL Inhalation Solution NEB SCH ×2 (16:52→20:26)
[2017-05-05] MEDS: Furosemide 10 mg/mL 4 mL Inj IVPUSH SCH (20:37)
[2017-05-06] VITALS (18 sets, daily range): BP systolic 89–117; BP diastolic 36–62; PULSE 70–85; RESP 19–28; O2SAT 91–99
[2017-05-06] MEDS: Sodium Chloride LOK Flush 10 mL Syringe IVFLUSH SCH ×3 (00:17→17:08)
--- NOTE | 2017-05-06 00:18 | NUR ---
Transferred from [facility] 2011 to [facility] 2023. A/O. Denies pain, dyspnea at rest, N/V. 6L oxymask, sats = 96%. Was on 6L NC, sats = 87%. RR mid 20s. Uses accessory muscles. Tele 90% V paced. BP stable. Afebrile. UOP responsive to HS lasix.
[2017-05-06 03:45] LABS: Mean Corpuscular Hemoglobin 24.3 pg (27.0-35.0)
[2017-05-06 05:19] LABS: APPEARANCE,URINE CLEAR (CLEAR,HAZY); COLOR,URINE YELLOW (YELLOW); OCCULT BLOOD,URINE NEGATIVE (NEGATIVE); UROBILINOGEN,URINE NORMAL (NORMAL)
[2017-05-06] MEDS: Albuterol 2.5 mg/3 mL Inhalation Solution NEB SCH ×4 (07:31→19:41)
[2017-05-06] MEDS: Tiotropium 18mcg/Cap 5 Capsule Inhaler Kit INHALATION SCH (08:36)
[2017-05-06] MEDS: Isosorbide Mononitrate 30 mg ER24 Tablet PO SCH (08:37)
[2017-05-06 09:13] LABS: INR 2.23 ratio
--- NOTE | 2017-05-06 09:26 | NUR ---
Social Work Note: Initial Assessment Data& Assessment: EMR reviewed. SW met with pt and pt family at bedside to discuss discharge planning, SW role explained. Pt is a readmission from 04/24/2017 when he discharged home with [facility]. Ariel Pina is a 77 year old male admitted on 05/05/2017 for hypoxic respiratory failure. Pt has hypoxic respiratory failure. Pt has Medicare and [employer] supplemental insurance coverage and sees Mane Garcia MD for primary care. [place] his [place] and uses a FWW at baseline. Pt is currently open with [facility], SW received [facility] SW spoke with Aliya from [facility] and provided access. Pt has been to [facility] one year ago for rehab. Pt declined DPOA/Advance Directive paperwork. Pt denies any needs a this time. SW to continue to follow for further discharge planning needs and MD orders. Plan: Anticipated discharge home via POV when medically ready with [facility] RN. Pt denies any needs a this time. SW to continue to follow for further discharge planning needs and MD orders. IFEOMA Marie Addendum: 05/06/17 at 1056 by BRIANNE EDWARDS Amended: Links added.
[2017-05-06] MEDS: Furosemide 10 mg/mL 4 mL Inj IVPUSH SCH ×2 (10:54→20:30)
--- NOTE | 2017-05-06 15:32 | PCM.PNMED ---
Subjective Date of Service May 06, 2017 Subjective 77-year-old man with COPD, atrial fibrillation, possible amiodarone toxicity, cardia myopathy with systolic congestive heart failure presents with acute on chronic respiratory failure with hypoxia. Family reports marked improvement in edema with diuresis and first 24 hours. Patient states he feels slightly better but is vague in his history. There is no significant orthopnea. No abdominal complaints. Family reports that he is sedentary at home and poorly compliant with home exercises. Exam Vital Signs Vital Sign - Last Date Time Temp Pulse Resp B/P Pulse Ox O2 Delivery O2 Flow Rate FiO2 05/06/17 14:10 36.3 83 22 106/62 92 OxyMask 6.00 Intake and Output 05/05/17 05/05/17 05/06/17 Cumulative From/Thru 15:00 23:00 07:00 05/05/17 06:47 - 05/06/17 06:24 Intake Total 120 ml 100 ml 220 ml Output Total 425 ml 1725 ml 2150 ml Balance -305 ml -1625 ml -1930 ml Intake Oral 120 ml 100 ml 220 ml Output Urine Total 425 ml 1725 ml 2150 ml # Bowel Movements 0 0 Weighted admission 97.2 kg Weight today 95.3 kg Exam General: Chronically ill-appearing elderly man in no acute distress HEENT: sclerae anicteric, oral mucosa moist Neck: 4 cm JVD Chest: clear to auscultation Cardiac: S1S2, murmur Abdomen: BS normal, non-tender Extremities: Minimal edema Neuro: A&O, cranial nerves symmetric, motor strength 4/5, coordination normal IVs and Medications Medications Reviewed: Medications were reviewed in detail Lab and Diagnostics Result Diagram: 05/06/17 0325 05/06/17 0325 X-Rays, CTs and MRIs PROCEDURE: X-RAY CHEST ONE VIEW, PORTABLE ([id number]) IMPRESSION: 1. Developing upper lobe predominant consolidation is suspicious for pneumonia. Pulmonary edema may also have this appearance. 2. Possible trace right-sided effusion. Dictated by: Quirino Gómez M.D. on 05/05/2017 at 15:57 PROCEDURE: X-RAY BARIUM SWALLOW WITH FOOD & VIDEOGRAPHY ([id number]) FINDINGS: Function: The oral preparatory phase appears normal, with proper containment. The subsequent oral propulsive phase, pharyngeal phase, and esophageal phase of swallowing also appear normal with all proffered substances. Laryngeal penetration identified on multiple occasions. Mild vallecular pooling noted. IMPRESSION: Laryngeal penetration and vallecular pooling. Dictated by: Trenton LOONEY Interpreted: Quirino Gómez MD on 05/05/2017 at 14 :07 . 12-lead ECG EKG 05/05/17 16:49 patient rhythm rate 76, LBBB morphology, QTC 522 . Assessment & Plan Acute, Active or High-risk Problems: #. Probable acute on chronic systolic heart failure, POA. - Lasix 40 IV every 12 hours. - Daily weights - Continue enalapril, spironolactone, isosorbide, metoprolol, hydralazine, #. Acute on chronic respiratory failure and hypoxia, POA. Treat acute on chronic systolic congestive heart failure as above. - Titrate oxygen to his baseline 2-4 L/m nasal prong - Continue home CPAP # Dysphagia, POA. Modified barium was performed. The patient appears to likely not be safe oral intake - the patient and family endorse long-term tube feeding nutrition - Nutrition consult order to recommend to feed prescription - Initiate Jevity 1.5 with goal rate 50 mils per hour 24 hours # Glucose intolerance, POA. - 4 times a day blood sugar checks with correctional insulin - Planted basal insulin when glycemic effect of tube feeds and takes effect #. Chronic atrial fibrillation, POA. Patient has good rate control we will continue warfarin. INR 1.86 on admission. - warfarin per pharmacist. #. Goals of care. Discussed with patient and family today. They are aware of his declining course, but feel this can be reversed with better physical and nutritional therapy. He is satisfied with his ability to live at home with bed to limited household activities. 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 - Not interested in palliative care at this time. Resolving, stable and/or chronic problems: #. Esophageal cancer, POA. #. 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 POA. Continue his dofetilide. #. COPD, POA. Continue Spiriva #. Hypertension, POA. Usual medications. #. CAD, POA. Continue current medications follow clinically. The patient is full resuscitation and full care of this is discussed with he and his daughter this morning upon his arrival. Disposition: He is admitted to inpatient status with anticipated length of stay over 2 nights. And to participate discharge on home O2 after diuresis 1-2 L per day 2-3 days. VTE Prophylaxis: Theraputic Anticoag with Warfarin VTE Mechanical Devices: Intermittant Pneumatic CD Resuscitation Status: CPR: Attempt Resuscitation Time spent 40 minutes Darci Galdamez MD May 06, 2017 15:32
--- NOTE | 2017-05-06 16:00 | NUR ---
NUTRITION FOLLOW-UP: ASSESS: 77 YO M admitted for respiratory failure. Pt has esophageal cancer, status post PEG tube placement 01/30. Per pts , pt was last on TF back in the end of March. Pt had MBS and ST is recommending safest option would be to continue NPO status and start TF. Received written order to start TF per MD. Pt was previously on Jevity 1.5 but was experiencing elevated BG levels. Pt previously did not tolerate change in TF to Glucerna 1.5 at last admit because formula was switched too quickly. Pt and were agreeable to try Glucerna 1.5 if it is advanced slowly. If pt does not tolerate Glucerna, will switch pt back to Jevity 1.5. 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 LABS: Bun 30, Glu 135, Ca 8.1, Alb 2.6 MEDS: Reviewed. lasix GI: 0 BM SKIN: Jeramy 17 WT: 95.3kg, BMI 28.5kg,; UBW: ~110kg. DIET: NPO EST. NEEDS: Cancer Calories: 6940-8219 kcal/day (25-30 kcal/kg) Protein: 95-140 g/day (1.0-1.5 g/kg) NUTRITION DIAGNOSIS: 1) Inadequate oral intake related to esophageal ca as evidence by current NPO status, inability to keep PO food down and need for PEG tube to maintain adequate nutrition NUTRITION INTERVENTION: 1) Recommend start nutrition support of Glucerna @ 10ml/hr. If tolerated, advance by 10ml q 6 hrs until reach goal rate of 70ml/hr to provide 2415kcal and 132g pro (100% estimated needs).Pt is not on IVF at this time so will fluid flush 95ml q 2 hrs. MONITOR/EVALUATE: TF start/javad, GI, labs, ST, wt, POC, nutrition status. Will continue to monitor per high nutrition risk guidelines
--- NOTE | 2017-05-06 17:23 | NUR ---
A/Ox3, makes needs known. Denies pain or discomfort this shift. 1 PA OOB with FWW, poor activity tolerance. V-paced in 70's-80's, 2 bouts of asymptomatic V-Tach this shift, 8 beats and 23 beats. ICD. 88-94% on 6L with oxymask. Dyspnea at rest, RR 20-30. NPO except ice chips and small sips of water, new order for tube feedings 10 mL/hr, increasing by 10 ml/hr q6 hours as tolerated. 95 mL flush q2 hours. Continent of b/b using urinal, urine pale, clear yellow. Trace edema in LE's. SL in L wrist patent, no s/s infiltration or phlebitis.
[2017-05-07] VITALS (15 sets, daily range): BP systolic 86–95; BP diastolic 38–57; PULSE 72–83; RESP 20–36; O2SAT 85–96
[2017-05-07 03:27] LABS: INR 2.69 ratio
[2017-05-07] MEDS: Sodium Chloride LOK Flush 10 mL Syringe IVFLUSH SCH ×3 (04:42→16:32)
--- NOTE | 2017-05-07 04:44 | NUR ---
RESPIRATORY/VTACH Patient continues to require 6-7 L on oxymask to maintain O2 sats in 90s. Quickly desats to 70s with any activity and was unable to tolerate being on CPap as his sats maintained in the 70s. Patient has had 2 runs of vtach 8 and 10 beats this evening. MD aware. Hypotensive and unable to give evening blood pressure medications. Denies pain. Will continue to monitor closely.
[2017-05-07] MEDS: Albuterol 2.5 mg/3 mL Inhalation Solution NEB SCH ×4 (07:28→20:10)
[2017-05-07] MEDS ORDERED: Furosemide 10 mg/mL 4 mL Inj IVPUSH SCH (08:30)
--- NOTE | 2017-05-07 08:55 | DRSVH ---
PROCEDURE: X-RAY CHEST, TWO VIEWS ([id number]) INDICATIONS: assess interval change, CHF vs. infiltrate TECHNIQUE: 2 views of the chest were acquired. COMPARISON: [facility], CR, XR CHEST 1VW (PORTABLE), 05/05/2017, 15:14. [facility], CR, XR CHEST 1VW (PORTABLE), 02/01/2017, 11:52. FINDINGS: Surgical changes and devices: There is a right-sided Port-A-Cath central line identified with the tip overlying the low superior vena cava near the right atrial junction. Median sternotomy postoperativ e changes are present. There is a cardiac pacer/defibrillator apparatus seen overlying the left ches t. Lungs and pleura: There are low lung volumes, similar to the prior study. Increasing airspace diseas e is identified within the lungs diffusely, which is best appreciated within the perihilar regions. Partial obscuration of the bilateral diaphragms is noted with slight blunting of the left costophreni c angle. Mediastinum: Mediastinal contours are normal. Heart size is slightly prominent in size. There is a ortic atherosclerosis. Bones and chest wall: No suspicious bony abnormalities. Age-appropriate degenerative changes of the spine are present. Soft tissues appear unremarkable. IMPRESSION: 1. Cardiomegaly and increasing mixed interstitial and alveolar opacities is most suggestive of conge stive heart failure. This has increased in the interim. Superimposed pneumonia is difficult to excl ude. 2. Mild basilar atelectasis and/or small effusions. Dictated by: Quirino Gómez M.D. on 05/07/2017 at 8:52 Approved by: Quirino Gómez M.D. on 05/07/2017 at 8:54
[2017-05-07] MEDS: Tiotropium 18mcg/Cap 5 Capsule Inhaler Kit INHALATION SCH (09:24)
[2017-05-07] MEDS: Isosorbide Mononitrate 30 mg ER24 Tablet PO SCH (09:26)
--- NOTE | 2017-05-07 11:37 | NUR ---
[facility] Signed
--- NOTE | 2017-05-07 13:24 | NUR ---
NUTRITION FOLLOW-UP: ASSESS: 77 YO M admitted for respiratory failure. Pt has esophageal cancer, status post PEG tube placement 01/30. Per pt's , pt was last on TF back in the end of March and since March pt has lost ~9% of his body wt=severe wt loss. Pt had MBS and ST is recommending safest option would be to continue NPO status and start TF. TF of Glucerna 1.5 was started 05/06 and pt is tolerating TF well. It is currently running at 40ml/hr per RN. Due to poor PO tolerance, 9% wt loss x 1 month and chronic dysphagia pt would greatly benefit from continuing TF after discharge for greater than 90day. 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 LABS: Reviewed. Bun 28, Glu 119, Alc 6.8, Ca 8.2, Alb 2.6 MEDS: Reviewed. Lasix, coumadin GI: 0 BM SKIN: Jeramy 17 WT: 91.5kg, BMI 27.4kg, admit wt: 97.2kg UBW: ~110kg, IBW: 80.9kg (113% IBW). Pt wt 03/28/17 was 100kg. Pt has lost ~9% body wt x1 month= severe wt loss NUTRITION SUPPORT: Glucerna 1.5 @ 40ml/hr providing 1380kcal and 75g/day (~60% kcal and pro needs) DIET: NPO per ST EST. NEEDS: Calories: 0954-8235 kcal/day (25-30 kcal/kg) Protein: 95-140 g/day (1.0-1.5 g/kg) Fluids: ~2375ml/day (25ml/kg) NUTRITION DIAGNOSIS: 1) Inadequate oral intake related to esophageal ca as evidence by current NPO status, inability to keep PO food down due to dysphagia and need for PEG tube to maintain adequate nutrition --PERSISTS 2) Moderate pro/kcal malnutrition related to esophageal ca as evidence by chronic dysphagia per ST, 9% wt loss x1 month, decreased PO intake of less than 75% estimated needs for greater than 1 month and mild muscle/fat loss. NUTRITION INTERVENTION: 1) Recommend continue advancing Glucerna 1.5 @ by 10ml q 6 hrs until reach goal rate of 70ml/hr to provide 2415kcal and 132g pro (100% estimated needs). Pt is not on IVF at this time so will fluid flush 95ml q 2 hrs. TF water+ fluid flushes provides 2361ml H20. 2) Advance diet per ST. 3) Pt would greatly benefit from long-term TF for greater than 3 months to help maintain adequate nutrition status. 4) Will monitor fluid status closely due to possible CHF. MONITOR/EVALUATE: TF javad, fluids, GI, labs, ST, wt, POC, nutrition status. Will continue to monitor per high nutrition risk guidelines Addendum: 05/08/17 at [address] TF has reached goal rate of 70ml/hr and tolerating well. 0 BM noted yet. Will continue to monitor per high nutrition risk guidelines
--- NOTE | 2017-05-07 13:34 | PCM.PNMED ---
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 Patient reports no change in dyspnea from yesterday, despite good diuresis. No cough, fever or chills. There is no significant orthopnea. No abdominal complaints. Oxygen requirements have not declined. Exam Vital Signs Vital Sign - Last Date Time Temp Pulse Resp B/P Pulse Ox O2 Delivery O2 Flow Rate FiO2 05/07/17 12:11 36.4 76 26 88/45 89 OxyMask 7.00 Intake and Output 05/06/17 05/06/17 05/07/17 Cumulative From/Thru 15:00 23:00 07:00 05/05/17 06:47 - 05/07/17 06:42 Intake Total 500 ml 806 ml 1526 ml Output Total 2175 ml 500 ml 4825 ml Balance -1675 ml 306 ml -3299 ml Intake Oral 500 ml 200 ml 920 ml Tube Feeding 225 ml 225 ml Tube Irrigant 381 ml 381 ml Output Urine Total 2175 ml 500 ml 4825 ml # Bowel Movements 0 Body weight 97.2 kg at admission Body weight today 91.5 kg Exam General: Chronically ill-appearing elderly man in no acute distress HEENT: sclerae anicteric, oral mucosa moist Neck: No JVD Chest: Coarse breath sounds, bilateral crackles right lateral greater than left , dullness, no wheezing Cardiac: S1S2, Abdomen: BS normal, non-tender Extremities: No edema Neuro: A&O, cranial nerves symmetric, motor strength 4/5, coordination normal IVs and Medications Medications Reviewed: Medications were reviewed in detail Lab and Diagnostics Result Diagram: 05/06/17 0325 05/07/17 0245 X-Rays, CTs and MRIs PROCEDURE: X-RAY CHEST ONE VIEW, PORTABLE ([id number]) IMPRESSION: 1. Developing upper lobe predominant consolidation is suspicious for pneumonia. Pulmonary edema may also have this appearance. 2. Possible trace right-sided effusion. Dictated by: Quirino Gómez M.D. on 05/05/2017 at 15:57 PROCEDURE: X-RAY BARIUM SWALLOW WITH FOOD & VIDEOGRAPHY ([id number]) FINDINGS: Function: The oral preparatory phase appears normal, with proper containment. The subsequent oral propulsive phase, pharyngeal phase, and esophageal phase of swallowing also appear normal with all proffered substances. Laryngeal penetration identified on multiple occasions. Mild vallecular pooling noted. IMPRESSION: Laryngeal penetration and vallecular pooling. Dictated by: Trenton Joshi RRA Interpreted: Quirino Gómez MD on 05/05/2017 at 14 :07 PROCEDURE: X-RAY CHEST, TWO VIEWS ([id number]) IMPRESSION: 1. Cardiomegaly and increasing mixed interstitial and alveolar opacities is most suggestive of congestive heart failure. This has increased in the interim. Superimposed pneumonia is difficult to exclude. 2. Mild basilar atelectasis and/or small effusions. Dictated by: Quirino Gómez M.D. on 05/07/2017 at 8:52 . 12-lead ECG EKG 05/05/17 16:49 patient rhythm rate 76, LBBB morphology, QTC 522 . Assessment & Plan Acute, Active or High-risk Problems: #. Probable acute on chronic systolic heart failure, POA. Lasix 40 IV every 12 hours resulted in 3.5 L diuresis of her first 48 hours. Body weight reduced by 5 kg. No improvement in oxygen needs. Chest x-ray slightly worse. - Hold Lasix and enalapril this morning due to hypotension; resume when systolic blood pressure greater than 95 mmHg - Continue Daily weights - Continue enalapril, spironolactone, isosorbide, metoprolol, hydralazine, #. Acute on chronic respiratory failure and hypoxia, POA. Treat acute on chronic systolic congestive heart failure as above. Chest x-ray was consistent with pulmonary edema, but no improvement despite adequate diuresis. Consider aspiration pneumonia in light of oropharyngeal dysfunction. Procalcitonin is elevated but no other clinical signs of pneumonia. Esophageal carcinoma, RLL lung adenocarcinoma, radiotherapy,and history of amiodarone pulmonary toxicity are confounding factors. - Titrate oxygen to his baseline 2-4 L/m nasal prong - Continue home CPAP - Pulmonology consult # Dysphagia, POA. Modified barium was performed. The patient appears to likely not be safe for oral intake. - the patient and family endorse long-term tube feeding nutrition - Nutrition consult order to recommend to feed prescription - Initiate Jevity 1.5 with goal rate 50 mils per hour 24 hours # Malnutrition, moderate. Confounded by CHF related fluid retention. Currently unable to take oral intake. - Patient will be dependent on tube feeds at time of discharge # Glucose intolerance, POA. - 4 times a day blood sugar checks with correctional insulin #. Chronic atrial fibrillation, POA. Patient has good rate control we will continue warfarin. INR 1.86 on admission. Current INR in target range - warfarin per pharmacist. #. Goals of care. Discussed with patient and family today. They are aware of his declining course, but feel this can be reversed with better physical and nutritional therapy. He is satisfied with his ability to live at home with bed to limited household activities. Watches television and [employer] - Not interested in palliative care at this time. Resolving, stable and/or chronic problems: #. Esophageal cancer, POA. # RLL adenocarcinoma, POA. #. 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 POA. Continue his dofetilide. #. COPD, POA. Continue Spiriva #. Hypertension, POA. Usual medications. #. CAD, POA. Continue current medications follow clinically. The patient is full resuscitation Disposition: He is admitted to inpatient status with anticipated length of stay over 2 nights. VTE Prophylaxis: Theraputic Anticoag with Warfarin VTE Mechanical Devices: Intermittant Pneumatic CD Resuscitation Status: CPR: Attempt Resuscitation Time spent 40 minutes Darci Galdamez MD May 07, 2017 13:34
--- NOTE | 2017-05-07 16:16 | ABG ---
DateTimeAnalyzed 16:06:45 -_ pH ____7.529 - 7.350 7.450 pCO2 ___40.9__ -mmHg 35.0 45.0 pO2 ___66.4__ -mmHg 69.0 116 HCO3- ___34.0__ -mmol/L 22.0 26.0 ABE ___10.3__ -mmol/L tHb ____8.7__ -g/dL O2Hb ___93.8__ -% COHb ____2.0__ -% 1.5 MetHb ____0.0__ -% sO2 ___95.4__ -% FIO2 ___48.0__ -% Drawn By RS - Date/Time Notified____ 16:16:00 -_ Notified By rs - Notified Whom ___Dr. Kendregan - K+ ____3.7__ -mmol/L tO2 ___11.5__ -Vol% Eber test _Positive -
[2017-05-07] MEDS ORDERED: Meropenem 1 Gm/100 mL NS Minibag Plus IV ONE ×2 (17:15)
--- NOTE | 2017-05-07 18:22 | NUR ---
A/Ox3, makes needs known. Denies pain or discomfort. V-paced 70-90's, occasional runs of v-tach ~8 beats. Pt has ICD. Tachypnea, dyspnea at rest. Ronchi throughout. Diminished at bases bilaterally. PEG tube for meds, TF running at 50mL/hr, titrate up to 60/hr at 2215. 95mL flush q2 hours. NPO except ice chips and sips of H2O. Bowel tones all quadrants, no bowel movement this shift. Bed rest, uses FWW with 1 PA, poor activity tolerance. IV in L wrist patent, no s/s infiltration or phlebitis. IV meropenem running at this time. Family at bedside today.
[2017-05-08] VITALS (13 sets, daily range): BP systolic 102–127; BP diastolic 49–57; PULSE 62–92; RESP 23–36; O2SAT 82–91
[2017-05-08] MEDS: Meropenem Inj 1,000 MG in 0.9% Sodium Chloride 100 ML IV SCH ×4 (00:37→23:52)
[2017-05-08] MEDS: Sodium Chloride LOK Flush 10 mL Syringe IVFLUSH SCH ×4 (00:37→23:52)
[2017-05-08 04:10] LABS: INR 2.13 ratio
[2017-05-08] MEDS: Albuterol 2.5 mg/3 mL Inhalation Solution NEB SCH ×5 (05:20→20:35)
--- NOTE | 2017-05-08 06:35 | NUR ---
Respiratory / TF Pt is tachyapnic. O2 requirement increased little bit from 7 L to 13 L to maintain 88-90%. O2 titrated down to 9 L and SPO2 88%. Pt denies SOB. No acute distress noted. Pt appears resting through the night. TF at goal 70 ml/hr. Residuals 10 ml. No overt complications noted.
[2017-05-08] MEDS: Tiotropium 18mcg/Cap 5 Capsule Inhaler Kit INHALATION SCH (09:09)
[2017-05-08] MEDS: Isosorbide Mononitrate 30 mg ER24 Tablet PO SCH (09:11)
[2017-05-08] MEDS ORDERED: Dextrose 10% 250 ML IV PRN (10:40)
--- NOTE | 2017-05-08 14:01 | PCM.PNMED ---
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 Patient reports that his dyspnea is at baseline, despite obviously increased labored respiratory effort. No cough, fever or chills. No abdominal complaints. Oxygen requirements and chest x-ray have worsened. Exam Vital Signs Vital Sign - Last Date Time Temp Pulse Resp B/P Pulse Ox O2 Delivery O2 Flow Rate FiO2 05/08/17 12:22 37.0 84 31 127/57 82 OxyMask 12.00 Intake and Output 05/07/17 05/07/17 05/08/17 Cumulative From/Thru 15:00 23:00 07:00 05/05/17 06:47 - 05/08/17 06:03 Intake Total 480 ml 2082 ml 4088 ml Output Total 425 ml 300 ml 5550 ml Balance 55 ml 1782 ml -1462 ml Intake Oral 480 ml 50 ml 1450 ml IV Total 100 ml 100 ml Tube Feeding 1026 ml 1251 ml Tube Irrigant 906 ml 1287 ml Output Urine Total 425 ml 300 ml 5550 ml # Bowel Movements 0 Evaluated admission 97.2 Body weight today 92.9 Exam General: Chronically ill-appearing elderly man tachypneic HEENT: sclerae anicteric, oral mucosa moist Neck: JVD 4-5 cm above sternal notch, marked respiratory variation Chest: Coarse breath sounds, bilateral crackles, no wheezing Cardiac: S1S2, irregular Abdomen: BS normal, non-tender Extremities: No edema Neuro: A&O, cranial nerves symmetric, motor strength 5-/5, coordination normal IVs and Medications Medications Reviewed: Medications were reviewed in detail Lab and Diagnostics Result Diagram: 05/06/17 0325 05/08/17 0310 X-Rays, CTs and MRIs PROCEDURE: X-RAY CHEST ONE VIEW, PORTABLE ([id number]) IMPRESSION: 1. Developing upper lobe predominant consolidation is suspicious for pneumonia. Pulmonary edema may also have this appearance. 2. Possible trace right-sided effusion. Dictated by: Quirino Gómez M.D. on 05/05/2017 at 15:57 PROCEDURE: X-RAY BARIUM SWALLOW WITH FOOD & VIDEOGRAPHY ([id number]) FINDINGS: Function: The oral preparatory phase appears normal, with proper containment. The subsequent oral propulsive phase, pharyngeal phase, and esophageal phase of swallowing also appear normal with all proffered substances. Laryngeal penetration identified on multiple occasions. Mild vallecular pooling noted. IMPRESSION: Laryngeal penetration and vallecular pooling. Dictated by: Trenton Joshi RRA Interpreted: Quirino Gómez MD on 05/05/2017 at 14 :07 PROCEDURE: X-RAY CHEST, TWO VIEWS ([id number]) IMPRESSION: 1. Cardiomegaly and increasing mixed interstitial and alveolar opacities is most suggestive of congestive heart failure. This has increased in the interim. Superimposed pneumonia is difficult to exclude. 2. Mild basilar atelectasis and/or small effusions. Dictated by: Quirino Gómez M.D. on 05/07/2017 at 8:52 . 12-lead ECG EKG 05/05/17 16:49 patient rhythm rate 76, LBBB morphology, QTC 522 . Assessment & Plan Acute, Active or High-risk Problems: #. Acute on chronic respiratory failure and hypoxia, POA. At time of admission , chest x-ray was consistent with pulmonary edema. No clinical improvement despite adequate initial diuresis. He subsequently developed hypotension and Lasix was held on 05/07. Procalcitonin is elevated but but initial presentation did not suggest pneumonia. Meropenem for hospital-acquired aspiration initiated on 05/07. Chest x-ray reveals worsening alveolar or nodular type infiltrate on 05/07. Pulmonary condition is deteriorating despite diuresis. Other pulmonary risks include stage III esophageal carcinoma, RLL lung adenocarcinoma, recent long radiotherapy,and history of amiodarone pulmonary toxicity. - BPAP as needed - Pulmonology consult - Continue to treat congestive heart failure and fluid overload - Continue to treat possible aspiration with meropenem - Initiate empiric glucocorticoids for possible radiation or medication induced pneumonitis #. Probable acute on chronic systolic heart failure, POA. Lasix 40 IV every 12 hours resulted in 3.5 L diuresis of her first 48 hours. Body weight reduced by 5 kg. No improvement in oxygen needs. Chest x-ray slightly worse. - Reduce enalaprildue to hypotension; - resume furosemide; target -1 L per day fluid balance; minimize IV fluids - Continue Daily weights - Continue spironolactone, isosorbide, metoprolol, hydralazine, # Dysphagia, POA. Modified barium was performed. The patient appears to likely not be safe for oral intake. - the patient and family endorse long-term tube feeding nutrition - Nutrition consult order to recommend to feed prescription - Initiate Jevity 1.5 with goal rate 50 mils per hour 24 hours # Malnutrition, moderate. Confounded by CHF related fluid retention. Currently unable to take oral intake. - Patient will be dependent on tube feeds at time of discharge #Type II diabetes mellitus, POA. Anticipate blood sugar increase with glucocorticoids - 4 times a day blood sugar checks; goal blood sugars less than 180 - Initiate every 6 R regular insulin in light of continuous tube feeds - We will consider switch to insulin glargine after insulin requirements are defined #. Chronic atrial fibrillation, POA. Patient has good rate control we will continue warfarin. INR 1.86 on admission. Current INR in target range - warfarin per pharmacist. #. Goals of care. Discussed with patient and family today. They are aware of his declining course, but feel this can be reversed with better physical and nutritional therapy. He is satisfied with his ability to live at home with bed to limited household activities. Watches television and [employer]. - Awaiting family decision on DO NOT INTUBATE status. Resolving, stable and/or chronic problems: #. Esophageal cancer, POA. # RLL adenocarcinoma, POA. #. 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 POA. Continue his dofetilide. #. COPD, POA. Continue Spiriva #. Hypertension, POA. Usual medications. #. CAD, POA. Continue current medications follow clinically. The patient is full resuscitation. Disposition: He is admitted to inpatient status with anticipated length of stay over 2 nights. VTE Prophylaxis: Theraputic Anticoag with Warfarin VTE Mechanical Devices: Intermittant Pneumatic CD Resuscitation Status: CPR: Attempt Resuscitation Time spent 30 minutes Darci Galdamez MD May 08, 2017 14:01
[2017-05-08] MEDS: predniSONE 20 mg Tablet PO SCH (14:22)
[2017-05-08] MEDS: Insulin Human REGular 300 Unit/3 mL Inj SUBQ SCH ×2 (14:37→21:49)
--- NOTE | 2017-05-08 17:35 | PROG NOTE ---
[address] [address] PROGRESS NOTE PATIENT: ANIA LIM : 1940 MR#: [id number] ADMIT: 05/05/2017 JOB ID: [id number] DATE: 05/08/2017 PULMONARY FOLLOWUP NOTE: PROBLEM LIST: 1. Diffuse airspace opacities bilaterally. 2. Esophageal carcinoma status post chemotherapy as well as radiation therapy. 3. Recurrent ventricular tachycardia and fibrillation status post AICD placement. 4. Dysphagia with aspiration. 5. COPD by history. SUBJECTIVE: The patient indicates his breathing is relatively comfortable today. No complaints of shortness of breath. Believes he is pretty close to baseline. Denies cough or sputum production. Currently tolerating the OxyMask reasonably well. No particular problems with pain. OBJECTIVE: Temperature 36.8. Pulse 70-76. Respiratory rate 32. Blood pressure 127/57. O2 sat on OxyMask at 10 L is 90%. General appearance: Lying relatively flat in bed. Maybe head of the bed elevated 5 or 10 degrees. Awake, alert. Carries on appropriate conversation. Chest shows decreased breath sounds. There is tracheal tug with some use of the accessory muscles of respiration. Crackles throughout both lung denny. There is an inspiratory wheeze in the anterior upper lung denny. Heart relatively regular rhythm. Heart tones seem normal. Abdomen is soft. Some bowel tones present. LABORATORY: Shows a sodium 139, potassium 3.9, chloride 99, CO2 is 28, BUN 27, creatinine 0.9. Calcium is 8.1. ProBNP is 14,511. ASSESSMENT: Hypoxemic respiratory failure. Not only has the significant hypoxemia but also rather large space ventilation with minute ventilation in the mid teens with a CO2 running 41 yesterday. I think at this point we need to press regarding a plan for this patient. Not sure that if we intubate him we could make a diagnosis that is amenable to therapy. I am not sure he quite understands the situation. He states his is coming in in about half an hour and I think it would be best to have a conversation with the patient as well as his over their goals of care and wishes. I think that intubation would be not particularly beneficial for this patient as I am not sure we would be able to come up with a treatable lesion which we could then treat and return him to baseline. His baseline is ever diminishing. Not sure he has the insight to make a thoughtful decision. I think it would be best if we discuss the situation with not only the patient but his . Need to decide whether we might consider continuing the antibiotics, possibly adding steroids, utilizing perhaps high-flow oxygen system or maybe low levels of BiPAP. Suspect he would do a little better with increased end-expiratory pressure, which could probably be better delivered with BiPAP. However, do not want to particularly increase the patient's minute ventilation as he is already having difficulty with that parameter now. Alternatively, we proceed with intubation. Would need ART lines, central lines, and given his port as well as his AICD would probably end up with a midline catheter. Would likely need bronchoscopy if that can be safely performed and then we are left with lesions that are treatable without too much risk or adverse events. I spoke with Dr. Galdamez, the patient's primary physician at the current moment. He graciously volunteered to have this conversation with the patient and his . PLAN: As above.
--- NOTE | 2017-05-08 17:48 | NUR ---
O2 needs increased this shift, pt placed on BiPAP with effective results. 88-90% on 50% O2. Breathing is labored and shallow, using accessory muscles. Iris throughout. Tolerating TF goal well, less than 10 mL residual at 1100 and 1630 today. IV abx continue, IV patent, no s/s infiltration or abx. Pt had large bowel movement today and is passing gas.
--- NOTE | 2017-05-08 17:56 | PCM.ADCARE ---
Advance Care Planning Note Purpose of Encounter: Establish goals of care with regard to acute on chronic respiratory failure Parties in Attendance: Patient, his , Dr. Galdamez Decisional Capacity: The patient has full decisional capacity Subjective: The patient wishes to get over his current difficulties, but acknowledges that his dyspnea has not improved since admission. His recognizes that his performance status is declining and that his pulmonary condition is worse. Objective: Mr. Pina is experiencing progressive respiratory failure with increasing oxygen requirements and pulmonary infiltrates. He has recently experienced poor performance status with limited activities. His current acute pulmonary infiltrates are superimposed on underlying COPD, recurrent aspiration, radiation treatment and possible medication toxicities compromising his pulmonary function. Goals of Care Determinations: I advised the patient that due to multiple cardiopulmonary comorbidities and his worsening oxygenation requirements with pulmonary infiltrates, he is unlikely to survive mechanical intubation. I advised him that mechanical intubation would require sedation which would limit his quality of life and ability to interact with his family. He and his endorsed to you that he would not want to spend the final days of his life sedated and dependent on advance life support. Within the limits of noninvasive ventilation, he would like everything done to treat reversible conditions with the hope of returning home. He endorses our current plan to treat possible pulmonary edema with furosemide, treat possible aspiration pneumonia with meropenem, and treat possible inflammatory lung disease with glucocorticoids. He endorses continued tube feeding. He elects to make no decision regarding his defibrillator at this time. He and his endorse a decision of no intubation for any further diagnosis or therapy. Plan: Full treatment with noninvasive ventilation only. No intubation. No cardiac resuscitation CODE STATUS: DNR/DNI Time Spent Adv.Care Plannin minutes Adv. Care Plan Documenation: Polst form completed. DNR/DNI order written. Darci Galdamez MD May 08, 2017 17:56
--- NOTE | 2017-05-08 20:34 | DRSVH ---
PROCEDURE: CT CHEST WITH CONTRAST ([id number]) INDICATIONS: progressive infiltrate TECHNIQUE: After the administration of intravenous contrast, 5 mm thick sections acquired from the pulmonary api valerie to the posterior costophrenic angles. 7 mm thick coronal and sagittal MIP reformats were acquire d. For radiation dose reduction, the following was used: automated exposure control, adjustment of mA and/or kV according to patient size. COMPARISON: None. FINDINGS: Image quality: Good Lungs and pleura: There are bilateral right greater than left effusions. There are alveolar densities superimposed on chronic lung disease. Increased interstitial markings are present as well. Mediastinum: Heart size is enlarged. No pericardial effusion. No mediastinal or hilar adenopathy by size criteria. Thoracic aorta and central pulmonary arteries are normal in size. Esophagus is norm al in caliber. No hiatal hernia. Bones and chest wall: No suspicious bony lesions. No vertebral body compression fractures. No axil silver or supraclavicular adenopathy by size criteria. Thyroid gland is within normal limits. Leads fr om a AICD are present.. Abdomen: Visualized upper abdominal solid organs appear normal. Upper abdominal bowel loops are nor mal in caliber. Small moderate size hiatal hernia. IMPRESSION: Significant changes since the previous CT of 02/03/17 would suggest congestive failure levar nges superimposed on chronic lung disease. Dictated by: Bartolome Mena M.D. on 05/08/2017 at 20:28 Approved by: Bartolome Mena M.D. on 05/08/2017 at 20:32
[2017-05-09] VITALS (12 sets, daily range): BP systolic 104–128; BP diastolic 50–77; PULSE 76–82; RESP 17–30; O2SAT 91–93
[2017-05-09] MEDS: Insulin Human REGular 300 Unit/3 mL Inj SUBQ SCH ×4 (02:38→20:27)
--- NOTE | 2017-05-09 04:38 | NUR ---
Respiratory / Telemetry Pt on 50% FiO2 throughout shift, SpO2 approx. 90-92% with BiPAP in place. Tachypneic throughout shift, but pt denies feelings of respiratory distress. SpO2 drops to 70s-80s on RA when pt removes mask to readjust. Pt had 11 beats of VT this shift, asymptomatic, MD aware. No changes made. VSS, tele V-paced 70s-80s.
[2017-05-09 04:51] LABS: INR 1.7 ratio
[2017-05-09 04:52] LABS: BASOPHILS % (AUTO) 0 % (0-3); EOSINOPHILS % (AUTO) 0 % (0-5); MONOCYTES % (AUTO) 3.6 % (4-12); Mean Corpuscular Hemoglobin 24.1 pg (27.0-35.0); Mean Corpuscular Volume 84.9 fL (81-100); Platelet Count 125 bil/L (150-400)
[2017-05-09] MEDS: Furosemide 10 mg/mL 4 mL Inj IVPUSH SCH ×3 (07:10→16:50)
[2017-05-09] MEDS: Albuterol 2.5 mg/3 mL Inhalation Solution NEB SCH ×4 (07:37→21:12)
[2017-05-09] MEDS: Sodium Chloride LOK Flush 10 mL Syringe IVFLUSH SCH ×2 (08:30→16:30)
[2017-05-09] MEDS: Meropenem Inj 1,000 MG in 0.9% Sodium Chloride 100 ML IV SCH ×2 (09:29→16:50)
[2017-05-09] MEDS: Tiotropium 18mcg/Cap 5 Capsule Inhaler Kit INHALATION SCH (09:29)
[2017-05-09] MEDS: Isosorbide Mononitrate 30 mg ER24 Tablet PO SCH (09:30)
[2017-05-09] MEDS: predniSONE 20 mg Tablet PO SCH (09:30)
--- NOTE | 2017-05-09 11:13 | NUR ---
NUTRITION FOLLOW-UP: ASSESS: 77 YO M admitted for respiratory failure. Pt has esophageal cancer, status post PEG tube placement 01/30. Per pt's , pt was last on TF back in the end of March and since March pt has lost ~9% of his body wt=severe wt loss. Pt had MBS and ST is recommending safest option would be to continue NPO status and start TF. TF of Glucerna 1.5 was started 05/06 and pt is tolerating TF well. It is currently running at goal of 70ml/hr. Pts respiratory status has declined and he is currently requiring BIPAP. Fluid flushes have been decreased due to CHF to 40ml q 4 hrs. RN is aware of fluid flush change. Due to poor PO tolerance, 9% wt loss x 1 month and chronic dysphagia pt would greatly benefit from continuing TF after discharge for greater than 90day. 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 LABS: Reviewed. Bun 33, Glu 159, Ca 8.1 MEDS: Reviewed. Lasix, coumadin GI: BMx1 05/08 SKIN: Jeramy 15, frail man lying in bed WT: 96.4kg, BMI 28.8kg, admit wt: 97.2kg UBW: ~110kg, IBW: 80.9kg (113% IBW). Pt wt 03/28/17 was 100kg. Pt has lost ~9% body wt x1 month= severe wt loss NUTRITION SUPPORT: Glucerna 1.5 @ 70ml/hr providing 2415kcal and 132g pro (100% estimated needs). DIET: NPO per ST EST. NEEDS: Calories: 2716-1201 kcal/day (25-30 kcal/kg) Protein: 95-140 g/day (1.0-1.5 g/kg) Fluids: ~2375ml/day (25ml/kg) NUTRITION DIAGNOSIS: 1) Inadequate oral intake related to esophageal ca as evidence by current NPO status, inability to keep PO food down due to dysphagia and need for PEG tube to maintain adequate nutrition --PERSISTS 2) Moderate pro/kcal malnutrition related to esophageal ca as evidence by chronic dysphagia per ST, 9% wt loss x1 month, decreased PO intake of less than 75% estimated needs for greater than 1 month and mild muscle/fat loss. --PERSISTS NUTRITION INTERVENTION: 1) Recommend continue Glucerna 1.5 @ goal rate of 70ml/hr to provide 2415kcal and 132g pro (100% estimated needs). 2) Spoke w/ MD and due to CHF, will decrease pts fluid flushes to 40ml q 4 hrs to provide 240ml free water. TF water+ water flushes provides ~1462ml H20. Total fluid provided is 1850ml. 3) Pt would greatly benefit from long-term TF for greater than 3 months to help maintain adequate nutrition status. 4) Will monitor fluid status closely due to possible CHF. MONITOR/EVALUATE: TF javad, fluids, GI, labs, ST, wt, POC, nutrition status. Will continue to monitor per high nutrition risk guidelines
--- NOTE | 2017-05-09 12:01 | PCM.PNMED ---
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 He has tolerated continuous BiPAP since yesterday, well oxygenated on 50% O2. He feels his dyspnea is about the same. No cough, fever or chills. No abdominal complaints. Exam Vital Signs Vital Sign - Last Date Time Temp Pulse Resp B/P Pulse Ox O2 Delivery O2 Flow Rate FiO2 05/09/17 11:32 73 27 124/69 92 50 05/09/17 03:51 36.5 BiPAP 05/08/17 14:05 12.00 Intake and Output 05/08/17 05/08/17 05/09/17 Cumulative From/Thru 15:00 23:00 07:00 05/05/17 06:47 - 05/09/17 06:54 Intake Total 50 ml 200 ml 4338 ml Output Total 500 ml 450 ml 6500 ml Balance -450 ml -250 ml -2162 ml Intake Oral 50 ml 100 ml 1600 ml IV Total 100 ml 200 ml Tube Feeding 1251 ml Tube Irrigant 1287 ml Output Urine Total 500 ml 450 ml 6500 ml # Bowel Movements 0 0 Body weight on admission 97.2 Body weight today 96.4, increased 3.5 KG since yesterday Exam General: Ill-appearing elderly man tachypneic HEENT: sclerae anicteric, oral mucosa moist Neck: JVD ~3cm cm above sternal notch, marked respiratory variation Chest: Coarse breath sounds right greater than left, bilateral crackles, no significant wheezing Cardiac: S1S2, II/ SM at LLSB apex, irregular Abdomen: BS normal, non-tender Extremities: No pedal edema Neuro: A&O, cranial nerves symmetric, motor strength 5-/5, coordination normal IVs and Medications Medications Reviewed: Medications were reviewed in detail Lab and Diagnostics Result Diagram: 05/09/1740405/09/17404 X-Rays, CTs and MRIs PROCEDURE: X-RAY CHEST ONE VIEW, PORTABLE ([id number]) IMPRESSION: 1. Developing upper lobe predominant consolidation is suspicious for pneumonia. Pulmonary edema may also have this appearance. 2. Possible trace right-sided effusion. Dictated by: Quirino Gómez M.D. on 05/05/2017 at 15:57 PROCEDURE: X-RAY BARIUM SWALLOW WITH FOOD & VIDEOGRAPHY ([id number]) FINDINGS: Function: The oral preparatory phase appears normal, with proper containment. The subsequent oral propulsive phase, pharyngeal phase, and esophageal phase of swallowing also appear normal with all proffered substances. Laryngeal penetration identified on multiple occasions. Mild vallecular pooling noted. IMPRESSION: Laryngeal penetration and vallecular pooling. Dictated by: Trenton Joshi [facility] Interpreted: Quirino Gómez MD on 05/05/2017 at 14 :07 PROCEDURE: X-RAY CHEST, TWO VIEWS ([id number]) IMPRESSION: 1. Cardiomegaly and increasing mixed interstitial and alveolar opacities is most suggestive of congestive heart failure. This has increased in the interim. Superimposed pneumonia is difficult to exclude. 2. Mild basilar atelectasis and/or small effusions. Dictated by: Quirino Gómez M.D. on 05/07/2017 at 8:52 PROCEDURE: CT CHEST WITH CONTRAST ([id number]) FINDINGS: Lungs and pleura: There are bilateral right greater than left effusions. There are alveolar densities superimposed on chronic lung disease. Increased interstitial markings are present as well. Mediastinum: Heart size is enlarged. No pericardial effusion. No mediastinal or hilar adenopathy by size criteria. Thoracic aorta and central pulmonary arteries are normal in size. Esophagus is normal in caliber. No hiatal hernia. IMPRESSION: Significant changes since the previous CT of 02/03/17 would suggest congestive failure changes superimposed on chronic lung disease. Dictated by: Bartolome Mena M.D. on 05/08/2017 at 20:28 . 12-lead ECG EKG 05/05/17 16:49 patient rhythm rate 76, LBBB morphology, QTC 522 . Cardiac Echo Impressions Cardiac Echo Impressions Most recent echo: Echocardiogram Report Name: ANIA LIM Study Date: 02/10/2017 Interpretation Summary 1. Normal left ventricular size with borderline increased wall thickness and an estimated EF of 45-50% 2.Upper limits of normal right ventricular size with low normal systolic function 3. No evidence for significant valvular pathology Assessment & Plan Acute, Active or High-risk Problems: #. Acute on chronic respiratory failure and hypoxia, POA. At time of admission , chest x-ray was consistent with pulmonary edema. No clinical improvement despite adequate initial diuresis. He subsequently developed hypotension and Lasix was held on 05/07. Procalcitonin is elevated but but initial presentation did not suggest pneumonia. Meropenem for hospital-acquired aspiration initiated on 05/07. Chest x-ray reveals worsening alveolar or nodular type infiltrate on 05/07. Pulmonary condition is deteriorating despite diuresis. Other pulmonary risks include stage III esophageal carcinoma, RLL lung adenocarcinoma, recent long radiotherapy,and history of amiodarone pulmonary toxicity. - Continue BPAP - Pulmonology consult is following -Resume and increase furosemide to treat congestive heart failure and fluid overload - Continue to treat possible aspiration with meropenem - Initiate empiric glucocorticoids for possible radiation or medication induced pneumonitis #. Probable acute on chronic systolic heart failure, POA. Lasix 40 IV every 12 hours resulted in 3.5 L diuresis of her first 48 hours, then Lasix was held due to hypotension. Chest imaging most consistent with pulmonary edema. - Reduced enalapril due to hypotension; - resume furosemide; target -1 L per day fluid balance; minimize IV fluids - Continue Daily weights - Continue spironolactone, isosorbide, metoprolol, hydralazine, # Dysphagia, POA. Modified barium was performed. The patient appears to likely not be safe for oral intake. - the patient and family endorse long-term tube feeding nutrition - Nutrition consult order to recommend to feed prescription - Initiate Jevity 1.5 with goal rate 70 mils per hour 24 hours; minimize fluid flushes # Malnutrition, moderate. Confounded by CHF related fluid retention. Currently unable to take oral intake. - Patient will be dependent on tube feeds at time of discharge #Type II diabetes mellitus, POA. Anticipate blood sugar increase with glucocorticoids - 4 times a day blood sugar checks; goal blood sugars less than 180 - Initiate every 6 R regular insulin in light of continuous tube feeds - We will consider switch to insulin glargine after insulin requirements are defined #. Chronic atrial fibrillation, POA. Patient has good rate control we will continue warfarin. INR 1.86 on admission. Current INR 1.7 - warfarin per pharmacist. #. Goals of care. Discussed with patient and family today. They are aware of his declining course, but feel this can be reversed with better physical and nutritional therapy. He is satisfied with his ability to live at home with bed to limited household activities. 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 - Advance care planning discussion completed on 05/08. - DO NOT INTUBATE, DO NOT RESUSCITATE status; otherwise full medical efforts. Resolving, stable and/or chronic problems: #. Esophageal cancer, stage III POA. Status post radiotherapy and chemotherapy # RLL adenocarcinoma, POA. Small adenocarcinoma unlikely to be active at this time. #. 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 POA. Continue his dofetilide. #. COPD, POA. Continue Spiriva #. Hypertension, POA. Usual medications. #. CAD, POA. Continue current medications follow clinically. Disposition: He continues to require aggressive care for hypoxic respiratory failure. He has not improved substantially. Likely require 3-7 more days of inpatient care VTE Prophylaxis: Theraputic Anticoag with Warfarin VTE Mechanical Devices: Intermittant Pneumatic CD Resuscitation Status: DNR/DNI:Do Not Resuscitate/Intubate Time spent 55 minutes Darci Galdamez MD May 09, 2017 12:01
--- NOTE | 2017-05-09 14:51 | PCM.PHAPRO ---
Progress Shortness of breath. Acute systolic heart failure WARFARIN Indication: AFib Home dose 1mg/day Recent dosing: Date May 06-Apr 14-Tom 15-Tom 16-Tom 17-Tom 18-Tom 19-Tom 20-Tom INR 1.86 2.23 2.69 2.13 1.7 Warf Dose 2MG X1 1MG/D 1 1 2MG X1 a/ Unexpected drop in INR. No doses missed. p/ Bump dose today, follow/gsf Dennis Fitzpatrick Pharm D May 09, 2017 14:51
--- NOTE | 2017-05-09 19:18 | NUR ---
Activity Pt on the bedpan this AM when photonics technician called stating pt Heart Rate in the 130s, Pt heart rate back down to 80s after taken off bedpan. SpO2 dropping to low 80s while laying flat for Cecelia care. Keeping activity to a minimum at this time. Report given to oncoming RN.
[2017-05-10] VITALS (14 sets, daily range): BP systolic 95–127; BP diastolic 48–79; PULSE 72–82; RESP 18–40; O2SAT 90–96
--- NOTE | 2017-05-10 00:44 | NUR ---
Removed mask to check for any skin breakdown, none noted
[2017-05-10] MEDS: Sodium Chloride LOK Flush 10 mL Syringe IVFLUSH SCH ×3 (00:53→16:22)
[2017-05-10] MEDS: Meropenem Inj 1,000 MG in 0.9% Sodium Chloride 100 ML IV SCH ×3 (00:53→16:20)
[2017-05-10 03:37] LABS: INR 1.49 ratio
[2017-05-10] MEDS: Insulin Human REGular 300 Unit/3 mL Inj SUBQ SCH ×5 (03:41→20:45)
--- NOTE | 2017-05-10 05:51 | NUR ---
Tele/Respiratory Patient in v-paced rhythm with frequent PVCs. On BiPAP with FiO2 50%. Periodic desaturations to 80-82% SpO2. Recovers spontaneously to 88-91%. Continue to monitor.
--- NOTE | 2017-05-10 07:55 | PCM.PHAPRO ---
Progress Shortness of breath. Acute systolic heart failure Date 12-Apr 13-Tom 14-Tom 15-Tom 16-Tom 17-Tom INR 1.86 2.23 2.69 2.13 1.7 1.49 INR change 0.37 0.46 -0.56 -0.43 -0.21 Warf Dose 2MG X1 1MG/D 1 1 2MG X1 2 MG Erika Bowen PharmD May 10, 2017 07:55
[2017-05-10] MEDS: Albuterol 2.5 mg/3 mL Inhalation Solution NEB SCH ×4 (08:08→21:02)
[2017-05-10] MEDS: predniSONE 20 mg Tablet PO SCH (09:20)
[2017-05-10] MEDS: Furosemide 10 mg/mL 10 mL Inj IVPUSH SCH ×2 (09:20→13:20)
[2017-05-10] MEDS: Tiotropium 18mcg/Cap 5 Capsule Inhaler Kit INHALATION SCH (09:20)
[2017-05-10] MEDS: Isosorbide Mononitrate 30 mg ER24 Tablet PO SCH (09:20)
--- NOTE | 2017-05-10 15:15 | NUR ---
[facility] Signed
--- NOTE | 2017-05-10 15:50 | NUR ---
Social Work: Continued Discharge Planning D: Pt discussed in am rounds. Clinically pt is not improving and is now on BIPAP. Pt's prognosis is uncertain at this time. Pt is strictly NPO with tube feeds. MD states that pt will require these at time of discharge if he clinically improves. Order placed for MINE SAFETY DIRECTOR to begin coordinating discharge tube feeds. MINE SAFETY DIRECTOR met with the patient and at bedside to discuss discharge planning. confirms that their plan would still be for the patient to discharge home with [facility] for nursing and PT. They have never had home infusions in the past for tube feeds. HOME INFUSION CHOICE LIST PROVIDED. Her preference is for [facility]. They live [place] and are concerned that their geographic location may result in a delay of services. t/c to Laverne Chopra with [facility] to provide referral; message left requesting return phone call to provide referral. Access provided. A: Pt who lives on Friday with his . P: Evolving; Pt and anticipate return home with [facility] for RN, PT and home infusions for tube feeds; MINE SAFETY DIRECTOR to continue to follow up with [facility] to confirm receipt of referral. IFEOMA [place]
[2017-05-10] MEDS ORDERED: DiphenOXYlate-Atropine 2.5 mg-0.025 mg Tablet PO PRN (17:40)
--- NOTE | 2017-05-10 17:44 | PCM.PNMED ---
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 Tolerating continuous BiPAP, well oxygenated on 50% O2. He feels his dyspnea is about the same. No cough, fever or chills. No abdominal complaints, but increased diarrhea is very bothersome. Exam Vital Signs Vital Sign - Last Date Time Temp Pulse Resp B/P Pulse Ox O2 Delivery O2 Flow Rate FiO2 05/10/17 17:04 36.5 72 22 95/48 96 OxyMask 13.00 05/10/17 16:35 50 Intake and Output 05/09/17 05/09/17 05/10/17 Cumulative From/Thru 14:59 22:59 06:59 05/05/17 06:47 - 05/10/17 06:37 Intake Total 441 ml 4784 ml 9563 ml Output Total 850 ml 500 ml 7850 ml Balance -409 ml 4284 ml 1713 ml Intake Oral 50 ml 0 ml 1650 ml IV Total 391 ml 98 ml 689 ml Tube Feeding 3308 ml 4559 ml Tube Irrigant 1378 ml 2665 ml Output Urine Total 850 ml 500 ml 7850 ml # Voids 3 3 # Bowel Movements 1 1 Exam General: Ill-appearing elderly man tachypneic but able to speak HEENT: sclerae anicteric, oral mucosa moist Neck: No JVD Chest: Coarse breath sounds right greater than left, bilateral crackles, no significant wheezing Cardiac: S1S2, II/ SM at LLSB apex, irregular Abdomen: BS normal, non-tender Extremities: No pedal edema Neuro: A&O, cranial nerves symmetric, motor strength 4/5, coordination normal IVs and Medications Medications Reviewed: Medications were reviewed in detail Lab and Diagnostics Result Diagram: 05/09/17 0405 05/10/17 0304 X-Rays, CTs and MRIs PROCEDURE: X-RAY CHEST ONE VIEW, PORTABLE ([id number]) IMPRESSION: 1. Developing upper lobe predominant consolidation is suspicious for pneumonia. Pulmonary edema may also have this appearance. 2. Possible trace right-sided effusion. Dictated by: Quirino Gómez M.D. on 05/05/2017 at 15:57 PROCEDURE: X-RAY BARIUM SWALLOW WITH FOOD & VIDEOGRAPHY ([id number]) FINDINGS: Function: The oral preparatory phase appears normal, with proper containment. The subsequent oral propulsive phase, pharyngeal phase, and esophageal phase of swallowing also appear normal with all proffered substances. Laryngeal penetration identified on multiple occasions. Mild vallecular pooling noted. IMPRESSION: Laryngeal penetration and vallecular pooling. Dictated by: Trenton Joshi [facility] Interpreted: Quirino Gómez MD on 05/05/2017 at 14 :07 PROCEDURE: X-RAY CHEST, TWO VIEWS ([id number]) IMPRESSION: 1. Cardiomegaly and increasing mixed interstitial and alveolar opacities is most suggestive of congestive heart failure. This has increased in the interim. Superimposed pneumonia is difficult to exclude. 2. Mild basilar atelectasis and/or small effusions. Dictated by: Quirino Gómez M.D. on 05/07/2017 at 8:52 PROCEDURE: CT CHEST WITH CONTRAST ([id number]) FINDINGS: Lungs and pleura: There are bilateral right greater than left effusions. There are alveolar densities superimposed on chronic lung disease. Increased interstitial markings are present as well. Mediastinum: Heart size is enlarged. No pericardial effusion. No mediastinal or hilar adenopathy by size criteria. Thoracic aorta and central pulmonary arteries are normal in size. Esophagus is normal in caliber. No hiatal hernia. IMPRESSION: Significant changes since the previous CT of 02/03/17 would suggest congestive failure changes superimposed on chronic lung disease. Dictated by: Bartolome Mena M.D. on 05/08/2017 at 20:28 . 12-lead ECG EKG 05/05/17 16:49 patient rhythm rate 76, LBBB morphology, QTC 522 . Cardiac Echo Impressions Cardiac Echo Impressions Most recent echo: Echocardiogram Report Name: ANIA LIM Study Date: 02/10/2017 Interpretation Summary 1. Normal left ventricular size with borderline increased wall thickness and an estimated EF of 45-50% 2.Upper limits of normal right ventricular size with low normal systolic function 3. No evidence for significant valvular pathology Assessment & Plan Acute, Active or High-risk Problems: #. Acute on chronic respiratory failure and hypoxia, POA. At time of admission , chest x-ray was consistent with pulmonary edema. No clinical improvement despite adequate initial diuresis. He subsequently developed hypotension and Lasix was held on 05/07. Procalcitonin is elevated but but initial presentation did not suggest pneumonia. Meropenem for hospital-acquired aspiration initiated on 05/07. Chest x-ray reveals worsening alveolar or nodular type infiltrate on 05/07. Pulmonary condition is deteriorating despite diuresis. Other pulmonary risks include stage III esophageal carcinoma, RLL lung adenocarcinoma, recent long radiotherapy,and history of amiodarone pulmonary toxicity. BPAP initiated 05/08/17. High-dose furosemide resumed on 05/09 with good urine output. - Pulmonology consult is following - Continue BPAP - Continue furosemide to treat congestive heart failure and fluid overload - Continue to treat possible aspiration with meropenem - Continue empiric glucocorticoids for possible radiation or medication induced pneumonitis #. Probable acute on chronic systolic heart failure, POA. Lasix 100 IV every 12 hours resulted in brisk L diuresis. Lasix was held on 05/07, limited by hypotension. Chest imaging most consistent with pulmonary edema, for which there should be clinical improvement evident after diuresis. - Reduced enalapril due to hypotension; - resume furosemide; target -2 L per day fluid balance; minimize IV fluids - Continue Daily weights - Continue spironolactone, isosorbide, metoprolol, hydralazine, # Dysphagia, POA. Modified barium was performed. The patient appears to likely not be safe for oral intake. - the patient and family endorse long-term tube feeding nutrition - Nutrition consult order to recommend to feed prescription - Initiate Jevity 1.5 with goal rate 70 mils per hour 24 hours; minimize fluid flushes Assessment diarrhea, not POA. Nominal pain. Suspect osmotic effect of Jevity 1.5 at 70 mL per hour. - Reduced tube feed to 50 mL per hour - Lomotil every 6 hours when necessary # Malnutrition, moderate. Confounded by CHF related fluid retention. Currently unable to take oral intake. - Patient will be dependent on tube feeds at time of discharge #Type II diabetes mellitus, POA. Anticipate blood sugar increase with glucocorticoids - 4 times a day blood sugar checks; goal blood sugars less than 180 - Initiate every 6 R regular insulin in light of continuous tube feeds - We will consider switch to insulin glargine after insulin requirements are defined #. Chronic atrial fibrillation, POA. Patient has good rate control we will continue warfarin. INR 1.86 on admission. Current INR 1.7 - warfarin per pharmacist. #. Goals of care. Discussed with patient and family today. They are aware of his declining course, but feel this can be reversed with better physical and nutritional therapy. He is satisfied with his ability to live at home with bed to limited household activities. 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 - Advance care planning discussion completed on 05/08. - DO NOT INTUBATE, DO NOT RESUSCITATE status; otherwise full medical efforts. Resolving, stable and/or chronic problems: #. Esophageal cancer, stage III POA. Status post radiotherapy and chemotherapy # RLL adenocarcinoma, POA. Small adenocarcinoma unlikely to be active at this time. #. 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 POA. Continue his dofetilide. #. COPD, POA. Continue Spiriva #. Hypertension, POA. Usual medications. #. CAD, POA. Continue current medications follow clinically. Disposition: He continues to require aggressive care for hypoxic respiratory failure. He has not improved substantially. Likely require 3-7 more days of inpatient care VTE Prophylaxis: Theraputic Anticoag with Warfarin VTE Mechanical Devices: Intermittant Pneumatic CD Resuscitation Status: DNR/DNI:Do Not Resuscitate/Intubate Time spent 35 min Darci Galdamez MD May 10, 2017 17:44
--- NOTE | 2017-05-10 19:29 | NUR ---
Tele/Oxygen saturation/Activity: Tele: VPaced with frequent PVC's and multiple runs of VTach this shift (longest run was at 0942 with 26 beats VTach). Pt asymptomatic. notified. No further orders at this time. Pt on BiPAP 50% FiO2 most of shift SpO2: 88-92 at rest. Desaturates to mid 80's with any exertion and RR increases to 30's. Patient is able to assist with turning in bed for bedpan use and worked on bed exercises with PT.
--- NOTE | 2017-05-10 21:04 | NUR ---
removed mask to check for any skin breakdown, no breakdown noted or redness.
[2017-05-11] VITALS (13 sets, daily range): BP systolic 84–120; BP diastolic 39–64; PULSE 73–83; RESP 23–39; O2SAT 91–98
[2017-05-11] MEDS: Sodium Chloride LOK Flush 10 mL Syringe IVFLUSH SCH ×3 (00:27→16:30)
[2017-05-11] MEDS: Meropenem Inj 1,000 MG in 0.9% Sodium Chloride 100 ML IV SCH ×3 (00:27→16:33)
[2017-05-11] MEDS: Insulin Human REGular 300 Unit/3 mL Inj SUBQ SCH ×4 (03:19→20:18)
[2017-05-11 03:36] LABS: Mean Corpuscular Hemoglobin 24.3 pg (27.0-35.0); Mean Corpuscular Volume 84.4 fL (81-100)
[2017-05-11 03:55] LABS: INR 1.49 ratio
--- NOTE | 2017-05-11 06:11 | NUR ---
Tele/Respiratory Patient continues to have v-paced rhythm with frequent PVCs and a single run of 7 beats of v-tach. Patient asymptomatic during run of v-tach. BiPAP at 50% FiO2; patient's SpO2 87-94% throughout the night.
[2017-05-11] MEDS: Albuterol 2.5 mg/3 mL Inhalation Solution NEB SCH ×4 (07:54→20:45)
--- NOTE | 2017-05-11 07:56 | PCM.PHAPRO ---
Progress Shortness of breath. Acute systolic heart failure WARFARIN DOSING PER PHARMACY Date May 06 14 15-Apr 16-Apr 17-Tom 18-Apr INR 1.86 2.23 2.69 2.13 1.7 1.49 1.49 INR change 0.37 0.46 -0.56 -0.43 -0.21 Warf Dose 2MG X1 1MG/D 1 1 2MG X1 2 MG 3MG Erika Bowen PharmD May 11, 2017 07:56
--- NOTE | 2017-05-11 08:19 | DRSVH ---
PROCEDURE: X-RAY CHEST ONE VIEW ([id number]) INDICATIONS: assessment interval change TECHNIQUE: One view of the chest was acquired. COMPARISON: [facility], CR, XR CHEST 2VW, 05/07/2017, 8:02. FINDINGS: Surgical changes and devices: AICD and sternotomy wires. Right chest port with the tip projecting in the mid SVC. Lungs and pleura: No pleural effusions or pneumothorax. Persistent bilateral widespread consolidativ e and groundglass opacities with mild improvement in the right lung base otherwise no definite interv al change since 05/07/17. Mediastinum: Mediastinal contours appear normal. Heart size is normal. Bones and chest wall: No suspicious bony lesions. Overlying soft tissues appear unremarkable. IMPRESSION: Mild improvement in right lower lobe aeration since 05/07/17. Otherwise, persistent bilate ral patchy and groundglass opacities remain. Dictated by: Misbah Cox M.D. on 05/11/2017 at 8:15 Approved by: Misbah Cox M.D. on 05/11/2017 at 8:17
[2017-05-11] MEDS: Furosemide 10 mg/mL 10 mL Inj IVPUSH SCH ×2 (11:25→16:00)
[2017-05-11] MEDS: Isosorbide Mononitrate 30 mg ER24 Tablet PO SCH (11:26)
[2017-05-11] MEDS: predniSONE 20 mg Tablet PO SCH (11:26)
[2017-05-11] MEDS: Tiotropium 18mcg/Cap 5 Capsule Inhaler Kit INHALATION SCH (11:27)
--- NOTE | 2017-05-11 14:50 | PCM.PNMED ---
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 Tolerating continuous BiPAP, well oxygenated on 50% O2. He feels his dyspnea is about the same. No cough, fever or chills. Diarrhea is very bothersome, but diminished slightly since yesterday. Exam Vital Signs Vital Sign - Last Date Time Temp Pulse Resp B/P Pulse Ox O2 Delivery O2 Flow Rate FiO2 05/11/17 12:13 82 26 112/56 91 50 05/11/17 08:00 36.7 BiPAP 05/10/17 17:04 13.00 Intake and Output 05/10/17 05/10/17 05/11/17 Cumulative From/Thru 15:00 23:00 07:00 05/05/17 06:47 - 05/11/17 06:56 Intake Total 981 ml 971 ml 65742 ml Output Total 3680 ml 550 ml 68506 ml Balance -2699 ml 421 ml -565 ml Intake Oral 0 ml 0 ml 1650 ml IV Total 100 ml 193 ml 982 ml Tube Feeding 776 ml 658 ml 5993 ml Tube Irrigant 105 ml 120 ml 2890 ml Output Urine Total 3480 ml 550 ml 51817 ml Urine/Stool Mix 200 ml 200 ml # Voids 3 # Bowel Movements 2 3 Weighted admission 97.2 kg Weight today 89.3 kg Exam General: Ill-appearing elderly man tachypneic with BiPAP HEENT: sclerae anicteric, oral mucosa moist Neck: No JVD Chest: Coarse breath sounds right greater than left, bilateral crackles, no wheezing Cardiac: S1S2, II/ SM at LLSB apex, irregular Abdomen: BS normal, non-tender Extremities: No pedal edema Neuro: A&O, cranial nerves symmetric, motor strength 4/5, coordination normal IVs and Medications Medications Reviewed: Medications were reviewed in detail Lab and Diagnostics Result Diagram: 05/11/1731405/11/17314 X-Rays, CTs and MRIs PROCEDURE: X-RAY CHEST ONE VIEW, PORTABLE ([id number]) IMPRESSION: 1. Developing upper lobe predominant consolidation is suspicious for pneumonia. Pulmonary edema may also have this appearance. 2. Possible trace right-sided effusion. Dictated by: Quirino Gómez M.D. on 05/05/2017 at 15:57 PROCEDURE: X-RAY BARIUM SWALLOW WITH FOOD & VIDEOGRAPHY ([id number]) FINDINGS: Function: The oral preparatory phase appears normal, with proper containment. The subsequent oral propulsive phase, pharyngeal phase, and esophageal phase of swallowing also appear normal with all proffered substances. Laryngeal penetration identified on multiple occasions. Mild vallecular pooling noted. IMPRESSION: Laryngeal penetration and vallecular pooling. Dictated by: Trenton Joshi [facility] Interpreted: Quirino Gómez MD on 05/05/2017 at 14 :07 PROCEDURE: X-RAY CHEST, TWO VIEWS ([id number]) IMPRESSION: 1. Cardiomegaly and increasing mixed interstitial and alveolar opacities is most suggestive of congestive heart failure. This has increased in the interim. Superimposed pneumonia is difficult to exclude. 2. Mild basilar atelectasis and/or small effusions. Dictated by: Quirino Gómez M.D. on 05/07/2017 at 8:52 PROCEDURE: CT CHEST WITH CONTRAST ([id number]) FINDINGS: Lungs and pleura: There are bilateral right greater than left effusions. There are alveolar densities superimposed on chronic lung disease. Increased interstitial markings are present as well. Mediastinum: Heart size is enlarged. No pericardial effusion. No mediastinal or hilar adenopathy by size criteria. Thoracic aorta and central pulmonary arteries are normal in size. Esophagus is normal in caliber. No hiatal hernia. IMPRESSION: Significant changes since the previous CT of 02/03/17 would suggest congestive failure changes superimposed on chronic lung disease. Dictated by: Bartolome Mena M.D. on 05/08/2017 at 20:28 . 12-lead ECG EKG 05/05/17 16:49 patient rhythm rate 76, LBBB morphology, QTC 522 . Cardiac Echo Impressions Cardiac Echo Impressions Most recent echo: Echocardiogram Report Name: ANIA LIM Study Date: 02/10/2017 Interpretation Summary 1. Normal left ventricular size with borderline increased wall thickness and an estimated EF of 45-50% 2.Upper limits of normal right ventricular size with low normal systolic function 3. No evidence for significant valvular pathology Assessment & Plan Acute, Active or High-risk Problems: #. Acute on chronic respiratory failure and hypoxia, POA. At time of admission , chest x-ray was consistent with pulmonary edema. No clinical improvement despite adequate initial diuresis. He subsequently developed hypotension and Lasix was held on 05/07. Procalcitonin is elevated but but initial presentation did not suggest pneumonia. Meropenem for hospital-acquired aspiration initiated on 05/07. Chest x-ray and CT most suggestive of pulmonary edema. Pulmonary condition deteriorated despite diuresis. Other pulmonary risks include stage III esophageal carcinoma, RLL lung adenocarcinoma, recent long radiotherapy,and history of amiodarone pulmonary toxicity. BPAP initiated . High-dose furosemide resumed on 05/09 with good urine output. Chest x-ray seems improved. Oxygen requirements and dyspnea seem unchanged - Pulmonology consult is following - Continue BPAP - Continue furosemide to treat congestive heart failure and fluid overload - Continue to treat possible aspiration with meropenem; discontinue after 5 days on 05/12 - Continue empiric glucocorticoids for possible radiation or medication induced pneumonitis #. Probable acute on chronic systolic heart failure, POA. Lasix 100 IV every 12 hours resulted in brisk L diuresis. Lasix was held on 05/07, limited by hypotension. Chest imaging most consistent with pulmonary edema, for which there should be clinical improvement evident after diuresis. - Reduced enalapril due to hypotension; -Continue furosemide; target -1 L per day fluid balance; minimize IV fluids - Continue Daily weights - Continue spironolactone, isosorbide, metoprolol, hydralazine, # Dysphagia, POA. Modified barium was performed. The patient appears to likely not be safe for oral intake. - Initiated Jevity 1.5 with goal rate 70 mils per hour 24 hours; on which she developed significant diarrhea. - The patient and family endorse long-term tube feeding nutrition -Decreased tube feed 50 mL per hour # diarrhea, not POA. Nominal pain. Suspect osmotic effect of Jevity 1.5 at 70 mL per hour. - Reduced tube feed to 50 mL per hour - Lomotil every 6 hours when necessary # Malnutrition, moderate. Confounded by CHF related fluid retention. Currently unable to take oral intake. - Patient will be dependent on tube feeds at time of discharge #Type II diabetes mellitus, POA. Blood sugars largely on target with minimal insulin. - 4 times a day blood sugar checks; goal blood sugars less than 180 - Initiate every 6 R regular insulin in light of continuous tube feeds #. Chronic atrial fibrillation, POA. Patient has good rate control we will continue warfarin. INR 1.86 on admission. Current INR 1.49. - Increase warfarin per pharmacist. #. Goals of care. Discussed with patient and family today. They are aware of his declining course, but feel this can be reversed with better physical and nutritional therapy. He is satisfied with his ability to live at home with bed to limited household activities. 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 - Advance care planning discussion completed on 05/08. - DO NOT INTUBATE, DO NOT RESUSCITATE status; otherwise full medical efforts. Resolving, stable and/or chronic problems: #. Esophageal cancer, stage III POA. Status post radiotherapy and chemotherapy # RLL adenocarcinoma, POA. Small adenocarcinoma unlikely to be active at this time. #. 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 POA. Continue his dofetilide. #. COPD, POA. Continue Spiriva #. Hypertension, POA. Usual medications. #. CAD, POA. Continue current medications follow clinically. Disposition: He continues to require aggressive care for hypoxic respiratory failure. He has not improved substantially. Likely require 3-7 more days of inpatient care VTE Prophylaxis: Theraputic Anticoag with Warfarin VTE Mechanical Devices: Intermittant Pneumatic CD Resuscitation Status: DNR/DNI:Do Not Resuscitate/Intubate Time spent 35 minutes in patient assessment care coordination including counseling family members at bedside Darci Galdamez MD May 11, 2017 14:50
--- NOTE | 2017-05-11 19:39 | NUR ---
Tele/Respiratory/BM Pt sitll Vpaced 70-80s, pt denies c/p. Still on Bipap with 50% FiO2, SpO2 mid 90s. Only had one BM this shift, loose brown. Report given to oncoming RN.
[2017-05-12] VITALS (23 sets, daily range): BP systolic 91–121; BP diastolic 43–68; PULSE 71–83; RESP 16–33; O2SAT 92–99
[2017-05-12] MEDS: Sodium Chloride LOK Flush 10 mL Syringe IVFLUSH SCH ×4 (00:07→23:29)
[2017-05-12] MEDS: Meropenem Inj 1,000 MG in 0.9% Sodium Chloride 100 ML IV SCH ×2 (00:07→10:02)
[2017-05-12] MEDS: Insulin Human REGular 300 Unit/3 mL Inj SUBQ SCH ×4 (03:08→21:11)
--- NOTE | 2017-05-12 05:14 | NUR ---
Tele/BP Patient continues to be v-paced in the 70-80s with frequent PVCs. Three runs of v-tach overnight for 5-11 beats. Patient asymptomatic during runs of v-tach. Patient's SBP 86 at start of shift; FYI page to hospitalist and evening dose of metoprolol held. Subsequent pressures sean to SBP in the 90s. Patient denies dizziness/lightheadedness/chest discomfort. Continue to monitor.
[2017-05-12 05:51] LABS: INR 1.54 ratio
[2017-05-12] MEDS: Albuterol 2.5 mg/3 mL Inhalation Solution NEB SCH ×4 (07:29→20:12)
[2017-05-12] MEDS: Furosemide 10 mg/mL 10 mL Inj IVPUSH SCH (08:00)
[2017-05-12] MEDS: Tiotropium 18mcg/Cap 5 Capsule Inhaler Kit INHALATION SCH (10:02)
[2017-05-12] MEDS: predniSONE 20 mg Tablet PO SCH (10:03)
--- NOTE | 2017-05-12 10:36 | NUR ---
NUTRITION FOLLOW-UP: ASSESS: 77 YO M admitted for respiratory failure. Pt has esophageal cancer, status post PEG tube placement 01/30. Per pt's , pt was last on TF back in the end of March and since March pt has lost ~9% of his body wt=severe wt loss. Pt had MBS and ST is recommending safest option would be to continue NPO status and start TF. TF of Glucerna 1.5 was started 05/06. TF reduced from goal of 70 ml/hr to 50 ml/hr due to diarrhea. Pt continues to require BIPAP. Due to poor PO tolerance, 9% wt loss x 1 month and chronic dysphagia pt would greatly benefit from continuing TF after discharge for greater than 90 day. 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 LABS: Reviewed. (05/11): BUN 49, Glu 149, Ca 8.4, (05/05): Alb 2.6 MEDS: Reviewed. Prednisone, Coumadin. GI: BM X 2 (05/11) SKIN: No issues noted. WT: 86.3 kg, BMI 25.8 kg, Admit wt: 97.2 kg UBW: ~110 kg, IBW: 80.9 kg (113% IBW). Pt wt 03/28/17 was 100 kg. Pt has lost ~9% body wt x 1 month= significant wt loss NUTRITION SUPPORT: Glucerna 1.5 @ 50 ml/hr providing 1725 kcal, 95 g protein; meeting 73% calorie, 100% calorie needs. DIET: NPO per ST. ESTIMATED NEEDS: Calories: 2927-9838 kcal/day (25-30 kcal/kg BW) Protein: 95-140 g/day (1.0-1.5 g/kg BW) Fluids: ~2375 ml/day (25 ml/kg) NUTRITION DIAGNOSIS: 1) Inadequate oral intake related to esophageal ca as evidence by current NPO status, inability to keep PO food down due to dysphagia and need for PEG tube to maintain adequate nutrition --PERSISTS 2) Moderate pro/kcal malnutrition related to esophageal ca as evidence by chronic dysphagia per ST, 9% wt loss x 1 month, decreased PO intake of less than 75% estimated needs for greater than 1 month and mild muscle/fat loss. --PERSISTS NUTRITION INTERVENTION: 1) Once able recommend advancing TF of Glucerna 1.5 to goal rate of 70 ml/hr to provide 2415 kcal and 132 g pro (100% estimated needs). 2) Previous RD spoke w/ MD and due to CHF, will decrease pts fluid flushes to 40ml q 4 hrs to provide 240ml free water. Current TF free water + water flushes provides ~1113 ml H20/day. Total fluids: 1390 ml/day. 3) Pt would greatly benefit from long-term TF for greater than 3 months to help maintain adequate nutrition status due to significant weight loss of 9% X 1 month without enteral nutrition. 4) Will monitor fluid status closely due to possible CHF. MONITOR/EVALUATE: TF tolerance/advance, fluids, GI, labs, ST, wt, POC, nutrition status. Follow per high nutrition risk guidelines
[2017-05-12] MEDS: Isosorbide Mononitrate 30 mg ER24 Tablet PO SCH (11:23)
[2017-05-12] MEDS: Furosemide 10 mg/mL 4 mL Inj IVPUSH SCH (13:24)
--- NOTE | 2017-05-12 15:26 | NUR ---
Social Work: Continued Discharge Planning D: Pt discussed in am rounds. Pt still remains in PCC with unknown timeframe for discharge. The patient's prognosis continues to be uncertain. BOTANY TECHNICIAN spoke with Alesha from [facility]. They are following the patient's progress and will coordinate discharge tube feeds if this is needed. A: Pt who lives on Friday with his and is open with [facility] for RN, PT. P: Evolving; BOTANY TECHNICIAN to continue to follow pt's clinical course and assist with discharge planning. IFEOMA [place]
--- NOTE | 2017-05-12 16:03 | PCM.PNMED ---
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 Tolerating intermittent vacation from BiPAP, well oxygenated on 50% O2. He feels his dyspnea is slightly improved today. No cough, fever or chills. Diarrhea has resolved with slightly reduced tube feedings. Exam Vital Signs Vital Sign - Last Date Time Temp Pulse Resp B/P Pulse Ox O2 Delivery O2 Flow Rate FiO2 05/12/17 15:09 82 106/55 05/12/17 13:11 27 94 OxyMask 7.00 05/12/17 12:18 40 05/12/17 12:11 36.7 Intake and Output 05/11/17 05/11/17 05/12/17 Cumulative From/Thru 15:00 23:00 07:00 05/05/17 06:47 - 05/12/17 06:12 Intake Total 200 ml 95 ml 05091 ml Output Total 2050 ml 825 ml 75553 ml Balance -1850 ml -730 ml -3145 ml Intake Oral 0 ml 0 ml 1650 ml IV Total 200 ml 95 ml 1277 ml Tube Feeding 5993 ml Tube Irrigant 2890 ml Output Urine Total 1850 ml 825 ml 37417 ml Stool Total 200 ml 200 ml Urine/Stool Mix 200 ml # Voids 3 6 # Bowel Movements 2 5 Weight on admission 97.2 kg Weight today 86.3 kg. Exam General: Ill-appearing elderly man tachypneic with BiPAP HEENT: sclerae anicteric, oral mucosa moist Neck: No apparent JVD Chest: Coarse breath sounds, bilateral crackles, no wheezing Cardiac: S1S2, II/ SM at LLSB apex, irregular Abdomen: BS normal, non-tender Extremities: No pedal edema Neuro: A&O, cranial nerves symmetric, motor strength and coordination normal IVs and Medications Medications Reviewed: Medications were reviewed in detail Lab and Diagnostics Result Diagram: 05/11/1731405/11/17314 X-Rays, CTs and MRIs PROCEDURE: X-RAY CHEST ONE VIEW, PORTABLE ([id number]) IMPRESSION: 1. Developing upper lobe predominant consolidation is suspicious for pneumonia. Pulmonary edema may also have this appearance. 2. Possible trace right-sided effusion. Dictated by: Quirino Gómez M.D. on 05/05/2017 at 15:57 PROCEDURE: X-RAY BARIUM SWALLOW WITH FOOD & VIDEOGRAPHY ([id number]) FINDINGS: Function: The oral preparatory phase appears normal, with proper containment. The subsequent oral propulsive phase, pharyngeal phase, and esophageal phase of swallowing also appear normal with all proffered substances. Laryngeal penetration identified on multiple occasions. Mild vallecular pooling noted. IMPRESSION: Laryngeal penetration and vallecular pooling. Dictated by: Trenton Joshi [facility] Interpreted: Quirino Gómez MD on 05/05/2017 at 14 :07 PROCEDURE: X-RAY CHEST, TWO VIEWS ([id number]) IMPRESSION: 1. Cardiomegaly and increasing mixed interstitial and alveolar opacities is most suggestive of congestive heart failure. This has increased in the interim. Superimposed pneumonia is difficult to exclude. 2. Mild basilar atelectasis and/or small effusions. Dictated by: Quirino Gómez M.D. on 05/07/2017 at 8:52 PROCEDURE: CT CHEST WITH CONTRAST ([id number]) FINDINGS: Lungs and pleura: There are bilateral right greater than left effusions. There are alveolar densities superimposed on chronic lung disease. Increased interstitial markings are present as well. Mediastinum: Heart size is enlarged. No pericardial effusion. No mediastinal or hilar adenopathy by size criteria. Thoracic aorta and central pulmonary arteries are normal in size. Esophagus is normal in caliber. No hiatal hernia. IMPRESSION: Significant changes since the previous CT of 02/03/17 would suggest congestive failure changes superimposed on chronic lung disease. Dictated by: Bartolome Mena M.D. on 05/08/2017 at 20:28 . 12-lead ECG EKG 05/05/17 16:49 patient rhythm rate 76, LBBB morphology, QTC 522 . Cardiac Echo Impressions Cardiac Echo Impressions Most recent echo: Echocardiogram Report Name: ANIA LIM Study Date: 02/10/2017 Interpretation Summary 1. Normal left ventricular size with borderline increased wall thickness and an estimated EF of 45-50% 2.Upper limits of normal right ventricular size with low normal systolic function 3. No evidence for significant valvular pathology Assessment & Plan Acute, Active or High-risk Problems: #. Acute on chronic respiratory failure and hypoxia, POA. At time of admission , chest x-ray was consistent with pulmonary edema. No clinical improvement despite adequate initial diuresis. He subsequently developed hypotension and Lasix was held on 05/07. Procalcitonin is elevated but but initial presentation did not suggest pneumonia. Meropenem for hospital-acquired aspiration 05/07 - . Chest x-ray and CT most suggestive of pulmonary edema. Initially his pulmonary condition deteriorated despite diuresis. Other pulmonary issues include stage III esophageal carcinoma, small RLL lung adenocarcinoma, recent lung radiotherapy, and history of amiodarone pulmonary toxicity. BPAP was initiated 05/08/17. High-dose furosemide resumed on 05/09 with good urine output. Chest x-ray seems slightly improved. Oxygen requirements and dyspnea seem lately better on 05/12 for the first time - Pulmonology consult is following - Trial of BPAP holidays as tolerated with oxygen mask or nasal cannula; recommend continued BPAP with sleeping - Reduce furosemide from 100 twice a day to 80 mg IV daily in light of substantial diuresis so far. - Continue prednisone 60 mg daily for possible radiation or medication induced pneumonitis #. Probable acute on chronic systolic heart failure, POA. Lasix 100 IV every 12 hours resulted in brisk L diuresis. Lasix was held on 05/07, limited by hypotension. Chest imaging most consistent with pulmonary edema, for which there should be clinical improvement evident after diuresis. - Reduced enalapril due to hypotension; - Continue furosemide; target -1 L per day fluid balance; minimize IV fluids - Continue Daily weights - Continue spironolactone, isosorbide, metoprolol, hydralazine, # Dysphagia, POA. Modified barium was performed. The patient appears to likely not be safe for oral intake. - Initiated Jevity 1.5 with goal rate 70 mils per hour 24 hours; on which she developed significant diarrhea. - The patient and family endorse long-term tube feeding nutrition - Decreased tube feed 50 mL per hour # Diarrhea, not POA. Nominal pain. Suspect osmotic effect of Jevity 1.5 at 70 mL per hour. - Reduced tube feed to 50 mL per hour - Lomotil every 6 hours when necessary # Malnutrition, moderate. Confounded by CHF related fluid retention. Some amount of weight loss appears to exceed fluid diuresis and may be nutrition related. Currently unable to take oral intake. - Patient will be dependent on tube feeds at time of discharge #Type II diabetes mellitus, POA. Blood sugars largely on-target with minimal insulin. - 4 times a day blood sugar checks; goal blood sugars less than 180 - Initiate every 6 R regular insulin in light of continuous tube feeds #. Chronic atrial fibrillation, POA. Patient has good rate control we will continue warfarin. INR 1.86 on admission. Current INR 1.49. - Increase warfarin per pharmacist. #. Goals of care. Discussed with patient and family today. They are aware of his declining course, but feel this can be reversed with better physical and nutritional therapy. He is satisfied with his ability to live at home with bed to limited household activities. Watches television and [employer]. - Advance care planning discussion completed on 05/08. - DO NOT INTUBATE, DO NOT RESUSCITATE status; otherwise full medical efforts. Resolving, stable and/or chronic problems: #. Esophageal cancer, stage III POA. Status post radiotherapy and chemotherapy # RLL adenocarcinoma, POA. Small adenocarcinoma unlikely to be active at this time. #. 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 POA. Continue his dofetilide. #. COPD, POA. Continue Spiriva #. Hypertension, POA. Usual medications. #. CAD, POA. Continue current medications follow clinically. Disposition: He continues to require aggressive care for hypoxic respiratory failure. He has not improved substantially. Likely require 3-7 more days of inpatient care VTE Prophylaxis: Theraputic Anticoag with Warfarin VTE Mechanical Devices: Intermittant Pneumatic CD Resuscitation Status: DNR/DNI:Do Not Resuscitate/Intubate Time spent 35 minutes Darci Galdamez MD May 12, 2017 16:03
[2017-05-12] MEDS ORDERED: Warfarin 5 MG, Warfarin 2.5 MG PO ONE ×2 (17:00)
--- NOTE | 2017-05-12 18:18 | NUR ---
Respiratory Status Pt changed to oxymask 7-8L O2, SpO2 sustaining over 90%, drop down to mid 80s with activity however back up to 90s with rest. Pt tolerated Oxymask well, stating feeling good. Pt made aware to call for any sign of respiratory distress, pt verbalized understanding. Frequent checks. Pt still tolerating Oxymask at this time. Will report to coming RN.
--- NOTE | 2017-05-12 21:00 | PROG NOTE ---
[address] [address] PROGRESS NOTE PATIENT: ANIA LIM : 1940 MR#: [id number] ADMIT: 05/05/2017 JOB ID: [id number] DATE: 05/12/2017 PROBLEMS: 1. Diffuse pulmonary infiltrates. 2. Esophageal carcinoma status post chemotherapy as well as radiation therapy. 3. Recurrent ventricular tachycardia and fibrillation status post AICD placement. 4. Dysphagia with aspiration. 5. COPD by history. SUBJECTIVE: The patient may be feeling slightly better today. Still with no exercise tolerance. Essentially no cough. No sputum production. No pleuritic pain. OBJECTIVE: Temperature 36.7. Pulse mid 70s. Respiratory rate 16 to 20 up in the low 20s with the OxyMask. Blood pressure 103/57, O2 sat on BiPAP of FiO2 0.4, flow of 30 L shows an O2 sat of 95% to 99%. Subsequently, on OxyMask at 7 L O2 sat 94. Respiratory rate was in the mid 20s. O2 delivery was increased to 8 L a minute, O2 sat in the 95-96 range. Respiratory rate in the high teens to low 20s. General appearance still looks pretty frail but a bit more animated. Eyes: Conjunctivae are pink. Chest: Fair breath sounds bilaterally. There are scattered inspiratory crackles with a low-pitched expiratory wheeze in the left mid lung field. Although present seems a little bit clearer than previously with the patient able to take a deeper breath. Heart: Heart tones normal. Abdomen soft. Chest x-ray shows slight improvement in the right lower lung field. LABORATORY STUDIES: White cell count 10,700. Diff not available. Hemoglobin stable at 8.7. Platelet count stable at 164,000. Sodium 142, potassium 5, chloride 98, CO2 is 35, BUN 49 and increasing, creatinine 0.76 and stable, calcium 8.4. ASSESSMENT: Diffuse ill-defined airspace opacities. Has been doing rather poorly. Seems a small bit better today. Perhaps the steroids are kicking in. He has been diuresed to the point he is quite dry at this point, and I think further diuresis would not be effective but might be somewhat detrimental as BUN is rising. Would continue on the present course. Nothing particular additionally to add at this point other than monitoring his progress and reactive to changes as they occur. PLAN: Continue current regimen.
--- NOTE | 2017-05-12 22:20 | NUR ---
Metoprolol Held: P: SBP in the low 90s. I: Dr. Mitchell notified of blood pressures. Order obtained to hold scheduled Metoprolol. E: Will cont. to monitor. Pt remains stable.
[2017-05-13] VITALS (14 sets, daily range): BP systolic 83–112; BP diastolic 43–67; PULSE 70–86; RESP 17–34; O2SAT 93–98
--- NOTE | 2017-05-13 00:55 | NUR ---
Transfer of Care: Report given to Amarilis Carrasco RN--who will assume further care of the pt. for the night.
[2017-05-13] MEDS: Insulin Human REGular 300 Unit/3 mL Inj SUBQ SCH ×4 (02:30→20:30)
[2017-05-13 05:41] LABS: INR 1.44 ratio
[2017-05-13] MEDS: Albuterol 2.5 mg/3 mL Inhalation Solution NEB SCH ×4 (06:24→20:15)
[2017-05-13] MEDS: predniSONE 20 mg Tablet PO SCH (09:19)
[2017-05-13] MEDS: Isosorbide Mononitrate 30 mg ER24 Tablet PO SCH (09:22)
[2017-05-13] MEDS: Furosemide 10 mg/mL 4 mL Inj IVPUSH SCH (10:01)
[2017-05-13] MEDS: Sodium Chloride LOK Flush 10 mL Syringe IVFLUSH SCH ×2 (10:03→17:48)
[2017-05-13] MEDS: Tiotropium 18mcg/Cap 5 Capsule Inhaler Kit INHALATION SCH (10:50)
--- NOTE | 2017-05-13 13:46 | NUR ---
NUTRITION FOLLOW-UP: ASSESS: 77 YO M admitted for respiratory failure. Pt has esophageal cancer, status post PEG tube placement 01/30. Per pt's , pt was last on TF back in the end of March and since March pt has lost ~9% of his body wt=severe wt loss. Pt had MBS and ST is recommending safest option would be to continue NPO status and start TF. TF of Glucerna 1.5 was started 05/06. TF reduced from goal of 70 ml/hr to 50 ml/hr due to diarrhea over the weekend. Diarrhea has improved. Pt continues to require BIPAP. Due to poor PO tolerance, 9% wt loss x 1 month and chronic dysphagia pt would greatly benefit from continuing TF after discharge for greater than 90 day. 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 LABS: Reviewed. CO2 34, Bun 56, Glu 153 MEDS: Reviewed. Prednisone, Coumadin. GI: BM X 1 (05/12) SKIN: No issues noted. WT: 86.3 kg, BMI 25.8 kg, Admit wt: 97.2 kg UBW: ~110 kg, IBW: 80.9 kg (113% IBW). Pt wt 03/28/17 was 100 kg. Pt has lost ~9% body wt x 1 month= significant wt loss NUTRITION SUPPORT: Glucerna 1.5 @ 50 ml/hr providing 1725 kcal, 95 g protein; meeting 73% calorie, 100% pro DIET: NPO per ST. ESTIMATED NEEDS: Calories: 8816-6084 kcal/day (25-30 kcal/kg BW) Protein: 85-130 g/day (1.0-1.5 g/kg BW) Fluids: ~2100 ml/day (25 ml/kg) NUTRITION DIAGNOSIS: 1) Inadequate oral intake related to esophageal ca as evidence by current NPO status, inability to keep PO food down due to dysphagia and need for PEG tube to maintain adequate nutrition --PERSISTS 2) Moderate pro/kcal malnutrition related to esophageal ca as evidence by chronic dysphagia per ST, 9% wt loss x 1 month, decreased PO intake of less than 75% estimated needs for greater than 1 month and mild muscle/fat loss. --PERSISTS NUTRITION INTERVENTION: 1) Received verbal okay from MD to try to slowly advance TF back towards goal. Recommend advance TF by 5ml q 6 hrs until reach goal rate of 65ml/hr to provide 2242kcal and 123g pro (100% estimated needs). RN is aware of recommendation. 2) If pt's diarrhea returns, will consider the addition of Banatrol TID to help with diarrhea. 3) Will continue fluid flushes to 40ml q 4 hrs to provide 240ml free water. Current TF free water + water flushes provides ~1375 ml H20/day. Total fluids: 1735 ml/day. 4) Pt would greatly benefit from long-term TF for greater than 3 months to help maintain adequate nutrition status due to significant weight loss of 9% X 1 month without enteral nutrition. MONITOR/EVALUATE: TF tolerance/advance, fluids, GI, labs, ST, wt, POC, nutrition status. Follow per high nutrition risk guidelines
--- NOTE | 2017-05-13 14:36 | PCM.PHAPRO ---
Progress Shortness of breath. Acute systolic heart failure WARFARIN Indication: AFib Home dose 5-7.5mg/day o/ INR 1.55 a/ Inadequate dosing. p/ Increase dose to 7.5mg/day with 10mg bump dose today. Dennis Fitzpatrick Pharm D May 13, 2017 14:36
--- NOTE | 2017-05-13 16:14 | PROG NOTE ---
[address] [address] PROGRESS NOTE PATIENT: ANIA LIM : 1940 MR#: [id number] ADMIT: 05/05/2017 JOB ID: [id number] DATE: 05/13/2017 PULMONARY PROGRESS NOTE: This patient is a 77-year-old man with interstitial lung disease, esophageal and lung cancer, admitted with acute hypoxic respiratory failure. INTERVAL HISTORY: Oxygenation and respiratory status continued to slowly improve. He denies any cough, sputum, fever, chills, or chest pain. The patient was on BiPAP overnight but has been off BiPAP since 6 a.m. this morning, on Oxymask. Doing well. REVIEW OF SYSTEMS: As above. PHYSICAL EXAMINATION: Vital signs reviewed. Temperature 36.6, pulse 86, respirations 22, BP 112/67, sats 93% on 5-8 L nasal cannula. General: Sitting up in bed. Alert, answering questions appropriately. Chest: Clear to auscultation anteriorly. LABORATORY DATA: Labs reviewed. ProBNP on admission was 14,000 and is now down to 4000, procalcitonin was 0.18 and then 0.28. Cultures no growth. IMAGING: Chest x-ray and chest CT were both reviewed. CT shows bilateral pleural effusions with interlobular septal thickening and ground-glass which could be pulmonary edema or radiation pneumonitis. ASSESSMENT AND RECOMMENDATIONS: 1. Acute hypoxic respiratory failure - currently on 5-8 L Oxymask alternating with BiPAP at night. 2. Decompensated systolic heart failure. 3. Bilateral pleural effusions. 4. Interstitial lung disease. 5. Esophageal carcinoma, status post chemoradiation March 2017. 6. Lung cancer, status post radiation March 2017. This complex 77-year-old gentleman was admitted with worsening hypoxia and CT imaging showing bilateral ground-glass and interlobular septal thickening, along with bilateral pleural effusions. All of this could be explained by pulmonary edema/decompensated heart failure but we should also consider radiation pneumonitis as a possibility. The appearance of CT findings is not particularly consistent with an idiopathic pulmonary fibrosis exacerbation; especially given his elevated BNP and bilateral pleural effusions. Also clinically he seems to have improved significantly with diuresis. He is also on prednisone 60 mg daily and I suppose it is reasonable to continue that for the possibility that some of this could be radiation pneumonitis associated. At this point, he is clinically improved with BiPAP only at nighttime and Oxy Mask in the day. I agree with continued diuresis and the prednisone 60. Will reassess how he does in the next few days, and depending on response, we can plan a prednisone taper. At this point, I would recommend continuing 60 mg however. Nothing else to add but will continue to follow.
--- NOTE | 2017-05-13 16:16 | PCM.PNMED ---
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 Tolerating vacation from BiPAP for most of daytime, well oxygenated on 5-8L oxygen mask O2. He feels his dyspnea is slightly improved today. No cough, fever or chills. Diarrhea has resolved after slightly reduced tube feedings. Exam Vital Signs Vital Sign - Last Date Time Temp Pulse Resp B/P Pulse Ox O2 Delivery O2 Flow Rate FiO2 05/13/17 13:42 86 22 93 OxyMask 8.00 05/13/17 12:49 36.6 98/48 05/13/17 06:24 40 Intake and Output 05/12/17 05/12/17 05/13/17 Cumulative From/Thru 15:00 23:00 07:00 05/05/17 06:47 - 05/13/17 06:33 Intake Total 1558 ml 130 ml 0 ml 43159 ml Output Total 2675 ml 775 ml 61347 ml Balance 1558 ml -2545 ml -775 ml -4907 ml Intake Oral 0 ml 0 ml 1650 ml IV Total 50 ml 1327 ml Tube Feeding 1350 ml 7343 ml Tube Irrigant 208 ml 80 ml 3178 ml Output Urine Total 1975 ml 775 ml 06959 ml Stool Total 200 ml Urine/Stool Mix 200 ml Drainage Total 700 ml 700 ml # Voids 4 10 # Bowel Movements 1 6 Admission body weight 97.2 KG Current body weight 84.7 KG Exam General: Ill-appearing elderly man tachypneic with BiPAP HEENT: sclerae anicteric, oral mucosa moist Neck: No apparent JVD Chest: Coarse breath sounds, minimal crackles, no wheezing Cardiac: S1S2, II/ SM at LLSB apex, irregular Abdomen: BS normal, non-tender; PEG tube Extremities: No pedal edema Neuro: A&O, cranial nerves symmetric, motor strength 4/5 IVs and Medications Medications Reviewed: Medications were reviewed in detail Lab and Diagnostics Result Diagram: 05/11/17 0315 05/13/17 0515 X-Rays, CTs and MRIs PROCEDURE: X-RAY CHEST ONE VIEW, PORTABLE ([id number]) IMPRESSION: 1. Developing upper lobe predominant consolidation is suspicious for pneumonia. Pulmonary edema may also have this appearance. 2. Possible trace right-sided effusion. Dictated by: Quirino Gómez M.D. on 05/05/2017 at 15:57 PROCEDURE: X-RAY BARIUM SWALLOW WITH FOOD & VIDEOGRAPHY ([id number]) FINDINGS: Function: The oral preparatory phase appears normal, with proper containment. The subsequent oral propulsive phase, pharyngeal phase, and esophageal phase of swallowing also appear normal with all proffered substances. Laryngeal penetration identified on multiple occasions. Mild vallecular pooling noted. IMPRESSION: Laryngeal penetration and vallecular pooling. Dictated by: Trenton Joshi [facility] Interpreted: Quirino Gómez MD on 05/05/2017 at 14 :07 PROCEDURE: X-RAY CHEST, TWO VIEWS ([id number]) IMPRESSION: 1. Cardiomegaly and increasing mixed interstitial and alveolar opacities is most suggestive of congestive heart failure. This has increased in the interim. Superimposed pneumonia is difficult to exclude. 2. Mild basilar atelectasis and/or small effusions. Dictated by: Quirino Gómez M.D. on 05/07/2017 at 8:52 PROCEDURE: CT CHEST WITH CONTRAST ([id number]) FINDINGS: Lungs and pleura: There are bilateral right greater than left effusions. There are alveolar densities superimposed on chronic lung disease. Increased interstitial markings are present as well. Mediastinum: Heart size is enlarged. No pericardial effusion. No mediastinal or hilar adenopathy by size criteria. Thoracic aorta and central pulmonary arteries are normal in size. Esophagus is normal in caliber. No hiatal hernia. IMPRESSION: Significant changes since the previous CT of 02/03/17 would suggest congestive failure changes superimposed on chronic lung disease. Dictated by: Bartolome Mena M.D. on 05/08/2017 at 20:28 . 12-lead ECG EKG 05/05/17 16:49 patient rhythm rate 76, LBBB morphology, QTC 522 . Cardiac Echo Impressions Cardiac Echo Impressions Most recent echo: Echocardiogram Report Name: ANIA LIM Study Date: 02/10/2017 Interpretation Summary 1. Normal left ventricular size with borderline increased wall thickness and an estimated EF of 45-50% 2.Upper limits of normal right ventricular size with low normal systolic function 3. No evidence for significant valvular pathology Assessment & Plan Acute, Active or High-risk Problems: #. Acute on chronic respiratory failure and hypoxia, POA. At time of admission , chest x-ray was consistent with pulmonary edema. No clinical improvement despite adequate initial diuresis. He subsequently developed hypotension and Lasix was held on 05/07. Procalcitonin is elevated but but initial presentation did not suggest pneumonia. Meropenem for hospital-acquired aspiration 05/07 - . Chest x-ray and CT most suggestive of pulmonary edema. Initially his pulmonary condition deteriorated despite diuresis. Other pulmonary issues include stage III esophageal carcinoma, small RLL lung adenocarcinoma, recent lung radiotherapy, and history of amiodarone pulmonary toxicity. BPAP was initiated 05/08/17. High-dose furosemide resumed on 05/09 with good urine output. Chest x-ray seems slightly improved. Oxygen requirements and dyspnea seem lately better on 05/12 for the first time - Pulmonology consult is following - Continue to wean oxygen with CPAP as needed - Continue prednisone 60 mg daily for possible radiation or medication induced pneumonitis #. Possible acute on chronic systolic heart failure, POA. Initially Lasix 100 IV every 12 hours resulted in brisk L diuresis, now diuresing even on 80 mg daily. Remarkably, creatinine has not bumped. - Reduced enalapril due to hypotension; - Reduce furosemide to 40 mg by mouth daily; target neutral fluid balance this point; minimize IV fluids - Continue Daily weights - Continue spironolactone, isosorbide, metoprolol, hydralazine, # Dysphagia, POA. Modified barium was performed. The patient appears to likely not be safe for oral intake. - Initiated Jevity 1.5 with goal rate 70 mils per hour 24 hours; on which she developed significant diarrhea. - The patient and family endorse long-term tube feeding nutrition - Decreased tube feed 50 mL per hour; nutrition consult to pursue ways to increase to goal caloric intake without further diarrhea # Diarrhea, not POA. Nominal pain. Suspect osmotic effect of Jevity 1.5 at 70 mL per hour. - Currently resolved - Lomotil every 6 hours when necessary # Malnutrition, moderate. Confounded by CHF related fluid retention. Some amount of weight loss appears to exceed fluid diuresis and may be nutrition related. Currently unable to take oral intake. - Patient will be dependent on tube feeds at time of discharge #Type II diabetes mellitus, POA. Blood sugars largely on-target with minimal insulin. - 4 times a day blood sugar checks; goal blood sugars less than 180 - Initiate every 6 R regular insulin in light of continuous tube feeds #. Chronic atrial fibrillation, POA. Patient has good rate control we will continue warfarin. INR 1.86 on admission. Current INR 1.44. [id number] is 6. - Increase warfarin per pharmacist. - Bridge with Lovenox as needed #. Goals of care. Discussed with patient and family today. They are aware of his declining course, but feel this can be reversed with better physical and nutritional therapy. He is satisfied with his ability to live at home with bed to limited household activities. Watches television and [email or web address]. - Advance care planning discussion completed on 05/08. - DO NOT INTUBATE, DO NOT RESUSCITATE status; otherwise full medical efforts. Resolving, stable and/or chronic problems: #. Esophageal cancer, stage III POA. Status post radiotherapy and chemotherapy # RLL adenocarcinoma, POA. Small adenocarcinoma unlikely to be active at this time. #. 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 POA. Continue his dofetilide. #. COPD, POA. Continue Spiriva #. Hypertension, POA. Usual medications. #. CAD, POA. Continue current medications follow clinically. Disposition: He continues to require aggressive care for hypoxic respiratory failure. He has improved minimally and continues to require aggressive oxygen and BPAP support. No definite discharge plan at this time. Pain Evaluation: Adequate Pain Control VTE Prophylaxis: Theraputic Anticoag with Warfarin VTE Mechanical Devices: Intermittant Pneumatic CD Resuscitation Status: DNR/DNI:Do Not Resuscitate/Intubate Time spent 35 minutes spent in patient assessment, care coordination, counseling family members at bedside and review of data with consultants. Darci Galdamez MD May 13, 2017 16:15
--- NOTE | 2017-05-13 19:00 | PROG NOTE ---
[address] [address] PROGRESS NOTE PATIENT: ANIA LIM : 1940 MR#: [id number] ADMIT: 05/05/2017 JOB ID: [id number] DATE: 05/13/2017 DIAGNOSES: 1. Current admission for acute on chronic hypoxemic respiratory failure, improved. 2. 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 3. Recent history of stage I right lower lobe pulmonary adenocarcinoma, status post hypofractionated modified stereotactic body radiation therapy. HISTORY OF PRESENT ILLNESS: The patient is a very pleasant 77-year-old gentleman with multiple comorbid conditions, including chronic interstitial lung disease, chronic aspiration, obstructive sleep apnea, coronary artery disease, CHF, implanted AICD, chronic atrial fibrillation (on chronic anticoagulation therapy), who recently completed a course of concurrent chemoradiotherapy for stage III distal esophageal adenocarcinoma in mid January 2017, and subsequently completed a course of modified SBRT given over 10 fractions to peripheral right lower lobe adenocarcinoma, in mid March 2017. He was admitted to hospital eight days ago with progressive dyspnea and hypoxemia. He has been afebrile throughout hospital admission. Chest x-ray on admission showed bilateral upper lobe predominant consolidation, consistent with pneumonia versus pulmonary edema. ProBNP was markedly high at 14,500 three days into admission, although it is chronically elevated. He was initially started on diuresis, which was temporarily held due to hypotension, but subsequently resumed, and overall he has lost about 26 pounds during this admission. His creatinine has remained normal despite aggressive IV diuresis. He was also treated empirically with meropenem which was stopped yesterday. He has been placed empirically on prednisone for concerns about radiation pneumonitis. He is n.p.o., and is only being fed through PEG tube due to chronic aspiration. Chest CT was obtained on May 08. It shows bilateral right greater than left effusions, and bilateral alveolar densities superimposed on chronic lung disease, with increased interstitial markings. There is no mediastinal or hilar adenopathy, and no evidence of neoplastic recurrence/progression. Currently, he feels slightly better. At rest, he feels his dyspnea has resolved, but he gets dyspneic with minimal exertion. He is awake, alert and oriented x3. He is on OxyMask at daytime, and BiPAP overnight. His oxygen requirement has decreased, and he is currently on about 6 L/minute. Blood pressure 86/43, heart rate 82, temperature afebrile. Lungs: Bilateral breath sounds with crackles and intermittent wheezes. IMPRESSION AND PLAN: I agree with Dr. Darci Galdamez and Dr. Ferrell's assessment and plan. In summary, there is no evidence of neoplastic recurrence/progression. This gentleman has a multitude of pulmonary diseases including chronic interstitial lung disease, chronic aspiration, history of amiodarone toxicity, but at least during this admission the most important problem seems to be pulmonary edema. He has responded very well to diuresis with improvement in chest x-ray and ProBNP. I think radiation pneumonitis is also a consideration especially given two different courses of radiation. He must have received radiation lung injury during esophageal cancer treatment to paramediastinal bilateral lungs. I agree with continuing prednisone, and I would recommend a total 3-4 weeks of therapy, with the last two weeks of it being a tapered course. He asked me about the status of his treated cancers. I explained that after discharge and whenever he was in stable condition, we will schedule a PET-CT.
--- NOTE | 2017-05-13 19:26 | NUR ---
Respiratory/PT/Tube feed Pt Sp02 98% on 7L at rest. With minimal exertion, Sp02 decreases to around 80%. Pt able to recover quickly. Pt worked with PT and was able to stand up and take a few steps. Glucerna running at 55mls/hour per newspaper reporter increase. Pt tolerating well. No c/o abdominal discomfort or nausea. No diarrhea. Passed on to night RN to increase tube feed per order to reach goal.
[2017-05-14] VITALS (14 sets, daily range): BP systolic 81–108; BP diastolic 46–56; PULSE 73–86; RESP 20–36; O2SAT 91–100
--- NOTE | 2017-05-14 01:15 | NUR ---
Assumed care at 0100.
[2017-05-14] MEDS: Sodium Chloride LOK Flush 10 mL Syringe IVFLUSH SCH ×4 (02:04→23:35)
[2017-05-14] MEDS: Insulin Human REGular 300 Unit/3 mL Inj SUBQ SCH ×4 (02:09→20:30)
[2017-05-14 03:33] LABS: INR 1.68 ratio
--- NOTE | 2017-05-14 05:12 | NUR ---
Respiratory/Tele/Nutrition-tube feed Pt placed on 5L O2 via Oxymask by Resp Therapy and Spo2 100%. Denies shortness of breath. Tele:V-paced HR 76 per remote sensing technologist. Glucerna increased by 5ml and running at 65 ml/hr-goal met. Denies n/v/d and discomfort. Care continues.
[2017-05-14] MEDS: Albuterol 2.5 mg/3 mL Inhalation Solution NEB SCH ×4 (06:16→20:22)
--- NOTE | 2017-05-14 06:26 | NUR ---
Respiratory RT reported pt took off Oxymask during deep sleep and SPo2 decreased to low 80s;pt slow to arouse. RT placed pt back on Bipap and decreased the FiO2 from 40% to 35%;Spo2 96%. Call light within reach. Care continues.
[2017-05-14] MEDS: Isosorbide Mononitrate 30 mg ER24 Tablet PO SCH (08:30)
[2017-05-14] MEDS: Furosemide 10 mg/mL 4 mL Inj IVPUSH SCH (08:30)
[2017-05-14] MEDS: predniSONE 20 mg Tablet PO SCH (09:28)
[2017-05-14] MEDS: Tiotropium 18mcg/Cap 5 Capsule Inhaler Kit INHALATION SCH (09:37)
--- NOTE | 2017-05-14 11:44 | NUR ---
Blood pressure Pt was hypotensive this AM, blood pressure as low as 83/48. Several AM medications held (metoprolol, isosorbide, vasotec, and diuretics) until further orders. Pt asymptomatic. Doctor notified.
--- NOTE | 2017-05-14 11:50 | PROG NOTE ---
[address] [address] PROGRESS NOTE PATIENT: ANIA LIM : 1940 MR#: [id number] ADMIT: 05/05/2017 JOB ID: [id number] DATE: 05/14/2017 PULMONARY PROGRESS NOTE: The patient is a 77-year-old man with history of interstitial lung disease, stage III esophageal and lung cancer admitted with acute hypoxic respiratory failure. INTERVAL HISTORY: Remains on 5 L Oxy Mask during the day and BiPAP at night. Shortness of breath continues to slowly improve. REVIEW OF SYSTEMS: Denies fevers, chills, cough, etc. PHYSICAL EXAMINATION: Vital signs reviewed. Afebrile. He is on 5 L Oxy Mask, currently satting 96%. General: Elderly gentleman sitting up in bed, breathing comfortably. Speaking full sentences. Chest: Clear to auscultation. LABORATORIES: Reviewed. ASSESSMENT AND RECOMMENDATIONS: 1. Acute hypoxic respiratory failure-currently on 5 L Oxy Mask during the day and BiPAP at night. 2. Decompensated systolic heart failure-improving. 3. Bilateral pleural effusions. 4. Known interstitial lung disease-idiopathic/amiodarone related. 5. Stage III esophageal carcinoma status post chemoradiation March 2017. 6. Lung cancer status post SBRT March 2017. This complex 77-year-old man was admitted with worsening hypoxemia which has responded quite well to aggressive diuresis. We are going to switch him from 5 L Oxy Mask to nasal cannula and also have him try his home CPAP at night instead of hospital BiPAP tonight. He is continuing to get Lasix 80 mg IV and tolerating this well with stable renal function, etc. He is also on prednisone 60 mg daily which we will continue for the possibility of radiation pneumonitis. I am hoping that if he stays stable on nasal cannula alternating with his home CPAP at night, that he would be ready for discharge in the next day or so. Discussed with Dr. Quinn with the Yellow Team.
--- NOTE | 2017-05-14 13:44 | NUR ---
NUTRITION FOLLOW-UP: ASSESS: 77 YO M admitted for respiratory failure. Pt has esophageal cancer, status post PEG tube placement 01/30. Per pt's , pt was last on TF back in the end of March and since March pt has lost ~9% of his body wt=severe wt loss. Pt had MBS and ST is recommending safest option would be to continue NPO status and start TF. TF of Glucerna 1.5 was started 05/06. TF reduced to 50 ml/hr due to diarrhea on 05/10. Diarrhea has since resolved and TF was able to be slowly advanced back towards goal rate of 65ml/hr on 05/13. No reported diarrhea since TF advancement. Pt's wt continues to slowly decrease which is likely related to fluids as pt is undergoing aggressive diuresis. Due to poor PO tolerance, 9% wt loss x 1 month and chronic dysphagia pt would greatly benefit from continuing TF after discharge for greater than 90 day. 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 LABS: Reviewed. (05/13/17) CO2 34, Bun 56, Glu 153 MEDS: Reviewed. Prednisone, Coumadin. GI: BM X 1 (05/12) SKIN: No issues noted. WT: 84kg, BMI 25.1kg, Admit wt: 97.2 kg UBW: ~110 kg, IBW: 80.9 kg (113% IBW). Pt wt 03/28/17 was 100 kg. Pt has lost ~9% body wt x 1 month= significant wt loss NUTRITION SUPPORT: Glucerna 1.5 @ 65 ml/hr providing 2242kcal and 123g pro (100% estimated needs). DIET: NPO per ST. ESTIMATED NEEDS: Calories: 3907-6637 kcal/day (25-30 kcal/kg BW) Protein: 85-130 g/day (1.0-1.5 g/kg BW) Fluids: ~2100 ml/day (25 ml/kg) NUTRITION DIAGNOSIS: 1) Inadequate oral intake related to esophageal ca as evidence by current NPO status, inability to keep PO food down due to dysphagia and need for PEG tube to maintain adequate nutrition --PERSISTS 2) Moderate pro/kcal malnutrition related to esophageal ca as evidence by chronic dysphagia per ST, 9% wt loss x 1 month, decreased PO intake of less than 75% estimated needs for greater than 1 month and mild muscle/fat loss. --PERSISTS NUTRITION INTERVENTION: 1) Continue current TF of Glucerna 1.5 @ 65ml/hr to provide 2242kcal and 123g pro (100% estimated needs). 2) If pt's diarrhea returns, consider the addition of Banatrol TID to help with diarrhea. 3) Will continue fluid flushes to 40ml q 4 hrs to provide 240ml free water. Current TF free water + water flushes provides ~1375 ml H20/day. Total fluids: 1735 ml/day. 4) Pt would greatly benefit from long-term TF for greater than 3 months to help maintain adequate nutrition status due to significant weight loss of 9% X 1 month without enteral nutrition. MONITOR/EVALUATE: TF tolerance/advance, fluids, GI, labs, ST, wt, POC, nutrition status. Follow per high nutrition risk guidelines
--- NOTE | 2017-05-14 16:11 | PCM.PNMED ---
Subjective Date of Service May 14, 2017 Subjective He feels weak but denies worsening shortness of breath. No chest pain or palpitations. No nausea. He is tolerating his tube feeds via PEG tube without difficulty. No overnight events Exam Vital Signs Vital Sign - Last Date Time Temp Pulse Resp B/P Pulse Ox O2 Delivery O2 Flow Rate FiO2 05/14/17 11:39 81 26 99/56 93 Nasal Cannula 5.00 05/14/17 07:28 36.8 35 Intake and Output 05/13/17 05/13/17 05/14/17 Cumulative From/Thru 15:00 23:00 07:00 05/05/17 06:47 - 05/14/17 06:45 Intake Total 0 ml 0 ml 85649 ml Output Total 770 ml 450 ml 82626 ml Balance -770 ml -450 ml -6127 ml Intake Oral 0 ml 0 ml 1650 ml IV Total 1327 ml Tube Feeding 7343 ml Tube Irrigant 3178 ml Output Urine Total 770 ml 450 ml 93213 ml Stool Total 200 ml Urine/Stool Mix 200 ml Drainage Total 700 ml # Voids 4 14 # Bowel Movements 0 6 Exam Alert and oriented -3, no distress. Fluent speech Cachectic Anicteric sclera. Lungs are clear with normal rate and effort Heart is regular without murmur gallop or rub Abdomen soft nontender, flat. PEG tube Extremities are free of edema. Skin is free of rash or lesions. IVs and Medications Medications Reviewed: Medications were reviewed in detail Lab and Diagnostics Result Diagram: 05/11/17 0315 05/13/17 0515 X-Rays, CTs and MRIs PROCEDURE: X-RAY CHEST ONE VIEW, PORTABLE ([id number]) IMPRESSION: 1. Developing upper lobe predominant consolidation is suspicious for pneumonia. Pulmonary edema may also have this appearance. 2. Possible trace right-sided effusion. Dictated by: Quirino Gómez M.D. on 05/05/2017 at 15:57 PROCEDURE: X-RAY BARIUM SWALLOW WITH FOOD & VIDEOGRAPHY ([id number]) FINDINGS: Function: The oral preparatory phase appears normal, with proper containment. The subsequent oral propulsive phase, pharyngeal phase, and esophageal phase of swallowing also appear normal with all proffered substances. Laryngeal penetration identified on multiple occasions. Mild vallecular pooling noted. IMPRESSION: Laryngeal penetration and vallecular pooling. Dictated by: Trenton LOONEY Interpreted: Quirino Gómez MD on 05/05/2017 at 14 :07 PROCEDURE: X-RAY CHEST, TWO VIEWS ([id number]) IMPRESSION: 1. Cardiomegaly and increasing mixed interstitial and alveolar opacities is most suggestive of congestive heart failure. This has increased in the interim. Superimposed pneumonia is difficult to exclude. 2. Mild basilar atelectasis and/or small effusions. Dictated by: Quirino Gómez M.D. on 05/07/2017 at 8:52 PROCEDURE: CT CHEST WITH CONTRAST ([id number]) FINDINGS: Lungs and pleura: There are bilateral right greater than left effusions. There are alveolar densities superimposed on chronic lung disease. Increased interstitial markings are present as well. Mediastinum: Heart size is enlarged. No pericardial effusion. No mediastinal or hilar adenopathy by size criteria. Thoracic aorta and central pulmonary arteries are normal in size. Esophagus is normal in caliber. No hiatal hernia. IMPRESSION: Significant changes since the previous CT of 02/03/17 would suggest congestive failure changes superimposed on chronic lung disease. Dictated by: Bartolome Mena M.D. on 05/08/2017 at 20:28 . 12-lead ECG EKG 05/05/17 16:49 patient rhythm rate 76, LBBB morphology, QTC 522 . Cardiac Echo Impressions Cardiac Echo Impressions Most recent echo: Echocardiogram Report Name: ANIA LIM Study Date: 02/10/2017 Interpretation Summary 1. Normal left ventricular size with borderline increased wall thickness and an estimated EF of 45-50% 2.Upper limits of normal right ventricular size with low normal systolic function 3. No evidence for significant valvular pathology Assessment & Plan Acute, Active or High-risk Problems: #. Acute on chronic respiratory failure and hypoxia, POA. Improving. Continue diuresis. #. Possible acute on chronic systolic heart failure, POA. Improving . # Dysphagia, POA. Modified barium was performed. The patient appears to likely not be safe for oral intake. - Initiated Jevity 1.5 with goal rate 70 mils per hour 24 hours; on which she developed significant diarrhea. - The patient and family endorse long-term tube feeding nutrition - Decreased tube feed 50 mL per hour; nutrition consult to pursue ways to increase to goal caloric intake without further diarrhea # Diarrhea, not POA. Improving. # Severe protein caloric Malnutrition, POA and active . Confounded by CHF related fluid retention. Some amount of weight loss appears to exceed fluid diuresis and may be nutrition related. Currently unable to take oral intake. - Patient will be dependent on tube feeds at time of discharge #Type II diabetes mellitus, POA and stable. Blood sugars largely on-target with minimal insulin. - 4 times a day blood sugar checks; goal blood sugars less than 180 - Initiate every 6 R regular insulin in light of continuous tube feeds #. Chronic atrial fibrillation, POA and stable. Patient has good rate control we will continue warfarin. INR 1.86 on admission. Current INR 1.44. [id number] is 6. - Increase warfarin per pharmacist. - Bridge with Lovenox as needed #. Goals of care. Met with in a long discussion again regarding level of care. She remains DNR/DNI. His goal to bring him home with additional support in spite of the remote location and the many medical complexities. #. Esophageal cancer, stage III POA. Status post radiotherapy and chemotherapy # RLL adenocarcinoma, POA. Small adenocarcinoma unlikely to be active at this time. #. 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 POA. Continue his dofetilide. #. COPD, POA. Continue Spiriva #. Hypertension, POA. Usual medications. #. CAD, POA. Continue current medications follow clinically. Disposition: He is now weaning down on his oxygen needs and may be able to discharge the next 2-3 days with home health and a lot of additional home support. VTE Prophylaxis: Theraputic Anticoag with Warfarin VTE Mechanical Devices: Intermittant Pneumatic CD Resuscitation Status: DNR/DNI:Do Not Resuscitate/Intubate Eber Quinn MD May 14, 2017 16:11
[2017-05-15] VITALS (16 sets, daily range): BP systolic 83–112; BP diastolic 48–67; PULSE 70–88; RESP 20–28; O2SAT 90–100
[2017-05-15] MEDS: Insulin Human REGular 300 Unit/3 mL Inj SUBQ SCH ×4 (03:02→22:30)
[2017-05-15 04:23] LABS: INR 2.31 ratio
--- NOTE | 2017-05-15 06:00 | NUR ---
NOC PT A/Ox3. RENEE. PT has dyspnea with minmal activity in bed. PT was on cpap all night and oxygen saturation was maintained. PT switched over to 5L NC this am. PT is taking in a lot of ice chips for moisture, but spits water into cup at bedside. PT cautioned when doing this so pt does not aspirate. PT uses urinal to void. Urine is ace and pt voids small amounts. BG tightly controlled. TF at goal with minimal residuals noted. PT denies any pain. B/P remains hypotensive, but about 100 systolic. PT on tele and remains vpaced in the 70's. PT continues to have small runs of vtach. engineering laboratory technician reported 6 episodes with the longest at 12 beats. PT asymptomatic. Continue with current POC. Increase mobility with PT.
[2017-05-15] MEDS: Albuterol 2.5 mg/3 mL Inhalation Solution NEB SCH ×4 (07:28→20:36)
[2017-05-15] MEDS: Tiotropium 18mcg/Cap 5 Capsule Inhaler Kit INHALATION SCH (08:40)
[2017-05-15] MEDS: Isosorbide Mononitrate 30 mg ER24 Tablet PO SCH (08:43)
[2017-05-15] MEDS: predniSONE 20 mg Tablet PO SCH (08:45)
[2017-05-15] MEDS: Furosemide 10 mg/mL 4 mL Inj IVPUSH SCH (08:46)
[2017-05-15] MEDS: Sodium Chloride LOK Flush 10 mL Syringe IVFLUSH SCH ×3 (08:46→22:42)
--- NOTE | 2017-05-15 13:35 | PCM.PNMED ---
Subjective Date of Service May 15, 2017 Subjective He is doing about the same today. Still weak and short of breath. He can stand up for about a minute and can transfer. Physical therapy notes that he has been desaturating with transfers and sitting up on the edge of bed. He does however continue to decline fpc facility placement. It is his goal to return home. He shows minimal understanding of the prognosis of his stage III esophageal cancer. When asked if he thought it was curable or incurable he could not answer. Exam Vital Signs Vital Sign - Last Date Time Temp Pulse Resp B/P Pulse Ox O2 Delivery O2 Flow Rate FiO2 05/15/17 11:56 76 22 97 Nasal Cannula 5.00 05/15/17 11:29 36.6 84/54 05/14/17 07:28 35 Intake and Output 05/14/17 05/14/17 05/15/17 Cumulative From/Thru 15:00 23:00 07:00 05/05/17 06:47 - 05/15/17 05:59 Intake Total 3312 ml 902 ml 99660 ml Output Total 450 ml 670 ml 20365 ml Balance 2862 ml 232 ml -3033 ml Intake Oral 0 ml 0 ml 1650 ml IV Total 1327 ml Tube Feeding 2996 ml 796 ml 32529 ml Tube Irrigant 316 ml 106 ml 3600 ml Output Urine Total 450 ml 650 ml 50358 ml Stool Total 200 ml Urine/Stool Mix 200 ml Gastric Drainage Total 20 ml 20 ml Drainage Total 700 ml # Voids 14 # Bowel Movements 6 Exam Alert and oriented -3, no distress. Fluent speech, cachectic chronically ill multiple ecchymosis Anicteric sclera. Lungs are clear with normal rate and effort Heart is regular without murmur gallop or rub Abdomen soft nontender, flat. PEG tube Extremities are free of edema. Skin is free of rash or lesions. IVs and Medications Medications Reviewed: Medications were reviewed in detail Lab and Diagnostics Result Diagram: 05/11/17 0315 05/15/17 0354 X-Rays, CTs and MRIs PROCEDURE: X-RAY CHEST ONE VIEW, PORTABLE ([id number]) IMPRESSION: 1. Developing upper lobe predominant consolidation is suspicious for pneumonia. Pulmonary edema may also have this appearance. 2. Possible trace right-sided effusion. Dictated by: Quirino Gómez M.D. on 05/05/2017 at 15:57 PROCEDURE: X-RAY BARIUM SWALLOW WITH FOOD & VIDEOGRAPHY ([id number]) FINDINGS: Function: The oral preparatory phase appears normal, with proper containment. The subsequent oral propulsive phase, pharyngeal phase, and esophageal phase of swallowing also appear normal with all proffered substances. Laryngeal penetration identified on multiple occasions. Mild vallecular pooling noted. IMPRESSION: Laryngeal penetration and vallecular pooling. Dictated by: Trenton Joshi [facility] Interpreted: Quirino Gómez MD on 05/05/2017 at 14 :07 PROCEDURE: X-RAY CHEST, TWO VIEWS ([id number]) IMPRESSION: 1. Cardiomegaly and increasing mixed interstitial and alveolar opacities is most suggestive of congestive heart failure. This has increased in the interim. Superimposed pneumonia is difficult to exclude. 2. Mild basilar atelectasis and/or small effusions. Dictated by: Quirino Gómez M.D. on 05/07/2017 at 8:52 PROCEDURE: CT CHEST WITH CONTRAST ([id number]) FINDINGS: Lungs and pleura: There are bilateral right greater than left effusions. There are alveolar densities superimposed on chronic lung disease. Increased interstitial markings are present as well. Mediastinum: Heart size is enlarged. No pericardial effusion. No mediastinal or hilar adenopathy by size criteria. Thoracic aorta and central pulmonary arteries are normal in size. Esophagus is normal in caliber. No hiatal hernia. IMPRESSION: Significant changes since the previous CT of 02/03/17 would suggest congestive failure changes superimposed on chronic lung disease. Dictated by: Bartolome Mena M.D. on 05/08/2017 at 20:28 . 12-lead ECG EKG 05/05/17 16:49 patient rhythm rate 76, LBBB morphology, QTC 522 . Cardiac Echo Impressions Cardiac Echo Impressions Most recent echo: Echocardiogram Report Name: ANIA LIM Study Date: 02/10/2017 Interpretation Summary 1. Normal left ventricular size with borderline increased wall thickness and an estimated EF of 45-50% 2.Upper limits of normal right ventricular size with low normal systolic function 3. No evidence for significant valvular pathology Assessment & Plan #. Acute on chronic respiratory failure and hypoxia, POA. Improving. Continue diuresis. #. Possible acute on chronic systolic heart failure, POA. Improving . # Dysphagia, POA. And active continue tube feeds, continuous. # Diarrhea, not POA. Resolved # Severe protein caloric Malnutrition, POA and active . arge #Type II diabetes mellitus, POA and stable. No change to medical management #. Chronic atrial fibrillation, POA and stable. Patient has good rate control we will continue warfarin. INR 1.86 on admission. Current INR 1.44. [id number] is 6. - Increase warfarin per pharmacist. - Bridge with Lovenox as needed #. Goals of care. Met with in a long discussion again regarding level of care on May 14.. She remains DNR/DNI. His goal to bring him home with additional support in spite of the remote location and the many medical complexities. #. Esophageal cancer, stage III POA. Status post radiotherapy and chemotherapy # RLL adenocarcinoma, POA. Small adenocarcinoma unlikely to be active at this time. #. 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 POA. Continue his dofetilide. #. COPD, POA. Continue Spiriva #. Hypertension, POA. Usual medications. #. CAD, POA. Continue current medications follow clinically. Disposition: Discussed his situation with pulmonary. The patient is now relatively stable on 5 L of oxygen and see. We will plan on discharge on Friday with home health and home infusion for uncontrolled feedings. Anticipate the need for a wheelchair at home to assist with transfers. The patient again today declined fpc facility. VTE Prophylaxis: Theraputic Anticoag with Warfarin VTE Mechanical Devices: Intermittant Pneumatic CD Resuscitation Status: DNR/DNI:Do Not Resuscitate/Intubate Eber Quinn MD May 15, 2017 13:35
--- NOTE | 2017-05-15 14:00 | PROG NOTE ---
[address] [address] PROGRESS NOTE PATIENT: ANIA LIM : 1940 MR#: [id number] ADMIT: 05/05/2017 JOB ID: [id number] DATE: 05/15/2017 PULMONARY PROGRESS NOTE: The patient is a 77-year-old man with interstitial lung disease, stage III esophageal cancer and lung cancer admitted with acute hypoxic respiratory failure. INTERVAL HISTORY: He has been stable on 5 L nasal cannula at rest, with CPAP at night last night. He denies any change in symptoms. REVIEW OF SYSTEMS: Negative for chest pain, fever, chills. PHYSICAL EXAMINATION: Vital signs reviewed. Afebrile. Pulse 76, respirations 22, BP 102/67, sats 97% on 5 L nasal cannula. General: Sitting up in bed, speaking full sentences. Chest: Clear to auscultation anteriorly. LABORATORIES: Reviewed. ASSESSMENT AND RECOMMENDATIONS: 1. Acute hypoxic respiratory failure-on 5 L nasal cannula. 2. Decompensated systolic heart failure-improving. 3. Bilateral pleural effusion. 4. Interstitial lung disease. 5. Stage III esophageal carcinoma status post chemoradiation March 2017. 6. Lung cancer, status SBRT March 2017. Complex 77-year-old man admitted with worsening hypoxemia with evidence of pulmonary edema and bilateral pleural effusions on imaging. He has had aggressive diuresis and lost many kg with that. He is continuing to get Lasix 80 mg IV daily. His home oxygen regimen is 2 L nasal cannula and he is currently on 5 L at rest and back on his home CPAP at night. In fact he says he finds the CPAP more comfortable than BiPAP. I think he is getting pretty close to discharge. He is still on the prednisone 60 mg daily for the possibility of radiation pneumonitis. My recommendation at the point of discharge is to continue 60 mg daily for one week, then decrease to 40 mg daily for two weeks, then 20 mg daily. However I expect he will have followup with Dr. Wang sooner than that and the taper can be accelerated if needed. All of these was discussed with Dr. Quinn.
--- NOTE | 2017-05-15 15:16 | NUR ---
Social Work: Continued Discharge Planning D: Pt is on day 10 of hospitalization. EMR reviewed, pt discussed in rounds. MD states pt likely to remain in hospital greater than 2 days. Pt and want to d/c home with [facility] RN, PT and resume [facility] for tube feeds. agreeable to this plan. RELIGIOUS ASSISTANT will continue to follow. A: Pt who lives on Friday with his and is open with [facility] for RN, PT and [facility] for tube feeds. P: Pt will d/c home via POV and ferry ride when medically stable, MD state likely greater than 2 days, with [facility] for RN, PT and resume [facility] for tube feeds. RELIGIOUS ASSISTANT will continue to follow. IFEOMA Ocasio
--- NOTE | 2017-05-15 16:55 | NUR ---
Blood Pressure, Telemetry 829 - Went to give him his morning medications and noted that his blood pressure was 102/67. Withheld his 50mg of Metoprolol until Dr. Quinn could be consulted. 944 - Discussed his care with Dr. Quinn and the rest of the multidisciplinary care team during morning rounds. Notified Dr. Quinn that he had been having several episodes of V-tach. Asked him if he wanted to be notified each time and he said he didn't. Asked if he wanted the Metoprolol given with his blood pressure and he said to go ahead and give it. Gave the Metoprolol shortly afterwards. 958 - Paged Dr. Quinn to notify him that his blood pressure had dropped to 84/54. Asymptomatic. He did not call back and no new orders were noted. About 1600 - Staff were able to get him up out of bed and sitting in the bedside commode to get a bath and change his bed linens. Blood pressure before getting him out of bed was 89/55 (asymptomatic). He tolerated it fairly well on 5-6L of nasal cannula. His SpO2 dropped to high 80s and low 90s most of the time. Once he was back in bed his SpO2 dropped to the 70s momentarily and came back up again. He said he was tired, but per Physical Therapy his SpO2 was much better than yesterday. 1652 - Called the Hose Stripper and asked how many times he'd had V-tach throughout the day. He had it 4 times. Care continues.
--- NOTE | 2017-05-15 16:57 | PCM.ADCARE ---
Advance Care Planning Note Purpose of Encounter: Reestablish level of care and discharge goals Parties in Attendance: Patient Decisional Capacity: He is decisional Subjective: He is doing well today but continues to be somewhat dyspneic. He becomes more dyspneic with standing for short periods of time. Objective: Alert and oriented. No distress. Fluent speech. Lungs are globally diminished breath sounds but otherwise clear. Heart is regular Goals of Care Determinations: DNR/DNI as previously decided. The patient declines long term facility placement The patient's primary goal is to return home for the remainder of his functional . He wishes to remain comfortable while at home He understands that he will have ongoing probable clinical deterioration with his problems but hopes to regain strength He is open to home infusions for enteral nutrition He is open to home physical therapy to improve his debilitation. Plan: The plan is to discharge in approximately 2 days, on May 17. He will return to his home on [address] with his . They will try to bolster the resources for social support at home and he will re-start home infusion services and home health physical therapy They understand there is a higher risk for readmission for acute hospital services. They understand that the patient has many complex medical problems and lives in a remote setting CODE STATUS: DO NOT RESUSCITATE, DO NOT INTUBATE Time Spent Adv.Care Plannin minutes Adv. Care Plan Documenation: As noted Eber Quinn MD May 15, 2017 16:57
[2017-05-15] MEDS: Artificial Tears 15 mL Ophthalmic Solution BOTH_EYES PRN (17:49)
[2017-05-16] VITALS (11 sets, daily range): BP systolic 81–106; BP diastolic 44–86; PULSE 70–87; RESP 16–38; O2SAT 89–99
[2017-05-16] MEDS: Insulin Human REGular 300 Unit/3 mL Inj SUBQ SCH ×4 (02:30→20:32)
--- NOTE | 2017-05-16 04:55 | NUR ---
Blood pressure, Vs as noted. Blood pressure 1944 83/56(65). Metoprolol held with SBP at 0000 103/. Using home Cpap through the night with 4l 0xygen and sats 90-91% when asleep to mid 90s when awake. Denies pain or discomfort.
[2017-05-16 06:35] LABS: INR 2.29 ratio
[2017-05-16] MEDS: predniSONE 20 mg Tablet PO SCH (07:58)
[2017-05-16] MEDS: Isosorbide Mononitrate 30 mg ER24 Tablet PO SCH (07:58)
[2017-05-16] MEDS: Sodium Chloride LOK Flush 10 mL Syringe IVFLUSH SCH ×2 (08:00→16:29)
[2017-05-16] MEDS: Tiotropium 18mcg/Cap 5 Capsule Inhaler Kit INHALATION SCH (08:01)
[2017-05-16] MEDS: Furosemide 10 mg/mL 4 mL Inj IVPUSH SCH (08:02)
[2017-05-16] MEDS: Albuterol 2.5 mg/3 mL Inhalation Solution NEB SCH ×4 (08:05→20:00)
--- NOTE | 2017-05-16 11:45 | PCM.PHAPRO ---
Progress Shortness of breath. Acute systolic heart failure WARFARIN INDICATION: AFib Home Dose 5mg with alterations to 7.5mg (Recently clarified) [facility] GSF GSF GSF GSF GSF GSF GSF GSF GSF GSF GSF GSF Date 12-Tom 13-Tom 14-Tom 15-Tom 16-Tom 17-Tom 18-Tom 19-Tom 20-Tom 21-Tom 22- Tom 23-Tom INR 1.86 2.23 2.69 2.13 1.7 1.49 1.49 1.54 1.55 1.68 2.31 2.33 INR change 0.37 0.46 -0.56 -0.43 -0.21 0.05 0.01 0.13 0.63 0.02 Warf Dose 2MG X1 1MG/D 1 1 2MG X1 2 MG 3MG 7.5 10mg x1 7.5MG 2 5 a/ INR today may reflect average dose over past few days. p/ Five mg today and follow Dennis Fitzpatrick Pharm D May 16, 2017 11:45
--- NOTE | 2017-05-16 11:54 | NUR ---
Social Work: Readiness for Discharge D: Pt discussed in am rounds. Pt is not yet medically stable for discharge but is anticipated to discharge on Friday. VORTEX OPERATOR spoke with Alesha from [facility] who states that they just received the Medicare authorization to start the patient's tube feeds. They are planing to send an RN to [facility] to complete the initial teaching and assessment with the patient and on Friday prior to discharge. She will call VORTEX OPERATOR back with a definite time for teaching and assessment. t/c to [facility]; left message notifying them that the patient will likely be discharging home tomorrow. t/c to patient's to discuss and confirm discharge plan; she was informed of the Medicare authorization that [facility] received. She states that she has informed [facility] of the patients anticipated discharge and they are working on getting an RN out to see the patient this weekend. She is working with her [facility] trying to obtain some DME for the patient. She states that she has access to a Bedside [employer]. She is requesting information about renting a wheelchair from [employer]. VORTEX OPERATOR informed her that they are no longer supplying DME and doing rentals. She is willing to consider another DME supplier who can deliver a w/c to the hospital prior to d/c. VORTEX OPERATOR will follow up with her about a w/c rental rate. t/c to [employer]. Their rental rate for a standard w/c is $55/month. Pt discussed in am rounds. Pt has been struggling to sit at the EOB without deating. Pt may require BLS transport home. A: Pt who live at home on [address] with his . P: Evolving; Anticipate pt to discharge home with [facility] for RN, PT and [facility] for Tube Feeds; Pt to likely require BLS transport. VORTEX OPERATOR to arrange for this and to follow up with about DME rental from [employer]. IFEOMA [place] Addendum: 05/16/17 at 1626 by COLLEEN STEPHENS SS IFEOMA met with the patient's to provide rental fee for w/c. She states that she went to [employer] and purchased a BSC and w/c at a discounted rate because they are going out of business. She declines any other DME needs. She states that [facility] will come out to their home to assist the patient getting into the house. She has already confirmed this with the department. During visit pt was siting upright in a wheelchair and appeared to be safely managing upright seated position. patient and spouse both state that they feel the patient will be safe for transport via POV. They are requesting a priority boarding pass. IFEOMA has completed this and it is awaiting MD folder. IFEOMA will fax this to F once finalized by MD DIA confirmed with Alesha from [facility], they will be coming to complete bedside teaching and assessment for tube feeds at 0900 on 05/17/2017. Pt's spouse confirms that she is aware of this.
--- NOTE | 2017-05-16 13:42 | NUR ---
NUTRITION FOLLOW-UP: ASSESS: 77 YO M admitted with respiratory failure. Pt has esophageal cancer, status post PEG tube placement 01/30/17. Per pt's , pt was last on enteral feeding in late March. Since that time pt has lost ~9% of his body wt=severe wt loss. Pt had MBS; ST recommending safest option would be to continue NPO status and start enteral feeding, which was started 05/06. Enteral feeding reduced to 50 ml/hr due to diarrhea on 05/10. Diarrhea has since resolved and enteral feeding was able to be slowly advanced to goal rate 65ml/hr on 05/13. There is no reported diarrhea since enteral feeding advancement. Pt's wt continues to slowly decrease which is likely related to aggressive diuresis. Due to poor PO tolerance, 9% wt loss x 1 month and chronic dysphagia pt would greatly benefit from continuing enteral feeding after discharge for greater than 90 days. 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 LABS: Reviewed. CO2 33, BUN 64, Glu 141. MEDS: Reviewed. Prednisone, Coumadin, Insulin, Lasix. GI: BM X 1 (05/12) SKIN: No issues noted. WT: 83.3 kg, BMI 24.0 kg, Admit wt: 97.2 kg UBW: ~110 kg, IBW: 80.9 kg (113% IBW). Pt wt 03/28/17 was 100 kg. Pt has lost ~9% body wt x 1 month= significant wt loss NUTRITION SUPPORT: Glucerna 1.5 @ 65 ml/hr providing 2242kcal and 123g pro (100% estimated needs). DIET: NPO per ST. ESTIMATED NEEDS: Calories: 6609-2160 kcal/day (25-30 kcal/kg BW) Protein: 85-130 g/day (1.0-1.5 g/kg BW) Fluids: ~2100 ml/day (25 ml/kg) NUTRITION DIAGNOSIS: 1) Inadequate oral intake related to esophageal ca as evidence by current NPO status, inability to keep PO food down due to dysphagia and need for PEG tube to maintain adequate nutrition - PERSISTS. 2) Moderate pro/kcal malnutrition related to esophageal ca as evidence by chronic dysphagia per ST, 9% wt loss x 1 month, decreased PO intake of less than 75% estimated needs for greater than 1 month and mild muscle/fat loss - PERSISTS. NUTRITION INTERVENTION: 1) No additional intervention at this time. MONITORING: Enteral feeding tolerance, approval for home enteral feeding, nutritional status. Follow up per moderate nutrition risk guidelines.
--- NOTE | 2017-05-16 14:35 | PCM.PNMED ---
Subjective Date of Service May 16, 2017 Subjective Is doing about the same today. He has been sitting up for about 20 minutes in a wheelchair with minimal discomfort and no real perception of dyspnea. His sats are about 89%. No cough or chest pain or palpitations. No abdominal pain. No nausea. No overnight events. Exam Vital Signs Vital Sign - Last Date Time Temp Pulse Resp B/P Pulse Ox O2 Delivery O2 Flow Rate FiO2 05/16/17 12:19 77 16 93 Nasal Cannula 2.50 05/16/17 11:20 36.4 84/50 05/14/17 07:28 35 Intake and Output 05/15/17 05/15/17 05/16/17 Cumulative From/Thru 15:00 23:00 07:00 05/05/17 06:47 - 05/16/17 04:54 Intake Total 1275 ml 0 ml 48055 ml Output Total 835 ml 1125 ml 19738 ml Balance 440 ml -1125 ml -3718 ml Intake Oral 0 ml 0 ml 1650 ml IV Total 1327 ml Tube Feeding 919 ml 18766 ml Tube Irrigant 356 ml 3956 ml Output Urine Total 835 ml 1125 ml 15546 ml Stool Total 200 ml Urine/Stool Mix 200 ml Gastric Drainage Total 20 ml Drainage Total 700 ml # Voids 14 # Bowel Movements 6 Exam Alert and oriented -3, no distress. Fluent speech. Chronically ill in appearance. Anicteric sclera. Lungs are clear with normal rate and effort Heart is regular without murmur gallop or rub Abdomen soft nontender, flat, PEG tube Extremities are free of edema. Skin is free of rash or lesions. IVs and Medications Medications Reviewed: Medications were reviewed in detail Lab and Diagnostics Result Diagram: 05/11/17 0315 05/15/17 0354 X-Rays, CTs and MRIs PROCEDURE: X-RAY CHEST ONE VIEW, PORTABLE ([id number]) IMPRESSION: 1. Developing upper lobe predominant consolidation is suspicious for pneumonia. Pulmonary edema may also have this appearance. 2. Possible trace right-sided effusion. Dictated by: Quirino Gómez M.D. on 05/05/2017 at 15:57 PROCEDURE: X-RAY BARIUM SWALLOW WITH FOOD & VIDEOGRAPHY ([id number]) FINDINGS: Function: The oral preparatory phase appears normal, with proper containment. The subsequent oral propulsive phase, pharyngeal phase, and esophageal phase of swallowing also appear normal with all proffered substances. Laryngeal penetration identified on multiple occasions. Mild vallecular pooling noted. IMPRESSION: Laryngeal penetration and vallecular pooling. Dictated by: Trenton Joshi [facility] Interpreted: Quirino Gómez MD on 05/05/2017 at 14 :07 PROCEDURE: X-RAY CHEST, TWO VIEWS ([id number]) IMPRESSION: 1. Cardiomegaly and increasing mixed interstitial and alveolar opacities is most suggestive of congestive heart failure. This has increased in the interim. Superimposed pneumonia is difficult to exclude. 2. Mild basilar atelectasis and/or small effusions. Dictated by: Quirino Gómez M.D. on 05/07/2017 at 8:52 PROCEDURE: CT CHEST WITH CONTRAST ([id number]) FINDINGS: Lungs and pleura: There are bilateral right greater than left effusions. There are alveolar densities superimposed on chronic lung disease. Increased interstitial markings are present as well. Mediastinum: Heart size is enlarged. No pericardial effusion. No mediastinal or hilar adenopathy by size criteria. Thoracic aorta and central pulmonary arteries are normal in size. Esophagus is normal in caliber. No hiatal hernia. IMPRESSION: Significant changes since the previous CT of 02/03/17 would suggest congestive failure changes superimposed on chronic lung disease. Dictated by: Bartolome Mena M.D. on 05/08/2017 at 20:28 . 12-lead ECG EKG 05/05/17 16:49 patient rhythm rate 76, LBBB morphology, QTC 522 . Cardiac Echo Impressions Cardiac Echo Impressions Most recent echo: Echocardiogram Report Name: ANIA LIM Study Date: 02/10/2017 Interpretation Summary 1. Normal left ventricular size with borderline increased wall thickness and an estimated EF of 45-50% 2.Upper limits of normal right ventricular size with low normal systolic function 3. No evidence for significant valvular pathology Assessment & Plan #. Acute on chronic respiratory failure and hypoxia, POA. Improving. Continue diuresis until discharge. #. Possible acute on chronic systolic heart failure, POA. Improving . Continue diuresis until discharge and then convert to oral. # Dysphagia, POA. And active continue tube feeds, continuous. This is going well. No change. # Diarrhea, not POA. Resolved # Severe protein caloric Malnutrition, POA and active . Continue tube feeds. #Type II diabetes mellitus, POA and stable. No change to medical management #. Chronic atrial fibrillation, POA and stable. Patient has good rate control we will continue warfarin. INR 1.86 on admission. Current INR 1.44. [id number] is 6. - Increase warfarin per pharmacist. - Bridge with Lovenox as needed #. Goals of care. Met with in a long discussion again regarding level of care on May 14.. She remains DNR/DNI. His goal to bring him home with additional support in spite of the remote location and the many medical complexities. #. Esophageal cancer, stage III POA. Status post radiotherapy and chemotherapy # RLL adenocarcinoma, POA. Small adenocarcinoma unlikely to be active at this time. #. 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 POA. Continue his dofetilide. #. COPD, POA. Continue Spiriva #. Hypertension, POA. Usual medications. #. CAD, POA. Continue current medications follow clinically. Disposition: Discussed his situation with pulmonary. The patient is now relatively stable on 5 L of oxygen and see. We will plan on discharge on Friday with home health and home infusion for uncontrolled feedings. Anticipate the need for a wheelchair at home to assist with transfers. The patient again today declined care home facility. The current plan is for a potential discharge home on Friday. We will use by mouth last transport for this transfer. VTE Prophylaxis: Theraputic Anticoag with Warfarin VTE Mechanical Devices: Intermittant Pneumatic CD Resuscitation Status: DNR/DNI:Do Not Resuscitate/Intubate Eber Quinn MD May 16, 2017 14:35
--- NOTE | 2017-05-16 17:25 | NUR ---
Activity, Port-a-cath 1000 - Discussed his care with Dr. Quinn and the rest of the multidisciplinary care team during morning rounds. Social work was aware that the family had left a note for him in the room. 1350 - Was able to provide stand by assistance to 1 person assistance with a front wheeled walker while he stood and transferred to a wheelchair. During the transfer his O2 saturation dropped into the 70s and 80s on 2-3L of O2. Once sitting down he was able to recover within a few minutes back into the high 80s and low 90s (increased his O2 to 6-7L). He stayed in the wheelchair for about an hour and returned to the bed at 1500. 1355 - Daniela, a business support liaison from [facility], called and requested information on his tube feeding so that she could set him up with in-home care once he discharges tomorrow. Gave her the information. 172 - Alicia from [facility] came by per the family's request and flushed out his de-accessed port-a-cath. It hadn't been flushed since March and he was supposed to have an out-patient appointment the other day, but was unable to due to being admitted to the hospital. He tolerated it well. Care continues.
[2017-05-17] MEDS: Sodium Chloride LOK Flush 10 mL Syringe IVFLUSH SCH ×2 (02:18→07:56)
[2017-05-17] MEDS: Insulin Human REGular 300 Unit/3 mL Inj SUBQ SCH ×2 (02:18→08:21)
[2017-05-17 03:02] VITALS: BP 80/49; PULSE 76; RESP 20; O2SAT 92
[2017-05-17 03:37] LABS: INR 2.28 ratio
[2017-05-17 06:17] VITALS: PULSE 76
--- NOTE | 2017-05-17 06:28 | NUR ---
Respiratory/Sleep Patient on home CPAP overnight with no significant desaturation events. Sleeping for the duration of the shift. Rouses easily for care. Continue to monitor. Switched to O2 5L via nasal cannula when awake for the day.
[2017-05-17] MEDS: Albuterol 2.5 mg/3 mL Inhalation Solution NEB SCH ×2 (07:18→12:23)
[2017-05-17 07:20] VITALS: PULSE 73; RESP 23; O2SAT 93
[2017-05-17 07:45] VITALS: BP 90/47; PULSE 82; RESP 28; O2SAT 93
[2017-05-17] MEDS: Tiotropium 18mcg/Cap 5 Capsule Inhaler Kit INHALATION SCH (07:55)
[2017-05-17] MEDS: predniSONE 20 mg Tablet PO SCH (07:56)
[2017-05-17] MEDS: Furosemide 10 mg/mL 4 mL Inj IVPUSH SCH (07:56)
[2017-05-17] MEDS: Isosorbide Mononitrate 30 mg ER24 Tablet PO SCH (07:56)
[2017-05-17] MEDS: Artificial Tears 15 mL Ophthalmic Solution BOTH_EYES PRN (09:00)
--- NOTE | 2017-05-17 09:21 | PCM.PHAPRO ---
Progress Date of Service: May 17, 2017 Warfarin dosing INR = 2.28 INR therapeutic today. Will give warfarin 5mg PO tonight. INRs ordered. Pharmacy will follow pt's warfarin therapy. Date May 06-Apr 14-Tom 15-Tom 16-Tom 17-Tom 18-Tom 19-Tom 20-May 14-Tom 22- Tom 23-Tom 24-Tom INR 1.86 2.23 2.69 2.13 1.7 1.49 1.49 1.54 1.55 1.68 2.31 2.33 2.28 INR change 0.37 0.46 -0.56 -0.43 -0.21 0.05 0.01 0.13 0.63 0.02 -0.05 Warf Dose 2MG X1 1MG/D 1 1 2MG X1 2 MG 3MG 7.5 10mg x1 7.5MG [address] PharmD May 17, 2017 09:21
[2017-05-17 11:50] VITALS: BP 89/48; PULSE 72; RESP 26; O2SAT 91
[2017-05-17 12:25] VITALS: PULSE 83; RESP 22; O2SAT 93
--- NOTE | 2017-05-17 12:35 | PCM.DIMED ---
Discharge Instructions Date of Service May 17, 2017 Dates of Hospitalization May 05, 2017 at 06:25 Discharge Diagnosis Discharge Diagnosis #. Acute on chronic respiratory failure and hypoxia, imrpoved. #. Possible acute on chronic systolic heart failure, Improved. # Dysphagia, stable. # Diarrhea, resolved. # Severe protein caloric Malnutrition, stable. # Type II diabetes mellitus, stable. #. Chronic atrial fibrillation, stable. #. Esophageal cancer, stage III Stable. #. 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 stable. #. Chronic obstructive pulmonary disease, stable. #. Hypertension, stable. #. Coronary artery disease, stable Diet Discharge Diet: Low fat, Low Sodium, Diabetic Activity Discharge Activity: Limited until seen by PCP Call your provider Call your provider for: Fever or Chills, Shortness of breath Patient Instructions Patient Instructions We will use prednisone 60 mg a day for 1 week, then 40 mg daily for 2 weeks and then 20 mg a day thereafter Follow-up Provider: Asha Garcia MD Follow-up with PCP in: 1 week Eber Quinn MD May 17, 2017 12:35
[2017-05-17] MEDS ORDERED: WARF5TAB PO (12:42)
[2017-05-17] MEDS ORDERED: PRED-508 PO (12:42)
--- NOTE | 2017-05-17 15:40 | NUR ---
Discharge 1000 - Discussed his care with Dr. Quinn and the rest of the multidisciplinary care team during morning rounds. Specifically spoke about his possible discharge today and transportation. BLS transport was recommended by nursing and Dr. Quinn, but later on when speaking to the family and patient they refused BLS transport. 1515 - He discharged at this time with Dr. Quinn's orders. His IV, telemetry, and inpatient tube feeding were discontinued intact. He was hooked up to his home tube feed and it was started with the settings the home health tub operator had set up this morning. Spent about 40 minutes with the patient, his , and his sister education them about the discharge instructions, his medication, administering his medications via the feeding tube, and managing his oxygen. Answered their questions and addressed their concerns. Discussed and gave them the discharge paperwork (instructions, prescriptions, care notes, POLST form). He was assisted into the wheelchair and set up on the oxygen tanks that [facility] ([facility] had brought for him. Jorgito Ojeda, RT said would last him about 3 hours per tank or 6 hours for both tanks. He also said the pt had a small tank of his own as a back up per RT. Elizabeth, the HYDRATION PLANT OPERATOR, took him down to the car with his belongings and family to drive him home to [place]. They thanked staff for their care.
--- NOTE | 2017-05-17 16:01 | NUR ---
Social Work Note: Discharge Data& Assessment: Per pt is medically stable for discharge. SW met with pt and pt family at bedside to confirm discharge plan and assess for any unmet needs. Pt confirmed plan to discharge home via P[place] SW provided pt and pt family with priority boarding pass. RT met with pt to ensure pt had oxygen for transport home. SW left a voicemail for [facility] call center specialist nurse to notify them of pt discharge as well as faxed discharge paperwork as they are not open on weekends. [facility] completed teaching this morning for continued tube feeds at home. Pt denies any other needs. No other discharge needs identified. All updated and agreeable to plan. Plan: Per pt is medically ready to discharge home via POV with resume [facility] RN, PT and BA, and new [facility] for tube feeds. Pt denies any other needs. No other discharge needs identified. All updated and agreeable to plan. IFEOMA Marie Addendum: 05/17/17 at 1629 by BRIANNE EDWARDS LORRAINE spoke with Kaylah from [facility] who confirmed notification of pt discharge and resumption of care date as 05/20/2017. IFEOMA Marie
--- NOTE | 2017-05-17 16:29 | PCM.DC.MED ---
Discharge Summary Date of Service May 17, 2017 Dates of Hospitalization Date of Hospital Admission May 05, 2017 at 06:25 Date of Discharge: May 17, 2017 Providers: Admitting Physician: Eber Hastings MD Primary Care Physician: Asha Garcia MD Attending Physician: Eber Hastings MD Diagnosis at Time of Discharge Diagnosis at Time of Discharge #. Acute on chronic respiratory failure and hypoxia, imrpoved. #. Possible acute on chronic systolic heart failure, Improved. # Dysphagia, stable. # Diarrhea, resolved. # Severe protein caloric Malnutrition, stable. # Type II diabetes mellitus, stable. #. Chronic atrial fibrillation, stable. #. Esophageal cancer, stage III Stable. #. 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 stable. #. Chronic obstructive pulmonary disease, stable. #. Hypertension, stable. #. Coronary artery disease, stable Consultations Pulmonary, Dr. Ferrell Procedures XRay, CTs & MRIs PROCEDURE: X-RAY CHEST ONE VIEW, PORTABLE ([id number]) IMPRESSION: 1. Developing upper lobe predominant consolidation is suspicious for pneumonia. Pulmonary edema may also have this appearance. 2. Possible trace right-sided effusion. Dictated by: Quirino Gómez M.D. on 05/05/2017 at 15:57 PROCEDURE: X-RAY BARIUM SWALLOW WITH FOOD & VIDEOGRAPHY ([id number]) FINDINGS: Function: The oral preparatory phase appears normal, with proper containment. The subsequent oral propulsive phase, pharyngeal phase, and esophageal phase of swallowing also appear normal with all proffered substances. Laryngeal penetration identified on multiple occasions. Mild vallecular pooling noted. IMPRESSION: Laryngeal penetration and vallecular pooling. Dictated by: Trenton Joshi [facility] Interpreted: Quirino Gómez MD on 05/05/2017 at 14 :07 PROCEDURE: X-RAY CHEST, TWO VIEWS ([id number]) IMPRESSION: 1. Cardiomegaly and increasing mixed interstitial and alveolar opacities is most suggestive of congestive heart failure. This has increased in the interim. Superimposed pneumonia is difficult to exclude. 2. Mild basilar atelectasis and/or small effusions. Dictated by: Quirino Gómez M.D. on 05/07/2017 at 8:52 PROCEDURE: CT CHEST WITH CONTRAST ([id number]) FINDINGS: Lungs and pleura: There are bilateral right greater than left effusions. There are alveolar densities superimposed on chronic lung disease. Increased interstitial markings are present as well. Mediastinum: Heart size is enlarged. No pericardial effusion. No mediastinal or hilar adenopathy by size criteria. Thoracic aorta and central pulmonary arteries are normal in size. Esophagus is normal in caliber. No hiatal hernia. IMPRESSION: Significant changes since the previous CT of 02/03/17 would suggest congestive failure changes superimposed on chronic lung disease. Dictated by: Bartolome Mena M.D. on 05/08/2017 at 20:28 . ECG 12 Lead EKG 05/05/17 16:49 patient rhythm rate 76, LBBB morphology, QTC 522 . Cardiac Echo Impression Cardiac Echo Impressions Most recent echo: Echocardiogram Report Name: ANIA LIM Study Date: 02/10/2017 Interpretation Summary 1. Normal left ventricular size with borderline increased wall thickness and an estimated EF of 45-50% 2.Upper limits of normal right ventricular size with low normal systolic function 3. No evidence for significant valvular pathology Brief History This is a 77-year-old gentleman presents with acute dyspnea. This began last night around midnight. History of chronic systolic heart failure as well as persistent chronic atrial fibrillation. The patient was admitted from April 23 through April 24 for initiation of dofetilide. He has a history of recurrent ventricular tachycardia and fibrillation. He has had multiple ICD discharges. He was previously on amiodarone but this was stopped due to a concern for pulmonary toxicity. He also has a history of COPD. He denies any palpitations , ICD is discharges, or orthopnea. He already has had leg edema for the last 1 or 2 days. He does have furosemide as above this but is 20 mg daily when necessary. He uses indicators for the water pill was leg edema or his daily weight which has recently been going down. He was not aware that fluid overload can cause shortness of breath and did not identify this as a possible trigger for furosemide. He denies leg pain. No cough, sore throat, fevers or chills. No pleuritic chest pain or hemoptysis. He has a history of stage III esophageal cancer is status post prolonged radiation therapy treatments as well as chemotherapy. He was in [place] and was sent out which is fairly remote. He also has a known history of dysphagia. Speech pathology requested a modified barium at the time of admit today. This unfortunately reveals a lot of pooling and silent aspiration. He has a PEG tube in place but has not used this for the last several weeks. He is felt to be at high risk for aspiration. Hospital Course #. Acute on chronic respiratory failure and hypoxia, POA. Improving. Continue diuresis until discharge. The patient did progressively better with protracted diuresis. He did ultimately require oxygen at home. #. Possible acute on chronic systolic heart failure, POA. Improving . Continue diuresis until discharge and then convert to oral. As above, he did improve with diuresis. # Dysphagia, POA. And active continue tube feeds, continuous. This is going well. No change. The patient did well with ongoing tube feeds. He will require these at home and will use ice chips only as needed for comfort. He has a high risk for aspiration. # Diarrhea, not POA. Resolved He did suffer from diarrhea on the hospital. This did resolve and there was no evidence of overt infection including C. difficile toxin. # Severe protein caloric Malnutrition, POA and active . Continue tube feeds. #Type II diabetes mellitus, POA and stable. No change to medical management This remained stable while in the hospital. #. Chronic atrial fibrillation, POA and stable. Patient has good rate control we will continue warfarin. INR 1.86 on admission. Current INR 1.44. [id number] is 6. - Increase warfarin per pharmacist. - Bridge with Lovenox as needed The patient was bridged with Lovenox and ultimately discharged on warfarin. #. Goals of care. Met with in a long discussion again regarding level of care on May 14.. She remains DNR/DNI. His goal to bring him home with additional support in spite of the remote location and the many medical complexities. #. Esophageal cancer, stage III POA. Status post radiotherapy and chemotherapy # RLL adenocarcinoma, POA. Small adenocarcinoma unlikely to be active at this time. #. 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 POA. Continue his dofetilide. This was continued throughout hospitalization. #. COPD, POA. Continue Spiriva #. Hypertension, POA. Usual medications. #. CAD, POA. Continue current medications follow clinically. There is a lot of discharge planning ensued with the patient regarding discharge plan. Ultimately he repeatedly did decline long-term facility discharge and although the patient had multiple constraints the desire was to try returning home with increased level care one additional time. This involves resumption of home infusion for tube feeds as well as home health with RN and PT. The patient is severely debilitated and has having progressive illness. He really can only stand to transfer from one sitting location to another is well-known to physical therapy. The patient does have multiple modifications at home to assist with his debilitation and mobility needs, however his is sole primary caregiver and is clear that she will have great difficulty with this. She has articulated multiple times on the hospital that she does understand the constraints and yet does want to try to bring him home to her [place] [id number]. Day of discharge all medical durable equipment needs were readdressed. Transport was initially going to be via [facility] ambulance but ultimately the patient's family elected to take him home private vehicle and had made arrangements with [facility] for assistance getting the patient into the home. There are very clear understanding of global dilatation and infected even need paramedics to assist getting him into his home. This patient is at very high risk for nearly immediate readmission given his progressive medical problems and very difficult situation at home on [facility]. Exam Vital Signs (Last) Date Time Temp Pulse Resp B/P Pulse Ox O2 Delivery O2 Flow Rate FiO2 05/17/17 12:25 83 22 93 Nasal Cannula 3.00 05/17/17 11:50 36.3 89/48 05/14/17 07:28 35 Exam Patient was seen and examined the day of discharge Test 05/05/17 10:55 05/06/17 04:55 05/08/17 03:10 05/09/17 04:05 Magnesium Level 1.9mg/dL (1.6-2.6) Total Bilirubin 1.0mg/dL (0.0-1.2) Aspartate Amino Transf (AST/SGOT) 14U/L (0-50) Alanine Aminotransferase (ALT/SGPT) 8U/L (0-44) Alkaline Phosphatase 110U/L (25-160) Troponin T 0.022ug/L (0.0-0.011) Total Protein 5.9g/dL (6.4-8.4) Albumin 2.6g/dL (3.4-5.0) Urine Color Yellow (YELLOW) Urine Appearance Clear (CLEAR,HAZY) Urine pH 5.0 (5.0-8.0) Urine Specific [place] 1.010 (1.003-1.035) Urine Protein Negativemg/dL (NEG,TRACE) Urine Glucose (UA) Negativemg/dL (NEGATIVE) Urine Ketones Negativemg/dL (NEGATIVE) Urine Occult Blood Negative (NEGATIVE) Urine Nitrite Negative (NEGATIVE) Urine Bilirubin Negative (NEGATIVE) Urine Urobilinogen Normalmg/dL (NORMAL) Urine Leukocyte Esterase Negative (NEGATIVE) Urine RBC 0-2/hpf (0-2) Urine WBC 0-5/hpf (0-5) Urine Epithelial Cells Occasional/hpf (NONE-MOD) Urine Crystals None seen (NONE SEEN) Urine Bacteria None/hpf (NONE-FEW) Urine Hyaline Casts None/lpf (NONE) Urine Granular Casts None seen (NONE SEEN) Urine Waxy Casts None seen (NONE SEEN) Urine Red Blood Cell Casts None seen (NONE SEEN) Urine White Blood Cell Casts None seen (NONE SEEN) Urine Mucus Present (None Seen) Urine Trichomonas None seen (NONE SEEN) Urine Yeast None (NONE SEEN) Urine Culture Reflexed Not indicated Hemoglobin A1c 5.9% (4.8-5.6) Procalcitonin 0.28ng/mL (0.00-0.08) Neutrophils (%) (Auto) 90.0% (40-74) Lymphocytes (%) (Auto) 5.9% (14-46) Monocytes (%) (Auto) 3.6% (4-12) Eosinophils (%) (Auto) 0% (0-5) Basophils (%) (Auto) 0% (0-3) Test 05/11/17 03:15 05/13/17 05:15 05/17/17 02:45 White Blood Count 10.7th/mm3 (3.8-10.1) Red Blood Count 3.58mil/mm3 (4.40-5.80) Hemoglobin 8.7g/dL (13.8-17.2) Hematocrit 30.2% (41.0-50.0) Mean Corpuscular Volume 84.4fL (81-100) Mean Corpuscular Hemoglobin 24.3pg (27.0-35.0) Mean Corpuscular Hemoglobin Concent 28.8% (32.0-37.0) Red Cell Distribution Width 19.0% (12.3-15.4) Platelet Count 164bil/L (150-400) Pro-B-Type Natriuretic Peptide 4823pg/mL (0-486) Prothrombin Time 24.8sec (8.1-12.5) Prothromb Time International Ratio 2.28ratio Sodium Level 139mEq/L (134-144) Potassium Level 5.1mEq/L (3.5-5.2) Chloride Level 96mEq/L (97-108) Carbon Dioxide Level 33mmol/L (18-29) Blood Urea Nitrogen 79mg/dL (8-27) Creatinine 0.94mg/dL (0.76-1.27) Estimat Glomerular Filtration Rate 82mL/min (>59) Glucose Level 122mg/dL (60-99) Calcium Level 8.8mg/dL (8.5-10.1) Discharge Medications Discharge Medications Albuterol Neb Soln (Albuterol Neb Soln) 1.25 Mg/3 Ml Vial.neb 1.25 MG NEB BID ( Reported) Aspirin (Aspirin) 81 Mg Tablet.dr 81 MG PO HS (Reported) Atorvastatin (Lipitor) 40 Mg Tablet 20 MG PO HS (Reported) Dofetilide (Dofetilide) 125 Mcg Capsule 125 MCG PO Q12H (Reported) Enalapril Maleate (Enalapril Maleate) 20 Mg Tablet 10 MG PO BID (Reported) Isosorbide DN (Isosorbide DN) 30 Mg Tablet 15 MG PO QAM (Reported) Levothyroxine (Levothyroxine) 75 Mcg Tablet 75 MCG PO QAM (Reported) Metoprolol Succinate ER (Metoprolol Succinate ER) 50 Mg Tab.er.24h 50 MG PO BID (Reported) Pramipexole Dihydrochloride (Pramipexole Dihydrochloride) 0.5 Mg Tablet 0.5 MG PO HS (Reported) Prednisone (Deltasone) 20 Mg Tablet 60 MG PO DAILY Prescribed by: EBER HASTINGS MD Ranitidine (Ranitidine) 150 Mg Capsule 150 MG PO QPM (Reported) Spironolactone (Spironolactone) 25 Mg Tablet 12.5 MG PO QAM (Reported) Tiotropium [place] (Spiriva) 18 Mcg Cap.w.dev 1 CAPSULE IH QAM (Reported) Warfarin Sodium (Coumadin) 5 Mg Tablet 5 MG PO DAILY@17 Prescribed by: EBER HASTINGS MD As needed Albuterol HFA (Proair HFA) 8.5 Gm Hfa.aer.ad 2 PUFFS IH Q4-6H PRN PRN For Shortness of Breath (Reported) Furosemide (Lasix) 40 Mg Tablet 20 MG PO DAILY PRN PRN Weight > 235 lbs ( Reported) Followup Plan Disposition: Home, with home health and home infusion for home tube feeds. Discharge Diet: Low fat, Low Sodium, Diabetic Discharge Activity: Limited until seen by PCP Patient Instructions We will use prednisone 60 mg a day for 1 week, then 40 mg daily for 2 weeks and then 20 mg a day thereafter Follow-up Provider: Asha Garcia MD Follow-up with PCP in: 1 week Time spent 60 minutes Eber Hastings MD May 17, 2017 16:29
== END 2017-05-17 15:15 | disposition home health service (06) | DRG 291 ==
LOC: PCC 06:25
PROVIDERS: ADMIT Hospitalist; ATTEND Hospitalist
PROC: 5A09357 Assistance with Respiratory Ventilation, Less than 24 Consecutive Hours, Continuous Positive Airway Pressure (ICD-10-PCS; principal; 2017-05-08)
DX: I50.23 Acute on chronic systolic (congestive) heart failure (principal); J96.21 Acute and chronic respiratory failure with hypoxia; J69.0 Pneumonitis due to inhalation of food and vomit; E43 Unspecified severe protein-calorie malnutrition; J70.0 Acute pulmonary manifestations due to radiation; I48.1 Persistent atrial fibrillation; C15.5 Malignant neoplasm of lower third of esophagus; C78.01 Secondary malignant neoplasm of right lung; Z68.27 Body mass index [BMI] 27.0-27.9, adult; Z95.810 Presence of automatic (implantable) cardiac defibrillator; Z79.01 Long term (current) use of anticoagulants; J44.9 Chronic obstructive pulmonary disease, unspecified; I10 Essential (primary) hypertension; E78.5 Hyperlipidemia, unspecified; I25.10 Atherosclerotic heart disease of native coronary artery without angina pectoris; R13.10 Dysphagia, unspecified; Z92.21 Personal history of antineoplastic chemotherapy; Z92.3 Personal history of irradiation; Z66 Do not resuscitate; E11.9 Type 2 diabetes mellitus without complications; R19.7 Diarrhea, unspecified

== ENCOUNTER 2017-05-21 21:07 | Inpatient (IN) | payer MEDICARE, OTHER ==
[~2017-05-21] VITALS: Ht 182.9 cm; Wt 86.0 kg
[~2017-05-21 21:07] MED LIST changes: +DOFE125C3 PO; +METO-272 PO; -METO-274 PO; +PRED-508 PO; -WARF1TAB6 PO; +WARF5TAB PO; -[UNRECOGNIZED DRUG - CODE] PO
--- NOTE | 2017-05-21 21:12 | ED.REPORT ---
HPI-Dyspnea / Wheezing Date of Service May 21, 2017 ED Provider: Pernell Faith Pt is a 77 year old male with a history of CHF, COPD, CAD, DM, pacemaker insertion, hyperlipidemia, and HTN who presents to the ED via EMS after respiratory failure prior to arrival. The pt lives at [facility] for respiratory failure. Over the past 1-2 hours he has experienced worsening dyspnea, fever, and low stats. He was placed on CPAP by EMS. Per EMS, the pt presented with a fever onset for the last hour with a rate of 90 and paced. The pt had a nebulizer prior to EMS arrival. Pt concurs that he does not want intubation. His also concurs to not intubate, reporting that the pt wants non-invasive measures including bidirectional pap and no CPR. Nursing Notes Stated Complaint: RESPIRATORY DISTRESS, LIMITED INTERVENTION, DNR Nursing Notes Reviewed: Yes Allergies: Coded Allergies: Penicillins (Verified Allergy, Severe, Rash, 05/21/17) amiodarone (Verified Allergy, Severe, Toxicity to lungs, 05/05/17) codeine (Verified Adverse Reaction, Mild, Nausea, 05/05/17) Scheduled Albuterol Neb Soln (Albuterol Neb Soln) 1.25 Mg/3 Ml Vial.neb 1.25 MG NEB BID Aspirin (Aspirin) 81 Mg Tablet.dr 81 MG PO QPM Atorvastatin (Lipitor) 40 Mg Tablet 20 MG PO HS Dofetilide (Dofetilide) 125 Mcg Capsule 125 MCG PO Q12H Enalapril Maleate (Enalapril Maleate) 20 Mg Tablet 10 MG PO BID Isosorbide DN (Isosorbide DN) 30 Mg Tablet 15 MG PO QAM Levothyroxine (Levothyroxine) 75 Mcg Tablet 75 MCG PO DAILY Metoprolol Succinate ER (Metoprolol Succinate ER) 50 Mg Tab.er.24h 50 MG PO BID Pramipexole Dihydrochloride (Pramipexole Dihydrochloride) 0.5 Mg Tablet 0.5 MG PO HS Prednisone (Deltasone) 20 Mg Tablet 60 MG PO DAILY Ranitidine (Ranitidine) 150 Mg Capsule 150 MG PO QPM Spironolactone (Spironolactone) 25 Mg Tablet 12.5 MG PO QAM Tiotropium [place] (Spiriva) 18 Mcg Cap.w.dev 1 CAPSULE IH QAM Warfarin Sodium (Coumadin) 5 Mg Tablet 5 MG PO DAILY@17 Scheduled PRN Albuterol HFA (Proair HFA) 8.5 Gm Hfa.aer.ad 2 PUFFS IH Q4-6H PRN PRN For Shortness of Breath Furosemide (Lasix) 40 Mg Tablet 20 MG PO DAILY PRN PRN Weight > 235 lbs General Time Seen by MD: 21:12 Chief Complaint Shortness of breath Hx Obtained From: Patient, EMS Arrived By: Ambulance Sudden in Onset?: No Onset Occurred: Just prior to arrival Symptom Duration: Since onset Severity: Current: No pain currently Severity: Maximum: No pain Recent Healthcare: Recent doctor visit Similar Sx Previous: Yes Past Medical History Past Medical History Hiatal hernia Sleep apnea on CPAP Heart murmur AWMI Mild acute kidney injury on CKD stage III Emphysema Reports: Asthma, COPD, Cancer, Congestive heart failure, Coronary artery disease , Diabetes mellitus, Hyperlipidemia, Hypertension Past Surgical History Mitral valve repair Reports: CABG Reports: Pacemaker insertion Smoking History Current Every Day Smoker Social History Alcohol Use: Denies alcohol use Drug Use: Denies drug use Review of Systems + Respiratory failure Constitutional: Reports: Fever Respiratory: Reports: Dyspnea on exertion, Shortness of breath, Denies: Non-productive cough Complete sys rev & neg: except as marked. Physical Exam Initial Vital Signs Vital Signs (First) Date Time Temp Pulse Resp B/P Pulse Ox O2 Delivery O2 Flow Rate FiO2 05/21/17 21:13 36.9 90 28 113/38 76 05/21/17 21:25 CPAP 05/21/17 21:58 100 Initial VS: Reviewed Head / Eyes: Atraumatic, Normocephalic Skin: Warm, Dry, No cyanosis Neurologic: Alert, Oriented, Nonfocal Psychiatric: Mood/affect normal, Behavior normal General/Constitutional: Awake, Alert, Cooperative Distress / Hydration: Positive: Distress severe Follows commands. Neck: Atraumatic, Full range of motion Respiratory / Chest: Atraumatic Course breath sounds. Tachypneic at 50. He concurs that he does not wish to be intubated. Cardiovascular: Heart rate NL, Regular rhythm, Heart sounds NL Abdomen: Atraumatic, Soft Distended. Lower Extremity / Pelvis / MS: Neurologic intact, Vascular intact No signs of limb trauma Interpretation & Diagnostics Lab Results Interpretation Result Diagram: 05/21/17211905/21/172119 Test 05/21/17 21:20 05/21/17 21:35 05/21/17 22:20 White Blood Count 24.0th/mm3 (3.8-10.1) Red Blood Count 5.11mil/mm3 (4.40-5.80) Hemoglobin 12.2g/dL (13.8-17.2) Hematocrit 40.5% (41.0-50.0) Mean Corpuscular Volume 79.3fL (81-100) Mean Corpuscular Hemoglobin 23.9pg (27.0-35.0) Mean Corpuscular Hemoglobin Concent 30.1% (32.0-37.0) Red Cell Distribution Width 19.9% (12.3-15.4) Platelet Count 265bil/L (150-400) Neutrophils (%) (Auto) 95.7% (40-74) Lymphocytes (%) (Auto) 2.3% (14-46) Monocytes (%) (Auto) 1.6% (4-12) Eosinophils (%) (Auto) 0% (0-5) Basophils (%) (Auto) 0.1% (0-3) Prothrombin Time 22.3sec (8.1-12.5) Prothromb Time International Ratio 2.05ratio Sodium Level 142mEq/L (134-144) Potassium Level 5.1mEq/L (3.5-5.2) Chloride Level 98mEq/L (97-108) Carbon Dioxide Level 28mmol/L (18-29) Blood Urea Nitrogen 79mg/dL (8-27) Creatinine 0.94mg/dL (0.76-1.27) Estimat Glomerular Filtration Rate 82mL/min (>59) Glucose Level 159mg/dL (60-99) Calcium Level 10.0mg/dL (8.5-10.1) Total Bilirubin 0.8mg/dL (0.0-1.2) Aspartate Amino Transf (AST/SGOT) 144U/L (0-50) Alanine Aminotransferase (ALT/SGPT) 122U/L (0-44) Alkaline Phosphatase 227U/L (25-160) Troponin T 0.048ug/L (0.0-0.011) Total Protein 7.8g/dL (6.4-8.4) Albumin 3.4g/dL (3.4-5.0) Procalcitonin 0.42ng/mL (0.00-0.08) Lactic Acid Level 3.6mmol/L (0.4-2.0) ECG Interpretation ECG Interpretation: Ventricular-paced complexes with a rate of 87 Time: 21:15 Interpreted by: ED physician X-Ray Chest Interpretation Chest Xray Interpretation: IMPRESSION: Persistent diffuse interstitial and airspace infiltrate bilaterally consistent with pneumonia and/or pulmonary edema. Dictated by: Kaitlin Pena M.D. on 05/21/2017 at 21:37 View: Portable, 1 view Interpretation / Wet Read by: Interpret - Radiologist Re-Eval/Medical Decision Med Decision/Clinical Course 69-year-old male with multiple comorbidities including end-stage COPD presents in severe respiratory distress. He comes to us from a fdc was found to be tachypneic with a rate in the 50s febrile and hypoxic in spite of supplemental oxygen. I believe his oxygen saturation was 70% in the field. Medics immediately placed him on BiPAP and they brought him in as a stat transfer. He was found to have asked him respiratory distress. He had tachypnea I count of 56 breaths a minute. He could not speak whatsoever. He had almost no air movement with minimal coarse breath sounds bilaterally cardiac was regular and paced. Belly was benign. Limbs without edema. No JVD. I immediately started him on IV steroids, high dose rhonchal dilators and BiPAP was continued. Chest x-ray is consistent with pneumonia as welll after blood cultures were drawn IV cefepime was infused. After the above therapeutics he looked and felt better. His respiratory rate dropped to 28 and his O2 sat was 99%. He was moving much more air in both lungs. He did become hypotensive consistent with septic shock. This responded nicely to 2 L of normal saline. I discussed CODE STATUS with him and his . He does not wish to have a central line placed he does not wish to have intubation. He would like everything else done that we could do including BiPAP, fluids and antibiotics. We will continue this. We will continue with the bronchodilators as well. He will be admitted to the progressive care unit for hospitalist service. Source of Hx: Old records Re-Evaluation/Progress #1: Time of Eval: 21:54 Re-Evaluation/Progress Note: Pt rechecked. He is moving more air and reports that he is feeling better. The pt is only tachycardic at 30, O2 stat at 99%, and blood pressure at 89. All questioned were answered. Re-Evaluation/Progress #2: Time of Eval: 22:32 Re-Evaluation/Progress Note: Pt rechecked. Informed pt of plan for admission. Pt understands and agrees with plan for admission. All questions were answered. Re-Evaluation/Progress #3: Time of Eval: 22:49 Re-Evaluation/Progress Note: Pt rechecked. 2 liters infusion and on antibiotics. His blood pressure is 130, O2 stat 99%, and respiratory 24. He is making urine and perfusion improved. All questioned were anwered. Consultation : Referral / Consult Name: Saúl Lucia MD Consulted With: Hospitalist Call Returned at: 22:42 Mechanical Technical Service Specialist: Will see patient, Agrees with eval, Agrees with plan, Accepts admit Differential Diagnosis: Positive: Acute coronary syndrome, COPD exacerbation, Cardiogenic shock, Congestive heart failure, Myocardial infarction, Pneumonia Counseled Regarding: Diagnosis, Lab results, Need for admission Discharge & Departure Impression: Primary Impression: Septic shock Additional Impressions: Bilateral pneumonia Pneumonia type: due to unspecified organism Lung location: unspecified part of lung Qualified Code: J18.9 - Pneumonia, unspecified organism Respiratory failure with hypoxia Chronicity: unspecified Qualified Code: J96.91 - Respiratory failure, unspecified with hypoxia Lactic acid acidosis Elevated troponin COPD with acute exacerbation Disposition: ADMITTED TO HOSPITAL Discharge Condition All VS Reviewed: Yes Condition: Stable Referrals: Asha Garcia MD (PCP) Crit Care Except Billable Proc Time Spent: 105-134 minutes Services Performed: Patient management by me, Time spent at bedside, Reviewing test results, Reviewing imaging, Discussing patient care, Documentation in record, Time with fam/surrogate Scribe Attestation Portions of this note were transcribed by Justa Spain. I, Dr. Gimenez personally performed the history, physical exam and medical decision-making; I reviewed and confirmed the accuracy of the information in the transcribed note. Signed by: Adalberto Isbell, 05/21/17 and 22:50. copies to: Asha Garcia MD, Todd P DO May 21, 2017 21:12 Justa Li May 21, 2017 21:20
[2017-05-21 21:13] VITALS: BP 113/38; PULSE 90; RESP 28; O2SAT 76
[2017-05-21] MEDS ORDERED: Albuterol-Ipratropium 3 mL Inhalation Solution NEB ONE (21:15)
[2017-05-21] MEDS ORDERED: MethylprednisoLONE Sodium Succinate 62.5 mg/mL 2 mL Inj IVPUSH ONE (21:15)
[2017-05-21] MEDS ORDERED: Albuterol 2.5 mg/3 mL Inhalation Solution NEB ONE (21:15)
[2017-05-21] MEDS ORDERED: Cefepime Inj 2,000 MG in Dextrose 5% Minibag Plus 100 ML IV ONE (21:15)
[2017-05-21 21:23] LABS: BASOPHILS % (AUTO) 0.1 % (0-3); EOSINOPHILS % (AUTO) 0 % (0-5)
[2017-05-21 21:25] VITALS: PULSE 82; RESP 46; O2SAT 94
[2017-05-21 21:30] LABS: MONOCYTES % (AUTO) 1.6 % (4-12); Mean Corpuscular Hemoglobin 23.9 pg (27.0-35.0); Mean Corpuscular Volume 79.3 fL (81-100); NEUTROPHILS % (AUTO) 95.7 % (40-74)
[2017-05-21 21:33] LABS: Platelet Count 265 bil/L (150-400)
--- NOTE | 2017-05-21 21:40 | DRSVH ---
PROCEDURE: X-RAY CHEST ONE VIEW, PORTABLE ([id number]) INDICATIONS: respiratory distress fever TECHNIQUE: One view of the chest was acquired. COMPARISON: [facility], CR, XR CHEST 1VW, 05/11/2017, 5:07. [facility], CR, XR CHEST 1VW (PORTABLE), 05/05/2017, 15:14. FINDINGS: Surgical changes and devices: There is a cardiac pacemaker/defibrillator in expected position. A Port -A-Cath is seen on the right with the tip in SVC. Lungs and pleura: Persistent diffuse interstitial and airspace infiltrates bilaterally appear minima lly changed. No pleural effusions or pneumothorax. Mediastinum: Mediastinal contours appear normal. Heart size is normal. Bones and chest wall: No suspicious bony lesions. Overlying soft tissues appear unremarkable. IMPRESSION: Persistent diffuse interstitial and airspace infiltrate bilaterally consistent with pneum onia and/or pulmonary edema. Dictated by: Kaitlin Pena M.D. on 05/21/2017 at 21:37 Approved by: Kaitlin Pena M.D. on 05/21/2017 at 21:38
[2017-05-21 21:44] LABS: INR 2.05 ratio
[2017-05-21] MEDS ORDERED: 0.9% Sodium Chloride 1,000 ML IV ONE (21:55)
[2017-05-21 21:58] VITALS: RESP 46; O2SAT 94
[2017-05-21 22:13] VITALS: RESP 48; O2SAT 96
[2017-05-21 22:14] LABS: TROPONIN T 0.048 ug/L (0.0-0.011)
[2017-05-21] MEDS ORDERED: 0.9% Sodium Chloride 1,000 ML IV SCH (22:45)
[2017-05-21] MEDS ORDERED: Polyethylene Glycol (PEG) 17 Gm Powder PO PRN (22:50)
[2017-05-21] MEDS ORDERED: Alum-Mag Hydrox-Simeth 30 mL Suspension PO PRN (22:50)
[2017-05-21] MEDS ORDERED: Senna-Docusate 8.6-50 mg Tablet PO PRN (22:50)
[2017-05-21] MEDS ORDERED: Ondansetron 2 mg/mL 2 mL Inj IVPUSH PRN (22:50)
[2017-05-21 23:00] VITALS: BP 92/54; PULSE 78; RESP 30; O2SAT 95
[2017-05-21 23:28] LABS: Creatine Kinase 26 U/L (21-232); Phosphorus 2.4 mg/dL (2.5-4.9)
--- NOTE | 2017-05-21 23:38 | ABG ---
DateTimeAnalyzed 23:31:44 -_ pH ____7.473 - 7.350 7.450 pCO2 ___40.6__ -mmHg 35.0 45.0 pO2 ___61.0__ -mmHg 69.0 116 HCO3- ___29.7__ -mmol/L 22.0 26.0 ABE ____5.6__ -mmol/L tHb ____9.6__ -g/dL O2Hb ___89.8__ -% COHb ____1.7__ -% 1.5 MetHb ____0.0__ -% sO2 ___91.1__ -% FIO2 ___50.0__ -% CPAP ___14.0__ -cmH2O Vt __725.0__ -L Drawn By MD - Date/Time Notified____ 23:38:00 -_ Spontaneous_RR 43 -b/min Oxygen Device 1 ____BIPAP - Notified By MD - Notified Whom _DR STRATTON - K+ ____4.4__ -mmol/L tO2 ___12.2__ -Vol% Eber test N/A -
[2017-05-21 23:43] LABS: Magnesium 2.4 mg/dL (1.6-2.6)
[2017-05-21] MEDS ORDERED: Linezolid Inj 600 MG in IV Premix 1 EACH IV SCH (23:45)
[2017-05-21] MEDS ORDERED: Norepineph 8,000 mCg/250 mL NS 8,000 MCG in IV Premix 1 EACH IV SCH (23:50)
[2017-05-22] VITALS (15 sets, daily range): BP systolic 77–145; BP diastolic 40–78; PULSE 73–82; RESP 22–36; O2SAT 90–99
[2017-05-22] MEDS ORDERED: Azithromycin Inj 500 MG in Dextrose 5% w/Vial Mate 250 ML IV SCH (00:13)
[2017-05-22] MEDS ORDERED: Glucose 40% Oral Gel 15 Gm Tube PO PRN (00:20)
--- NOTE | 2017-05-22 01:06 | PCM.HPMED ---
Subjective Date of Service May 21, 2017 Primary Provider: Admitting Physician: Saúl Lucia MD Primary Care Physician: Asha Garica MD Attending Physician: Saúl Lucia MD Chief Complaint: Patient is a 77-year-old male with a medical history significant for end-stage COPD, esophageal adenocarcinoma, CAD, CHF, and diabetes type II presented with fever. History of Present Illness: Per patient's , patient started having fever and increasing respiratory distress last night, thus activated EMS. Patient was was admitted to [facility] 2 days ago for continue physical therapy as patient is significantly deconditioned. Patient is NPO due to risk of aspiration per speech therapy based upon most recent barium swallow evaluation. Patient received nutrition via PEG tube. Patient was recently discharged on 05/17/2017 after a 12 day stay for acute hypoxic respiratory failure and also acute heart failure. Prior to coming here, patient denies any chills, abdominal pain, n/v/d. No dysurea. Nor does he has any exertional dyspne, CP. Denies any active chest pain. In the ED, patient was SIRS positive, septic shock. Pt was given 2L NS, BIPAP, and noripenepherin drip prior to admission into ICU. Review of Systems: A comprehensive review of systems was conducted with the patient and found to be negative except as above in the History of Present Illness. Allergies Coded Allergies: Penicillins (Verified Allergy, Severe, Rash, 05/21/17) amiodarone (Verified Allergy, Severe, Toxicity to lungs, 05/05/17) codeine (Verified Adverse Reaction, Mild, Nausea, 05/05/17) Home Medications Per medication reconciliation Albuterol HFA 2 puffs every 4-6 hour when necessary Albuterol nebulizer 1.25 nap twice a day Aspirin 81 mg at bedtime Atorvastatin 20 mg at bedtime Tikosyn 125 MCG by mouth every 12 hours Enalapril 10 mg by mouth twice a day Furosemide 20 mg daily. Isosorbide 50 mg by mouth every morning Levothyroxine 75 mL every daily Metoprolol succinate 50 mg by mouth twice a day Paxil 0.5 mg daily at bedtime Prednisone 60 mg daily Ranitidine 150 mg daily Spironolactone 12.5 mg daily Spiriva 1 capsule inhalation every morning Warfarin 5 mg daily PMH Chronic atrial fibrillation Third-degree AV block with pacer Chronic systolic heart failure with dilated cardiomyopathy Recurrent ventricular tachycardia cardia with ventricular fibrillation with ICD pacer History of amiodarone-induced toxicity Esophageal carcinoma status post chemoradiation therapy COPD Chronic respiratory failure with hypoxia Hypertension Dyslipidemia Diabetes type II diet controlled Surgical History ICD implantation Family History Father of [place] at 83 and mother had CHF. Social History Hx Alcohol Use: No Hx Substance Use: No Hx Tobacco Use: Yes Smoking Status: Current Every Day Smoker Living Arrangement: Shelter Facility ([facility]) Exam Vital Signs Vital Sign - Last Date Time Temp Pulse Resp B/P Pulse Ox O2 Delivery O2 Flow Rate FiO2 05/21/17 22:13 48 96 70 05/21/17 21:25 82 CPAP 05/21/17 21:13 36.9 113/38 Exam General: No acute distress, sitting comfortably, appropriately interactive HEENT: Normocephalic, atraumatic. PERRLA, EOMI, Anicteric sclerae Neck: No JVD, No bruits. No lymphadenopathy or thyromegaly. Cardiovascular: Irregularly irregular, no murmur, rub or gallop Pulmonary: Bilateral air sound, significant coarse breath bilaterally R worst than L, no crackles, no wheezes Abdomen: +Bowel sound, Soft, nontender, nondistended. Negative for Herrera sign Extremities: No clubbing or cyanosis, no lymphedema, no b/l lower leg edema Skin: Normal temperature, turgor, and texture; no rash. No visualized skin ulcer. port-a-cath Right chest, peg tube Right upper quadrant Neurological: CN II-VII grossly intact, moving equally on all 4 extremities Psychiatric: Normal mood and affect. AOx3 Lab and Diagnostics Result Diagram: 05/21/17211905/21/172119 X-Rays, CTs and MRIs PROCEDURE: X-RAY CHEST ONE VIEW, PORTABLE ([id number]) INDICATIONS: respiratory distress fever IMPRESSION: Persistent diffuse interstitial and airspace infiltrate bilaterally consistent with pneumonia and/or pulmonary edema. Dictated by: Kaitlin Pena M.D. on 05/21/2017 at 21:37 Assessment & Plan Patient is a 77-year-old male with a medical history significant for end-stage COPD, esophageal adenocarcinoma, CAD, CHF, and diabetes type II presented with fever, admitted for severe sepsis secondary to hospital-acquired pneumonia. Acute on chronic hypoxic respiratory failure, present on admission, active - Patient is a DNR/DNI - Placed on BiPAP, nothing by mouth for now Sepsis shock, present on admission, active - Met SIRS criteria with leukocytosis and tachypnea, plus elevated troponins and liver enzymes, ED started pressors - Source likely pneumonia, though could also be from other sources such as port infection. - UA pending - 1 L of fluid given in the ED, continue fluid hydration NS 100cc/hr - Started antibiotic to cover for hospital-acquired pneumonia - Blood pressures soft, started norepinephrine if MAP <60 Hospital-acquired pneumonia, present on admission, active - Elevated procalcitonin with chest x-ray shows diffuse bilateral infiltrates - Antibiotics: Cefepime, doxycycline, and linezolid given the patient was recently discharged from hospital on 05/17/2017 - Some suspicion that this can also result from aspiration of an abnormal barium swallow on 05/05/2017 - Trending procalcitonin, change abx regiment if procalcitonin unimproved Elevated troponin of uncertain a significant, present on admission, active - Asymptomatic, no ischemic changes on EKG - Likely demand ischemia - Repeat troponin, start heparin drip troponin significantly elevated Transaminitis, present on admission, active - Likely sepsis related - Will trend liver function Exacerbation of chronic obstructive pulmonary disease, present on admission, active - Solu-Medrol 125 mg q8h - DuoNeb Q4HWA and additional albuterol ordered when necessary Deconditioning, present on admission, active - PT ordered Chronic afib, present on admission, active - Holding metopolol xl the setting of severe sepsis - restart warfarin Recurrent ventricular tachycardia and fibrillation with ICD, present on admission, active - Continue his dofetilide. Chronic conditions Diabetes type II, stable - Short acting insulin sliding scale - Blood sugar goal 130 to 180 Coronary artery disease, stable - Start home atorvastatin and aspirin once patient can tolerate by mouth intake Dysphagia - Nothing by mouth - Continue NG tube Severe protein caloric malnutrition, stable - Dietitian consulted, restart enteric feeding Heart failure with reduced ejection fraction, stable - EF 40-45% based on last echo on 02/10/2017 - Restart oral metoprolol, enalapril when able - Holding home furosemide and spironolactone in the setting of sepsis GERD - Famotidine 10 mg IV twice a day DVT prophylaxis: Warfarin Patient is a DNR/DNI Patient Status: Patient is admitted under inpatient status with expected length of stay GREATER than 2 midnights due to severity of presenting symptoms, risk of adverse event, and complexity of treatment plan. GI Prophylaxis: H2 ira VTE Prophylaxis: Theraputic Anticoag with Warfarin Resuscitation Status: DNR/DNI:Do Not Resuscitate/Intubate Gorge Gomez DO May 22, 2017 01:06
[2017-05-22 01:33] LABS: APPEARANCE,URINE CLEAR (CLEAR,HAZY); COLOR,URINE YELLOW (YELLOW); OCCULT BLOOD,URINE NEGATIVE (NEGATIVE); PH,URINE 6.5 (5.0-8.0); UROBILINOGEN,URINE NORMAL (NORMAL)
[2017-05-22] MEDS: Norepineph 8,000 mCg/250 mL NS 8,000 MCG in IV Premix 1 EACH IV SCH ×3 (01:39→08:16)
[2017-05-22] MEDS: Doxycycline 100 mg/100 mL D5W IV SCH ×6 (02:08→20:37)
[2017-05-22] MEDS ORDERED: 0.9% Sodium Chloride 250 ML IV ONE (02:10)
[2017-05-22] MEDS ORDERED: 0.9% Sodium Chloride 250 ML IV PRN (02:25)
[2017-05-22] MEDS: Albuterol 2.5 mg/3 mL Inhalation Solution NEB PRN (03:24)
[2017-05-22 03:42] LABS: EOSINOPHILS % (AUTO) 0 % (0-5); Mean Corpuscular Hemoglobin 23.9 pg (27.0-35.0); Mean Corpuscular Volume 79.9 fL (81-100); Platelet Count 262 bil/L (150-400)
[2017-05-22] MEDS ORDERED: Linezolid Inj 600 MG in IV Premix 1 EACH IV SCH (03:56)
[2017-05-22 04:26] LABS: BASOPHILS % (AUTO) 0 % (0-3); MONOCYTES % (AUTO) 2 % (4-12); NEUTROPHILS % (AUTO) 79 % (40-74)
[2017-05-22] MEDS ORDERED: 0.9% Sodium Chloride 500 ML IV PRN (05:10)
--- NOTE | 2017-05-22 05:50 | NUR ---
Admission to CCU Pt admitted to CCU from the ER. Upon arrival to the unit the patient had increased work of breathing, tachypnea, profound hypotension, poor color and skin turgur. Pt physically moved to new bed from ER [facility]. Pt was on oxymask for transport and was replaced on BIPAP at 40% promptly upon arrival to the unit. Pt refused white for strict monitoring of I&O. Pt verified he does not want intubation nor shock should he require it. Levophed infusing at 0.3mcg/kg/hour based off of admit weight upon arrival along with Azithromycin infusing. Admission assessments completed including med rec. Levophed titrated up to current level of 0.45mcg/kg/minute based on Brady Body Weight of 77kg. Doxycycline and Zyvox administered once patient hit the floor. Per report he had already received Cefepime and Azithromycin. BIPAP increased to 45% FiO2 to maintain SpO2 >92%. NS Bolus administered to decrease lactate which is still trending up and currently is greater than 5. Pt's INR is 2.3. Recheck pending. Pt needs ART LINE for closer monitoring of BP, frequent blood draws, and ABGs.
[2017-05-22] MEDS: Albuterol-Ipratropium 3 mL Inhalation Solution NEB SCH ×4 (07:55→20:28)
[2017-05-22] MEDS: Insulin LISPRO 300 Unit/3 mL Inj SUBQ SCH ×3 (08:07→18:00)
[2017-05-22] MEDS: MethylprednisoLONE Sodium Succinate 62.5 mg/mL 2 mL Inj IVPUSH SCH ×2 (08:07→16:50)
[2017-05-22] MEDS ORDERED: 0.9% Sodium Chloride 250 ML IV SCH ×2 (08:29→10:34)
[2017-05-22] MEDS ORDERED: Sodium Chloride LOK Flush 10 mL Syringe IVFLUSH PRN ×4 (08:30→10:35)
[2017-05-22] MEDS ORDERED: Cefepime Inj 2,000 MG in Dextrose 5% Minibag Plus 100 ML IV SCH (08:30)
[2017-05-22] MEDS ORDERED: HepLOK Flush 100 unit/mL 5 mL Inj IVFLUSH PRN ×2 (08:30→10:35)
[2017-05-22] MEDS ORDERED: Meropenem Inj 2,000 MG in 0.9% Sodium Chloride 100 ML IV ONE (08:35)
[2017-05-22] MEDS ORDERED: Lactated Ringer's 500 ML IV ONE ×2 (08:45→10:35)
[2017-05-22] MEDS: Famotidine Inj 10 MG in Dextrose 5% 50 ML IV SCH ×2 (08:50→20:37)
--- NOTE | 2017-05-22 09:07 | CONS ---
[address] [address] CONSULTATION REPORT PATIENT: ANIA LIM : 1940 MR#: [id number] ADMIT: 05/21/2017 JOB ID: [id number] DATE OF SERVICE: 05/22/2017 INFECTIOUS DISEASE CONSULTATION: I thank Dr. Gomez for this timely consult. REASON FOR CONSULTATION: Septic shock with respiratory failure in a patient with multiple underlying malignancies and a very complex medical history. HISTORY OF PRESENT ILLNESS: The patient is a 77-year-old gentleman known to me from an admission this past winter. The patient is extraordinarily complex and was in this hospital until just three or four days ago when he was discharged after a prolonged admission for respiratory failure caused by some combination of CHF, chronic interstitial lung disease and possibly pneumonia. This is occurring in a very complex patient with underlying problems which include CHF, coronary artery disease, interstitial lung disease, COPD, esophageal cancer status post radiation and chemo and pulmonary adenocarcinoma status post radiation. At the time of discharge on the , just five days ago, the patient was relatively stable but not quite ready to go home and was sent to [facility]. At the time of discharge, he was on 60 mg of prednisone which he had been on at that point for a week or two. He was also receiving Coumadin and medications for his CHF as well as levothyroxine. The patient and his report that during his short stay at the residential facility he had been doing relatively well until he became short of breath and perhaps was febrile though this seems inconsistent within the records we have available. The patient for his part says that the main problem he has had during his time at the custodial has been nausea and vomiting which started a couple days ago and has been progressive. He also notes that he has been somewhat short of breath but this morning he decisively tells me that he has not had any fevers or chills nor has he had much in the way of productive cough, just an increase in his work of breathing. He states he has had no significant sore throat. He does not have any difficulty swallowing because he is unable to swallow and is fed exclusively through a PEG tube by his report. He has not had abdominal pain, and is not certain what triggered his nausea and vomiting. He says he has a minimal dry cough, but no pleuritic chest pain. He denies any genitourinary symptoms and he has so far refused a Sanchez despite being in shock. Upon presentation and admission, it was found that the patient had quite an elevated white blood count with left shift. In addition, he has had a procalcitonin which has jumped to the highest levels which he has had over the course of his many admissions here recently and he has been found to have a profound septic type shock, which has required high doses of norepinephrine. Despite all this, the patient is wide awake and alert this morning. This case discussed in great detail with the ICU team as well as the ICU nurses at the bedside. PAST MEDICAL HISTORY: 1. Organic heart disease: a. Coronary artery disease. b. Status post CABG. c. Cardiomyopathy with CHF. d. Atrial fibrillation. e. Pacemaker in place. 2. COPD. 3. Interstitial lung disease. 4. Obstructive lung disease. 5. Esophageal cancer, status post radiation and chemo. 6. Pulmonary adenocarcinoma status post radiation. ALLERGIES: The patient is said to be PEN allergic but the story is very questionable in that he says that he once got an IM shot of penicillin with some local tenderness around the injection site but otherwise no symptoms. 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 He lived mainly in [facility] and then moved to [facility] where he now lives with his . They have two dogs. The patient was a smoker, but quit two decades ago. He does not drink alcohol. He and his have traveled widely in the [place] but not [place] or [place]. FAMILY HISTORY: Negative for TB in first and second-degree relatives. REVIEW OF SYSTEMS: Was done in its entirety despite the fact the patient has a CPAP mask on. The patient states he has no headache or acute visual change. He has no sore throat or sores in the mouth. He is unable to swallow because of his esophageal cancer. He is not aware of any choking or difficult episodes with his saliva but he has had nausea and vomiting for two days which was new. He denies abdominal pain per se. He denies significant sputum production or chest pain. He has not had urgency, frequency or dysuria. He has not had a Sanchez catheter recently. He has no problems with his pacer which is in his left upper chest or his port in his right upper chest nor his G tube which is in his abdomen. He denies significant pain or problems with his extremities other than generalized weakness. Remainder of the review of systems is negative. PHYSICAL EXAMINATION: Reveals an afebrile gentleman, and he has been afebrile during his very short stay here in the hospital only about 10 hours so far. It is notable that during his last long admission which went through the mid portion of April and ended just four days ago that he never had a fever. His current pulse is in the 80s, and it is a paced rhythm. It is actually paced at 75. He is breathing through BiPAP saturating 99%. His blood pressure is 145/58, but he is on quite high doses of norepinephrine at 0.4 mcg/kg/minute. His examination of his head shows no notable trauma. Sinuses are nontender. Eyes without conjunctivitis or scleral icterus. His nose appears normal. His mouth is difficult to examine with the CPAP in place but he does not appear to have gingivitis or pharyngitis. His neck is relatively supple. There is minimal JVD and no notable supraclavicular or cervical adenopathy. His lungs are notable for coarse breath sounds especially on the right diffusely. Cardiac tones regular rate and rhythm. His pacer in the left upper chest appears benign. His port in the right upper chest likewise benign and his G tube is benign appearing. His abdomen is completely soft without epigastric tenderness, hepatosplenomegaly, ascites or mass. He does not have a Sanchez and has declined one. His penis and scrotum appear normal. There is certainly no scrotal edema or inflammation. He has no inguinal adenopathy to speak of. His extremities are free of any edema. No evidence of cellulitis. No evidence of synovitis anywhere. No skin breakdown is noted. The patient is neurologically intact. Moves all his extremities. His mental status seems clear. He is fully oriented this morning. LABORATORIES: Include white count which was actually 11. Interestingly he did not have any white counts between May 11 and when he was discharged. Back on May 11 during his last admission, his white count was 11,000. When he hit the ED last night, 24,000 and this morning 27,000 with 18% bands. This is not consistent with the use of steroids. His creatinine is 1.34, which is near his baseline around 1. BUN 83, suggesting profound dehydration. Glucose 208. AST is 193, ALT 135, alk phos 174 and all these values are dramatically increased from what they were when he was last here in the hospital. Albumin 2.5. Procalcitonin was 0.42 last night in the ED but it is 6.42 today. His urine white count 6-10 today. A urine Legionella and pneumococcal antigens are negative this morning. Note that when he was here in December I checked a coccidioidomycosis antibody titer because of his long residence in [facility] that was negative. We do not need to repeat it. Micro studies include a negative MRSA screen back in December. There has not been any positive MRSA cultures within the past year. His blood cultures during the last admission were negative. Blood cultures were just drawn late last night in the ED, we do not expect anything so far. Urine culture is also pending. IMAGING: Imaging was carefully reviewed on the view screen. The patient's chest x-ray is diffusely abnormal with persistent bilateral infiltrates and some bilateral interstitial infiltrates and some superimposed rather solid appearing infiltrates. It is notable that this x-ray is essentially identical to one done two weeks ago and I do not think by itself was diagnostic of pneumonia. This is my interpretation, but the radiologists appear to agree. Notably he had a CT scan two weeks ago during his last admission, and at that time, they found bilateral pleural effusions and chronic lung disease. IMPRESSION: This is a very complex case of a gentleman with two relatively recently treated malignancies including fairly advanced esophageal cancer. He has underlying cardiac disease as well as some interstitial lung disease and the possibility of superimposed radiation pneumonitis for which he has been receiving high-dose steroids lately. This whole mix is made worse by his recent nausea and vomiting. Certainly tops on the differential diagnosis here would be an aspiration pneumonia causing septic shock, his leukocytosis and elevated procalcitonin. I am reluctant to fully embrace this diagnosis, however, as the patient really does not report a lot of cough and significantly his chest x-ray is not any worse than its usual very rough appearing baseline. Other potential causes of this septic picture here might include pancreatitis as the high-dose steroids he is on could have induced pancreatitis, nausea and vomiting. Also possible here would be gallbladder disease as his LFTs have really shot up recently. Another possibility is that much of his shock is not septic but rather dehydration. Note that his BUN to creatinine ratio is extraordinarily elevated with a BUN of 84 and a creatinine of only 1.34 for a BUN to creatinine ratio of around 50. RECOMMENDATIONS: 1. I would modify his current antibiotics which consists of doxy, cefepime and linezolid to something with better anaerobic coverage and I think a reasonable selection here would be doxy plus Zosyn. 2. A MRSA screen of the nares has been ordered. 3. Respiratory viral PCR panel has been ordered. 4. A lipase has been added. 5. A right upper quadrant ultrasound has been ordered to evaluate his elevated LFTs. 6. Will continue to follow this extremely complex case with you as his cultures and other lab studies mature. 7. This case discussed with numerous members of the ICU team including physicians and nursing staff.
--- NOTE | 2017-05-22 09:32 | PCM.CONPAL ---
Date of Service May 22, 2017 Date of Hospital Admission: May 21, 2017 at 23:22 Date of Palliative Consult: May 22, 2017 Reason Palliative Care Consult: Goals of Care Discussion Reason for Consultation D/A: Palliative care referral received today from Dr. Quinn. He requests assistance with goals of care for this pt. 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 Spouse Annette Pina can be reached at either [phone] or [phone]. They formerly resided in [facility] and moved to [facility]. Their dtr is Angelika Caceres ), who is employed as a [employer] at [employer] in [place]. Pt PCP is Mane Garcia MD ([place]?). Request from Dr. Aguillon to arrange for FCTM with both spouse and daughter. Phone call this am to Annette who noted that Angelika (dtr) had just left to work in [place]. She suggested that a FCTM with daughter would be possible on at 1000. Plan is for this worker to meet with spouse and dtr at [address] Ferrell and medical team where medical team and pulmonary will provide updates on patient's status to family and answer questions. Dr. Aguillon will met Annette today at 1100 to gather information about her opinions on family goals for patient. Hospital Unit @time of consult: Critical Care (Room 2015) Palliative Care Recommendation Summary of palliative recommendations: -Symptom management (Pain/other): per Attending (Yellow Hospitalist Team Dr. Blank and Dr. Hardwick)/Pulmonary Dr. Ferrell -DPOA/Advanced Directives/POLST: 1. Code: DNR/DNI with all aggressive interventions up to point of intubation per family request. This was confirmed by Dr. Aguillon today in conference with , Annette. 2. DPOA: Annette. -Family/emotional support: strong 1. Annette 2. Daughter -Spiritual support: not explored today Plan: 1. Family will meet with Palliative Care Team LORRAINE Causey at 10 a.m. Wednesday 05/23 and be present to help family process after medical and pulmonary teams give family clinical update for the day. 2. Thereafter, Palliative Care Office will be closed until May 28. 3. Palliative Care will resume support visits with family on prn basis. Please advise us when pt has a critical change or management change with which we may assist. Problems: Resuscitation Status Resuscitation Status: DNR/DNI:Do Not Resuscitate/Intubate POLST Updates/Changes Previous POLST?: No POLST Discussed with: Health Care Agent (DPOAHC) (spouse and Dr. Aguillon discussed goals of care but did not complete a POLST) POLST Review Outcome: No Change . Advanced Care Planning Address: Code status change Symptom management: Dyspnea Pt History History of Present Illness Mr. Pina is a 77yo WMM with advanced (Stage III) esophageal cancer s/p radiation with radiation pneumonitis on high dose steroids and comorbidities of underlying heart disease, COPD, interstitial lung disease (oxygen dependent on 2-3 LPM at home) who was just discharged from [facility] on Sat 05/17. Now, 5 days later he presents to ED with fever and increasing respiratory distress. Patient was taken from his home and admitted to [facility] for last 2 days for ongoing PT as patient is significantly deconditioned. In the ED he was SIRS positive with septic shock. He was started on 2LNS, BiPaP, and Norepinephrine drip for hypotension with SBP in 90s down to 70s and admitted directly into CCU. Hospital Course: In the last 24 hours since admission, he has had Lactic acid increase from 3.6 to 5.3 with rising creatinine. Patient is NPO due to risk of aspiration per speech therapy based upon most recent barium swallow evaluation. Patient received nutrition via PEG tube. Patient was recently discharged on 05/17/2017 after a 12 day stay for acute hypoxic respiratory failure and also acute heart failure. Dr. Bianchi is modifying his antibiotic regimen today. He is on CPAP with good oxygen saturations at 45% FIO2. He remains on norepinephrine for pressure support. The plan today is for an abdominal ultrasound pending to evaluate for transaminitis and rule out other sources of infection. Medications Current Medications: Current Medications Sodium Chloride 1,000 ml @ 0 mls/hr Q0M IV Last administered on 05/21/17 22:52 ; Admin Dose 1,000 MLS/HR; Start 05/21/17 at 22:45 Ondansetron HCl 4 to 8 mg Q4H PRN IVPUSH; Start 05/21/17 at 22:50 Senna 2 tablet BID PRN PO; Start 05/21/17 at 22:50 Al Hydrox/Mg Hydrox/Simethicone 30 ml Q6 PRN PO; Start 05/21/17 at 22:50 Polyethylene Glycol 17 gm 17 gm DAILY PRN PO; Start 05/21/17 at 22:50 Norepinephrine 8000 mcg/Premix 250 ml @ 8.09 mls/hr Q24H IV Last administered on 05/22/17 00:12; Admin Dose 8.09 MLS/HR; Start 05/21/17 at 23:50; Stop at 01:32; Status DC Cefepime HCl 2000 mg/Dextrose/Water 100 ml @ 25 mls/hr Q8 IV Last administered on 05/22/17 08:08; Admin Dose 25 MLS/HR; Start 05/22/17 at 08:30; Stop at 08:30; Status DC Azithromycin 500 mg/Dextrose/Water 250 ml @ 250 mls/hr HS IV Last administered on 05/22/17 01:08; Admin Dose 250 MLS/HR; Start 05/22/17 at 00:13; Stop at 01:29; Status DC Linezolid/Premix 300 ml @ 300 mls/hr Q12 IV; Start 05/21/17 at 23:45; Stop at 03:56; Status DC Methylprednisolone Sodium Succinate 125 mg 125 mg Q8 IVPUSH Last administered on 05/22/17 08:07; Admin Dose 125 MG; Start 05/22/17 at 08:30 Sodium Chloride 1,000 ml @ 0 mls/hr [id number] IV; Start 05/22/17 at 12:00 Albuterol/ Ipratropium 3 ml QIDWA NEB Last administered on 05/22/17 07:55; Admin Dose 3 ML; Start 05/22/17 at 06:00 Albuterol 2.5 mg Q2H PRN NEB Last administered on 05/22/17 03:24; Admin Dose 2.5 MG; Start 05/22/17 at 00:20 Insulin Human Lispro Nutritional Dose to be given pr... [facility] SUBQ Last administered on 05/22/17 08:07; Admin Dose 5 UNIT; Start 05/22/17 at 08:00 Dextrose/Water 500 ml @ 0 mls/hr Q0M PRN IV; Start 05/22/17 at 00:20 Levothyroxine Sodium 75 mcg DAILYAC PO Last administered on 05/22/17 08:07; Admin Dose 75 MCG; Start 05/22/17 at 07:30 Dofetilide 125 mcg 125 mcg BID PO; Start 05/22/17 at 08:30; Stop 05/22/17 at 09: 11; Status DC Famotidine/ Dextrose/Water 51 ml @ 102 mls/hr Q12 IV Last administered on 08:50; Admin Dose 102 MLS/HR; Start 05/22/17 at 08:30 Aspirin 81 mg HS PO; Start 05/22/17 at 21:00 Atorvastatin Calcium 20 mg HS PO; Start 05/22/17 at 21:00 Pramipexole 0.5 mg HS PO; Start 05/22/17 at 01:20 Pharmacy Consult 1 ea 1 ea DAILY@17 XX; Start 05/22/17 at 17:00 Doxycycline Hyclate 100 mg/ Dextrose/Water 100 ml @ 100 mls/hr BID IV Last administered on 05/22/17 08:07; Admin Dose 100 MLS/HR; Start 05/22/17 at 01:31 Norepinephrine 8000 mcg/Premix 250 ml @ 8.09 mls/hr Q24H IV Last administered on 05/22/17 08:16; Admin Dose 8.09 MLS/HR; Start 05/22/17 at 01:22 Sodium Chloride 250 ml @ 1,500 mls/hr Q10M PRN IV; Start 05/22/17 at 02:25 Linezolid 600 mg/ Premix 300 ml @ 300 mls/hr Q12H IV Last administered on 04:03; Admin Dose 300 MLS/HR; Start 05/22/17 at 03:56; Stop 05/22/17 at 08: 25; Status DC Sodium Chloride 500 ml @ 0 mls/hr Q0M PRN IV; Start 05/22/17 at 05:10 Meropenem 2000 mg 2,000 mg Q8 IV; Start 05/22/17 at 08:30; Status UNV Sodium Chloride 250 ml @ 10 mls/hr Q24H IV; Start 05/22/17 at 08:29 Vasopressin 20 unit/Sodium Chloride 101 ml @ 9.09 mls/hr Q11H7M IV; Start 05/22 at 08:45 Meropenem/Sodium Chloride 100 ml @ 33.333 mls/ hr Q12 IV; Start 05/22/17 at 20: 30 Scheduled Albuterol Neb Soln (Albuterol Neb Soln) 1.25 Mg/3 Ml Vial.neb 1.25 MG NEB BID Aspirin (Aspirin) 81 Mg Tablet.dr 81 MG PO HS Atorvastatin (Lipitor) 40 Mg Tablet 20 MG PO HS Dofetilide (Dofetilide) 125 Mcg Capsule 125 MCG PO Q12H Enalapril Maleate (Enalapril Maleate) 20 Mg Tablet 10 MG PO BID Isosorbide DN (Isosorbide DN) 30 Mg Tablet 15 MG PO QAM Levothyroxine (Levothyroxine) 75 Mcg Tablet 75 MCG PO QAM Metoprolol Succinate ER (Metoprolol Succinate ER) 50 Mg Tab.er.24h 50 MG PO BID Pramipexole Dihydrochloride (Pramipexole Dihydrochloride) 0.5 Mg Tablet 0.5 MG PO HS Prednisone (Deltasone) 20 Mg Tablet 60 MG PO DAILY Ranitidine (Ranitidine) 150 Mg Capsule 150 MG PO QPM Spironolactone (Spironolactone) 25 Mg Tablet 12.5 MG PO QAM Tiotropium [place] (Spiriva) 18 Mcg Cap.w.dev 1 CAPSULE IH QAM Warfarin Sodium (Coumadin) 5 Mg Tablet 5 MG PO DAILY@17 Scheduled PRN Albuterol HFA (Proair HFA) 8.5 Gm Hfa.aer.ad 2 PUFFS IH Q4-6H PRN PRN For Shortness of Breath Furosemide (Lasix) 40 Mg Tablet 20 MG PO DAILY PRN PRN Weight > 235 lbs Objective Findings Exam Vital Sign - Last Date Time Temp Pulse Resp B/P Pulse Ox O2 Delivery O2 Flow Rate FiO2 05/22/17 08:04 36.9 82 29 123/56 98 CPAP 45 Intake and Output 05/21/17 05/21/17 05/22/17 Cumulative From/Thru 14:59 22:59 06:59 05/21/17 21:13 - 05/22/17 05:35 Intake Total 2000 ml 1829 ml 3829 ml Output Total 300 ml 300 ml Balance 2000 ml 1529 ml 3529 ml Intake Oral 0 ml 0 ml IV Total 2000 ml 1829 ml 3829 ml Output Urine Total 300 ml 300 ml # Voids 1 1 # Bowel Movements 0 0 General: Alert, Oriented, Person, Place, Mild distress HEENT: Atraumatic, PERRLA, EOMI, Scleral Anicteric Lungs: Diminished, Coarse Abdomen: Bowel Tones x4, Soft, Non Tender Neuro: Arousable, Follows Commands, Spontaneous Eye Opening, Weakness ( generalized) Extremities: Warm Skin: Other (No visualized skin ulcer. port-a-cath Right chest, peg tube Right upper quadrant ) Lab/Diagnostics Lab and Diagnostics 05/22/17 0210 . Time spent Total time 70 minutes; >50% face to face with patient and/or family, providing counselling regarding plans and recommendations, and in care coordination with his/her medical teams. I also spent an additional 30 minutes counseling for advanced care planning with who is pt's HCPOA and surrogate decision maker. Galina Aguillon MD May 22, 2017 09:32
[2017-05-22] MEDS: Vasopressin Inj 20 UNIT in 0.9% Sodium Chloride 100 ML IV SCH ×2 (10:11→19:52)
--- NOTE | 2017-05-22 11:01 | NUR ---
NUTRITION ASSESSMENT: ASSESS: 77 YO M admitted to CCU for septic shock and respiratory failure. Pt has esophageal cancer, status post PEG tube placement 01/30/17. Pt was recently discharged for [facility] 05/17/17. At that time he was receiving TF via his PEG and was NPO per ST. He was tolerating TF well with no n/v/d or abdomen pain. Pt reports that after discharge he began to experience increased nausea/vomiting so TF has been off for past 1-2 days. Pt is to have rt upper quadrant US today. Palliative care is to have family care mtg today. Per morning CCU rounds, will hold off on TF today. 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 LABS: Reviewed. Bun 83, Artificial Marble Worker 1.34, Glu 208, AST 193, ALT 135, alk phos 174, Alb 2.5 MEDS: Reviewed. insulin GI: 0 BM SKIN: No issues noted. WT: 86.3kg, BMI 25.8kg, UBW: ~110 kg, IBW: 80.9 kg (113% IBW). Wt 05/17: 82.9kg. ~9% wt lossx1 month DIET: NPO x2 days ESTIMATED NEEDS: Calories: 5965-7738 kcal/day (25-30 kcal/kg BW) Protein: 85-130 g/day (1.0-1.5 g/kg BW) Fluids: ~3396-1588 ml/day (22-25 ml/kg) NUTRITION DIAGNOSIS: 1) Inadequate oral intake related to esophageal ca as evidence by current NPO status, inability to keep PO food down due to dysphagia and need for PEG tube to maintain adequate nutrition. 2) Moderate pro/kcal malnutrition related to esophageal ca as evidence by chronic dysphagia per ST, 9% wt loss x 1 month, decreased PO intake of less than 75% estimated needs for greater than 1 month and mild muscle/fat loss. NUTRITION INTERVENTION: 1) Will monitor NPO status. If TF to be started, recommend Glucerna 1.5 start @ 10ml/hr. If tolerated, increase by 10ml q 6 hrs until reach goal rate of 68ml/hr to provide 2244kcal and 123g pro (100% estimated needs). While on IVF, fluid flush 40ml q 4 hrs. If IVF stopped, recommend 65ml q 2 hrs to better meet fluid needs. MONITOR/EVALUATE: NPO, TF start?, fluids, GI, labs, ST, wt, POC, nutrition status. Follow per high nutrition risk guidelines
--- NOTE | 2017-05-22 11:22 | PCM.PNMED ---
Subjective Date of Service May 22, 2017 Subjective 77-year-old gentleman with history of interstitial pulmonary disease, lung carcinoma, esophageal adenocarcinoma, CAD, CHF, diabetes type II, recent hospitalization for acute hypoxic respiratory failure and acute on chronic heart failure recently discharged on 05/17/2017 after 12 day stay, discharged home, but received care from [facility] for continued physical therapy due to his significant deconditioning. Yesterday his noticed he was having a fever and increased respiratory distress that night called EMS and was brought to the emergency department.' He continues to be short of breath, he denies any chest pain, lightheadedness or dizziness, he had nausea and vomiting the previous 2 days, without diarrhea or constipation. No rashes, no peripheral edema, no dysuria, no increased or decreased urination frequency. Evaluation in the emergency department showed he was hypoxic 76% presumed to be on room air, tachypneic rate 28, white count of 24 with left shift 95.7%, troponin 0.048, pro calcitonin 0.42. Lactic acid 3.6 9:30 last night, increased to 3.9 1220, 5.2 at 4:30, and pending now. Creatinine was initially 0.94, this increased 1.43 over roughly 5 hours Pro calcitonin increased to 6.42, trended troponins has increased to 0.071 Sodium 143, potassium 4.6, chloride 104, bicarbonate 20, BUN 83. Magnesium 2.6 , calcium 8.7 White count increased to 27 from 24,000, percent neutrophils decreased to 79% from 95.7. 18% band neutrophils present as of 2 AM. AST/ALT 193/135 Albumin 2.5 INR 2.05 Urine showed trace leukocyte esterase, 6-10 white blood cells occasional epithelials, and a few bacteria. Asked x-ray showed persistent diffuse interstitial and airspace infiltrates bilaterally consistent with pneumonia or pulmonary edema Blood pressure decrease into the low 90s, and 70s with map of 55 little after midnight. He received IV fluids, methylprednisone, and was started on norepinephrine and admitted to the CCU. Exam Vital Signs Vital Sign - Last Date Time Temp Pulse Resp B/P Pulse Ox O2 Delivery O2 Flow Rate FiO2 05/22/17 08:04 36.9 82 29 123/56 98 CPAP 45 Intake and Output 05/21/17 05/21/17 05/22/17 Cumulative From/Thru 15:00 23:00 07:00 05/21/17 21:13 - 05/22/17 05:35 Intake Total 2000 ml 1829 ml 3829 ml Output Total 300 ml 300 ml Balance 2000 ml 1529 ml 3529 ml Intake Oral 0 ml 0 ml IV Total 2000 ml 1829 ml 3829 ml Output Urine Total 300 ml 300 ml # Voids 1 1 # Bowel Movements 0 0 Exam General: Laying in bed, head of bed elevated, BiPAP in place, alert, oriented, appropriate affect. HEENT: Normocephalic, atraumatic, EOMI grossly, mucous membranes moist, no signs of thrush, no JVD, no palpable lymph nodes, neck supple. Cardiovascular: Regular rate and rhythm, breath sounds over the right cardiac sounds, unable to appreciate any clicks murmurs or rubs. Pulmonary: Diffuse rhonchi and Tory wheeze in the left thorax, bibasilar rales the right thorax with expiratory wheeze, Abdominal: Soft to palpation, bowel sounds present 4, no hepatosplenomegaly. Negative rebound. PEG tube in place, no leaks, no erythema tenderness or purulent discharge at insertion site Extremities: No edema appreciated. No tenderness, asymmetry. Peripheral IV in left arm Derm: There is a venous port right anterior superior thorax, it is patent, no erythema around the insertion site, no rashes, there is ecchymosis dorsum bilateral upper extremities Neuro: Neurologically grossly intact, strength is equal bilaterally upper and lower extremities. MSK: Upper extremity strength 5 out of 5, 5 out of 5 auction block clerk strength, lower extremity strength is equal bilaterally. Psychiatric: Alert and oriented to person, place time, and situation. Appropriate mood and affect. Lab and Diagnostics Result Diagram: 05/22/1720905/22/17 021 X-Rays, CTs and MRIs PROCEDURE: X-RAY CHEST ONE VIEW, PORTABLE ([id number]) INDICATIONS: respiratory distress fever IMPRESSION: Persistent diffuse interstitial and airspace infiltrate bilaterally consistent with pneumonia and/or pulmonary edema. Dictated by: Kaitlin Pena M.D. on 05/21/2017 at 21:37 12-lead ECG Ventricular paced complexes, rate of 87, unspecific IVCD with left axis deviation, CO 88, QTC 462 Additional Diagnostics DateTimeAnalyzed 23:31:44 -_ pH ____7.473 - 7.350 7.450 pCO2 ___40.6__ -mmHg 35.0 45.0 pO2 ___61.0__ -mmHg 69.0 116 HCO3- ___29.7__ -mmol/L 22.0 26.0 Assessment & Plan Patient is a 77-year-old male with a medical history significant for end-stage COPD, Interstitial Lung disease, Lung Cancer, esophageal adenocarcinoma, CAD, CHF, and diabetes type II presented with fever, admitted for severe sepsis secondary to hospital-acquired and or aspiration pneumonia. Acute on chronic hypoxic respiratory failure, present on admission, active -Patient remained on CPAP at this time respiratory rate of 20, satting 99% -Etiology includes pneumonia below, COPD exacerbation, worsening interstitial lung disease -Patient is DO NOT INTUBATE -ABG PRN for change in status/O2 demands. Acute Septic shock, requiring pressor and IVF support, POA, improving. - Met SIRS criteria with leukocytosis and tachypnea, plus elevated troponins and liver enzymes, ED started pressors - Source likely pneumonia, though could also be from other sources such as port infection, GI tract given h/o Antibiotics. - UA unrevealing. - Received 3.5L of NS, maintenance fluids discontinued, responded to 500 mL boluses of LR, bolus as needed - Treatment for for hospital-acquired and aspiration pneumonia as below. - Blood pressures soft, started norepinephrine if MAP <60 -Taper norepinephrine -Supplement with vasopressin, currently running at 0.003 -Continue to trend lactic acid -Maintain map greater than 65 -Consider A-line placement if Blood pressure becomes labile. Hospital-acquired pneumonia, present on admission, active -Evidence by pro calcitonin, chest x-ray, respiratory distress -patient was recently discharged from hospital on 05/17/2017, abnormal barium swallow on 05/05/2017 -Infectious disease has been consulted and recommended changing to meropenem and doxycycline for coverage secondary to his esophageal cancer and possible aspiration - We appreciate their recommendations. -Due to possible aspiration make nothing by mouth. -Nothing by mouth, tube feedings only. -Trend Pro-calcitonin. -Flu swab -Legionella antigen was negative Elevated troponin of uncertain a significant, present on admission, stable - Asymptomatic, no ischemic changes on EKG - Likely demand ischemia - Repeat troponin, start heparin drip troponin significantly elevated Transaminitis, present on admission, improving -Likely related to sepsis and hepatic shock, trend liver functions, -Right upper quadrant ultrasound to evaluate for biliary cause Exacerbation of chronic obstructive pulmonary disease, present on admission, active - Solu-Medrol 125 mg q8h - DuoNeb Q4HWA and additional albuterol ordered when necessary Acute on Chronic Interstitial lung disease, POA, Active. -Treatment as above for COPD. CPAP and BIPAP Deconditioning, present on admission, active - Discussed PT with ICU team, awaiting Palliative consultation. Chronic afib, present on admission, active - Holding metopolol xl the setting of severe sepsis - restart warfarin Recurrent ventricular tachycardia and fibrillation with ICD, present on admission, active - Continue his dofetilide. Social/Family Palliative consult recommends a meeting discussing with family after the May 27 holiday to discuss quality of life and goals. Chronic conditions Diabetes type II, stable - Short acting insulin sliding scale - Blood sugar goal 130 to 180 Coronary artery disease, stable - Start home atorvastatin and aspirin once patient can tolerate by mouth intake Dysphagia - Nothing by mouth - Continue NG tube Severe protein caloric malnutrition, stable - Dietitian consulted, restart enteric feeding Heart failure with reduced ejection fraction, stable - EF 40-45% based on last echo on 02/10/2017 - Restart oral metoprolol, enalapril when able - Holding home furosemide and spironolactone in the setting of sepsis GERD - Famotidine 10 mg IV twice a day DVT prophylaxis: Warfarin Patient is a DNR/DNI Patient Status: Patient is admitted under inpatient status with expected length of stay GREATER than 2 midnights due to severity of presenting symptoms, risk of adverse event, and complexity of treatment plan. GI Prophylaxis: H2 ira VTE Prophylaxis: Theraputic Anticoag with Warfarin VTE Mechanical Devices: Intermittant Pneumatic CD Resuscitation Status: DNR/DNI:Do Not Resuscitate/Intubate Attending Statement I have seen and examined this patient with the resident physician. Vital signs , labs, imaging have been reviewed. I agree with the assessment and plan above. Please refer to my separately dictated progress note for any modifications to above. Kavitha Ferrell M.D. Pulmonary and Critical Care medicine Pager [phone] Wilver Prado DO May 22, 2017 11:22 Kavitha Ferrell MD May 23, 2017 08:19
--- NOTE | 2017-05-22 11:25 | CONS ---
[address] [address] CONSULTATION REPORT PATIENT: ANIA LIM : 1940 MR#: [id number] ADMIT: 05/21/2017 JOB ID: [id number] DATE OF SERVICE: 05/22/2017 PULMONARY CRITICAL CARE CONSULTATION NOTE: The patient is a 77-year-old man with history of esophageal and lung cancer, recent hospitalization for acute respiratory failure seen in consultation at the request of Dr. Blank for respiratory failure and septic shock. The patient was seen and evaluated with resident physician, Wilver Prado. Please refer to his separate detailed note for additional information. HISTORY OF PRESENT ILLNESS: The patient is a 77-year-old man with stage III esophageal cancer and likely stage I lung cancer diagnosed within the last year, status post chemoradiation March 2017. He presented a few weeks ago with acute hypoxic respiratory failure and aggressive workup revealed that this was most likely due to decompensated heart failure. He continued to improve with diuresis. Recall that he also has a baseline interstitial lung disease for which he is on home O2 at about 2-3 L. He went home a few days ago on 5 L at rest and home CPAP at night and was quickly moved to a care facility per 's request. Initially his had more or less demanded that he come home with her and wanted to be home with him but found it quickly overwhelming. At the nursing facility, he reportedly had a fever and increasing respiratory distress and hypoxia for which he was transferred back. He was hypotensive in the ED and has so far received 3.5 L of fluid. He remains on norepinephrine at 0.4 and he is on CPAP at 12, pulling good tidal volumes and sats of 100% on 45% FiO2. Denies any diarrhea, fever, chills today. Denies any chest pain, abdominal pain, etc. Past medical history, social history, family history and review of systems as per separate note by Dr. Prado. A complete physical examination is also in Dr. Prado's notes. Brief examination: He is afebrile, pulse 82, respirations 29, sats are 100% on 45% FiO2 on CPAP of 12. General: Eyes open, nodding in response to questions and following commands. He is in mild respiratory distress with tachypnea. Chest: Coarse bilateral crackles heard diffusely. Abdomen: Soft, nontender and PEG tube is in place. LABORATORIES: Reviewed. WBC is 27,000 and chemistry is notable for creatinine up to 1.3 from 0.9. Procalcitonin is 6.4 from 0.4 on admission. Culture data: Respiratory viral panel is negative. MRSA nasal swab is pending. Urine Legionella and Streptococcus antigens are negative. Blood and urine cultures are pending. Chest x-ray shows persistent diffuse infiltrates as before without any focal changes. Arterial blood gas from last night shows pH 747, pCO2 of 40, pO2 of 21, bicarbonate of 29. ASSESSMENT AND RECOMMENDATIONS: 1. Acute hypoxic respiratory failure, on CPAP. 2. Septic shock. 3. Suspected aspiration pneumonia. 4. History of stage III esophageal cancer status post chemoradiation. 5. History of stage I lung cancer status post SBRT. 6. Acute kidney injury. This complex 77-year-old man is readmitted now barely four days after discharge with what appears to be aspiration pneumonia with septic shock and respiratory failure. He is DNR DNI as previously stated during his last hospitalization. We gave him an extra liter of fluid and with this his pressor requirement has come down significantly. My original plan was to add vasopressin if he did not show improvement in pressor requirements. The elevated procalcitonin does suggest pneumonia although it is hard to appreciate a new infiltrate with his baseline fibrosis on chest x-ray alone. He is currently on very broad spectrum of antibiotics including linezolid, cefepime and doxycycline. Cefepime was switched to meropenem per recommendations from Infectious Disease. We could probably stop the linezolid if his MRSA nasal swab is negative. I spoke to patient and his at bedside and answered questions. He has an abdominal ultrasound pending to evaluate for transaminitis and rule out other sources of infection. CODE STATUS: DNR DNI. TIME: Critical care time is 45 minutes.
[2017-05-22] MEDS: 0.9% Sodium Chloride 1,000 ML IV SCH (12:00)
--- NOTE | 2017-05-22 12:30 | NUR ---
Palliative care note D/A: Palliative care referral received today from Dr. Quinn. He requests assistance with goals of care for this pt. Pt was very recently hospitalized at [facility] and discharged to [facility], in Friday. 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 Spouse Annette Pina can be reached at either [phone] or [phone]. They formerly resided in [facility] [place] [facility] and moved to [facility] Their dtr is Angelika Caceres ), who is employed as a RN at [employer] in [place]. Pt PCP is Mane (Kassi) Radha MARTÍNEZ. Request from Dr. Aguillon to arrange for FCTM with both spouse and daughter. Phone call this am to Annette who noted that Angelika (dtr) had just left to work in [place]. She suggested that a FCTM with daughter would be possible on 05/23/17 at 1000. Plan is for this worker to meet with spouse and dtr at 1000. Dr. Aguillon has spoken to Dr. Ferrell and medical team may also be present at that time to provide updates. P: Palliative care to follow. Megan SANTOS, CCM
--- NOTE | 2017-05-22 14:00 | PCM.PHAPRO ---
Progress Date of Service: May 22, 2017 Warfarin dosing Date May 22 INR 2.05 INR change Warf Dose no 5MG B[address]i [address] PharmD May 22, 2017 14:00
--- NOTE | 2017-05-22 14:06 | NUR ---
status Pt progressing towards planned outcomes. Norepinephrine gtt titrated off at 12:00, MAP maintained >65 on vasopressin at 0.03units/min. Dr notified and vasopressin turned off at 14:00. V-paced per voice professor. No reported chest discomfort. Denies pain. Voiding adequately per urinal. Continues on cpap with 45% fi02. Desaturated down to mid to low 80s when mask removed for oral care. remains at bedside. Will continue to monitor.
[2017-05-22] MEDS ORDERED: Insulin LISPRO 300 Unit/3 mL Inj SUBQ SCH (14:30)
--- NOTE | 2017-05-22 15:27 | PCM.PNMED ---
Subjective Date of Service May 22, 2017 Subjective Ariel Pina is a 77-year-old male with a medical history significant for end- stage COPD, Interstitial Lung disease, Lung Cancer, esophageal adenocarcinoma, CAD, CHF, and diabetes type II presented with fever, admitted for severe sepsis secondary to hospital-acquired and or aspiration pneumonia. Overnight: No acute changes since admission. Today: The patient is quite somnolent today and not verbalizing much. The remainder of ROS is negative except as noted above. Exam Vital Signs Vital Sign - Last Date Time Temp Pulse Resp B/P Pulse Ox O2 Delivery O2 Flow Rate FiO2 05/22/17 12:04 79 25 129/56 99 35 05/22/17 11:38 CPAP/BIPAP 05/22/17 11:23 37.0 Intake and Output 05/21/17 05/21/17 05/22/17 Cumulative From/Thru 15:00 23:00 07:00 05/21/17 21:13 - 05/22/17 05:35 Intake Total 2000 ml 1829 ml 3829 ml Output Total 300 ml 300 ml Balance 2000 ml 1529 ml 3529 ml Intake Oral 0 ml 0 ml IV Total 2000 ml 1829 ml 3829 ml Output Urine Total 300 ml 300 ml # Voids 1 1 # Bowel Movements 0 0 Exam General: No acute distress, sitting comfortably, appropriately interactive HEENT: Normocephalic, atraumatic. PERRLA, EOMI, Anicteric sclerae Neck: No JVD, No bruits. No lymphadenopathy or thyromegaly. Cardiovascular: Irregularly irregular, no murmur, rub or gallop Pulmonary: Bilateral air sound, significant coarse breath bilaterally R worst than L, no crackles, no wheezes Abdomen: +Bowel sound, Soft, nontender, nondistended. Extremities: No clubbing or cyanosis, no lymphedema, no b/l lower leg edema Skin: Normal temperature, turgor, and texture; no rash. No visualized skin ulcer. port-a-cath Right chest, peg tube Right upper quadrant Psychiatric: Somnolent IVs and Medications Medications Reviewed: Medications were reviewed in detail Lab and Diagnostics Result Diagram: 05/22/1720905/22/17209 X-Rays, CTs and MRIs X-RAY CHEST ONE VIEW, PORTABLE IMPRESSION: Persistent diffuse interstitial and airspace infiltrate bilaterally consistent with pneumonia and/or pulmonary edema. Dictated by: Kaitlin Pena M.D. on 05/21/2017 at 21:37 12-lead ECG Ventricular paced complexes, rate of 87, unspecific IVCD with left axis deviation, IL 88, QTC 462 Additional Diagnostics DateTimeAnalyzed 23:31:44 -_ pH ____7.473 - 7.350 7.450 pCO2 ___40.6__ -mmHg 35.0 45.0 pO2 ___61.0__ -mmHg 69.0 116 HCO3- ___29.7__ -mmol/L 22.0 26.0 Assessment & Plan Ariel Pina is a 77-year-old male with a medical history significant for end- stage COPD, Interstitial Lung disease, Lung Cancer, esophageal adenocarcinoma, CAD, CHF, and diabetes type II presented with fever, admitted for severe sepsis secondary to hospital-acquired and or aspiration pneumonia. Acute on chronic hypoxic respiratory failure, present on admission, active -CPAP/BPAP as needed. -Etiology includes pneumonia below, COPD exacerbation, worsening interstitial lung disease -Patient is DO NOT INTUBATE -ABG PRN for change in status/O2 demands. Acute Septic shock, requiring pressor and IVF support, POA, improving. - Met SIRS criteria with leukocytosis and tachypnea, plus elevated troponins and liver enzymes, ED started pressors - Source likely pneumonia, though could also be from other sources such as port infection, GI tract given h/o Antibiotics. - UA unrevealing. - Received 3.5L of NS, maintenance fluids discontinued, responded to 500 mL boluses of LR, bolus as needed - Treatment for for hospital-acquired and aspiration pneumonia as below. - NE and Vasopressin as needed for MAP <65 - Continue to trend lactic acid Q12H Hospital-acquired pneumonia, present on admission, active -Evidence by pro calcitonin, chest x-ray, respiratory distress -patient was recently discharged from hospital on 05/17/2017, abnormal barium swallow on 05/05/2017 -Infectious disease has been consulted and recommended meropenem and doxycycline for coverage secondary to his esophageal cancer and possible aspiration - We appreciate their recommendations. -Nothing by mouth, tube feedings only. -Trend Pro-calcitonin daily -Legionella antigen was negative, viral PCR negative. Elevated troponin of uncertain a significant, present on admission, stable - Asymptomatic, no ischemic changes on EKG - Likely demand ischemia - Repeat troponin, start heparin drip if troponin significantly elevated Elevated LFTs, hepatocellular pattern, present on admission, improving -Likely related to sepsis and hepatic shock, trend liver functions -Right upper quadrant ultrasound to evaluate for biliary cause Exacerbation of chronic obstructive pulmonary disease, present on admission, active - Solu-Medrol 125 mg q8h - DuoNeb Q4HWA and additional albuterol ordered when necessary Acute on Chronic Interstitial lung disease, present on admission, Active. -Treatment as above for COPD. CPAP and BIPAP Deconditioning, present on admission, active - Discussed PT with ICU team, awaiting Palliative consultation. 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 Social/Family Palliative consult Chronic conditions Diabetes type II, stable - Short acting insulin sliding scale - Blood sugar goal 130 to 180 Coronary artery disease, stable - Start home atorvastatin and aspirin once patient can tolerate by mouth intake Severe protein caloric malnutrition, stable - Dietitian consulted, restart enteric feeding Heart failure with reduced ejection fraction, stable - EF 40-45% based on last echo on 02/10/2017 - Restart oral metoprolol, enalapril when able - Holding home furosemide and spironolactone in the setting of sepsis GERD - Famotidine 10 mg IV twice a day DVT prophylaxis: Warfarin Patient is a DNR/DNI Dispo: Anticipate patient will be in the ICU for 1-2 more days. GI Prophylaxis: H2 ira VTE Prophylaxis: Theraputic Anticoag with Warfarin VTE Mechanical Devices: Intermittant Pneumatic CD Resuscitation Status: DNR/DNI:Do Not Resuscitate/Intubate Attending Statement Patient seen and examined with house staff. Agree with DOCUMENTATION. Maki Morataya DO May 22, 2017 15:06 Eber Quinn MD May 22, 2017 16:06
--- NOTE | 2017-05-22 16:15 | NUR ---
Social Work: Initial Assessment D: Per EMR review, pt is a 77 year old male admitted for septic shock, bilateral pneumonia. Pt is Medicare with [facility] supplement; pt has no LTC insurance or VA benefits. PCP is Mane Garcia MD. NOK is Annette Pina, , . No RA score entered at this time. Pt discussed in am rounds. Pt is a readmit and was discharged to his home on Friday with his 05/17/17; pt is open with services through [facility] and [facility] for tube feeds. Palliative care has been referred for discussion about goals of care due to the patient's clinical status. Initial Assessment information completed based on historical knowledge and chart review of pt's EMR. A: Pt who lives at home with his . P: Luis; IFEOMA to follow pt's clinical status and assist with discharge planning pending orders from MD. Anticipate pt may possibly discharge back home with resumed [facility] and [facility]. IFEOMA [place] Addendum: 05/22/17 at 1622 by COLLEEN EDWARDS Amended: Links added.
--- NOTE | 2017-05-22 19:00 | DRSVH ---
PROCEDURE: US ABDOMEN ([id number]) INDICATIONS: Cholestatic LFTs plus septic shock TECHNIQUE: Real-time scanning was performed of the abdominal and retroperitoneal organs, with image documentatio n. COMPARISON: Outside Film, CT, CT CHEST WO CON, 05/05/2017, 3:12. FINDINGS: Liver: Liver is grossly normal in size and homogeneous in echotexture. Gallbladder: Gallbladder is contracted and suboptimally imaged. Within these limits, ringdown artifa ct present involving the anterior gallbladder wall likely adenomyomatosis. No definite stone seen. Biliary ducts: Not well-seen. Pancreas: Not well-seen. Spleen: Spleen is normal in size and homogeneous in echotexture. Kidneys: Kidneys are well visualized. Aorta: Not well-seen. Iliacs: Proximal common iliac arteries are normal in caliber at less than 2.5 cm. IVC: Intrahepatic inferior vena cava is patent. Miscellaneous: No free abdominal fluid. IMPRESSION: 1. Gallbladder appears contracted and there is likely adenomyomatosis involving the gallbladder wall. If indicated limited repeat examination the gallbladder could be performed after the patient has be en passing between 8 and 10 hours. Dictated by: Trenton LOONEY Interpreted: Petty Chun MD on 05/22/2017 at 11:53 Approved by: Petty Chun M.D. on 05/22/2017 at 18:58
[2017-05-22] MEDS: Meropenem Inj 2,000 MG in 0.9% Sodium Chloride 100 ML IV SCH (20:37)
[2017-05-23] VITALS (15 sets, daily range): BP systolic 115–139; BP diastolic 48–78; PULSE 77–87; RESP 24–43; O2SAT 93–98
[2017-05-23] MEDS: MethylprednisoLONE Sodium Succinate 62.5 mg/mL 2 mL Inj IVPUSH SCH ×3 (00:55→16:01)
[2017-05-23 04:33] LABS: BASOPHILS % (AUTO) 0.1 % (0-3); EOSINOPHILS % (AUTO) 0 % (0-5); MONOCYTES % (AUTO) 1.1 % (4-12); Mean Corpuscular Hemoglobin 24.1 pg (27.0-35.0); Mean Corpuscular Volume 81.8 fL (81-100); NEUTROPHILS % (AUTO) 97.5 % (40-74); Platelet Count 97 bil/L (150-400)
--- NOTE | 2017-05-23 04:50 | NUR ---
Respiratory: Pt on continuous CPAP started out on 35% required titration up to 40% with sats maintaining 92-96%. Pt does have fast resp rate in upper 30s. pt does desat with acivity.
[2017-05-23 05:04] LABS: TROPONIN T 0.032 ug/L (0.0-0.011)
[2017-05-23 05:15] LABS: Magnesium 1.8 mg/dL (1.6-2.6)
[2017-05-23 05:23] LABS: INR 5.26 ratio
[2017-05-23] MEDS: Insulin LISPRO 300 Unit/3 mL Inj SUBQ SCH ×5 (05:42→20:56)
[2017-05-23] MEDS: Vasopressin Inj 20 UNIT in 0.9% Sodium Chloride 100 ML IV SCH ×2 (06:59→18:06)
[2017-05-23 07:17] LABS: BASOPHILS % (AUTO) 0.1 % (0-3); EOSINOPHILS % (AUTO) 0 % (0-5); MONOCYTES % (AUTO) 0.8 % (4-12); Mean Corpuscular Hemoglobin 24.1 pg (27.0-35.0); NEUTROPHILS % (AUTO) 97.4 % (40-74); Platelet Count 104 bil/L (150-400)
[2017-05-23] MEDS: Albuterol-Ipratropium 3 mL Inhalation Solution NEB SCH ×4 (07:23→20:21)
[2017-05-23] MEDS: Meropenem Inj 2,000 MG in 0.9% Sodium Chloride 100 ML IV SCH ×2 (07:43→16:01)
[2017-05-23] MEDS: Famotidine Inj 20 MG in IV Premix 1 EACH IV SCH (07:43)
[2017-05-23] MEDS: Doxycycline 100 mg/100 mL D5W IV SCH ×2 (07:43)
--- NOTE | 2017-05-23 08:00 | NUR ---
Respiratory Trial off CPAP for Pt comfort, tried 6 LNC, did not maintain sat, switched to 15 L oxy mask, sat at 94%. V60 on S/B at bedside
[2017-05-23] MEDS ORDERED: Furosemide 10 mg/mL 2 mL Inj IVPUSH ONE (08:45)
[2017-05-23] MEDS ORDERED: Phytonadione (Adult) 2.5 MG in Dextrose 5%-Pha MIX 50 ML IV ONE (08:45)
[2017-05-23] MEDS ORDERED: Ceftaroline Inj 600 MG in Dextrose 5% 250 ML IV SCH (08:45)
--- NOTE | 2017-05-23 09:30 | NUR ---
Respiratory Called to Rm to place Pt back on CPAP. Increased FiO2 to 60% for sat of 93%
[2017-05-23] MEDS: Mupirocin 2% 22 Gm Ointment TOPICAL SCH ×2 (09:33→20:52)
[2017-05-23] MEDS ORDERED: Furosemide 10 mg/mL 4 mL Inj IVPUSH STA (09:42)
--- NOTE | 2017-05-23 09:42 | PROG NOTE ---
[address] [address] PROGRESS NOTE PATIENT: ANIA LIM : 1940 MR#: [id number] ADMIT: 05/21/2017 JOB ID: [id number] DATE: 05/23/2017 INFECTIOUS DISEASE FOLLOW UP NOTE: REASON FOR FOLLOWUP: Staph aureus bacteremia. INTERVAL HISTORY: Recall this is an extremely complex patient I saw in consultation yesterday. He has dual underlying malignancies with esophageal cancer as well as pulmonary adenocarcinoma. He also has a pacer in place, cardiomyopathy as well as a port in his chest. The patient presented on this occasion with respiratory failure. This is occurring in the substrate of someone with underlying CHF, COPD and malignancies mentioned above. When I saw him yesterday, it seemed clear that he was infected and he had a high white count with left shift, as well as high procalcitonin and ongoing dehydration. A variety of studies were ordered yesterday. Today, the patient is seen in the ICU. He is breathing through face mask oxygen and is actually somewhat better than yesterday when I saw him on a BiPAP mask. He relates some cough, some shortness of breath. No fevers or chills overnight. No GI symptoms of note. Note that he is fed by the G-tube so he is not consuming any food orally. PHYSICAL EXAMINATION: Reveals a dyspneic, somewhat debilitated, elderly gentleman in moderate respiratory distress I would say. He has been afebrile during the night. Temperature 36.6. His pulse is 78 and he has a paced rhythm. Respiratory rate is in the low 30s at this point, blood pressure 139/58. He is saturating well on 40%. Eyes without conjunctivitis. Oral cavity without thrush or pharyngitis. Lungs: Very coarse breath sounds and rales and rhonchi diffusely on the left and to a lesser extent, widespread on the right as well. Cardiac tones are almost lost in the breath sounds but they are regular. The abdomen is soft and nontender. He does not have ulcers or Janeway type lesions. There is not embolic phenomena noted on his lower extremities. He has no peripheral edema. He has a pacer in the left upper chest, a port in the right upper chest and a NG tube in his abdomen. LABORATORIES: Include white count which has normalized to 8300, still 97% segs. Creatinine is 0.89. ALT is up to 189, AST up to 228, alk phos normal at 121. Albumin 2.2. Procalcitonin 7.3, which is still slowly climbing. Serologic studies include urine pneumococcal and Legionella which are negative. Fungitell is pending. Respiratory viral PCR negative. MRSA screen of the nares is pending at 24 hours and I am not certain why that is. One of four blood culture bottles done on the is now positive for Staph aureus with further identification to follow. IMAGING: Includes a chest x-ray from the , which shows persistent bilateral interstitial lung disease. Also we have the ultrasound that I ordered yesterday which shows a contracted gallbladder with probable adenomyomatosis involving the gallbladder wall. Lipase also ordered yesterday was negative. IMPRESSION: We now have some clarity with respect to the patient's infectious picture. At this point, it is certain that he has Staph aureus bacteremia. In past admissions, the patient has not been colonized with MRSA but we await our MRSA screen from yesterday morning and I am not sure why it is so delayed. It may be that he has some component of aspiration pneumonia and certainly the staph aureus could be a component of that but I am concerned that he could be having infection arising from his port in the right upper chest, even though it appears benign, or that he could have an intracardiac source. The patient and his tell me that during the time of his CABG which was some years ago, they repaired his "mitral valve with plastics." I am not exactly certain what that means, but if he has an intracardiac device in the presence of Staph aureus bacteremia that might be of concern. He also has a pacer which, of course, could be infected but it has been in there for many years so I doubt it. RECOMMENDATIONS: 1. Two sets of additional blood cultures today to be drawn through the port as well as through the skin. 2. A transthoracic echo will be ordered for today and it is almost certain that given this history of cardiac implant in the past that he will require a transesophageal echo. 3. Current antibiotics include meropenem and doxycycline. These may lack coverage against MRSA. At least given the patient's relative improvement overnight, we can probably wait until tomorrow and see whether this is a MRSA or not given the fact he has been MRSA screen negative in the past, but I plan to check the MRSA right now and if this is positive, we will add a MRSA active drug. 4. This case discussed with the ICU team.
--- NOTE | 2017-05-23 09:43 | NUR ---
NUTRITION FOLLOW-UP: ASSESS: 77 YO M admitted to CCU with septic shock and respiratory failure, related to Staph aureus bacteremia. Per ID, pt. may have some component of aspiration pneumonia along wit the Staph aureus bacteremia, but there could also be an infection arising from his port in the right upper chest, even though it appears benign, or that he could have an intracardiac source. He also has a pacer which could be infected. Pt carries diagnoses of esophageal cancer as well as pulmonary adenocarcinoma, status post PEG tube placement 01/30/17. Pt was recently discharged from [facility] 05/17/17. At that time he was receiving enteral feeding via his PEG tube and was NPO per ST. He was tolerating enteral feeding well with no n/v/d or abdomen pain. Pt reports that after discharge he began to experience increased nausea/vomiting such that enteral feeding has been discontinued for the past 2 days, with resulting dehydration. PMHX: Esophageal cancer, stage 1 pulmonary adenocarcinoma of right lower lobe, A-fib, end-stage COPD, HTN, HLD, CAD, CHF with cardiomyopathy, type 2 diabetes, amiodarone toxicity, failed barium swallow study 05/05/17, interstitial lung disease, pacemaker. LABS: Reviewed. Na 146, Chloride 109, BUN 63, Glu 152, Ca 8.3, AST 228, ALT 189, Alb 2.2, Procalcitonin 7.3. MEDS: Reviewed. Insulin, solu-medrol, synthroid, coumadin. GI: No BM reported since admit x 2 D. SKIN: Wound consult initiated related to Jeramy score 11, possible dorsal arm wound. Evaluation pending. WT: 86.3 kg, BMI 25.8 kg/m2, UBW: ~110 kg, IBW: 80.9 kg (113% IBW). Wt 05/17: 82.9kg. ~9% wt lossx1 month DIET: NPO x 2 days ESTIMATED NEEDS: Calories: 1283-6148 kcal/day (25-30 kcal/kg BW) Protein: 85-130 g/day (1.0-1.5 g/kg BW) Fluids: ~0653-0622 ml/day (22-25 ml/kg) NUTRITION DIAGNOSIS: 1) Inadequate oral intake related to esophageal cancer, as evidenced by current NPO status, failed barium swallow and need for PEG tube to maintain adequate nutrition - PERSISTS. 2) Moderate pro/kcal malnutrition related to esophageal ca as evidence by chronic dysphagia per ST, 9% wt loss x 1 month, decreased PO intake of less than 75% estimated needs for greater than 1 month and mild muscle/fat loss. NUTRITION INTERVENTION: 1) Received authorization during CCU rounds to initiate PEG tube feeding as follows. Initiate Glucerna 1.5 at 10 ml/hr x 8 hr, due to previous failed attempted to advance in more timely manner. Once tolerance established, will advance 5 ml every 4 hr. to goal rate 68ml/hr to provide 2244 kcal and 123 g pro (100% estimated needs). While on IVF, fluid flush 40ml q 4 hrs. If IVF stopped, recommend 65ml q 2 hrs to better meet fluid needs. MONITOR/EVALUATE: NPO status, enteral feeding tolerance, fluid status, GI, labs, ST, wt, POC, nutrition status. Follow per high nutrition risk guidelines.
--- NOTE | 2017-05-23 10:15 | PCM.PNMED ---
Subjective Date of Service May 23, 2017 Subjective Overnight events: 1 of 2 blood cultures grew gram-positive cocci, staph. 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 Remained on CPAP overnight, transferred to oximetry mask this morning Denies any pain, worsening cough, lightheadedness dizziness, no nausea. Last bowel movement was 2 days ago. Had one episode of productive pink sputum this AM. Hospital day 2, ICU day 2 Exam Vital Signs Vital Sign - Last Date Time Temp Pulse Resp B/P Pulse Ox O2 Delivery O2 Flow Rate FiO2 05/23/17 09:38 85 42 129/78 93 55 05/23/17 04:30 36.7 CPAP Intake and Output 05/22/17 05/22/17 05/23/17 Cumulative From/Thru 15:00 23:00 07:00 05/21/17 21:13 - 05/23/17 05:43 Intake Total 2521 ml 427 ml 6777 ml Output Total 1250 ml 700 ml 2250 ml Balance 1271 ml -273 ml 4527 ml Intake Oral 0 ml IV Total 2521 ml 427 ml 6777 ml Output Urine Total 1250 ml 700 ml 2250 ml # Voids 1 # Bowel Movements 0 Exam General: Laying in bed, head of bed elevated, BiPAP in place, alert, oriented, appropriate affect. HEENT: Normocephalic, atraumatic, EOMI grossly, mucous membranes moist, no signs of thrush, no JVD, no palpable lymph nodes, neck supple. Cardiovascular: Regular rate and rhythm, breath sounds over the right cardiac sounds, unable to appreciate any clicks murmurs or rubs. Pulmonary: Diffuse rhonchi and Tory wheeze in the left thorax, bibasilar rales the right thorax with expiratory wheeze, Abdominal: Soft to palpation, bowel sounds present 4, no hepatosplenomegaly. Negative rebound. PEG tube in place, no leaks, no erythema tenderness or purulent discharge at insertion site Extremities: No edema appreciated. No tenderness, asymmetry. Peripheral IV in left arm Derm: There is a venous port right anterior superior thorax, it is patent, no erythema around the insertion site, no rashes, there is ecchymosis dorsum bilateral upper extremities, New bandage to L dorsal forearm. Neuro: Neurologically grossly intact, strength is equal bilaterally upper and lower extremities. MSK: Upper extremity strength 5 out of 5, 5 out of 5 civil structural designer strength, lower extremity strength is equal bilaterally. Psychiatric: Alert and oriented to person, place time, and situation. Appropriate mood and affect. IVs and Medications Medications Reviewed: Medications were reviewed in detail Lab and Diagnostics Result Diagram: 05/23/17 0658 05/23/17 0425 X-Rays, CTs and MRIs X-RAY CHEST ONE VIEW, PORTABLE IMPRESSION: Persistent diffuse interstitial and airspace infiltrate bilaterally consistent with pneumonia and/or pulmonary edema. Dictated by: Kaitlin Pena M.D. on 05/21/2017 at 21:37 Abdominal ultrasound performed 05/22/2017 IMPRESSION: 1. Gallbladder appears contracted and there is likely adenomyomatosis involving the gallbladder wall. If indicated limited repeat examination the gallbladder could be performed after the patient has been passing between 8 and 10 hours. Dictated by: Trenton Joshi RRA Interpreted: Petty Chun MD on 05/22/2017 at 11: 53 12-lead ECG Ventricular paced complexes, rate of 87, unspecific IVCD with left axis deviation, AR 88, QTC 462 Additional Diagnostics DateTimeAnalyzed 23:31:44 -_ pH ____7.473 - 7.350 7.450 pCO2 ___40.6__ -mmHg 35.0 45.0 pO2 ___61.0__ -mmHg 69.0 116 HCO3- ___29.7__ -mmol/L 22.0 26.0 Assessment & Plan Patient is a 77-year-old male with a medical history significant for end-stage COPD, Interstitial Lung disease, Lung Cancer, esophageal adenocarcinoma, CAD, CHF, and diabetes type II presented with fever, admitted for severe sepsis secondary to hospital-acquired and or aspiration pneumonia. Hospital day 2, ICU day 2, antibiotic day 2. Acute on chronic hypoxic respiratory failure, present on admission, active -Patient remained on CPAP O/N, Tolerating OxyMask at 15L this AM. -Etiology includes pneumonia below, COPD exacerbation, worsening interstitial lung disease -Patient is DO NOT INTUBATE -ABG PRN for change in status/O2 demands. -Daily CPAP and BiPAP weens. -IV Furosemide as needed for furosemide, 60mg given this AM. -Due to continued lability of his respiratory status, patient to remain in ICU. Acute MRSA Bacteremia,POA, Active. -1 of 2 blood cultures resulted positive gram-positive cocci. -repeat BC x2 -Nose PCR MRSA Pending -Add Ceftaroline 600mg IV BID Per ID -Echocardiogram -Abdomen CT with Contrast given port and peg tube. -Infectious disease consulting, we thank for them for their time and expertise. Hospital-acquired pneumonia, present on admission, active -Evidence by pro calcitonin, chest x-ray, respiratory distress -patient was recently discharged from hospital on 05/17/2017, abnormal barium swallow on 05/05/2017 -Infectious disease has been consulted and recommended changing to meropenem for coverage secondary to his esophageal cancer and possible aspiration - We appreciate their recommendations. -Due to possible aspiration make nothing by mouth. -Nothing by mouth, tube feedings only. -Trend Pro-calcitonin. -Respiratory PCR Bowers Negative. -Legionella antigen was negative Transaminitis, present on admission, worsning. - Cholestasis, or infectious causes to be evaluated. - Ultrasound revealed adenomyomatosis of gallbladder wall, however normal bilirubin speaks against biliary obstruction. - CT abdomen with contrast. - Trend liver functions, - Restart tube feeds Today. Supratherapuetic INR, not POA, Active. INR 5.26. Vitamin K NOW. continue to trend, watch for bleeding, bruising, monitor H/H. Chronic Anemia, POA, Stable. -HgB decreased to 7.8 this AM, recheck 8.3, Review of past hospitalizations shows this to be his normal. -Continue to trend. Chronic Thrombocytopenia, POA, Stable. -Plt decreased from 262 to 97 in 24hrs. recheck is 104. -Review of previous labs show this to be his normal range. Exacerbation of chronic obstructive pulmonary disease, present on admission, active - Solu-Medrol 125 mg q8h - DuoNeb Q4HWA and additional albuterol ordered when necessary Acute on Chronic Interstitial lung disease, POA, Active. -Treatment as above for COPD. CPAP and BIPAP Deconditioning, present on admission, active - Discussed PT with ICU team, awaiting Palliative consultation. Chronic afib, present on admission, active - Holding metopolol xl the setting of severe sepsis - restart warfarin Recurrent ventricular tachycardia and fibrillation with ICD, present on admission, active - Continue his dofetilide. Acute Septic shock, requiring pressor and IVF support, POA, Resolved. - Met SIRS criteria with leukocytosis and tachypnea, plus elevated troponins and liver enzymes, ED started pressors - Source likely pneumonia, though could also be from other sources such as port infection, GI tract given h/o Antibiotics. - UA unrevealing. - Received 3.5L of NS, maintenance fluids discontinued, responded to 500 mL boluses of LR, bolus as needed - Treatment for for hospital-acquired and aspiration pneumonia as above. - Pressers discontinued. MAP stable. Elevated troponin of uncertain a significant, present on admission, improving - Asymptomatic, no ischemic changes on EKG - Likely demand ischemia - Continues to trend down.Will Re-check only if change in status. Social/Family Palliative consult recommends a meeting discussing with family after the May 27 hol to discuss quality of life and goals. Chronic conditions Diabetes type II, stable - Short acting insulin sliding scale - Blood sugar goal 130 to 180 Coronary artery disease, stable - Start home atorvastatin and aspirin once patient can tolerate by mouth intake Dysphagia - Nothing by mouth - Continue PEG Tube Feedings. Severe protein caloric malnutrition, stable - Dietitian consulted, restart enteric feeding Heart failure with reduced ejection fraction, stable - EF 40-45% based on last echo on 02/10/2017 - Restart oral metoprolol, enalapril when able - Holding home furosemide and spironolactone in the setting of sepsis GERD - Famotidine 10 mg IV twice a day DVT prophylaxis: Warfarin Patient is a DNR/DNI Pain Evaluation: Adequate Pain Control GI Prophylaxis: H2 ira VTE Prophylaxis: Theraputic Anticoag with Warfarin VTE Mechanical Devices: Intermittant Pneumatic CD Resuscitation Status: DNR/DNI:Do Not Resuscitate/Intubate Attending Statement I have seen and examined this patient with the resident physician. Vital signs , labs, imaging have been reviewed. I agree with the assessment and plan above. Please refer to my separately dictated progress note for any modifications to above. Kavitha Ferrell M.D. Pulmonary and Critical Care medicine Pager [phone] Wilver Prado DO May 23, 2017 10:15 Kavitha Ferrell MD May 23, 2017 14:44
[2017-05-23] MEDS ORDERED: Magnesium Sulf 2 Gm/50mL Water 2 GM in IV Premix 1 EACH IV ONE (10:25)
[2017-05-23] MEDS ORDERED: Potassium Phos (mEq) Inj 20 MEQ in Dextrose 5% 250 ML IV ONE (10:45)
--- NOTE | 2017-05-23 10:49 | PCM.PHAPRO ---
Progress Date of Service: May 23, 2017 Warfarin dosing Date May 22-May 23-Apr INR 2.05 5.26 INR change 5.26 Warf Dose no 5MG HOLD!! Bambi Lane PharmD May 23, 2017 10:49
[2017-05-23] MEDS: Albuterol 2.5 mg/3 mL Inhalation Solution NEB PRN (11:21)
--- NOTE | 2017-05-23 11:22 | PROG NOTE ---
[address] [address] PROGRESS NOTE PATIENT: ANIA LIM : 1940 MR#: [id number] ADMIT: 05/21/2017 JOB ID: [id number] DATE: 05/23/2017 PULMONARY CRITICAL CARE PROGRESS NOTE: The patient is 77-year-old man with known esophageal, lung cancer, and interstitial lung disease on home oxygen recently hospitalized for respiratory failure, now re-admitted with septic shock. INTERVAL HISTORY: He was on CPAP for the last 24 hours. and on Oxy Mask for a couple of hours this morning. He developed increasing tachypnea and had to be put back on CPAP/now BiPAP. Continues to be dyspneic. Denies chest pain, fever, chills. REVIEW OF SYSTEMS: As above. PHYSICAL EXAMINATION: Vital signs reviewed. Afebrile. Pulse 85, irregular. Respirations as high as 30-40. BP 129/78, sats 93% on 55% FiO2 which is up from 40%. General: Elderly gentleman lying in bed, tachypneic at rest. Unable to speak in full sentences. I increased his FiO2 to 70% from 55% because the sats started dropping to the 80s. Chest: Coarse bilateral crackles heard diffusely all over the lung denny. Abdomen soft, nontender. No organomegaly. No tenderness in the right upper quadrant. LABORATORIES: Reviewed. WBC is down to 8 from 27, hemoglobin 8.3, platelets 104, which I think is closer to his baseline from last hospitalization. Chemistry also reviewed sodium is elevated at 146. Creatinine is normal. Procalcitonin is up slightly to 7.3. Cultures notable for blood culture positive for gram-positive cocci, most likely Staph. Chest x-ray today is pending. Abdominal ultrasound shows contracted gallbladder with polyps. ASSESSMENT AND RECOMMENDATIONS: 1. Septic shock-resolved, off pressors. 2. Acute hypoxic respiratory failure-on BiPAP. 3. Staph aureus bacteremia? Cultures pending. 4. Suspected aspiration pneumonia. 5. Stage III esophageal cancer status post chemoradiation March 2017. 6. Stage I lung cancer status post SBRT. 7. Acute kidney injury-resolved. Complex 77-year-old gentleman now readmitted barely three of four days after discharge with septic shock and Staph aureus bacteremia. His MRSA nasal swab is now positive. It was previously negative in the last admission. We adjusted his antibiotics accordingly and Dr. Bianchi has added ceftaroline to his current regimen of meropenem and doxycycline. We stopped doxycycline since there appears to be no indication for this at this time. He is off all vasopressors even though his procalcitonin is slightly higher. His liver enzymes are slightly more elevated compared to prior but abdominal ultrasound does not show anything concerning at this time. If his enzymes continue to rise over the next 24 hours, we should consider CT abdomen and pelvis to further evaluate. With regards to respiratory status, this seems worse today and I am almost certain that is from volume overload from fluid resuscitation for sepsis which was necessary. We gave him 20 mg of Lasix this morning and just repeated another 40 mg because of his respiratory distress. Continue BiPAP at 70% FiO2 until we see improvement in respiratory status. Repeat chest x-ray is pending. His INR is up to 5.26 from his Coumadin dose yesterday. We are going to stop Coumadin and give him a small dose of vitamin K 2.5 mg IV to correct this. He is DNR DNI and I spoke with his and daughter and updated them regarding his condition. indicates that he does not want to be intubated or resuscitated but he wants to continue to "fight" and get back to a somewhat independent state if at all possible. They do agree that he is not safe to go home and should be discharged to a fci. Critical care [facility] 60 [facility]
--- NOTE | 2017-05-23 11:40 | DRSVH ---
PROCEDURE: X-RAY CHEST ONE VIEW, PORTABLE ([id number]) INDICATIONS: acute respiratory failure TECHNIQUE: One view of the chest was acquired. COMPARISON: [facility], CR, XR CHEST 1VW (PORTABLE), 05/21/2017, 21:13. FINDINGS: Surgical changes and devices: Stable position of right IJ CVL and left chest AICD. Median sternotomy wires. Lungs and pleura: Diffuse, widespread bilateral pulmonary interstitial and air space opacities are p resent which has increased compared to prior examination. No pleural effusion or pneumothorax. Mediastinum: Mediastinal contours appear normal. Heart size is normal. Bones and chest wall: No suspicious bony lesions. Overlying soft tissues appear unremarkable. IMPRESSION: Worsening pulmonary edema and/or diffuse bilateral pneumonia. Developing ARDS cannot be excluded. Dictated by: Trenton Joshi [facility] Interpreted: Jian Gonzalez MD on 05/23/2017 at 11:15 Approved by: Jian Gonzalez M.D. on 05/23/2017 at 11:38
[2017-05-23] MEDS ORDERED: KCl 20 mEq/100 mL(CENTRAL) 20 MEQ in IV Premix 1 EACH IV ONE (11:45)
--- NOTE | 2017-05-23 13:31 | NUR ---
Wound Note Pressure ulcer protocol received, pt seen at bedside with RN 05/22/17. 77 yo male admitted to [facility] with respiratory failure, currently on breathing mask. Pt has skin tear at his left forearm which is approx 2 cm in length this was redressed with a mepilex foam, no presure related skin issues noted at this time but family member wanted some protection for his left elbow as he apparently wears an elbow protector at home, mepilex dressing was placed there. Patient very somnulent when not stimulated, will need frequent repositioning as he is unlike to shift or move much in bed himself.
--- NOTE | 2017-05-23 14:04 | NUR ---
Palliative care note D/A: Phone call to pt spouse this am to discuss planned meeting for today. She indicates that both she and her dtr are wishing to continue to meet with this worker. Dr. Ferrell also joins and kindly gives family update on most recent medical condition. She indicates that current plan will continue to be to treat his infection and balance his fluids. Pt is known to have a staph infection and medical team is awaiting cultures to determine type. Met with spouse Annette and dtr Vanna. Explain to Vanna what PC is and how service may assist. Gave both Annette and Vanna PC flyer and business cards. Vanna is employed as an limited radiology technician at [employer] and will leave to start her shift at 1200. Vanna has two kids and lives in [facility]. Couple had three daughters and the other two remain in [place] Dtr [place] (infrastructure solutions architect with two children) and Britt (one child) . Grandkids are Lizeth (13), Alex (12), Bailey (10), Marisabel (7) and Jay (4). 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 When couple moved to [place], she worked at [employer] and found this work very challenging. 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 Annette indicates that they have some funds saved for care home but she would rather not pay privately at a SNF, if possible. Finances sound to be of concern, at times. Annette also caring for couple's large dog and her mothers large dog, but this was formerly pt's job. She is coming to understand all of what she now must take on by herself, including care and walking of dogs, finances, bills, etc and is grieving the loss of her spouse's help and assistance. She wonders what she will do when he is gone. Couple has been for 50 years and sound very close and well matched. He is described as introverted and will be very quiet until he gets to know someone. He is verbal once he lets someone in but those that he lets in are fewer in number. He is conservative and she is liberal, they have an agreement to turn off the TV when certain subjects are brought up. He is described as stubborn, quiet and very nice. They met when they both worked at [employer]. (Spouse went back to school as an adult to obtain her WEAVE ROOM SUPERVISOR.) Pt was a member of the [employer]. He is very smart, did not do as well in school with formal schooling. He loves to cook and garden. The kids remember fondly coming home from school, knowing their dad was cooking as the house windows would be all steamy and being very excited to taste the dinner he would have prepared for them. He is known for his roses. Annette's mother is still alive at age 93 and currently resides at [facility]. She has dementia and until recently, lived with couple. She is currently on Medicaid. [facility] as couple was spending lots of time in oncology and Annette can visit/spend the night at Vanna's house ([facility]). Annette is concerned moving forward that prison placement for her mom [place] [address] may not work well. She has researched AFH's on Friday but there are only a couple of choices. Dtr Vanna has worked at them and family is not interested in them. [facility] is currently not accepting new pts due to reduced staffing. Mother had been on hospice (family used [facility]) and graduated from their services. Spouse herself has been diagnosed with Parkinson's and is under her PCP's care. She is trying to keep her stress levels down. Spouse indicates that pt has not smoked since 1993. Spouse indicates that pt cognition remains intact and he is someone who wants to remain hopeful. He is worried that palliative care is talking to the family and what this may mean. He elected to not participate in current discussion and spouse feels that he may be fearful. He has wanted DNR/DNI with aggressive treatments. Spouse and dtr both indicate that they feel that pt condition is declining. They both indicate that they began to notice this around mid March when he was admitted for three days to change his cardiac meds. Dtr and spouse both indicate that they feel pt was discharged too early last admit (earlier in April. ) He was dc'ed home with HH and they indicate he was too weak to be home. HH RN assisted them with placement at a SNF after a few days at home. Annette notes that she is aware that there is a chance that pt may not make it to be discharged from acute care. Her hope is that he may be able to be well enough that he could be discharged to a SNF for rehab. Her first choice for SNF would be [facility]. Pt has been there in the past and she thinks highly of facility and staff. Annette is also aware that pt may discharge in a condition that would meet hospice criteria, so that home with hospice might be another option. She is hoping for dc with SNF/rehab but realistic enough to know that discharge with hospice may be what is needed. She is planning on addressing this with patient over the next day or two. This worker explains that PC office will be closed on 05/26 and 05/27, open on 05/28. Will follow up with couple/family if still here on 05/28. Left message early in day for [facility] WEAVE ROOM SUPERVISOR indicating discussion with spouse and asking if needing any information gathered. Left second message after discussion indicating that spouse is aware of prognosis and discussing hospice vs SNF. Would like [facility] if SNF needed. Case discussed with PC team. P: Palliative care to follow. Megan SANTOS, CCM
--- NOTE | 2017-05-23 14:34 | PCM.PNMED ---
Subjective Date of Service May 23, 2017 Subjective Ariel Pina is a 77-year-old male with a medical history significant for end- stage COPD, Interstitial Lung disease, Lung Cancer, esophageal adenocarcinoma, CAD, CHF, and diabetes type II presented with fever, admitted for severe sepsis secondary to hospital-acquired and/.or aspiration pneumonia. Currently under treatment for Staph aureus bacteremia. Overnight: No acute events overnight. Today: The patient was off BPAP this AM and able to communicate that he feels fine and is not short of breath. He denies any cough, fevers, chills, or abdominal pain. The remainder of ROS is negative except as noted above. Exam Vital Signs Vital Sign - Last Date Time Temp Pulse Resp B/P Pulse Ox O2 Delivery O2 Flow Rate FiO2 05/23/17 12:48 80 43 132/50 94 60 05/23/17 12:30 36.7 BiPAP 05/23/17 08:30 15.00 Intake and Output 05/22/17 05/22/17 05/23/17 Cumulative From/Thru 15:00 23:00 07:00 05/21/17 21:13 - 05/23/17 05:43 Intake Total 2521 ml 427 ml 6777 ml Output Total 1250 ml 700 ml 2250 ml Balance 1271 ml -273 ml 4527 ml Intake Oral 0 ml IV Total 2521 ml 427 ml 6777 ml Output Urine Total 1250 ml 700 ml 2250 ml # Voids 1 # Bowel Movements 0 Exam General: No acute distress, sitting comfortably, appropriately interactive HEENT: Normocephalic, atraumatic. PERRLA, EOMI, Anicteric sclerae Neck: No JVD, No bruits. No lymphadenopathy or thyromegaly. Cardiovascular: Irregularly irregular, no murmur, rub or gallop Pulmonary: Bilateral air sound, significant coarse breath bilaterally R worst than L, no crackles, no wheezes Abdomen: +Bowel sound, Soft, nontender, nondistended. Extremities: No clubbing or cyanosis, no lymphedema, no b/l lower leg edema Skin: Normal temperature, turgor, and texture; no rash. No visualized skin ulcer. port-a-cath Right chest, peg tube Right upper quadrant Psychiatric: normal mood and affect. Poor insight and judgement. IVs and Medications Medications Reviewed: Medications were reviewed in detail Lab and Diagnostics Result Diagram: 05/23/17 0658 05/23/17 0425 X-Rays, CTs and MRIs X-RAY CHEST ONE VIEW, PORTABLE IMPRESSION: Persistent diffuse interstitial and airspace infiltrate bilaterally consistent with pneumonia and/or pulmonary edema. Dictated by: Kaitlin Pena M.D. on 05/21/2017 at 21:37 Abdominal ultrasound performed 05/22/2017 IMPRESSION: 1. Gallbladder appears contracted and there is likely adenomyomatosis involving the gallbladder wall. If indicated limited repeat examination the gallbladder could be performed after the patient has been passing between 8 and 10 hours. Dictated by: Trenton Joshi RRA Interpreted: Petty Chun MD on 05/22/2017 at 11: 53 12-lead ECG Ventricular paced complexes, rate of 87, unspecific IVCD with left axis deviation, WI 88, QTC 462 Additional Diagnostics DateTimeAnalyzed 23:31:44 -_ pH ____7.473 - 7.350 7.450 pCO2 ___40.6__ -mmHg 35.0 45.0 pO2 ___61.0__ -mmHg 69.0 116 HCO3- ___29.7__ -mmol/L 22.0 26.0 Assessment & Plan Ariel Pina is a 77-year-old male with a medical history significant for end- stage COPD, Interstitial Lung disease, Lung Cancer, esophageal adenocarcinoma, CAD, CHF, and diabetes type II presented with fever, admitted for severe sepsis secondary to hospital-acquired and/.or aspiration pneumonia. Currently under treatment for Staph aureus bacteremia. Hospital day 2. Acute on chronic hypoxic respiratory failure, present on admission, active -CPAP/BPAP as needed. -Etiology includes pneumonia below, COPD exacerbation, worsening interstitial lung disease -Patient is DO NOT INTUBATE -ABG PRN for change in status/O2 demands. Acute Septic shock secondary to Staph aureus bacteremia, requiring pressor and IVF support, POA, improving. - Met SIRS criteria with leukocytosis and tachypnea, plus elevated troponins and liver enzymes, ED started pressors - Pneumonia possible contributing as well. UA unrevealing. - Received 3.5L of NS, maintenance fluids discontinued, responded to 500 mL boluses of LR, bolus as needed - Treatment for for hospital-acquired and aspiration pneumonia as below. - NE and Vasopressin as needed for MAP <65 - Continue to trend lactic acid Q12H - Infectious disease has been consulted and recommended meropenem and ceftaroline. - Nothing by mouth, tube feedings only. - Trend Pro-calcitonin daily - Legionella antigen was negative, viral PCR negative. - ECHO pending. Elevated troponin of uncertain a significant, present on admission, stable - Asymptomatic, no ischemic changes on EKG - Likely demand ischemia - Repeat troponin, start heparin drip if troponin significantly elevated Elevated LFTs, hepatocellular pattern, present on admission, improving -Like due to obstructive hepatopathy due to severe systemic illness Exacerbation of chronic obstructive pulmonary disease, present on admission, active - Solu-Medrol 125 mg q8h - DuoNeb Q4HWA and additional albuterol ordered when necessary - Pulmonology consulted, appreciate input. Acute on Chronic Interstitial lung disease, present on admission, Active. -Treatment as above for COPD. CPAP and BIPAP Deconditioning, present on admission, active - Discussed PT with ICU team, awaiting Palliative consultation. 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 Social/Family Palliative consult Chronic conditions Diabetes type II, stable - Short acting insulin sliding scale - Blood sugar goal 130 to 180 Coronary artery disease, stable - atorvastatin and aspirin Severe protein caloric malnutrition, stable - Dietitian consulted, restart enteric feeding Heart failure with reduced ejection fraction, stable - EF 40-45% based on last echo on 02/10/2017 - metoprolol, enalapril - Holding home furosemide and spironolactone in the setting of sepsis GERD - Famotidine 10 mg IV twice a day DVT prophylaxis: Warfarin Patient is a DNR/DNI Dispo: Anticipate patient will be in the ICU for 1-2 more days. GI Prophylaxis: H2 ira VTE Prophylaxis: Theraputic Anticoag with Warfarin VTE Mechanical Devices: Intermittant Pneumatic CD Resuscitation Status: DNR/DNI:Do Not Resuscitate/Intubate Attending Statement Patient seen and examined with house staff. Agree with all attached documentation. Maki Morataya DO May 23, 2017 14:34 Eber Quinn MD May 26, 2017 07:39 Maki Morataya DO May 23, 2017 14:34
[2017-05-23] MEDS: Ceftaroline Inj 600 MG in Dextrose 5% 250 ML IV SCH (16:02)
--- NOTE | 2017-05-23 16:44 | DRSVH ---
[facility] [address] [place] [address] Echocardiogram Report Name: ANIA LIM MStudy Date : 05/23/2017 Height: 72 in Hospital Exam Location: [facility] Weight: 190 lb Gender: Male BSA: 2.1 m2 : 1940 Age: 77 yrs BP: 139/58 mmHg Reason For Study: CHF, Staph in blood Ordering Physician: HOSPITALIST SVHPerformed By: Ree Galvin Referring Physician: RATNA FELIPE Interpretation Summary The left ventricle is borderline dilated but is unchanged compared to the previous study. Left ventricular systolic function is borderline reduced with the ejection fraction visually estimated to be 50-55%. There is a significant dyssynchronous contraction pattern due to the paced rhythm and significant inferior and posterior wall hypokinesis but this appears unchanged compared to the previous study. Left ventricular wall thickness is mildly increased. The right ventricle is borderline dilated and right ventricular systolic function is mildly reduced with significant hypokinesis of the distal right venricular freewall, possibly due to pacemaker activation, but appears more prominent compared to the previous study. The right ventricular systolic pressure is estimated at 33 mmHg assuming a right atrial pressure of 3 mm Hg, likely unchanged compared to the previous study. The left atrium is severely dilated and the right atrium is normal in size. The right atrium has significantly decreased in size since the prior echo exam. The posterior mitral leaflet and annuloplasty ring are consistent with prior mitral repair surgery. There is mild mitral stenosis with a mitral valve mean gradient of 5 mmHg, similar to the previous study. There is probable mild mitral regurgitation although the evaluation of the regurgitation is inadequate because of the shadowing from the annuloplasty ring.There is no obvious vegetation seen on the mitral valve. The aortic valve is slightly calcified but opens well with mild aortic regurgitation that is unchanged compared to the previous study. There is no aortic valvular vegetation seen. There is mild tricuspid regurgitation that appears slightly less prominent compared to the previous study. There is no tricuspid valve vegetation seen. The ascending aorta is mildly enlarged but is unchanged compared to the previous study. Procedure: A two-dimensional transthoracic echocardiogram with color flow and Doppler was performed. The study quality was technically adequate. Comparison is made with the echocardiogram of 02/10/2017. The patient has a paced rhythm. Left Ventricle: The left ventricle is borderline dilated. This is unchanged compared to the previous study. Left ventricular wall thickness is mildly increased. Left ventricular systolic function is borderline reduced. The ejection fraction is estimated to be 50-55%. There is a significant dyssynchronous contraction pattern due to the paced rhythm. There is inferior wall hypokinesis. There is posterolateral wall hypokinesis. This is unchanged compared to the previous study. Diastolic function could not be accurately assessed due to paced rhythm. Right Ventricle: There is a pacemaker lead in the right ventricle. The right ventricle is borderline dilated. Right ventricular systolic function is mildly reduced. There is significant hypokinesis of the distal right venricular freewall, possibly due to pacemaker activation, but appears more prominent compared to the previous study. Atria: The left atrium is severely dilated. The left atrium has remained unchanged in size since the prior echo exam. The right atrium is normal in size. The right atrium has significantly decreased in size since the prior echo exam. The interatrial septum is intact with no evidence for an atrial septal defect. Mitral Valve: The posterior mitral leaflet is thickened and fixed consistent with prior mitral repair surgery. An annuloplasty ring is noted in the mitral position. There is no vegetation seen on the mitral valve. There is mild mitral stenosis. The mitral valve mean gradient is 5 mmHg. This is similar compared to the previous study. There is mild mitral regurgitation. Evaluation of regurgitation is inadequate. Aortic Valve: The aortic valve is trileaflet. The aortic valve is slightly calcified. The aortic valve opens well. There is no aortic valvular vegetation. There is mild aortic regurgitation. This is unchanged compared to the previous study. Tricuspid Valve: The tricuspid valve leaflets are thin and pliable. There is no tricuspid valve vegetation. There is mild tricuspid regurgitation. This is slightly less prominent compared to the previous study. The right ventricular systolic pressure is estimated at 33 mmHg assuming a right atrial pressure of 3 mm Hg. This is unchanged compared to the previous study. Pulmonic Valve: The pulmonic valve is normal in structure and function. There is trace pulmonic regurgitation. Great Vessels: The aortic root is normal size. The ascending aorta is mildly enlarged. This is unchanged compared to the previous study. The IVC is of normal diameter and collapses greater than 50% with a sniff. This suggests a low right atrial pressure of 3 mm Hg. Pericardium/ Pleura There is no pericardial effusion. There is no pleural effusion. MMode/2D Measurements & Calculations LVIDd: 5.8 cm RA long axis LVOT diam LVIDs: 4.2 cm LA A2 area: 25.4 cm FS: 28.3 % LA A4 area: 25.8 cm RA area Ao root diam IVSd: 0.89 cm LA length (vol): 5.6 cm LVPWd: 1.3 cm LA vol: 98.7 ml : 15.2 cm asc Aorta LA vol index RA vol: 38.5 mlDiam: 4.1 cm RA : 47.4 ml/m2 : 18.5 mm2 LV hernandez. diameter/BSA LV sys. diameter/BSA (cm/m^2): 2.8 (cm/m^2): 2.0 Doppler Measurements & Calculations Ao V2 max MVA(VTI) TR max marciano MV V2 mean: 101.4 cm/sec : 164.6 cm/sec : 3.0 cm2 : 275.1 cm/sec MV mean P.3 mmHg Ao max PG TR max PG MV V2 VTI: 25.7 cm : 10.8 mmHg : 30.7 mmHg Ao mean PG PA V2 max : 71.1 cm/sec LVOT Max Marciano PA mean PG : 102.4 cm/sec : 1.1 mmHg [place](I,D): 3.0 cm sev ratio: 0.71 Ao V2 mean LV V1 max PG PA V2 mean [place] indexed to BSA : 109.3 cm/sec : 48.7 cm/sec (cm^2/m^2): 1.4 Ao V2 VTI: 25.3 cm LV V1 VTI PA pr(Accel) : 18.0 cm : 19.8 mmHg J[place](V,D): 2.6 cm2 Reading Physician:04:43 PM
[2017-05-23 16:51] LABS: Magnesium 2.3 mg/dL (1.6-2.6)
--- NOTE | 2017-05-23 17:16 | NUR ---
P: Respiratory Distress I: Pt had episodes today of respiratory distress RR 40-50's and sats down to 84%. at bedside. Total of Lasix 60mg IV given and pt urine output increased. Paced with lots of PVC's and 15 beat of v tach. aware and krider infused and magnesium infused. magnesium WNL on recheck but potassium borderline at 3.7 and another 40 meq of KCL . Turns self. Tube feeding started at 10cc/hr and 40cc water flush Q 4 hours. at bedside. met with both pt's and daughter to update them on pt's condition and plan of care. Total urine output 1800cc. E: Worsening S: Alert and oriented. Uses call light appropriately. at bedside. Frequent rounding.
[2017-05-23] MEDS ORDERED: DEXTROSE IV ONE (17:20)
[2017-05-23] MEDS ORDERED: POTASSIUM CHLORIDE IV ONE (17:20)
[2017-05-23] MEDS ORDERED: KCl 40 mEq/100 mL IV Premix (K < 3 & Creat 2.1 - 2.9) IV ONE (17:35)
[2017-05-24] VITALS (12 sets, daily range): BP systolic 108–132; BP diastolic 51–64; PULSE 74–89; RESP 21–44; O2SAT 90–94
[2017-05-24] MEDS: Norepineph 8,000 mCg/250 mL NS 8,000 MCG in IV Premix 1 EACH IV SCH (01:22)
[2017-05-24] MEDS: Meropenem Inj 2,000 MG in 0.9% Sodium Chloride 100 ML IV SCH ×4 (01:41→23:57)
[2017-05-24] MEDS: MethylprednisoLONE Sodium Succinate 62.5 mg/mL 2 mL Inj IVPUSH SCH ×3 (01:42→20:52)
[2017-05-24] MEDS: Ceftaroline Inj 600 MG in Dextrose 5% 250 ML IV SCH ×4 (01:42→23:58)
[2017-05-24 05:11] LABS: Mean Corpuscular Volume 81.3 fL (81-100)
[2017-05-24] MEDS: Vasopressin Inj 20 UNIT in 0.9% Sodium Chloride 100 ML IV SCH ×2 (05:13→16:03)
[2017-05-24 05:37] LABS: INR 1.55 ratio
[2017-05-24] MEDS: 0.9% Sodium Chloride 1,000 ML IV SCH ×2 (06:54→21:12)
[2017-05-24] MEDS: Insulin LISPRO 300 Unit/3 mL Inj SUBQ SCH ×4 (07:26→23:57)
[2017-05-24] MEDS: Albuterol-Ipratropium 3 mL Inhalation Solution NEB SCH ×4 (07:36→20:04)
[2017-05-24] MEDS: Famotidine Inj 20 MG in IV Premix 1 EACH IV SCH (08:29)
[2017-05-24] MEDS: Mupirocin 2% 22 Gm Ointment TOPICAL SCH ×2 (08:30→20:52)
--- NOTE | 2017-05-24 08:49 | PCM.PHAPRO ---
Progress Warfarin dosing May 23Apr 24 5.26 1.55 5.26 -3.71 5MG HOLD!! 1 Abner Streeter Pharm.D May 24, 2017 08:49
--- NOTE | 2017-05-24 08:51 | DRSVH ---
PROCEDURE: X-RAY CHEST ONE VIEW, PORTABLE ([id number]) INDICATIONS: acute respiratory failure TECHNIQUE: One view of the chest was acquired. COMPARISON: [facility], CR, XR CHEST 1VW (PORTABLE), 05/23/2017, 10:28. FINDINGS: Surgical changes and devices: The right upper extremity Port-A-Cath appears stable in position with t he tip extending into the proximal right atrium. Left chest wall AICD and leads also appear similar in position. Post surgical changes are redemonstrated in the mediastinum. Lungs and pleura: There is persistent pulmonary edema, similar in appearance to the prior study, as well as patchy bilateral airspace opacities which may reflect ARDS or infection. These appear slight ly increased from the prior study. There is slight blunting of the costophrenic angles suggesting sm all bilateral pleural effusions. No evidence of pneumothorax. Mediastinum: Mediastinal contours appear unchanged. Heart size is normal. Bones and chest wall: No suspicious bony lesions. Overlying soft tissues appear unremarkable. IMPRESSION: 1. Persistent pulmonary edema as well as patchy bilateral air space opacities which are nonspecific but may reflect ARDS or pneumonia. 2. Possible small bilateral pleural effusions. Dictated by: Juan Morris M.D. on 05/24/2017 at 8:41 Approved by: Juan Morris M.D. on 05/24/2017 at 8:44
--- NOTE | 2017-05-24 09:00 | PROG NOTE ---
[address] [address] PROGRESS NOTE PATIENT: ANIA LIM : 1940 MR#: [id number] ADMIT: 05/21/2017 JOB ID: [id number] DATE: 05/24/2017 REASON FOR FOLLOWUP: MRSA bacteremia in a complex patient with underlying COPD and respiratory failure. INTERVAL HISTORY: Recall that yesterday we found that a blood culture was growing a Staph aureus. An admission blood culture was growing a Staph aureus and his MRSA screen of the nares was positive though it had been negative on prior admissions. At that point, we instituted ceftaroline. That was chosen because we wished to avoid linezolid because of the propensity to lower platelets in a patient whose platelets were already dropping and we wish to avoid vancomycin nephrotoxicity, and given this was potentially a pulmonary process, we can use daptomycin. In any event, the patient is relatively stable overnight. He is awake, alert and on BiPAP this morning. He tells me his breathing is about stable. It is really no better, no worse. He has not noticed a fever though he has had some shakes he says during the night. He has a minimal cough. No chest pain. No abdominal pain. Recall that he also has underlying esophageal cancer with a PEG tube in place as well as a second malignancy with pulmonary adenocarcinoma and underlying COPD. PHYSICAL EXAMINATION: This morning, reveals an afebrile gentleman. Temperature 36.6. He has been afebrile since admission. Pulse currently in the 70s; it is a paced rhythm at 78 by my view, though it sometimes goes faster and is irregular according to the notes in the chart. Respiratory rate in the 30s on CPAP. Blood pressure 120/59. He is saturating 91%. His mental status is clear. He has a CPAP only moderately securely fastened to his face. He is able to take it off and speak though in short sentences. His lungs are notable for coarse breath sounds which are really bilateral at this point. Cardiac tones somewhat distant, but recurrent;y irregular. I do not appreciate any murmur. His port in the right upper chest is nontender. His pacer in the left upper chest likewise without inflammation. He has a G-tube in his left upper quadrant which appears benign. The remainder of his abdomen is benign. Extremities without evidence of cellulitis. Note that the patient is not currently receiving vasopressors and he has reasonable urine output. LABORATORY STUDIES: Include a white count 8100 this morning. Platelets had dropped a bit to 87,000. His creatinine is 0.9. ALT continues to climb, it is now to 61. His alk phos 184, which is similar to what it has been through the hospital stay. His albumin 2.3. Procalcitonin 3.5, which is down by half from yesterday 7.3. Urinalysis with 6-10 white cells. Urine Legionella and pneumococcal antigens are negative. Recall that on admission one of two initial blood cultures which is said to be a peripheral draw, grew MRSA. Followup blood cultures done yesterday remain negative. MRSA swab of the nares was positive. Our last chest radiograph was reviewed yesterday and shows bilateral infiltrates and I reviewed this on the view screen and compared to prior films. This could be consistent with ARDS, pulmonary edema or bilateral pneumonia. The chest x-ray on May 23 appears worse than a chest x-ray on the May 21, but the film was of different cook fruit penetration and therefore difficult to make clearcut comparisons at least to my eye. IMPRESSION: This is a critically ill gentleman with underlying problems including cardiac disease, chronic obstructive pulmonary disease lung cancer, esophageal cancer. He has previously undergone a mitral valve annuloplasty with the implantation of a ring which is seen on the echocardiogram. Additionally, he has a pacer and a port in place. He remains critically ill primarily from a respiratory point of view. Over the past 48 hours his blood pressure has stabilized. He has been weaned off pressors and he is starting to improve in some ways with respect to his leukocytosis and elevated procalcitonin, but he is on a fine edge in terms of a respiratory decompensation. Note that the patient does not wish to be intubated and he is barely making it right now on BiPAP. As the patient gets through the next few days, hopefully, we will need to address the source of this MRSA bacteremia. His transthoracic echocardiogram was nondiagnostic, but will need eventually need a PETAR but this can be deferred until he is much more stable obviously. Also of concern would be the port as well as the pacer. Note that we have follow up blood cultures through the skin as well as through the port. If these should turn positive more rapidly from the port, we will be forced to consider its removal. RECOMMENDATIONS: 1. We will continue with maximal dose ceftaroline as our primary drug for the MRSA bacteremia. I am staying away from vancomycin out of fear of causing renal dysfunction, which we have seen several cases of here recently even with the initiation of vancomycin. A renal dysfunction in this setting could be catastrophic. Likewise I am staying away from daptomycin because the patient's MRSA may, at least in part involve his lungs and staying away from linezolid because he has dropping platelets, which could in fact be due to the linezolid he received initially after admission, at least in part. 2. We will continue with meropenem. 3. We could add mupirocin nasal, but I would probably wait on that a little bit because taking the mask on and off the patient to apply it may lead to desaturation events. Thank you very much for allowing me to be involved in the care of this very critically ill and complex gentleman. I have discussed this case with the ICU nurse and plan to discuss it with Dr. Maloney later this morning.
--- NOTE | 2017-05-24 11:35 | NUR ---
NUTRITION FOLLOW-UP: ASSESS: 77 YO M admitted to CCU with septic shock and respiratory failure, related to Staph aureus bacteremia. Per ID, pt. may have some component of aspiration pneumonia along wit the Staph aureus bacteremia, but there could also be an infection arising from his port in the right upper chest, even though it appears benign, or that he could have an intracardiac source. He also has a pacer which could be infected. He remains critically ill primarily from a respiratory point of view. Over the past 48 hours his blood pressure has stabilized. He has been weaned off pressors and he is starting to improve in some ways with respect to his leukocytosis and elevated procalcitonin, but he is on a fine edge in terms of a respiratory decompensation. The patient's code status is DNR / DNI, and he is on the verge of failing BiPAP. Pt carries diagnoses of esophageal cancer as well as pulmonary adenocarcinoma, status post PEG tube placement 01/30/17. Pt was recently discharged from [facility] 05/17/17. At that time he was receiving enteral feeding via his PEG tube and was NPO per ST. He was tolerating enteral feeding well with no n/v/d or abdomen pain. Pt reports that after discharge he began to experience increased nausea/vomiting such that enteral feeding has was on hold for 2 days, with resulting dehydration. Enteral feeding was restarted yesterday at trophic rate, now advancing slowly to goal. Code status: DNR / DNI. PMHX: Esophageal cancer, stage 1 pulmonary adenocarcinoma of right lower lobe, A-fib, end-stage COPD, HTN, HLD, CAD, CHF with cardiomyopathy, type 2 diabetes, amiodarone toxicity, failed barium swallow study 05/05/17, interstitial lung disease, pacemaker. LABS: Reviewed. BUN 60, Glu 215, AST 292, ALT 261, Alk Phos 189, Alb 2.3, Procalcitonin 3.53. MEDS: Reviewed. Insulin, solu-medrol, synthroid, coumadin. GI: No BM reported since admit x 2 D. SKIN: Per [employer], there is a skin tear at his left forearm which was redressed. WT: 86.3 kg, BMI 25.8 kg/m2, UBW: ~110 kg, IBW: 80.9 kg (113% IBW). Wt 6/24: 82.9kg. ~9% wt lossx1 month DIET: NPO x 3 days. ENTERAL FEEDING: Glucerna 1.5 advancing from trophic rate to goal rate 68 mL/hr, which will provide 2244 kcal and 123 g pro (100% estimated needs). While on IVF, fluid flush 40ml q 4 hrs. If IVF stopped, recommend 65ml q 2 hrs to better meet fluid needs. ESTIMATED NEEDS (CANCER, MODERATE MALNUTRITION: Calories: 6280-6716 kcal/day (25-30 kcal/kg BW) Protein: 85-130 g/day (1.0-1.5 g/kg BW) Fluids: ~6478-7903 ml/day (22-25 ml/kg) NUTRITION DIAGNOSIS: 1) Inadequate oral intake related to esophageal cancer, as evidenced by current NPO status, failed barium swallow and need for PEG tube to maintain adequate nutrition - PERSISTS. 2) Moderate pro/kcal malnutrition related to esophageal ca as evidence by chronic dysphagia per ST, 9% wt loss x 1 month, decreased PO intake of less than 75% estimated needs for greater than 1 month and mild muscle/fat loss - PERSISTS. NUTRITION INTERVENTION: 1) There is significant concern for rising LFT's. It might be worthwhile to consider changing enteral formula to Vital 1.5, which consists of peptide-based protein. The calorie content would be the same as Glucerna, with a slight decrease in protein provision, 101 g protein per day, which is still within the appropriate range of protein needs. Discussions will continue with CCU team. MONITOR/EVALUATE: Enteral feeding advance / tolerance, fluid status, GI, labs, ST, wt, POC, nutrition status. Follow per high nutrition risk guidelines.
--- NOTE | 2017-05-24 13:38 | PCM.PNMED ---
Subjective Date of Service May 24, 2017 Subjective Ariel Pina is a 77-year-old male with a medical history significant for end- stage COPD, Interstitial Lung disease, Lung Cancer, esophageal adenocarcinoma, CAD, CHF, and diabetes type II presented with fever, admitted for severe sepsis secondary to hospital-acquired and/or aspiration pneumonia. Currently under treatment for Staph aureus bacteremia and acute on chronic respiratory failure. Overnight: No acute events overnight reported. Today: The patient was back on BPAP this AM. He state he is feeling fine. He denies any cough, fevers, chills, shortness of breath or chest pain or abdominal pain. The remainder of ROS is negative except as noted above. Exam Vital Signs Vital Sign - Last Date Time Temp Pulse Resp B/P Pulse Ox O2 Delivery O2 Flow Rate FiO2 05/24/17 11:56 36.7 89 33 108/56 91 BiPAP 60 05/23/17 08:30 15.00 Intake and Output 05/23/17 05/23/17 05/24/17 Cumulative From/Thru 15:00 23:00 07:00 05/21/17 21:13 - 05/24/17 06:05 Intake Total 1180 ml 1074 ml 9031 ml Output Total 1800 ml 600 ml 4650 ml Balance -620 ml 474 ml 4381 ml Intake Oral 0 ml IV Total 1069 ml 615 ml 8461 ml Tube Feeding 71 ml 139 ml 210 ml Tube Irrigant 40 ml 320 ml 360 ml Output Urine Total 1800 ml 600 ml 4650 ml # Voids 1 # Bowel Movements 0 Exam General: No acute distress, sitting comfortably, appropriately interactive HEENT: Normocephalic, atraumatic. PERRLA, EOMI, Anicteric sclerae Neck: No JVD, No bruits. No lymphadenopathy or thyromegaly. Cardiovascular: Irregularly irregular, no murmur, rub or gallop Pulmonary: Bilateral air sound, significant coarse breath bilaterally R worst than L, no crackles, no wheezes Abdomen: +Bowel sound, Soft, nontender, nondistended. Extremities: No clubbing or cyanosis, no lymphedema, no b/l lower leg edema Skin: Normal temperature, turgor, and texture; no rash. No visualized skin ulcer. port-a-cath Right chest, peg tube Right upper quadrant Psychiatric: normal mood and affect. Poor insight and judgement. IVs and Medications Medications Reviewed: Medications were reviewed in detail Lab and Diagnostics Result Diagram: 05/24/17 0505 05/24/17 0505 X-Rays, CTs and MRIs X-RAY CHEST ONE VIEW, PORTABLE IMPRESSION: Persistent diffuse interstitial and airspace infiltrate bilaterally consistent with pneumonia and/or pulmonary edema. Dictated by: Kaitlin Pena M.D. on 05/21/2017 at 21:37 Abdominal ultrasound performed 05/22/2017 IMPRESSION: 1. Gallbladder appears contracted and there is likely adenomyomatosis involving the gallbladder wall. If indicated limited repeat examination the gallbladder could be performed after the patient has been passing between 8 and 10 hours. Dictated by: Trenton Joshi RRA Interpreted: Petty Chun MD on 05/22/2017 at 11: 53 12-lead ECG Ventricular paced complexes, rate of 87, unspecific IVCD with left axis deviation, [place] 88, QTC 462 Additional Diagnostics DateTimeAnalyzed 23:31:44 -_ pH ____7.473 - 7.350 7.450 pCO2 ___40.6__ -mmHg 35.0 45.0 pO2 ___61.0__ -mmHg 69.0 116 HCO3- ___29.7__ -mmol/L 22.0 26.0 Assessment & Plan Ariel Pina is a 77-year-old male with a medical history significant for end- stage COPD, Interstitial Lung disease, Lung Cancer, esophageal adenocarcinoma, CAD, CHF, and diabetes type II presented with fever, admitted for severe sepsis secondary to hospital-acquired and/.or aspiration pneumonia. Currently under treatment for Staph aureus bacteremia. Hospital day 2. Acute on chronic hypoxic respiratory failure, present on admission, active -CPAP/BPAP as needed. -Etiology includes pneumonia below, COPD exacerbation, worsening interstitial lung disease -Patient is DO NOT INTUBATE -ABG PRN for change in status/O2 demands. Sepsis secondary to MRSA bacteremia and enterococcus UTI, requiring pressor and IVF support, POA. Shock resolved. - Met SIRS criteria with leukocytosis and tachypnea, plus elevated troponins and liver enzymes, ED started pressors - Pneumonia possible contributing as well. UA unrevealing. - Received 3.5L of NS, maintenance fluids discontinued, responded to 500 mL boluses of LR, bolus as needed - NE and Vasopressin as needed for MAP <65 - Infectious disease has been consulted and recommended meropenem and ceftaroline. Ceftaroline should cover enterococcus as well. - Trend Pro-calcitonin daily - TTE not revealing of valvular pathology. Consider PETAR when the patient is more stable. Elevated troponin of uncertain a significant, present on admission, stable - Asymptomatic, no ischemic changes on EKG - Likely demand ischemia - Repeat troponin, start heparin drip if troponin significantly elevated Elevated LFTs, hepatocellular pattern, present on admission, improving -Like due to obstructive hepatopathy due to severe systemic illness Exacerbation of chronic obstructive pulmonary disease, present on admission, active - Solu-Medrol 125 mg q8h, titrate down. Now 125 mg BID. - DuoNeb Q4HWA and additional albuterol ordered when necessary - Pulmonology consulted, appreciate input. Acute on Chronic Interstitial lung disease, present on admission, Active. -Treatment as above for COPD. CPAP and BIPAP Deconditioning, present on admission, active - Discussed PT with ICU team, awaiting Palliative consultation. Chronic A Fib, present on admission, active - Holding Metoprolol the setting of sepsis - Hold warfarin Recurrent ventricular tachycardia and fibrillation with ICD, present on admission, active - Continue his dofetilide. Social/Family Palliative consult Chronic conditions Diabetes type II, stable - Short acting insulin sliding scale - Blood sugar goal 130 to 180 Coronary artery disease, stable - Continue atorvastatin and aspirin Severe protein caloric malnutrition, stable - Dietitian consulted, restart enteric feeding Heart failure with reduced ejection fraction, stable - EF 40-45% based on last echo on 02/10/2017 - hold metoprolol, enalapril - Holding home furosemide and spironolactone in the setting of sepsis GERD - Famotidine 10 mg IV twice a day DVT prophylaxis: Warfarin Patient is a DNR/DNI Dispo: Anticipate patient will be in the ICU for 1-2 more days. GI Prophylaxis: H2 ira VTE Prophylaxis: Theraputic Anticoag with Warfarin VTE Mechanical Devices: Intermittant Pneumatic CD Resuscitation Status: DNR/DNI:Do Not Resuscitate/Intubate Time spent 35 minutes Attending Statement I interviewed and examined the patient on rounds today. I agree with the assessment and plan as stated above. Maki Morataya DO May 24, 2017 13:21 Darci Galdamez MD May 24, 2017 20:16
--- NOTE | 2017-05-24 19:23 | NUR ---
Increase oxygen requirement/Coughing Increased oxygen requirements from 50% per BIPAP to 65%. Patient remained short of breath at rest with labored breathing and tachypnea- MD aware. Oxygen saturation 91-955when resting/sleeping but decreased to low 80s with any repositioning in bed or coughing- MD aware. During one of patients coughing episodes a large parks/brown thick mucoid plug was suctioned out with oral suction catheter together with some more liquid brow recreations. Consulted with attending board saw runner- tube feeding pre PEG tube was discontinued with increased IV rate to 70ml/h for hydration. Patient continued to be a high risk for repeated aspiration. MD ordered labs and chest X-ray for AM. Patient continued to require frequent q20-30 min oral suctioning and continued to have thick dark parks to brown secretions after coughing.
[2017-05-25] VITALS (16 sets, daily range): BP systolic 85–138; BP diastolic 45–78; PULSE 72–89; RESP 16–32; O2SAT 82–92
[2017-05-25] MEDS: Norepineph 8,000 mCg/250 mL NS 8,000 MCG in IV Premix 1 EACH IV SCH ×4 (01:22→23:16)
[2017-05-25] MEDS: Vasopressin Inj 20 UNIT in 0.9% Sodium Chloride 100 ML IV SCH ×3 (03:27→17:50)
[2017-05-25] MEDS: Albuterol 2.5 mg/3 mL Inhalation Solution NEB PRN (03:49)
--- NOTE | 2017-05-25 03:58 | NUR ---
P) Respiratory Pt. alert and oriented, breath sounds decreased bilat., sound wet with rales and crackles scattered throughout, FIO2 has increased from 65% at start of the shift to 80%, SPO2 90-91% if not moving, still drops into the 80's with any movement or coughing, suctioning yellow to del cid colored phlegm from throat. Respiratory rate increasing from upper 20's to mid 30's. Cardiac rhythm afib/V-paced with IVCD and runs of PVC's. I) Consult with RT and hospitalist, meds per 's orders. E) Resting quietly with eyes closed.
[2017-05-25] MEDS ORDERED: Furosemide 10 mg/mL 4 mL Inj IVPUSH ONE ×2 (04:15→05:25)
[2017-05-25 04:55] LABS: BASOPHILS % (AUTO) 0.3 % (0-3); EOSINOPHILS % (AUTO) 0 % (0-5); NEUTROPHILS % (AUTO) 94.9 % (40-74)
[2017-05-25 04:58] LABS: MONOCYTES % (AUTO) 1.2 % (4-12); Mean Corpuscular Hemoglobin 23.8 pg (27.0-35.0); Mean Corpuscular Volume 82.3 fL (81-100)
[2017-05-25 05:00] LABS: Platelet Count 58 bil/L (150-400)
[2017-05-25 05:01] LABS: INR 2.58 ratio
[2017-05-25 05:17] LABS: Magnesium 2.1 mg/dL (1.6-2.6); Phosphorus 3.5 mg/dL (2.5-4.9)
[2017-05-25] MEDS: Insulin LISPRO 300 Unit/3 mL Inj SUBQ SCH ×4 (06:00→20:52)
[2017-05-25] MEDS: Albuterol-Ipratropium 3 mL Inhalation Solution NEB SCH ×4 (07:34→20:39)
[2017-05-25] MEDS: Ceftaroline Inj 600 MG in Dextrose 5% 250 ML IV SCH ×2 (07:51→16:10)
[2017-05-25] MEDS: MethylprednisoLONE Sodium Succinate 62.5 mg/mL 2 mL Inj IVPUSH SCH ×2 (07:51→20:50)
[2017-05-25] MEDS: Famotidine Inj 20 MG in IV Premix 1 EACH IV SCH (07:51)
[2017-05-25] MEDS: Mupirocin 2% 22 Gm Ointment TOPICAL SCH ×2 (07:54→20:52)
--- NOTE | 2017-05-25 07:54 | DRSVH ---
PROCEDURE: X-RAY CHEST ONE VIEW, PORTABLE ([id number]) INDICATIONS: aspiration pneumonitis TECHNIQUE: One view of the chest was acquired. COMPARISON: None. FINDINGS: Surgical changes and devices: The right internal jugular central line is in stable position, pacemak ing device and dual chamber leads, prior sternotomy, probable prior CABG.. Lungs and pleura: No pleural effusions or pneumothorax. Lungs are mildly worsened in overall appear ance, with a generalized pneumonia pattern, with worsening greater on the left than the right.. Mediastinum: Mediastinal contours appear normal. Heart size is normal. Bones and chest wall: No suspicious bony lesions. Overlying soft tissues appear unremarkable. IMPRESSION: Mild interval worsening of the generalized pneumonitis pattern, greater on the left than the right. Dictated by: Chet Hogan M.D. on 05/25/2017 at 7:51 Approved by: Chet Hogan M.D. on 05/25/2017 at 7:53
[2017-05-25] MEDS ORDERED: Vancomycin Dose per Pharmacist XX SCH (09:01)
[2017-05-25] MEDS ORDERED: Vancomycin Inj 1,750 MG in 0.9% Sodium Chloride 500 ML IV ONE (09:05)
[2017-05-25] MEDS: Meropenem Inj 2,000 MG in 0.9% Sodium Chloride 100 ML IV SCH ×2 (09:23→16:09)
[2017-05-25] MEDS ORDERED: Micafungin Inj 150 MG in 0.9% Sodium Chloride 100 ML IV SCH (09:30)
[2017-05-25] MEDS: 0.9% Sodium Chloride 1,000 ML IV SCH (11:54)
[2017-05-25] MEDS ORDERED: 0.9% Sodium Chloride 500 ML IV ONE (12:05)
--- NOTE | 2017-05-25 13:41 | PROG NOTE ---
[address] [address] PROGRESS NOTE PATIENT: ANIA LIM : 1940 MR#: [id number] ADMIT: 05/21/2017 JOB ID: [id number] DATE: 05/25/2017 PROBLEM LIST: 1. Hypoxemic hypercarbic respiratory failure. 2. MRSA bacteremia. 3. Esophageal carcinoma. 4. Adenocarcinoma of the lung. 5. Aspiration pneumonitis. SUBJECTIVE: None. OBJECTIVE: Temperature 36.4. Pulse mid 80s. 100% paced. Respiratory rate low 30s, on BiPAP. Blood pressure 83/51. O2 sat on FiO2 100%. End-expiratory positive airway pressure of 8 is 90% to 91%. I and O shows 2.3 L in, 1.2 L out. General appearance: Agitated, confused. Seems to acknowledge his but makes no cognitive replies. No other replies to other questions such as where is he. Initially would not grasp a pen. Subsequently did grasp a pen but writing was unintelligible. (Writing yesterday was spontaneously initiated and quite illegible.) Eyes: Conjunctivae are pink. Nose and throat could not be examined. Chest: Diminished breath sounds. Essentially absent breath sounds at the right base. Some breath sounds left lower lung field. Crackles throughout the right anterior lung field. Left relatively more clear, though with a few crackles. With BiPAP of 14/8, tidal volume about 600. FiO2 1.0, resulting in a saturation of 90% to 91%. Heart: Regular rhythm. Abdomen soft. A few bowel tones noted. Nondistended. No apparent tenderness. Extremities cool, pink. Bladder scanner reveals no urine in the bladder. Repeated to confirm that finding. LABORATORY DATA: Shows a white count of 6900, with 94 polymorphonuclears, 3 lymphs, 1 monocyte. Hemoglobin stable at 8.6. Platelet count dropping at 58,000. Sodium 146 and stable. Potassium 4.3, chloride 108. CO2 is 26. BUN 66, relatively stable. Maybe starting to rise. Creatinine stable at 0.9. Calcium 8.4 with albumin of 2.2. Phosphorus normal at 3.5. Magnesium normal at 2.1. Total bilirubin 1.6 and rising. AST 295 and stable. ALT 270 and stable. Alkaline phosphatase 285 and rising. Procalcitonin 2.14 and decreasing from a peak of 7.3 48 hours ago. INR 2.58. Serology shows a fungal antibody of 253, with normal being less than 60 pg/mL. ASSESSMENT: 1. Respiratory failure. More confused. Oxygenation not as good as yesterday. When he is somewhat agitated. O2 sats run in the mid 80s. When he settles down, they 90% to 91%. X-ray looks about the same to my eye. Radiology thinks it is maybe slightly worse. 2. Hypertension. Blood pressure falling somewhat. Given that I think he is extremely hypovolemic, we will give him a bit of fluid. Initially we were content as he was getting about 303 mL an hour along with his IV antibiotics. However, with the current drop, will try 500 mL of saline, assess response, and then if ineffective, possibly discuss nor epi with the patient's family. 3. Thrombocytopenia. Likely due to DIC. 4. MRSA bacteremia. Presumably from the port. However, discussed the situation with ID. We have a MRSA bacteremia with a port, an AICD line, as well as a mitral ring, all being foreign bodies. I do not think he is in any shape to have the port taken out. I spoke with IV team. There is no peripheral access to be had. Therefore, will continue using the port for antibiotics hopefully with suppression of the infection. If he makes it through, which I sincerely doubt, will assess the situation at that time. 5. Fungal antibodies. Not sure of the implication of that finding. ID has added micafungin to his regimen along with vancomycin in addition to the meropenem and ceftaroline. Getting broad-spectrum coverage at this point, although the unusual organisms, such as gram negatives, possible fungal infection, as well as the MRSA are all distinct possibilities in this patient. PLAN: 1. Continue current regimen of fluids which currently is giving him 303 mL of saline an hour. That will continue for a total of about a liter. 2. Normal saline, IV bolus 500 mL now. 3. After fluid, if oxygenation worsening, may need to increase EPAP on his BiPAP. Had a long discussion with the family regarding his overall status, his marked worsening over the past 24 hours, as well as the problem with lines. Will continue with utilizing a port as our only IV access point with no other good options available to us. Time spent so far in critical care is 96 minutes.
--- NOTE | 2017-05-25 14:29 | PCM.PNMED ---
Subjective Date of Service May 25, 2017 Subjective Ariel Pina is a 77-year-old male with a medical history significant for end- stage COPD, Interstitial Lung disease, Lung Cancer, esophageal adenocarcinoma, CAD, CHF, and diabetes type II presented with fever, admitted for severe sepsis secondary to hospital-acquired and/or aspiration pneumonia. Currently under treatment for Staph aureus bacteremia and acute on chronic respiratory failure. Overnight: Oxygenation deteriorated and Lasix administered. Today: Continues to have higher oxygen requirements, increased from FiO2 0.55 to1.0. Respiratory rate remains 25-30. He does not report symptoms in detail, but implies breathing is unchanged. He seems mildly encephalopathic but answers questions with limited verbal output. Patient is not able to cooperate with further ROS. Exam Vital Signs Vital Sign - Last Date Time Temp Pulse Resp B/P Pulse Ox O2 Delivery O2 Flow Rate FiO2 05/25/17 11:24 CPAP/BIPAP 05/25/17 11:24 36.4 80 29 97/48 87 100 05/23/17 08:30 15.00 Intake and Output 05/24/17 05/24/17 05/25/17 Cumulative From/Thru 15:00 23:00 07:00 05/21/17 21:13 - 05/25/17 06:31 Intake Total 1310 ml 72898 ml Output Total 600 ml 5250 ml Balance 710 ml 5091 ml Intake Oral 0 ml IV Total 946 ml 9407 ml Tube Feeding 194 ml 404 ml Tube Irrigant 170 ml 530 ml Output Urine Total 600 ml 5250 ml # Voids 5 6 # Bowel Movements 0 Exam General: Cachectic appearing man, BiPAP mask, tachypneic HEENT: sclerae anicteric Neck: no apparent JVD Chest: Diffuse coarse breath sounds, no significant wheeze. Patchy areas of inspiratory crackles. Decreased breath sounds bases Cardiac: S1S2, no clear murmur Abdomen: BS normal, non-tender Extremities: No edema Neuro: Alert but mildly reduced cognitive status, cranial nerves appear to be symmetric, motor strength 4/5 IVs and Medications Medications Reviewed: Medications were reviewed in detail Lab and Diagnostics Result Diagram: 05/25/1741905/25/17419 Microbiology Blood cultures: 05/21/17 21:30 positive for MRSA 05/23/17 09:05 Port-A-Cath culture is positive prior to peripheral bottle which is in GSF X-Rays, CTs and MRIs X-RAY CHEST ONE VIEW, PORTABLE IMPRESSION: Persistent diffuse interstitial and airspace infiltrate bilaterally consistent with pneumonia and/or pulmonary edema. Dictated by: Kaitlin Pena M.D. on 05/21/2017 at 21:37 Abdominal ultrasound performed 05/22/2017 IMPRESSION: 1. Gallbladder appears contracted and there is likely adenomyomatosis involving the gallbladder wall. If indicated limited repeat examination the gallbladder could be performed after the patient has been passing between 8 and 10 hours. Dictated by: Trenton Joshi RRA Interpreted: Petty Chun MD on 05/22/2017 at 11: 53 12-lead ECG Ventricular paced complexes, rate of 87, unspecific IVCD with left axis deviation, [place] 88, QTC 462 Additional Diagnostics DateTimeAnalyzed 23:31:44 -_ pH ____7.473 - 7.350 7.450 pCO2 ___40.6__ -mmHg 35.0 45.0 pO2 ___61.0__ -mmHg 69.0 116 HCO3- ___29.7__ -mmol/L 22.0 26.0 Assessment & Plan Ariel Pina is a 77-year-old male with a medical history significant for end- stage COPD, Interstitial Lung disease, Lung Cancer, esophageal adenocarcinoma, CAD, CHF, and diabetes type II presented with fever, admitted for severe sepsis secondary to hospital-acquired and/.or aspiration pneumonia. Currently under treatment for Staph aureus bacteremia. Hospital day 2. Acute on chronic hypoxic respiratory failure, present on admission, active -CPAP/BPAP as needed; currently on maximum FiO2. -Etiology includes pneumonia below, COPD exacerbation, worsening interstitial lung disease -He received furosemide on 05/25/17 without clear benefit -Patient is DO NOT INTUBATE -ABG PRN for change in status/O2 demands. Sepsis secondary to MRSA bacteremia and enterococcus UTI, requiring pressor and IVF support, POA. Shock resolved. Port-A-Cath appears to be infected. - Met SIRS criteria with leukocytosis and tachypnea, plus elevated troponins and liver enzymes, ED started pressors - Pneumonia possible contributing as well. UA unrevealing. - Received 3.5L of NS, maintenance fluids discontinued, responded to 500 mL boluses of LR, bolus as needed - NE and Vasopressin as needed for MAP <65 - Infectious disease has been consulted and recommended meropenem and ceftaroline. Ceftaroline should cover enterococcus as well. - Trend Pro-calcitonin daily - TTE not revealing of valvular pathology. Consider PETAR when the patient is more stable. Intravascular access and venous catheter-related infection. Left SVC Port-A- Cath is infected. - Patient's current respiratory status will not tolerate procedure to remove Port-A-Cath. - Limited vascular access for any temporary peripheral IV -Since left CVC has cardiac pacemaker wire it is unclear how his Port-A-Cath access could be revised - We will treat through infected portacatheter present and consider options. Elevated troponin of uncertain a significant, present on admission, stable - Asymptomatic, no ischemic changes on EKG - Likely demand ischemia - Repeat troponin, start heparin drip if troponin significantly elevated Elevated LFTs, hepatocellular pattern, present on admission, improving -Like due to obstructive hepatopathy due to severe systemic illness Exacerbation of chronic obstructive pulmonary disease, present on admission, active - Solu-Medrol 125 mg q8h, titrate down. Now 125 mg BID. - DuoNeb Q4HWA and additional albuterol ordered when necessary - Pulmonology consulted, appreciate input. Acute on Chronic Interstitial lung disease, present on admission, Active. -Treatment as above for COPD. CPAP and BIPAP Deconditioning, present on admission, active - Discussed PT with ICU team, awaiting Palliative consultation. Chronic A Fib, present on admission, active - Holding Metoprolol the setting of sepsis - Hold warfarin Recurrent ventricular tachycardia and fibrillation with ICD, present on admission, active - Continue his dofetilide. Social/Family Palliative consult Chronic conditions Diabetes type II, stable - Short acting insulin sliding scale - Blood sugar goal 130 to 180 Coronary artery disease, stable - Continue atorvastatin and aspirin Severe protein caloric malnutrition, stable - Dietitian consulted, restart enteric feeding Heart failure with reduced ejection fraction, stable - EF 40-45% based on last echo on 02/10/2017 - hold metoprolol, enalapril - Holding home furosemide and spironolactone in the setting of sepsis GERD - Famotidine 10 mg IV twice a day DVT prophylaxis: Warfarin Patient is a DNR/DNI Dispo: Anticipate patient will be in the ICU for 1-2 more days. GI Prophylaxis: H2 ira VTE Prophylaxis: Theraputic Anticoag with Warfarin VTE Mechanical Devices: Intermittant Pneumatic CD Resuscitation Status: DNR/DNI:Do Not Resuscitate/Intubate Time spent 45 min Darci Galdamez MD May 25, 2017 14:20
--- NOTE | 2017-05-25 16:22 | NUR ---
Social Work Note: Continued Discharge Planning Data& Assessment: Per MD in morning rounds, pt prognosis is poor at this time. SW met with pt family at bedside to check in and assess for any unmet needs. SW ensured SW phone number written on pt whiteboard. Pt family denies any needs at this time. SW to continue to follow for medical progression and MD orders. Plan: SW to continue to follow for prognosis and medical progression. Pt family denies any needs at this time. SW to continue to follow for pt needs and MD orders. IFEOMA Marie
--- NOTE | 2017-05-25 16:24 | NUR ---
MARA Signed IFEOMA Marie
--- NOTE | 2017-05-25 19:19 | NUR ---
Note Gradual decline in respiratory status with patient requiring 100% FIO2 and able to maintain oxygen saturation only between 82-86%- MD aware. Course lungs sounds throughout lung basis with cores rhonchi. Progressively increased confusion and agitation at times this morning but patient appeared to calm down with only occasional outbursts of disorientation and agitation this afternoon. Patient was easily calm down with soft taking /reorientation. Low BP- progressively declining during the shift- consulted with MD patient was given 500ml NS fluid bolus with not improvement in BP. Patient was started on levophed drip. Initially patient started to respond with improved BP but after a period of time patient required higher doses of levophed IV. Consulted with MD and vasopressin drip at 0.03 units/min was added to infusions- see CCU flow sheet for vital and drip titrations. Blood culture drawn from patients owen -cath on 05/23/17 was positive for "GRAM POSITIVE COCCI ?STAPH." This information was related to patients family by attending physicians this morning. Unable to obtain any additional IV access continue IV infusion through existing owen-cath. Patient urinated only once earlier today 75ml of dark ace urine with creatinine at 0.93 per todays morning labs and after received an IV Lasix 80mg dose at 0526 today given by physician RN. No additional urine output throughout the shift. Patient was bladder scanned periodically during the shift but no urine was registering- bladder was empty. A second different bladder scanner was used to confirm the results and no urine was registering MD aware- no new orders were received. Organ donation line was called - patient was excluded form organ donation based no his diagnosis of having metastatic cancer. Report was given to the receiving RN to call with cardiac time of when occurs. Patient's and one of his daughters remained in a room through most of the shift and very involved in decision making regarding patients care. Attending leather flesher and attending hospitalist both consulted with patients family regarding his care, his progress and realistic outcomes. Patient remained as DNR/DNI but with continuing, BIPAP, IV antibiotic and other IV medications as well as CCU care as previously.
[2017-05-25] MEDS ORDERED: Vancomycin Inj 750 MG in 0.9% Sodium Chloride 250 ML IV SCH (22:30)
[2017-05-26] MEDS: Ceftaroline Inj 600 MG in Dextrose 5% 250 ML IV SCH (00:25)
[2017-05-26] MEDS: Meropenem Inj 2,000 MG in 0.9% Sodium Chloride 100 ML IV SCH (00:27)
[2017-05-26 00:30] VITALS: BP 95/47; PULSE 76; RESP 16; O2SAT 82
[2017-05-26 00:31] VITALS: BP 96/45; RESP 17; O2SAT 81
[2017-05-26] MEDS: Norepineph 8,000 mCg/250 mL NS 8,000 MCG in IV Premix 1 EACH IV SCH ×2 (01:00→02:35)
--- NOTE | 2017-05-26 05:40 | NUR ---
cardiac/respiratory/: Pt continued through out the night to have decreasing B/P with levophed being titrated up. Pt was very sluggish to respond remains on Bipap at 100% Fio2 with sat decreasing as the night went on with spo2 70-80s. pt had not voided and bladder scanner was not able to give a reading white cath was inserted with approx 50mls out. Between 0245 and 0300 pt sats dropped into low 70s and high 60s. Dr. Gomez was here and talks with pt's about treatment options and decision was made to place pt on comfort care. while Dr. Gomez was talking with pt cardiac arrested IVs were stopped and Bipap was removed. life care was informed of time of . Pt was pronounced at 0322 on 05/26/2017. took glasses home. was given list of homes and will call nursing supervisor wire rope fabrication later today with decision of which home to use. was given hospital number and instructed to call nursing supervisor wire rope fabrication.
[2017-05-27] MEDS ORDERED: Vancomycin Serum Trough XX ONE (10:00)
--- NOTE | 2017-05-27 14:22 | PCM.DC.MEX ---
Discharge Summary Date of Service May 27, 2017 Dates of Hospitalization Date of Hospital Admission May 21, 2017 at 23:22 Date of Expiration: May 26, 2017 Time of Expiration: 03:22 Providers: Admitting Physician: Eber Quinn MD Primary Care Physician: Asha Garcia MD Attending Physician: Eber Quinn MD Diagnosis at Time of Acute on chronic hypoxic respiratory failure, present on admission, active Sepsis secondary to MRSA bacteremia and enterococcus UTI, requiring pressor and IVF support, POA. Shock resolved. Port-A-Cath appears to be infected. Intravascular access and venous catheter-related infection. Left SVC Port-A- Cath is infected. Elevated troponin of uncertain a significant, present on admission, stable Elevated LFTs, hepatocellular pattern, present on admission, improving Exacerbation of chronic obstructive pulmonary disease, present on admission, active Acute on Chronic Interstitial lung disease, present on admission, Active. 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 Dictated by: Kaitlin Pena M.D. on 05/21/2017 at 21:37 Abdominal ultrasound performed 05/22/2017 IMPRESSION: 1. Gallbladder appears contracted and there is likely adenomyomatosis involving the gallbladder wall. If indicated limited repeat examination the gallbladder could be performed after the patient has been passing between 8 and 10 hours. Dictated by: Trenton Joshi RRA Interpreted: Petty Chun MD on 05/22/2017 at 11: 53 ECG 12 Lead Ventricular paced complexes, rate of 87, unspecific IVCD with left axis deviation, [place] 88, QTC 462 Other Diagnostics DateTimeAnalyzed 23:31:44 -_ pH ____7.473 - 7.350 7.450 pCO2 ___40.6__ -mmHg 35.0 45.0 pO2 ___61.0__ -mmHg 69.0 116 HCO3- ___29.7__ -mmol/L 22.[address] Chinchilla's H and P: "Patient is a 77-year-old male with a medical history significant for end-stage COPD, esophageal adenocarcinoma, CAD, CHF, and diabetes type II presented with fever. Per patient's , patient started having fever and increasing respiratory distress last night, thus activated EMS. Patient was was admitted to [facility] 2 days ago for continue physical therapy as patient is significantly deconditioned. Patient is NPO due to risk of aspiration per speech therapy based upon most recent barium swallow evaluation. Patient received nutrition via PEG tube. Patient was recently discharged on 05/17/2017 after a 12 day stay for acute hypoxic respiratory failure and also acute heart failure. Prior to coming here, patient denies any chills, abdominal pain, n/v/d. No dysurea. Nor does he has any exertional dyspne, CP. Denies any active chest pain. In the ED, patient was SIRS positive, septic shock. Pt was given 2L NS, BIPAP, and noripenepherin drip prior to admission into ICU." Hospital Course Ariel Pina is a 77-year-old male with a medical history significant for end- stage COPD, Interstitial Lung disease, Lung Cancer, esophageal adenocarcinoma, CAD, CHF, and diabetes type II presented with fever, admitted for severe sepsis secondary to hospital-acquired and/.or aspiration pneumonia. Currently under treatment for Staph aureus bacteremia. Per nursing documentation: "Pt continued through out the night to have decreasing B/P with levophed being titrated up. Pt was very sluggish to respond remains on Bipap at 100% Fio2 with sat decreasing as the night went on with spo2 70-80s. pt had not voided and bladder scanner was not able to give a reading white cath was inserted with approx 50mls out. Between 0245 and 0300 pt sats dropped into low 70s and high 60s. Dr. Gomez was here and talks with pt's about treatment options and decision was made to place pt on comfort care. while Dr. Gomez was talking with pt cardiac arrested IVs were stopped and Bipap was removed. life care was informed of time of . Pt was pronounced at 0322 on 05/26/2017. took glasses home. was given list of homes and will call nursing supervisor coremaker later today with decision of which home to use. was given hospital number and instructed to call nursing supervisor coremaker." Acute on chronic hypoxic respiratory failure, present on admission, active -CPAP/BPAP as needed; currently on maximum FiO2. -Etiology includes pneumonia below, COPD exacerbation, worsening interstitial lung disease -He received furosemide on 05/25/17 without clear benefit -Patient is DO NOT INTUBATE Sepsis secondary to MRSA bacteremia and enterococcus UTI, requiring pressor and IVF support, POA. Shock resolved. Port-A-Cath appears to be infected. - Met SIRS criteria with leukocytosis and tachypnea, plus elevated troponins and liver enzymes, ED started pressors - NE and Vasopressin as needed for MAP <65 - Infectious disease has been consulted and recommended meropenem and ceftaroline. - TTE not revealing of valvular pathology. Considered PETAR if the patient became more stable. Intravascular access and venous catheter-related infection. Left SVC Port-A- Cath infected. - Patient's respiratory status would not tolerate procedure to remove Port-A- Cath. - Limited vascular access for any temporary peripheral IV - Since left CVC has cardiac pacemaker wire it was unclear how his Port-A-Cath access could be revised Elevated troponin of uncertain a significant, present on admission, stable - Asymptomatic, no ischemic changes on EKG. Likely demand ischemia Elevated LFTs, hepatocellular pattern, present on admission, improving -Like due to obstructive hepatopathy due to severe systemic illness Exacerbation of chronic obstructive pulmonary disease, present on admission, active - Solu-Medrol IV 125 mg BID. - DuoNeb Q4HWA and additional albuterol ordered when necessary - Pulmonology consulted, appreciate input. Acute on Chronic Interstitial lung disease, present on admission, Active. -Treatment as above for COPD. 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 Social/Family Palliative consult Chronic conditions Diabetes type II, stable - Short acting insulin sliding scale. Blood sugar goal 130 to 180 Coronary artery disease, stable - Continued atorvastatin and aspirin Severe protein caloric malnutrition, stable - Dietitian consulted, restarted enteric feeding Heart failure with reduced ejection fraction, stable - EF 40-45% based on last echo on 02/10/2017. Held metoprolol, enalapril, furosemide and spironolactone in the setting of sepsis GERD - Famotidine 10 mg IV twice a day DVT prophylaxis: Warfarin Patient is a DNR/DNI Exam Test 05/21/17 21:20 05/21/17 22:20 05/22/17 00:55 05/22/17 02:10 Total Creatine Kinase 26U/L (21-232) Creatine Kinase MB 2.2ng/mL (0.0-10.4) Creatine Kinase MB % % (0.0-5.0) Prealbumin 19mg/dL (20-40) Hold Purple Top Tube Received (Received) Hold Blue Top Tube Received (Received) Hold Red Top Tube Received (Received) Hold [place] Top Tube Received (Received) Urine Color Yellow (YELLOW) Urine Appearance Clear (CLEAR,HAZY) Urine pH 6.5 (5.0-8.0) Urine Specific [place] 1.010 (1.003-1.035) Urine Protein Tracemg/dL (NEG,TRACE) Urine Glucose (UA) Negativemg/dL (NEGATIVE) Urine Ketones Negativemg/dL (NEGATIVE) Urine Occult Blood Negative (NEGATIVE) Urine Nitrite Negative (NEGATIVE) Urine Bilirubin Negative (NEGATIVE) Urine Urobilinogen Normalmg/dL (NORMAL) Urine Leukocyte Esterase Trace (NEGATIVE) Urine RBC 0-2/hpf (0-2) Urine WBC 6-10/hpf (0-5) Urine Epithelial Cells Occasional/hpf (NONE-MOD) Urine Crystals None seen (NONE SEEN) Urine Bacteria Few/hpf (NONE-FEW) Urine Hyaline Casts None/lpf (NONE) Urine Granular Casts None seen (NONE SEEN) Urine Waxy Casts None seen (NONE SEEN) Urine Red Blood Cell Casts None seen (NONE SEEN) Urine White Blood Cell Casts None seen (NONE SEEN) Urine Mucus None seen (None Seen) Urine Trichomonas None seen (NONE SEEN) Urine Yeast None (NONE SEEN) Urinalysis Comment None Urine Culture Reflexed Indicated Urine Legionella pneumophilia Ag Negative (Negative) Band Neutrophils % 18% (1-5) Lipase 25U/L (13-60) Test 05/22/17 08:45 05/23/17 04:25 05/23/17 06:58 05/25/17 04:20 Fungal Antibodies 253pg/mL (<80) Lactic Acid Level 1.2mmol/L (0.4-2.0) Troponin T 0.032ug/L (0.0-0.011) Hematology Comments Rbc Hold [place] Top Tube Received (Received) White Blood Count 6.9th/mm3 (3.8-10.1) Red Blood Count 3.61mil/mm3 (4.40-5.80) Hemoglobin 8.6g/dL (13.8-17.2) Hematocrit 29.7% (41.0-50.0) Mean Corpuscular Volume 82.3fL (81-100) Mean Corpuscular Hemoglobin 23.8pg (27.0-35.0) Mean Corpuscular Hemoglobin Concent 29.0% (32.0-37.0) Red Cell Distribution Width 19.3% (12.3-15.4) Platelet Count 58bil/L (150-400) Neutrophils (%) (Auto) 94.9% (40-74) Lymphocytes (%) (Auto) 3.2% (14-46) Monocytes (%) (Auto) 1.2% (4-12) Eosinophils (%) (Auto) 0% (0-5) Basophils (%) (Auto) 0.3% (0-3) Prothrombin Time 28.1sec (8.1-12.5) Prothromb Time International Ratio 2.58ratio Sodium Level 146mEq/L (134-144) Potassium Level 4.3mEq/L (3.5-5.2) Chloride Level 108mEq/L (97-108) Carbon Dioxide Level 26mmol/L (18-29) Blood Urea Nitrogen 66mg/dL (8-27) Creatinine 0.93mg/dL (0.76-1.27) Estimat Glomerular Filtration Rate 84mL/min (>59) Glucose Level 178mg/dL (60-99) Calcium Level 8.4mg/dL (8.5-10.1) Phosphorus Level 3.5mg/dL (2.5-4.9) Magnesium Level 2.1mg/dL (1.6-2.6) Total Bilirubin 1.6mg/dL (0.0-1.2) Aspartate Amino Transf (AST/SGOT) 295U/L (0-50) Alanine Aminotransferase (ALT/SGPT) 270U/L (0-44) Alkaline Phosphatase 285U/L (25-160) Total Protein 5.1g/dL (6.4-8.4) Albumin 2.2g/dL (3.4-5.0) Procalcitonin 2.14ng/mL (0.00-0.08) Microbiology Results Blood cultures: 05/21/17 21:30 positive for MRSA 05/23/17 09:05 Port-A-Cath culture is positive prior to peripheral bottle which is in GSF Time spent 30 min Attending Statement Patient seen with house staff. Agree with all attached documentation. Maki Morataya DO May 27, 2017 14:22 Eber Quinn MD May 27, 2017 16:44
== END 2017-05-26 03:22 | disposition expired | DRG 314 ==
LOC: EDBD 21:07 → SED 21:07 → PCC 23:22 → CCU 05-22 01:16
PROVIDERS: ADMIT Hospitalist; ATTEND Internal Medicine
PROC: 4A033R1 Measurement of Arterial Saturation, Peripheral, Percutaneous Approach (ICD-10-PCS; principal; 2017-05-21)
DX: T80.211A Bloodstream infection due to central venous catheter, initial encounter (principal); J18.9 Pneumonia, unspecified organism; R65.21 Severe sepsis with septic shock; E43 Unspecified severe protein-calorie malnutrition; J96.21 Acute and chronic respiratory failure with hypoxia; A41.02 Sepsis due to Methicillin resistant Staphylococcus aureus; J44.1 Chronic obstructive pulmonary disease with (acute) exacerbation; I24.8 Other forms of acute ischemic heart disease; I50.22 Chronic systolic (congestive) heart failure; J44.0 Chronic obstructive pulmonary disease with (acute) lower respiratory infection; N39.0 Urinary tract infection, site not specified; C34.90 Malignant neoplasm of unspecified part of unspecified bronchus or lung; C15.9 Malignant neoplasm of esophagus, unspecified; N18.3 Chronic kidney disease, stage 3 (moderate); I25.10 Atherosclerotic heart disease of native coronary artery without angina pectoris; E11.9 Type 2 diabetes mellitus without complications; E78.5 Hyperlipidemia, unspecified; Z95.0 Presence of cardiac pacemaker; I48.2 Chronic atrial fibrillation; K21.9 Gastro-esophageal reflux disease without esophagitis; Z87.891 Personal history of nicotine dependence; Z51.5 Encounter for palliative care; I12.9 Hypertensive chronic kidney disease with stage 1 through stage 4 chronic kidney disease, or unspecified chronic kidney disease; B95.2 Enterococcus as the cause of diseases classified elsewhere